=== PATIENT | female | born 1985 | race Caucasian/White ===

== ENCOUNTER 2020-03-12 17:05 | Outpatient (REF) | payer OTHER, SELFPAY ==
[2020-03-14 18:15] LABS: Rubella IgG Antibody 4.16 index; Rubeola IgG (Measles) >300.00 AU/mL
[2020-03-16 08:39] LABS: ~Hepatitis B Surface Antibody REACTIVE (Nonreactive)
== END 2020-03-12 17:06 | disposition home or self-care (01) ==
LOC: HO.LAB 17:05
PROVIDERS: Nurse Practitioner Family; PCP Internal Medicine; Visit Provider Internal Medicine
DX: Z28.3 Underimmunization status (principal)
CPT/HCPCS: 86706; 86735; 86762; 86765; 86787

== ENCOUNTER 2020-03-17 09:40 | Outpatient (REF) | payer OTHER, SELFPAY | END 2020-03-17 09:41 | disposition home or self-care (01) | LOC: HO.HMGCLDS 09:40 | PROVIDERS: PCP Internal Medicine; Visit Provider Nurse Practitioner Family | DX: Z30.09 Encounter for other general counseling and advice on contraception (principal); Z28.3 Underimmunization status | CPT/HCPCS: 86481; 87071; 99213 ==

== ENCOUNTER → 2020-05-13 11:51 | Outpatient (BNVA) | payer OTHER, SELFPAY | PROVIDERS: PCP Internal Medicine; Referring Provider Internal Medicine; Visit Provider Advanced Practice Midwife | DX: Z76.89 Persons encountering health services in other specified circumstances (principal) ==

== ENCOUNTER → 2020-05-27 10:11 | Outpatient (BNVA) | payer OTHER, SELFPAY | PROVIDERS: PCP Internal Medicine; Visit Provider Obstetrics & Gynecology | DX: Z30.017 Encounter for initial prescription of implantable subdermal contraceptive (principal); F17.210 Nicotine dependence, cigarettes, uncomplicated | CPT/HCPCS: 11981; 81025; 99212 ==

== ENCOUNTER 2020-08-27 11:35 | Outpatient (REF) | payer OTHER, SELFPAY ==
--- NOTE | ~2020-08-27 | XR_ITS ---
EXAMINATION: XR HAND, RIGHT CLINICAL INFORMATION: Right hand pain COMPARISON: None TECHNIQUE: 3 views of the right hand of the right hand. FINDINGS: There is no evidence of acute fracture or dislocation of the right hand or wrist. No destructive bony lesions identified. No radiopaque foreign bodies. No significant soft tissue swelling is appreciated. Joint spaces are maintained. XR/XR hand RT min 3V IMPRESSION: No significant right hand abnormality appreciated.
[2020-08-27 13:55] LABS: MANUAL DIFF FLAG NO
[2020-08-27 14:01] LABS: Basophils Percent Auto 0.4 % (0-2); Eosinophils Absolute Auto 0.1 X10*3/uL (0.0-0.4); Eosinophils Percent Auto 1.8 % (0-4); Hematocrit 40.2 % (37-47); Hemoglobin 12.8 g/dl (12.0-16.0); Imm Gran Abs Auto 0.02 X10*3/uL (0.00-0.03); Imm Gran Pct Auto 0.3 % (0.0-0.4); Lymphocytes Absolute Auto 2.2 X10*3/uL (1.2-4.9); Lymphocytes Percent Auto 29.5 % (20-40); Mean Corpuscular HGB Conc 31.8 g/dl (31.0-35.0); Mean Corpuscular Hemoglobin 30.6 pg (27.0-33.0); Mean Corpuscular Volume 96.2 fL (80-98); Mean Platelet Volume 10.1 fL (9.4-12.3); Monocytes Absolute Auto 0.4 X10*3/uL (0.1-1.2); Monocytes Percent Auto 5.3 % (2-11); Neutrophils Absolute Auto 4.6 X10*3/uL (2.0-8.3); Neutrophils Percent Auto 62.7 % (45-73); Platelet Count 234 X10*3/uL (160-400); Red Blood Count 4.18 X10*6/uL (4.20-5.50); Red Cell Distribution Width 12.5 % (11.0-16.0); White Blood Count 7.4 X10*3/uL (4.8-10.8)
[2020-08-27 14:27] LABS: C Reactive Protein 6.67 mg/dL (< or = 0.50)
[2020-08-27 15:01] LABS: Erythrocyte Sedimentation Rate 16 MM/HR (0-20)
[2020-08-28 04:59] LABS: ~HepC Num1 0.28 S/CO (0.00-0.79); ~Hepatitis C Antibody Nonreactive (Nonreactive)
[2020-08-28 10:07] LABS: Lyme Abs Screen <0.90 index
== END 2020-08-27 11:36 | disposition home or self-care (01) ==
LOC: HO.HMGCX 11:35
PROVIDERS: PCP Internal Medicine; Visit Provider Hospitalist
DX: M79.641 Pain in right hand (principal); M25.50 Pain in unspecified joint
CPT/HCPCS: 36415; 73130; 85025; 85652; 86140; 86618; 86803

== ENCOUNTER 2020-11-05 12:54 | Outpatient (REF) | payer OTHER, SELFPAY ==
--- NOTE | ~2020-11-05 | XR_ITS ---
EXAMINATION: XR ANKLE, LEFT CLINICAL INFORMATION: Left ankle pain. COMPARISON: None TECHNIQUE: AP, lateral, and mortise views of the left ankle. FINDINGS: The ankle joint and mortise are intact. There is no acute fracture or dislocation. The joint spaces are unremarkable. There is mild soft tissue swelling. XR/XR ankle LT min 3V IMPRESSION: Mild soft tissue swelling without acute underlying osseous abnormality.
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
== END 2020-11-05 12:55 | disposition home or self-care (01) ==
LOC: HO.HMGCX 12:54
PROVIDERS: PCP Internal Medicine; Visit Provider Hospitalist
DX: M25.572 Pain in left ankle and joints of left foot (principal); M25.562 Pain in left knee
CPT/HCPCS: 73564; 73610

== ENCOUNTER 2020-11-23 07:54 | Outpatient (REF) | payer OTHER, SELFPAY ==
--- NOTE | ~2020-11-23 | XR_ITS ---
EXAMINATION: XR KNEE, LEFT CLINICAL INFORMATION: Pain COMPARISON: Previous x-ray 11/05/2020 TECHNIQUE: Two views of the left knee. FINDINGS: Bone alignment is normal. No fracture or dislocation is seen. The joint spaces are normal. There is no joint effusion. XR/XR knee LT 2V IMPRESSION: Normal left knee.
== END 2020-11-23 07:55 | disposition home or self-care (01) ==
LOC: HO.HOSX 07:54
PROVIDERS: Visit Provider Physician Assistant
DX: M25.562 Pain in left knee (principal); S83.8X2A Sprain of other specified parts of left knee, initial encounter
CPT/HCPCS: 20610; 73560; 99202; J1040

== ENCOUNTER → 2020-12-14 13:06 | Outpatient (BNVA) | payer OTHER, SELFPAY | PROVIDERS: Visit Provider Physician Assistant | DX: S83.8X2D Sprain of other specified parts of left knee, subsequent encounter (principal) | CPT/HCPCS: 99212 ==

== ENCOUNTER → 2021-01-18 12:40 | Outpatient (BNVA) | payer OTHER, SELFPAY | PROVIDERS: Visit Provider Physician Assistant | DX: S83.8X2D Sprain of other specified parts of left knee, subsequent encounter (principal) | CPT/HCPCS: 99212 ==

== ENCOUNTER 2021-01-19 21:13 | Emergency (ER) | payer OTHER, SELFPAY ==
--- NOTE | ~2021-01-19 | XR_ITS ---
EXAMINATION: XR FINGER, LEFT CLINICAL INFORMATION: Middle finger bit COMPARISON: None TECHNIQUE: Three views of the left long finger. FINDINGS: The bones and soft tissues are normal. No fracture. Alignment is anatomic. Joint spaces are maintained. XR/XR finger LT min 2V IMPRESSION: Normal finger radiographs.
[2021-01-19 21:36] VITALS: BP 110/72; PULSE 114; RESP 18; TEMP 36.4; O2SAT 95; BMI 21.6
[2021-01-19] MEDS: Diphth,Pertus(ACell),Tet Adult 0.5 ML SYRINGE IM (22:03)
[2021-01-19] MEDS: metroNIDAZOLE 500 MG TABLET PO (22:03)
--- NOTE | 2021-01-19 22:06 | PC.NURSE ---
pt is having a hand xray at bedside at this time.
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
[2021-01-19 22:49] VITALS: BP 107/69; PULSE 103; RESP 16; O2SAT 95
== END 2021-01-19 22:54 | disposition home or self-care (01) ==
PROVIDERS: Emergency Provider Emergency Medicine; PCP Internal Medicine
DX: S61.253A Open bite of left middle finger without damage to nail, initial encounter (principal); Y04.1XXA Assault by human bite, initial encounter; M79.645 Pain in left finger(s); F17.210 Nicotine dependence, cigarettes, uncomplicated; Y93.9 Activity, unspecified; Y92.039 Unspecified place in apartment as the place of occurrence of the external cause; Y99.9 Unspecified external cause status
CPT/HCPCS: 73140; 90471; 90715; 99283; 99284

== ENCOUNTER 2021-02-02 15:42 | Outpatient (REF) | payer OTHER, SELFPAY ==
[2021-02-02 16:44] LABS: MANUAL DIFF FLAG NO
[2021-02-02 16:48] LABS: Basophils Percent Auto 0.3 % (0-2); Eosinophils Absolute Auto 0.1 X10*3/uL (0.0-0.4); Hematocrit 41.2 % (37-47); Hemoglobin 13.4 g/dl (12.0-16.0); Imm Gran Abs Auto 0.03 X10*3/uL (0.00-0.03); Imm Gran Pct Auto 0.2 % (0.0-0.4); Lymphocytes Percent Auto 24.2 % (20-40); Mean Corpuscular HGB Conc 32.5 g/dl (31.0-35.0); Mean Corpuscular Hemoglobin 31.5 pg (27.0-33.0); Mean Corpuscular Volume 96.7 fL (80-98); Mean Platelet Volume 9.8 fL (9.4-12.3); Monocytes Absolute Auto 0.4 X10*3/uL (0.1-1.2); Monocytes Percent Auto 3.3 % (2-11); Neutrophils Absolute Auto 8.8 X10*3/uL (2.0-8.3); Platelet Count 266 X10*3/uL (160-400); Red Blood Count 4.26 X10*6/uL (4.20-5.50); Red Cell Distribution Width 12.3 % (11.0-16.0); White Blood Count 12.4 X10*3/uL (4.8-10.8)
== END 2021-02-02 15:43 | disposition home or self-care (01) ==
LOC: HO.LAB 15:42
PROVIDERS: PCP Internal Medicine; Visit Provider Internal Medicine Pulmonary Disease
DX: Z91.09 Other allergy status, other than to drugs and biological substances (principal)
CPT/HCPCS: 36415; 82785; 85025; 86003; 99202

== ENCOUNTER 2021-02-04 15:19 | Outpatient (REF) | payer OTHER, SELFPAY ==
--- NOTE | ~2021-02-04 | MR_ITS ---
EXAMINATION: MR KNEE WITHOUT CONTRAST, LEFT CLINICAL INFORMATION: Left medial knee pain with popping. COMPARISON: None TECHNIQUE: MRI of the knee without contrast was performed using routine sequences on a high-field scanner. FINDINGS: MENISCI: Medial Meniscus: Intact Lateral Meniscus: Intact LIGAMENTS: Cruciate: Intact Collateral: Intact EXTENSOR MECHANISM: Intact ARTICULAR CARTILAGE/BONE: Patchy foci of intermediate T1 and T2 signal within the marrow of the distal femur and proximal tibia is likely due to small foci of hematopoietic marrow. No suspicious lesions. No abnormal marrow signal intensity. Patellofemoral Compartment: Normal Medial Compartment: Normal Lateral Compartment: Normal JOINT FLUID AND BURSAE: Trace volume of fluid is within normal limits. No effusion or bursitis. No Akhtar's cyst. A small 1.4 cm multilocular synovial cyst is present at the origin of the lateral head of the gastrocnemius. MR/MR knee LT wo con IMPRESSION: Intact menisci. Unremarkable MRI of the knee. No appreciable internal derangement.
== END 2021-02-04 15:20 | disposition home or self-care (01) ==
LOC: HO.MRI 15:19
PROVIDERS: PCP Internal Medicine; Visit Provider Physician Assistant
DX: S83.8X2A Sprain of other specified parts of left knee, initial encounter (principal)
CPT/HCPCS: 73721

== ENCOUNTER → 2021-02-09 13:45 | Outpatient (BNVA) | payer OTHER, SELFPAY | PROVIDERS: PCP Internal Medicine; Visit Provider Physician Assistant | DX: S83.8X2D Sprain of other specified parts of left knee, subsequent encounter (principal) | CPT/HCPCS: 99212 ==

== ENCOUNTER 2021-02-10 13:59 | Outpatient (REF) | payer OTHER, SELFPAY ==
--- NOTE | 2021-02-10 14:59 | PFT_ITS ---
INDICATION: Asthma. SPIROMETRY: The FEV1 to FVC 77% with an FEV1 of 2.38 L, which is 74% predicted, FVC of 3.11 L, which is 80% predicted. The FPP64-76 down to 57% predicted and maximum voluntary ventilation 97% predicted. LUNG VOLUMES: Total lung capacity 89% predicted. DIFFUSION CAPACITY: DLCO 68% predicted. COMPARISONS: None. INTERPRETATION: No obstructive nor restrictive ventilatory defects identified. There is a significant response to bronchodilators noted. There is also evidence of small airway disease, which may be consistent with the diagnosis of asthma. Lung volumes are within normal limits and the patient does have a mild diffusion impairment. If asthma is in differential, then the methacholine challenge may be confirmatory study. Clinical correlation warranted. MD HAYDEE Vera/MODBernarda / [id number]
== END 2021-02-10 14:00 | disposition home or self-care (01) ==
LOC: HO.RESP 13:59
PROVIDERS: PCP Internal Medicine; Visit Provider Internal Medicine Pulmonary Disease
DX: J45.998 Other asthma (principal)
CPT/HCPCS: 94060; 94727; 94729

== ENCOUNTER → 2021-02-24 15:05 | Outpatient (BNVA) | payer OTHER, SELFPAY | PROVIDERS: PCP Internal Medicine; Visit Provider Internal Medicine Pulmonary Disease | DX: J45.998 Other asthma (principal); Z91.09 Other allergy status, other than to drugs and biological substances | CPT/HCPCS: 99212 ==

== ENCOUNTER 2021-04-07 10:40 | Outpatient (REF) | payer OTHER, SELFPAY ==
[2021-04-08 05:56] LABS: CT PCR NOT DETECTED (Not Detect.); NG PCR NOT DETECTED (Not Detect.)
[2021-04-10 11:11] LABS: HPV mRNA E6/E7 rflx Not Detected (Not Detected)
== END 2021-04-07 10:41 | disposition home or self-care (01) ==
LOC: HO.LAB 10:40
PROVIDERS: PCP Internal Medicine; Visit Provider Advanced Practice Midwife
DX: Z01.419 Encounter for gynecological examination (general) (routine) without abnormal findings (principal); Z11.51 Encounter for screening for human papillomavirus (HPV); Z11.3 Encounter for screening for infections with a predominantly sexual mode of transmission; Z20.2 Contact with and (suspected) exposure to infections with a predominantly sexual mode of transmission; Z72.0 Tobacco use
CPT/HCPCS: 87491; 87591; 87624; 88142

== ENCOUNTER 2021-04-20 09:50 | Outpatient (REF) | payer OTHER, SELFPAY ==
[2021-04-20 12:27] LABS: Alanine Aminotransferase 17 U/L (0-31); Alkaline Phosphatase 110 U/L (39-117); Anion Gap 12 (12-20); Aspartate Amino Transferase 18 U/L (5-31); Bilirubin Total 0.3 mg/dL (0.0-1.0); Blood Urea Nitrogen 6 mg/dL (9-16); Calcium 8.9 mg/dL (8.4-10.2); Carbon Dioxide 27 mmol/L (22-29); Chloride 103 mmol/L (96-108); Estimated Glomerular Filt Rate > 60; Glucose Random 103 mg/dL (60-115); Potassium 4.2 mmol/L (3.3-5.1); Sodium 138 mmol/L (135-145); Total Protein 6.8 g/dL (6.5-8.0)
[2021-04-22 08:31] LABS: Immunoglobulin E 1522 kU/L (<OR=114)
== END 2021-04-20 09:51 | disposition home or self-care (01) ==
LOC: HO.HMGCLDS 09:50
PROVIDERS: Internal Medicine Pulmonary Disease; PCP Internal Medicine; Visit Provider Internal Medicine
DX: G47.9 Sleep disorder, unspecified (principal); J45.998 Other asthma; Z72.0 Tobacco use; Z91.09 Other allergy status, other than to drugs and biological substances
CPT/HCPCS: 36415; 80053; 82785

== ENCOUNTER 2021-06-30 14:09 | Outpatient (REF) | payer OTHER, SELFPAY ==
--- NOTE | ~2021-06-30 | XR_ITS ---
EXAMINATION: XR FOOT, RIGHT CLINICAL INFORMATION: Pain in right ankle and foot COMPARISON: None TECHNIQUE: AP, lateral, and oblique views of the right foot. FINDINGS: There is a nondisplaced fracture seen involving the base of the fifth metatarsal. There is associated soft tissue swelling seen. No dislocation is evident. Joint spaces are maintained. XR/XR foot RT min 3V IMPRESSION: Nondisplaced fracture base of the fifth metatarsal.
== END 2021-06-30 14:10 | disposition home or self-care (01) ==
LOC: HO.HMGCX 14:09
PROVIDERS: PCP Internal Medicine; Visit Provider Physician Assistant
DX: M25.571 Pain in right ankle and joints of right foot (principal)
CPT/HCPCS: 73630

== ENCOUNTER → 2021-07-12 10:27 | Outpatient (BNVA) | payer OTHER, SELFPAY | PROVIDERS: PCP Internal Medicine; Visit Provider Physician Assistant | DX: S92.354A Nondisplaced fracture of fifth metatarsal bone, right foot, initial encounter for closed fracture (principal) | CPT/HCPCS: 99202 ==

== ENCOUNTER → 2021-07-22 09:41 | Outpatient (BNVA) | payer OTHER, SELFPAY | PROVIDERS: PCP Internal Medicine; Visit Provider Internal Medicine Pulmonary Disease | DX: R06.2 Wheezing (principal); U09.9 Post COVID-19 condition, unspecified; J45.50 Severe persistent asthma, uncomplicated; Z79.899 Other long term (current) drug therapy | CPT/HCPCS: 99212 ==

== ENCOUNTER → 2021-08-19 09:40 | Outpatient (BNVA) | payer OTHER, SELFPAY | PROVIDERS: PCP Internal Medicine; Visit Provider Internal Medicine Pulmonary Disease | DX: J45.50 Severe persistent asthma, uncomplicated (principal); Z91.09 Other allergy status, other than to drugs and biological substances | CPT/HCPCS: 99212 ==

== ENCOUNTER 2021-08-25 07:50 | Outpatient (REF) | payer OTHER, SELFPAY ==
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
== END 2021-08-25 07:51 | disposition home or self-care (01) ==
LOC: HO.HOSX 07:50
PROVIDERS: Visit Provider Physician Assistant
DX: S92.354D Nondisplaced fracture of fifth metatarsal bone, right foot, subsequent encounter for fracture with routine healing (principal)
CPT/HCPCS: 73630; 99212

== ENCOUNTER 2021-10-15 08:13 | Outpatient (REF) | payer OTHER, SELFPAY | END 2021-10-15 08:14 | disposition home or self-care (01) | LOC: HO.MDS 08:13 | PROVIDERS: Visit Provider Internal Medicine Pulmonary Disease | DX: J45.50 Severe persistent asthma, uncomplicated (principal) | CPT/HCPCS: 96372 ==

== ENCOUNTER 2021-10-29 10:16 | Outpatient (REF) | payer OTHER, SELFPAY | END 2021-10-29 10:17 | disposition home or self-care (01) | LOC: HO.MDS 10:16 | PROVIDERS: Visit Provider Internal Medicine Pulmonary Disease | DX: J45.50 Severe persistent asthma, uncomplicated (principal) | CPT/HCPCS: 96372; J2357 ==

== ENCOUNTER 2021-11-12 12:53 | Outpatient (REF) | payer OTHER, SELFPAY | END 2021-11-12 12:54 | disposition home or self-care (01) | LOC: HO.MDS 12:53 | PROVIDERS: Visit Provider Internal Medicine Pulmonary Disease | DX: J45.50 Severe persistent asthma, uncomplicated (principal) | CPT/HCPCS: 96372; J2357 ==

== ENCOUNTER 2021-11-26 10:22 | Outpatient (REF) | payer OTHER, SELFPAY | END 2021-11-26 10:23 | disposition home or self-care (01) | LOC: HO.MDS 10:22 | PROVIDERS: Visit Provider Internal Medicine Pulmonary Disease | DX: J45.50 Severe persistent asthma, uncomplicated (principal) | CPT/HCPCS: 96372; J2357 ==

== ENCOUNTER 2021-12-10 15:42 | Outpatient (REF) | payer OTHER, SELFPAY | END 2021-12-10 15:43 | disposition home or self-care (01) | LOC: HO.MDS 15:42 | PROVIDERS: PCP Internal Medicine; Visit Provider Internal Medicine Pulmonary Disease | DX: J45.50 Severe persistent asthma, uncomplicated (principal) | CPT/HCPCS: 96372; J2357 ==

== ENCOUNTER 2021-12-24 10:14 | Outpatient (REF) | payer OTHER, SELFPAY | END 2021-12-24 10:15 | disposition home or self-care (01) | LOC: HO.MDS 10:14 | PROVIDERS: Visit Provider Internal Medicine Pulmonary Disease | DX: J45.50 Severe persistent asthma, uncomplicated (principal) | CPT/HCPCS: 96372; J2357 ==

== ENCOUNTER 2021-12-28 15:26 | Emergency (ER) | payer OTHER, SELFPAY | END 2021-12-28 19:33 | disposition left against medical advice (07) | PROVIDERS: Emergency Provider Emergency Medicine; PCP Internal Medicine | DX: Z04.1 Encounter for examination and observation following transport accident (principal) ==

== ENCOUNTER 2022-01-07 11:53 | Outpatient (REF) | payer OTHER, SELFPAY | END 2022-01-07 11:54 | disposition home or self-care (01) | LOC: HO.MDS 11:53 | PROVIDERS: Visit Provider Internal Medicine Pulmonary Disease | DX: J45.50 Severe persistent asthma, uncomplicated (principal) | CPT/HCPCS: 96372; J2357 ==

== ENCOUNTER 2022-01-21 10:21 | Outpatient (REF) | payer OTHER, SELFPAY | END 2022-01-21 10:22 | disposition home or self-care (01) | LOC: HO.MDS 10:21 | PROVIDERS: Visit Provider Internal Medicine Pulmonary Disease | DX: J45.50 Severe persistent asthma, uncomplicated (principal) | CPT/HCPCS: 96372; J2357 ==

== ENCOUNTER 2022-01-21 12:51 | Outpatient (REF) | payer OTHER, SELFPAY ==
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
== END 2022-01-21 12:52 | disposition home or self-care (01) ==
LOC: HO.HMGCX 12:51
PROVIDERS: PCP Internal Medicine; Visit Provider Internal Medicine
DX: M54.50 Low back pain, unspecified (principal); V89.0XXD Person injured in unspecified motor-vehicle accident, nontraffic, subsequent encounter
CPT/HCPCS: 72100

== ENCOUNTER 2022-02-04 10:52 | Outpatient (REF) | payer OTHER, SELFPAY | END 2022-02-04 10:53 | disposition home or self-care (01) | LOC: HO.MDS 10:52 | PROVIDERS: PCP Internal Medicine; Visit Provider Internal Medicine Pulmonary Disease | DX: J45.50 Severe persistent asthma, uncomplicated (principal) | CPT/HCPCS: 96372; J2357 ==

== ENCOUNTER 2022-02-18 11:00 | Outpatient (REF) | payer OTHER, SELFPAY | END 2022-02-18 11:01 | disposition home or self-care (01) | LOC: HO.MDS 11:00 | PROVIDERS: Visit Provider Internal Medicine Pulmonary Disease | DX: J45.51 Severe persistent asthma with (acute) exacerbation (principal); F17.210 Nicotine dependence, cigarettes, uncomplicated; Z91.09 Other allergy status, other than to drugs and biological substances; Z86.16 Personal history of COVID-19 | CPT/HCPCS: 96372; 99212; J2357 ==

== ENCOUNTER 2022-02-22 09:51 | Outpatient (REF) | payer OTHER, SELFPAY ==
[2022-02-22 11:51] LABS: MANUAL DIFF FLAG NO
[2022-02-22 12:09] LABS: Basophils Percent Auto 0.6 % (0-2); Eosinophils Absolute Auto 0.1 X10*3/uL (0.0-0.4); Eosinophils Percent Auto 1.1 % (0-4); Hematocrit 41.7 % (37.0-47.0); Hemoglobin 13.5 g/dl (12.0-16.0); Imm Gran Abs Auto 0.04 X10*3/uL (0.00-0.03); Imm Gran Pct Auto 0.6 % (0.0-0.4); Lymphocytes Absolute Auto 1.7 X10*3/uL (1.2-4.9); Lymphocytes Percent Auto 23.7 % (20-40); Mean Corpuscular HGB Conc 32.4 g/dl (31.0-35.0); Mean Corpuscular Hemoglobin 31.8 pg (27.0-33.0); Mean Corpuscular Volume 98.1 fL (80.0-98.0); Mean Platelet Volume 9.5 fL (9.4-12.3); Monocytes Absolute Auto 0.2 X10*3/uL (0.1-1.2); Monocytes Percent Auto 2.9 % (2-11); Neutrophils Percent Auto 71.1 % (45-73); Platelet Count 263 X10*3/uL (160-400); Red Blood Count 4.25 X10*6/uL (4.20-5.50)
[2022-02-22 12:32] LABS: Alanine Aminotransferase 13 U/L (0-31); Albumin Level 3.8 g/dL (3.5-5.0); Alkaline Phosphatase 85 U/L (39-117); Anion Gap 14 (12-20); Aspartate Amino Transferase 12 U/L (5-31); Bilirubin Total 0.3 mg/dL (0.0-1.0); Blood Urea Nitrogen 15 mg/dL (9-16); Carbon Dioxide 25 mmol/L (22-29); Chloride 104 mmol/L (96-108); Estimated Glomerular Filt Rate > 60; Glucose Random 120 mg/dL (60-115); Potassium 4.6 mmol/L (3.3-5.1); Sodium 138 mmol/L (135-145); Total Protein 6.7 g/dL (6.5-8.0)
[2022-02-22 12:39] LABS: TSH reflex Free T4 1.83 uIU/mL (0.32-4.0)
== END 2022-02-22 09:52 | disposition home or self-care (01) ==
LOC: HO.HMGCLDS 09:51
PROVIDERS: PCP Internal Medicine; Visit Provider Internal Medicine
DX: J45.50 Severe persistent asthma, uncomplicated (principal); G47.9 Sleep disorder, unspecified; F33.9 Major depressive disorder, recurrent, unspecified; R14.0 Abdominal distension (gaseous); Z72.0 Tobacco use
CPT/HCPCS: 36415; 80053; 84443; 85025

== ENCOUNTER 2022-03-04 12:06 | Outpatient (REF) | payer OTHER, SELFPAY | END 2022-03-04 12:07 | disposition home or self-care (01) | LOC: HO.MDS 12:06 | PROVIDERS: Visit Provider Internal Medicine Pulmonary Disease | DX: J45.50 Severe persistent asthma, uncomplicated (principal) | CPT/HCPCS: 96372; J2357 ==

== ENCOUNTER 2022-03-11 09:51 | Outpatient (REF) | payer OTHER, SELFPAY ==
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
== END 2022-03-11 09:52 | disposition home or self-care (01) ==
LOC: HO.HMGCX 09:51
PROVIDERS: PCP Internal Medicine; Visit Provider Internal Medicine
DX: R14.0 Abdominal distension (gaseous) (principal)
CPT/HCPCS: 76700

== ENCOUNTER 2022-03-18 12:19 | Outpatient (REF) | payer OTHER, SELFPAY | END 2022-03-18 12:20 | disposition home or self-care (01) | LOC: HO.MDS 12:19 | PROVIDERS: Visit Provider Internal Medicine Pulmonary Disease | DX: J45.50 Severe persistent asthma, uncomplicated (principal) | CPT/HCPCS: 96372; J2357 ==

== ENCOUNTER 2022-04-01 09:58 | Outpatient (REF) | payer OTHER, SELFPAY ==
[2022-04-01 10:16] LABS: MANUAL DIFF FLAG NO
[2022-04-01 10:32] LABS: Basophils Percent Auto 0.5 % (0-2); Eosinophils Absolute Auto 0.2 X10*3/uL (0.0-0.4); Eosinophils Percent Auto 1.9 % (0-4); Hemoglobin 13.9 g/dl (12.0-16.0); Imm Gran Abs Auto 0.03 X10*3/uL (0.00-0.03); Imm Gran Pct Auto 0.3 % (0.0-0.4); Lymphocytes Absolute Auto 1.7 X10*3/uL (1.2-4.9); Lymphocytes Percent Auto 19.7 % (20-40); Mean Corpuscular HGB Conc 32.3 g/dl (31.0-35.0); Mean Corpuscular Hemoglobin 31.2 pg (27.0-33.0); Mean Corpuscular Volume 96.6 fL (80.0-98.0); Mean Platelet Volume 9.2 fL (9.4-12.3); Monocytes Absolute Auto 0.5 X10*3/uL (0.1-1.2); Monocytes Percent Auto 5.6 % (2-11); Neutrophils Absolute Auto 6.2 x10*3/uL (2.0-8.3); Platelet Count 268 X10*3/uL (160-400); Red Blood Count 4.45 X10*6/uL (4.20-5.50); White Blood Count 8.6 X10*3/uL (4.8-10.8)
[2022-04-01 11:04] LABS: Alanine Aminotransferase 12 U/L (0-31); Albumin Level 3.9 g/dL (3.5-5.0); Alkaline Phosphatase 96 U/L (39-117); Anion Gap 15 (12-20); Aspartate Amino Transferase 16 U/L (5-31); Bilirubin Total 0.3 mg/dL (0.0-1.0); Blood Urea Nitrogen 8 mg/dL (9-16); Calcium 9.4 mg/dL (8.4-10.2); Carbon Dioxide 28 mmol/L (22-29); Chloride 103 mmol/L (96-108); Estimated Glomerular Filt Rate > 60; Glucose Random 114 mg/dL (60-115); Potassium 4.8 mmol/L (3.3-5.1); Sodium 141 mmol/L (135-145)
== END 2022-04-01 09:59 | disposition home or self-care (01) ==
LOC: HO.MDS 09:58
PROVIDERS: Absent Provider Surgery; PCP Internal Medicine; Visit Provider Internal Medicine Pulmonary Disease
DX: J45.50 Severe persistent asthma, uncomplicated (principal); K80.20 Calculus of gallbladder without cholecystitis without obstruction; K80.50 Calculus of bile duct without cholangitis or cholecystitis without obstruction; R14.0 Abdominal distension (gaseous); Z72.0 Tobacco use
CPT/HCPCS: 36415; 74181; 80053; 85025; 96372; 99202; 99212; J2357

== ENCOUNTER 2022-04-01 11:56 | Outpatient (REF) | payer OTHER, SELFPAY ==
--- NOTE | ~2022-04-01 | MR_ITS ---
EXAMINATION: MR ABDOMEN WITHOUT CONTRAST CLINICAL INFORMATION: Calculus of bile duct without cholangitis or cholecystitis COMPARISON: Ultrasound 03/11/2022 TECHNIQUE: MR abdomen is performed without gadolinium contrast. Heavily T2-weighted MRCP images were obtained. FINDINGS: LUNG BASES: The visualized lung bases are unremarkable. LIVER, GALLBLADDER, AND BILIARY TREE: The liver is normal in size, smooth in contour, and normal in signal. No focal hepatic lesion or biliary ductal dilatation is present. Gallstone is filled with innumerable tiny gallstones. No intrahepatic or extrahepatic biliary ductal dilatation. The common bile duct measures 4 to 5 mm in diameter. No choledocholithiasis seen. PANCREAS: Unremarkable. SPLEEN: Unremarkable. ADRENAL GLANDS: Unremarkable. KIDNEYS AND URETERS: The kidneys are normal in size and shape. No hydronephrosis. No perinephric stranding. GASTROINTESTINAL TRACT: No bowel obstruction. No ascites or fluid collection. ABDOMINAL WALL: No significant hernia is appreciated. LYMPH NODES: No lymphadenopathy. VASCULAR: Unremarkable. OSSEOUS STRUCTURES: Marrow signal normal. MR/MR MRCP IMPRESSION: Cholelithiasis. No biliary ductal dilatation or evidence of choledocholithiasis.
== END 2022-04-01 11:57 | disposition home or self-care (01) ==
LOC: HO.MRI 11:56
PROVIDERS: PCP Internal Medicine; Visit Provider Surgery
DX: Z13.89 Encounter for screening for other disorder (principal)
CPT/HCPCS: 74181; 99212

== ENCOUNTER → 2022-04-08 11:15 | Outpatient (BNVA) | payer OTHER, SELFPAY | PROVIDERS: PCP Internal Medicine; Visit Provider Surgery | DX: K80.44 Calculus of bile duct with chronic cholecystitis without obstruction (principal); K80.20 Calculus of gallbladder without cholecystitis without obstruction; R14.0 Abdominal distension (gaseous); J45.909 Unspecified asthma, uncomplicated; Z72.0 Tobacco use | CPT/HCPCS: 99212 ==

== ENCOUNTER 2022-04-15 11:59 | Outpatient (REF) | payer OTHER, SELFPAY | END 2022-04-15 12:00 | disposition home or self-care (01) | LOC: HO.MDS 11:59 | PROVIDERS: Visit Provider Internal Medicine Pulmonary Disease | DX: J45.50 Severe persistent asthma, uncomplicated (principal) | CPT/HCPCS: 96372; J2357 ==

== ENCOUNTER → 2022-05-03 10:52 | Outpatient (BNVA) | payer OTHER, SELFPAY | PROVIDERS: PCP Internal Medicine; Visit Provider Internal Medicine Pulmonary Disease | DX: Z01.811 Encounter for preprocedural respiratory examination (principal); J45.50 Severe persistent asthma, uncomplicated; Z91.09 Other allergy status, other than to drugs and biological substances | CPT/HCPCS: 99212 ==

== ENCOUNTER 2022-05-05 10:28 | Day surgery (SDC) | payer OTHER, SELFPAY ==
[2022-04-27 15:21] VITALS: BMI 24.6
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
[2022-05-05] VITALS (10 sets, daily range): BP systolic 93–115; BP diastolic 54–69; PULSE 75–84; RESP 16–18; TEMP 36.3–37; O2SAT 94–96; BMI 25.9
[2022-05-05 11:02] LABS: UPreg QC Valid YES; Urine Pregnancy NEGATIVE (NEGATIVE)
--- NOTE | 2022-05-05 11:06 | PC.NURSE ---
called for a resp treatment
[2022-05-05] MEDS: Albuterol Sulfate (0.083%) 2.5 MG/3 ML VIAL.NEB INHALE (11:08)
[2022-05-05 11:10] LABS: Amphetamine Screen Urine Not Detected (Not Detect); Barbiturates, Urine Not Detected (Not Detect); Benzodiazepines Screen Urine Not Detected (Not Detect); Cannabinoid Screen Urine Not Detected (Not Detect); Cocaine Screen Urine Not Detected (Not Detect); Fentanyl, urine Not Detected (Not Detect); Opiate Screen Urine Not Detected (Not Detect); Phencyclidine Screen Urine Not Detected (Not Detect)
--- NOTE | 2022-05-05 11:10 | PC.NURSE ---
receiving resp treatment
[2022-05-05] MEDS: Lactated Ringers 1,000 ML 100 ML IVCONT (11:21)
--- NOTE | 2022-05-05 12:25 | MHC.SHP ---
Pre-Procedural Eval Section A Date of Service: 05/05/22 The patient is an INPATIENT: No The History & Physical has been completed within 30 days and I have reviewed it.: Yes Section B Chief Complaint: Calculus of gallbladder without cholecystitis with Allergies: Allergies Allergy/AdvReac Type Severity Reaction Status Date / Time ciprofloxacin [CIPROFLOXACIN] Allergy Severe ANAPHYLAXIS Verified 05/03/22 11:14 penicillin V Allergy Severe throat Verified 05/03/22 11:14 swelling, hives amoxicillin [AMOXICILLIN] Allergy Unknown SWELLING Verified 05/03/22 11:14 sulfadiazine Allergy Unknown hives Verified 05/03/22 11:14 Plan I have reviewed the history and physical and performed a pertinent physical examination on my patient. No changes have occurred unless specified.
--- NOTE | 2022-05-05 12:25 | W.PM.OPN ---
Operative Note Operative Note Date of Service: 05/05/22 Narrative: Preop diagnosis: [Gallstones and choledocholithiasis by ultrasound with abdominal bloating] Postop diagnosis: [Same, COHEN] Procedure: [lap latoya] Surgeon: Bryson Wiseman MD Assist: [] Anesthesia: [GET, local Marcaine 0.5% w/ epi] Estimated blood loss: [3cc] Specimen: [Gallbladder and content] Intraoperative findings: [Fusiform gallbladder with 4 mm cystic duct and stone impacted in the neck; 3-4 mm cystic artery and its usual location, COHEN] Indications: [The patient is a 37-year-old woman who is been experiencing abdominal bloating and in her workup was demonstrated to have gallstones on ultrasound. In addition, a 3 mm common bile duct stone was identified so an MRCP was performed that did not demonstrate any debris and the common duct or evidence of further stones. Given her symptoms, I recommended laparoscopic cholecystectomy in reviewed the inherent risks of bleeding, infection, need for open surgery, ongoing pain, bile leak, common bile duct injury. Activity restrictions were also reviewed as well as dietary restrictions. The patient seemed understand her options, declined a 2nd opinion] Procedure: [The patient was identified by myself in the preoperative holding area and again in the operating suite. 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 She was placed supine on the table, induced in general endotracheal anesthesia administered with excellent effect. An appropriate time-out was performed. A footboard was utilized. The patient's abdomen was widely prepped and draped in the usual manner for surgery using chlorhexidine. Preemptive local was used at all trocar insertion sites. Again at the supraumbilical location and after infiltrating local, made a stab incision and placed a Veress needle without difficulty. An appropriate drop test was performed and a pneumoperitoneum of 15 mmHg was obtained using carbon dioxide. opening pressure was 6 mmHg. Next, the needle was withdrawn and a 5 mm/30 degree laparoscoped over Optiview trocar was used to access the abdomen without incident. Upon examining the abdomen, there was no evidence of injury from the Veress needle or trocar. Next, 5 mm trocars were placed in the epigastric, subcostal and right anterior axillary line just above the line of the umbilicus. Under direct laparoscopic vision, the 5 mm umbilical port was upsized to a 12 mm. The patient was then positioned in reverse Trendelenburg position and banked left. The gallbladder was clearly identified and grasped by its fundus. It was retracted cranially and anteriorly and dissection began in the cystic triangle. The cystic duct was identified at its junction on the gallbladder and dissection began laterally, then circumferentially dissected using the [place] dissector and hook. The cystic artery was then carefully identified and circumferentially dissected. Once dissection of both structures was complete and the critical view of safety demonstrated, the duct and artery were double clipped proximally and once distally and sharply divided. Electrocautery was used to remove the gallbladder from its fossa on the liver. Liver bed was inspected for hemostasis and the clips were noted to be on the respective structures. The gallbladder was placed in an Endo-Catch bag and delivered through the umbilicus under direct laparoscopic vision. The abdomen was again inspected with the laparoscoped and a abdomen deflated to assess for hemostasis. The patient was returned to neutral position, the abdomen deflated and the fascia of the supraumbilical incision closed with interrupted Vicryl sutures. Skin was closed with 4-0 Monocryl subcuticular sutures. Mastisol and Steri-Strips were applied followed by Band-Aids. The patient tolerated the procedure well and was extubated recovered in stable condition. All sponge instrument counts were correct. At the patient's request I called the pt's mom at [phone] and apprised her of the operation and post-op plan. Her questions seemed to be satisfactorily answered.]
[2022-05-05] MEDS: oxyCODONE HCl Immed Release 5 MG TABLET 10 MG PO (15:12)
[2022-05-05] MEDS: Ketorolac Tromethamine 30 MG/ML VIAL IVPUSH (15:13)
== END 2022-05-05 16:06 | disposition home or self-care (01) ==
PROVIDERS: Nurse Practitioner; PCP Internal Medicine; Visit Provider Surgery
PROC: 0FT44ZZ Resection of Gallbladder, Percutaneous Endoscopic Approach (ICD-10-PCS; CPT 47562; principal; 2022-05-05 12:00)
DX: K80.64 Calculus of gallbladder and bile duct with chronic cholecystitis without obstruction (principal); K75.81 Nonalcoholic steatohepatitis (NASH); J45.50 Severe persistent asthma, uncomplicated; F11.20 Opioid dependence, uncomplicated; F17.210 Nicotine dependence, cigarettes, uncomplicated; Z79.52 Long term (current) use of systemic steroids; Z79.899 Other long term (current) drug therapy; Z88.0 Allergy status to penicillin; Z88.1 Allergy status to other antibiotic agents; Z88.2 Allergy status to sulfonamides
CPT/HCPCS: 47562; 80307; 81025; 88304; 94640; J0131; J1100; J1885; J2250; J3010

== ENCOUNTER 2022-07-01 14:46 | Outpatient (REF) | payer OTHER, SELFPAY | END 2022-07-01 14:47 | disposition home or self-care (01) | LOC: HO.MDS 14:46 | PROVIDERS: PCP Internal Medicine; Visit Provider Internal Medicine Pulmonary Disease | DX: J45.50 Severe persistent asthma, uncomplicated (principal) | CPT/HCPCS: 96372; J2357 ==

== ENCOUNTER 2022-07-20 14:59 | Outpatient (REF) | payer OTHER, SELFPAY ==
--- NOTE | ~2022-07-20 | XR_ITS ---
EXAMINATION: XR FOOT, RIGHT CLINICAL INFORMATION: Right foot pain. COMPARISON: Right foot radiographs dated 08/25/2021. TECHNIQUE: AP, lateral, and oblique views of the right foot. An indicator arrow points to the tarsal bones laterally. FINDINGS: Has been interval healing of the previously seen fracture at the base of the fifth metatarsal. No acute fracture or dislocation is seen. The tarsal bones are normally aligned. The soft tissues are unremarkable. XR/XR foot RT 2V IMPRESSION: Interval healing of previously seen fracture at the base of the fifth metatarsal. No acute abnormality.
--- NOTE | ~2022-07-20 | XR_ITS ---
EXAMINATION: XR FINGER, RIGHT CLINICAL INFORMATION: Pain COMPARISON: 08/27/2020 TECHNIQUE: Three views of the right index finger. FINDINGS: Corresponding to patient indicated site of pain is dense calcification adjacent to the second DIP joint which may reflect an old fracture or dystrophic calcifications within the soft tissue. No definite acute fracture. XR/XR finger RT min 2V IMPRESSION: Corresponding to patient indicated site of pain is dense calcification adjacent to the second DIP joint which may reflect an old fracture or dystrophic calcifications within the soft tissue. Underlying ligamentous injury cannot be excluded. Consider MRI for further evaluation.
== END 2022-07-20 15:00 | disposition home or self-care (01) ==
LOC: HO.HMGCX 14:59
PROVIDERS: Visit Provider Internal Medicine
DX: M79.671 Pain in right foot (principal); M79.644 Pain in right finger(s)
CPT/HCPCS: 73140; 73620

== ENCOUNTER 2022-07-22 10:22 | Outpatient (REF) | payer OTHER, SELFPAY | END 2022-07-22 10:23 | disposition home or self-care (01) | LOC: HO.MDS 10:22 | PROVIDERS: Visit Provider Internal Medicine Pulmonary Disease | DX: J45.50 Severe persistent asthma, uncomplicated (principal) | CPT/HCPCS: 96372; J2357 ==

== ENCOUNTER 2022-08-05 10:44 | Outpatient (REF) | payer OTHER, SELFPAY | END 2022-08-05 10:45 | disposition home or self-care (01) | LOC: HO.MDS 10:44 | PROVIDERS: Visit Provider Internal Medicine Pulmonary Disease | DX: J45.50 Severe persistent asthma, uncomplicated (principal) | CPT/HCPCS: 96372; J2357 ==

== ENCOUNTER 2022-08-19 14:17 | Outpatient (REF) | payer OTHER, SELFPAY | END 2022-08-19 14:18 | disposition home or self-care (01) | LOC: HO.MDS 14:17 | PROVIDERS: Visit Provider Internal Medicine Pulmonary Disease | DX: J45.50 Severe persistent asthma, uncomplicated (principal) | CPT/HCPCS: 96372; J2357 ==

== ENCOUNTER 2022-09-02 12:08 | Outpatient (REF) | payer OTHER, SELFPAY | END 2022-09-02 12:09 | disposition home or self-care (01) | LOC: HO.MDS 12:08 | PROVIDERS: Visit Provider Internal Medicine Pulmonary Disease | DX: J45.50 Severe persistent asthma, uncomplicated (principal) | CPT/HCPCS: 96372; 99212; J2357 ==

== ENCOUNTER 2022-09-23 09:52 | Outpatient (REF) | payer OTHER, SELFPAY ==
[2022-09-23 14:16] LABS: CT PCR NOT DETECTED (Not Detect.); NG PCR NOT DETECTED (Not Detect.)
[2022-09-29 04:44] LABS: HPV mRNA E6/E7 rflx Not Detected (Not Detected)
== END 2022-09-23 09:53 | disposition home or self-care (01) ==
LOC: HO.LNP 09:52
PROVIDERS: PCP Internal Medicine; Visit Provider Advanced Practice Midwife
DX: Z01.419 Encounter for gynecological examination (general) (routine) without abnormal findings (principal); Z11.51 Encounter for screening for human papillomavirus (HPV); J45.50 Severe persistent asthma, uncomplicated
CPT/HCPCS: 0353U; 87624; 88142; 99211

== ENCOUNTER 2022-10-14 11:26 | Outpatient (REF) | payer OTHER, SELFPAY ==
[2022-10-14 13:48] LABS: MANUAL DIFF FLAG NO
[2022-10-14 14:03] LABS: Basophils Percent Auto 0.4 % (0-2); Eosinophils Absolute Auto 0.1 X10*3/uL (0.0-0.4); Eosinophils Percent Auto 2.1 % (0-4); Hematocrit 43.2 % (37.0-47.0); Hemoglobin 14.3 g/dl (12.0-16.0); Imm Gran Abs Auto 0.02 X10*3/uL (0.00-0.03); Imm Gran Pct Auto 0.3 % (0.0-0.4); Lymphocytes Absolute Auto 2.3 X10*3/uL (1.2-4.9); Lymphocytes Percent Auto 34.5 % (20-40); Mean Corpuscular HGB Conc 33.1 g/dl (31.0-35.0); Mean Corpuscular Volume 96.6 fL (80.0-98.0); Monocytes Absolute Auto 0.5 X10*3/uL (0.1-1.2); Monocytes Percent Auto 6.7 % (2-11); Neutrophils Absolute Auto 3.7 x10*3/uL (2.0-8.3); Platelet Count 297 X10*3/uL (160-400); Red Blood Count 4.47 X10*6/uL (4.20-5.50); White Blood Count 6.7 X10*3/uL (4.8-10.8)
[2022-10-14 14:22] LABS: Alanine Aminotransferase 13 U/L (0-31); Albumin Level 3.8 g/dL (3.5-5.0); Alkaline Phosphatase 88 U/L (39-117); Anion Gap 9 (12-20); Aspartate Amino Transferase 15 U/L (5-31); Bilirubin Total 0.5 mg/dL (0.0-1.0); Blood Urea Nitrogen 6 mg/dL (9-16); Calcium 9.5 mg/dL (8.4-10.2); Carbon Dioxide 31 mmol/L (22-29); Chloride 105 mmol/L (96-108); Estimated Glomerular Filt Rate > 60; Glucose Random 100 mg/dL (60-115); Potassium 4.6 mmol/L (3.3-5.1); Sodium 140 mmol/L (135-145); Total Protein 6.9 g/dL (6.5-8.0)
[2022-10-14 14:41] LABS: TSH reflex Free T4 2.79 uIU/mL (0.32-4.0)
[2022-10-16 04:14] LABS: LDL Cholesterol Direct 185 mg/dL (<100)
== END 2022-10-14 11:27 | disposition home or self-care (01) ==
LOC: HO.HMGCLDS 11:26
PROVIDERS: PCP Internal Medicine; Visit Provider Internal Medicine
DX: Z00.01 Encounter for general adult medical examination with abnormal findings (principal); F33.9 Major depressive disorder, recurrent, unspecified; J45.50 Severe persistent asthma, uncomplicated; S92.351A Displaced fracture of fifth metatarsal bone, right foot, initial encounter for closed fracture
CPT/HCPCS: 36415; 80053; 83721; 84443; 85025; 99212

== ENCOUNTER 2022-10-14 11:56 | Outpatient (REF) | payer OTHER, SELFPAY ==
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
== END 2022-10-14 11:57 | disposition home or self-care (01) ==
LOC: HO.HOSX 11:56
PROVIDERS: Visit Provider Physician Assistant
DX: S92.351A Displaced fracture of fifth metatarsal bone, right foot, initial encounter for closed fracture (principal); X58.XXXA Exposure to other specified factors, initial encounter; Y93.9 Activity, unspecified; Y92.9 Unspecified place or not applicable; Y99.9 Unspecified external cause status
CPT/HCPCS: 73130

== ENCOUNTER → 2022-10-24 12:28 | Outpatient (BNVA) | payer OTHER, SELFPAY | PROVIDERS: PCP Internal Medicine; Visit Provider Obstetrics & Gynecology | DX: Z30.09 Encounter for other general counseling and advice on contraception (principal) | CPT/HCPCS: 99202 ==

== ENCOUNTER → 2022-11-04 14:01 | Outpatient (BNVA) | payer OTHER, SELFPAY | PROVIDERS: PCP Internal Medicine; Visit Provider Nurse Practitioner Family | DX: J45.50 Severe persistent asthma, uncomplicated (principal); Z91.09 Other allergy status, other than to drugs and biological substances | CPT/HCPCS: 99212 ==

== ENCOUNTER → 2022-11-09 12:36 | Outpatient (BNVA) | payer OTHER, SELFPAY | PROVIDERS: PCP Internal Medicine; Visit Provider Orthopaedic Surgery | DX: R22.31 Localized swelling, mass and lump, right upper limb (principal); R20.0 Anesthesia of skin | CPT/HCPCS: 99202 ==

== ENCOUNTER 2022-12-16 10:14 | Outpatient (AMB) | payer OTHER, SELFPAY ==
--- NOTE | 2022-12-16 10:18 | MHC.OFFVIS ---
Intake Vital Signs 12/16/22 10:21 Height 5 ft 5 in Weight 154 lb BMI 25.6 Intake Visit Reasons: Pre R IF Mass Exc of Bony Mass 12/22/22 AR Intake Note: Sofya a 37 year old female presents today for a preoperative visit for right index finger excision of bony mass. Allergies ciprofloxacin [CIPROFLOXACIN] Allergy (Severe, Verified 12/16/22 10:22) ANAPHYLAXIS penicillin V Allergy (Severe, Verified 12/16/22 10:22) throat swelling, hives amoxicillin [AMOXICILLIN] Allergy (Unknown, Verified 12/16/22 10:22) SWELLING sulfadiazine Allergy (Unknown, Verified 12/16/22 10:22) hives HPI Pre R IF Mass Exc of Bony Mass 12/22/22 AR HPI Details 37-year-old female who presents to the office today for preop visit right index finger excision bony mass scheduled for 12/22/[address] Dozier. She continues to have discomfort with daily activities. [facility] Medical History History of asthma History of back pain History of TMJ disorder Hx of drug abuse Hx of renal calculi Pseudoangiomatous stromal hyperplasia of breast Uterus, adenomyosis Surgical History Hx of breast lump removal Hx of cholecystectomy Hx of hand surgery Hx of umbilical hernia repair Family History Father Graves disease DVT (deep venous thrombosis) HTN (hypertension) Mother Graves disease Cervical cancer Ovarian cancer [place] disease Brother Graves disease Daughter ADHD Son ADHD Maternal Aunt Breast CA Other Mental health disorder Substance use disorder Social History Household Members: Significant Other and Children Housing: Apartment Alcohol intake: never Patient Tobacco Use Status: Current everyday Tobacco user Tobacco use type: Cigarette Cigarette Packs Per Day: 1 Cigarettes Per Day: 20.0 e-Cigarette/Vaping Use: Never Used service: No Current occupational status: employed 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[employer] - [employer] Sexual orientation: Straight/Heterosexual Gender identity: Female Cognitive needs: No Hearing needs: No Vision needs: Yes Female Reproductive History Menstrual Age of Menarche: 12 Review of Systems Const All systems reviewed & are unremarkable except as noted in HPI and below Physical Exam Vital Signs: BMI result Body Mass Index 25.6 Extrem Other: She has a tender bump on the radial aspect of index finger DIP joint She has full active joint ROM Assessment & Plan Assessment & Plan (1) Mass of finger of right hand: Code(s): R22.31 - Localized swelling, mass and lump, right upper limb Plan: The risks and benefits of operative treatment were discussed with the patient and the patient wishes to proceed with surgery.? These risks include, but are not limited to risk of damage to blood vessels, nerves, tendons, infection, recurrence, incomplete relief of preoperative symptoms, persistent pain, possible need for further surgery and the risks associated with regional blocks and anesthesia. Consents have been signed by the patient and Dr. Dozier and She will proceed with Right index finger excision of bony mass. Coding Level of Care Code Est Pt Level 3 (34493) Diagnoses Mass of finger of right hand R22.31
[2022-12-16 10:21] VITALS: BMI 25.6
== END 2022-12-16 10:35 | disposition home or self-care (01) ==
PROVIDERS: PCP Internal Medicine; Visit Provider Physician Assistant
DX: R22.31 Localized swelling, mass and lump, right upper limb (principal)
CPT/HCPCS: 99214

== ENCOUNTER → 2022-12-16 10:14 | Outpatient (BNVA) | payer OTHER, SELFPAY | PROVIDERS: PCP Internal Medicine; Visit Provider Physician Assistant | DX: R22.31 Localized swelling, mass and lump, right upper limb (principal) | CPT/HCPCS: 99212 ==

== ENCOUNTER 2022-12-22 06:01 | Day surgery (SDC) | payer OTHER, SELFPAY ==
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
[2022-12-22] VITALS (11 sets, daily range): BP systolic 104–140; BP diastolic 52–78; PULSE 77–99; RESP 16–20; TEMP 36.2–36.6; O2SAT 93–98; BMI 27.5
[2022-12-22] MEDS: Lactated Ringers 1,000 ML 100 ML IVCONT (06:37)
[2022-12-22] MEDS: Albuterol Sulfate (0.083%) 2.5 MG/3 ML VIAL.NEB INHALE (06:43)
[2022-12-22 07:02] LABS: UPreg QC Valid YES; Urine Pregnancy NEGATIVE (NEGATIVE)
--- NOTE | 2022-12-22 07:49 | MHC.SHP ---
Pre-Procedural Eval Section A Date of Service: 12/22/22 The patient is an INPATIENT: No Changes since office visit: No Cold of Flu in the past 2 weeks, No New Medical Problems, No Changes in Medication and No Patient answered all questions The History & Physical has been completed within 30 days and I have reviewed it.: Yes Section B Chief Complaint: Localized swelling, mass and lump, right upper kellogg Allergies: Allergies Allergy/AdvReac Type Severity Reaction Status Date / Time ciprofloxacin [CIPROFLOXACIN] Allergy Severe ANAPHYLAXIS Verified 12/16/22 10:22 penicillin V Allergy Severe throat Verified 12/16/22 10:22 swelling, hives amoxicillin [AMOXICILLIN] Allergy Unknown SWELLING Verified 12/16/22 10:22 sulfadiazine Allergy Unknown hives Verified 12/16/22 10:22 Plan I have reviewed the history and physical and performed a pertinent physical examination on my patient. No changes have occurred unless specified. Time Spent With Patient Time: Total time managing care of this patient today ____ minutes.
--- NOTE | 2022-12-22 07:49 | W.PM.OPN ---
Operative Note Operative Note Date of Service: 12/22/22 Narrative: Operative Note Narrative: Preop diagnosis: 1. Right index finger bony mass Postop diagnosis: 1. Right index finger mass, consistent with gouty tophus Procedure: 1. Right index finger mass excision 2. Median nerve block for postop pain control Surgeon: Chey Dozier MD Anesthesia: General Anesthesia Findings: chalky white liquid and solid material consistent with gouty tophus Implants: none Tourniquet time: 10 minutes EBL: 5.0 ml Specimen: right index finger mass for histopathology Drains: None Complications: None Disposition: Brought to the recovery room in stable condition Plan: Follow-up in 10-14 days for wound check, suture removal and to check pathology Indications: The patient is a 37 year old woman with a bony mass/ calcification on the ulnar aspect of the right index finger D IP joint . The risks and benefits of operative treatment, including but not limited to risk of damage to blood vessels, nerves, tendons, infection, recurrence, persistent pain or numbness, incomplete resolution of preoperative symptoms, or need for further surgery were discussed with the patient and they wished to proceed with surgery. Procedure: Once consent was obtained patient was brought back to the operating suite and placed in the operating table in a supine position. . Perioperative antibiotics and anesthesia was administered by the anesthesia team. A tourniquet was applied to the proximal aspect of the right upper extremity and the limb was prepped and draped in a standard surgical fashion. The limb was elevated exsanguinated with Esmarch bandage and the tourniquet inflated to 250 mm of mercury for a total tourniquet time of 10 minutes. I made a 1.5 cm longitudinal midlateral incision over the ulnar aspect of the right index finger D IP joint. The incision was made through the skin to the subcutaneous tissues. I then carefully dissected down to the mass using tenotomy and iris scissors. We encountered a chalky white liquid that appears to be most consistent with gout. This was taken and placed on a Telfa to be sent for histopathology. There was also chalky white solid material which was carefully excised using tenotomy and iris scissors. This measured approximately 3-4 mm or so in diameter. This was placed on the back table to be sent for histopathology the D IP joint was noted to still be stable on exam. At this point the tourniquet was deflated and hemostasis obtained with a brief period of local pressure .. The wound was copiously irrigated with normal saline. The skin edges were reapproximated with 5-0 nylon suture. I performed a median nerve block by injecting some 0.5% plain ropivacaine into the carpal tunnel. This was done for postop pain control. I also put small amount of ropivacaine about the ulnar digital nerve to the index finger has a partial digital block. A sterile dressing was applied. The patient appears to have tolerated the procedure well and with no complications. All digits were well vascularized conclusion of the case.
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
--- NOTE | 2022-12-22 08:44 | HO.POSTANES ---
Post Anesthesia Evaluation Post Anesthesia Evaluation Date of Service: 12/22/22 Vital Signs: Vital Signs Temp Pulse Resp BP Pulse Ox O2 Del Method 12/22/22 06:45 92 20 12/22/22 06:25 97.5 F 99 18 110/71 95 Room Air Anesthesia: General LMA Mental Status: Awake Pain Control: Satisfactory Nausea/Vomiting: None Hydration: Adequate Anesthesia-Related Issues: No Anes. Related Issues
== END 2022-12-22 11:03 | disposition home or self-care (01) ==
PROVIDERS: Nurse Practitioner; PCP Internal Medicine; Visit Provider Orthopaedic Surgery
PROC: (CPT 26115; principal; 2022-12-22 07:30)
DX: R22.31 Localized swelling, mass and lump, right upper limb (principal); J45.909 Unspecified asthma, uncomplicated; Z88.0 Allergy status to penicillin; Z88.2 Allergy status to sulfonamides
CPT/HCPCS: 26115; 81025; 88304; 88305; 88341; 88342; 94640; J0690; J1885; J2250; J2405; J2795; J3010

== ENCOUNTER → 2022-12-22 06:01 | Outpatient (BNV) | payer OTHER, SELFPAY | PROVIDERS: PCP Internal Medicine; Visit Provider Orthopaedic Surgery | DX: R22.31 Localized swelling, mass and lump, right upper limb (principal) | CPT/HCPCS: 26111 ==

== ENCOUNTER 2022-12-23 13:11 | Outpatient (AMB) | payer OTHER, SELFPAY ==
--- NOTE | 2022-12-23 13:13 | A.OFFPC_ITS ---
Vital Signs 12/23/22 13:18 Height 5 ft 5 in Weight 167 lb 2 oz BMI 27.8 BP 108/64 Blood Pressure Location Rt brachial Position Sitting Pulse 85 Pulse Source Pulse Oximeter Pulse Oximetry (%) 95 Oxygen Delivery Method Room Air Intake Visit Reasons: Ankle and calves swelling Allergies ciprofloxacin [CIPROFLOXACIN] Allergy (Severe, Verified 12/23/22 13:13) ANAPHYLAXIS penicillin V Allergy (Severe, Verified 12/23/22 13:13) throat swelling, hives amoxicillin [AMOXICILLIN] Allergy (Unknown, Verified 12/23/22 13:13) SWELLING sulfadiazine Allergy (Unknown, Verified 12/23/22 13:13) hives Medication List - Last Reconciled 12/23/22 by Sebastian Ramos MD atorvastatin 20 mg PO DAILY Breo Ellipta 200-25 mcg/dose (fluticasone furoate-vilanterol) 1 ea inhalation DAILY NS buprenorphine-naloxone 8-2 mg (Suboxone) 2 film buccal DAILY bupropion HCl 300 mg PO DAILY cetirizine (Zyrtec) 10 mg PO DAILY PRN clonidine HCl 0.4 mg PO BEDTIME dupilumab (Dupixent) 300 mg (2 mL) subcut Q2W 28 days escitalopram oxalate 20 mg PO QAM etonogestrel (Nexplanon) subdermal hydroxyzine HCl 0 mg PO ibuprofen 600 mg PO Q6H PRN 30 days ipratropium-albuterol 0.5 mg-3 mg(2.5 mg base)/3 mL 3 mL PO Q4-6H PRN oxycodone-acetaminophen 5-325 mg 1 tab PO Q6H PRN Ventolin HFA 90 mcg/actuation (albuterol sulfate) 2 puffs PO QID PRN 30 days NS Tobacco use date assessed: 12/23/22 Dental Screening Dental Screen Date: 12/23/22 Did you have a dental visit in the last 12 months?: Yes Did you have a dental problem in the last 6 months where you did not have access to dental care?: No Was dental information given to patient?: No HPI Ankle and calves swelling HPI Details Patient is a 37-year-old female came in today for an acute problem Patient says that she has been having swelling of her ankle unknown about twice a week She does have a severe persistent asthma so she is always short of breath and always have room Ki on exam She also has been diagnosed with lipid disorder and is currently taking simvastatin she is due for labs that she will do tomorrow Meanwhile due to new development of ankle swelling I have ordered echocardiogram for the patient She is complaining of lower back pain off and on as well patient has been taking steroid for her asthma recurrently for a while now and has gained a lot of weight Order for back x-ray placed She is to return in 4 or 6 weeks for follow-up [facility] Medical History History of asthma History of back pain History of TMJ disorder Hx of drug abuse Hx of renal calculi Pseudoangiomatous stromal hyperplasia of breast Uterus, adenomyosis Surgical History Hx of breast lump removal Hx of cholecystectomy Hx of hand surgery Hx of umbilical hernia repair Family History Father Graves disease DVT (deep venous thrombosis) HTN (hypertension) Mother Graves disease Cervical cancer Ovarian cancer [place] disease Brother Graves disease Daughter ADHD Son ADHD Maternal Aunt Breast CA Other Mental health disorder Substance use disorder Social History Household Members: Significant Other and Children Housing: Apartment Alcohol intake: never Patient Tobacco Use Status: Current everyday Tobacco user Tobacco use type: Cigarette Cigarette Packs Per Day: 1 Cigarettes Per Day: 20.0 e-Cigarette/Vaping Use: Never Used service: No Current occupational status: employed 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 How often do you have a drink containing alcohol?: Never 3. How often do you have six or more drinks on one occasion?: Never Total Score: 0 Score Reviewed/Action Taken: Yes MARIVEL-7 AMB Questionnaire MARIVEL-7 Date MARIVEL - 7 assessed: 08/17/21 Source: Developed by Drs. Christopher Morgan, Sofie Berg, Vishnu Richter and colleagues, with an educational mario from [employer] I. Review of Systems Const Denies chills and Denies fever(s) ENT Denies epistaxis and Denies nasal discharge Resp Denies hemoptysis GI Denies diarrhea and Denies nausea Skin/Breast Denies rash Neuro Reports no additional complaints Psych Reports no additional complaints Endo Reports no additional complaints Physical exam (Primary Care) Vital Signs: Last Vital Signs Pulse 85 12/23/22 13:18 BP 108/64 12/23/22 13:18 Pulse Ox 95 12/23/22 13:18 Oxygen Delivery Method Room Air 12/23/22 13:18 BMI result Body Mass Index 27.8 Tobacco/Smoking Status: Tobacco use Status Tobacco use date assessed 12/23/22 12/23/22 13:14 Patient Tobacco Use Status Current everyday Tobacco 12/23/22 13:14 Tobacco use type Cigarette 12/23/22 13:14 e-Cigarette/Vaping Use Never Used 12/23/22 13:14 Thrive Assessment: Date of Thrive Assessment Date Thrive assessed 08/17/21 12/23/22 13:14 Const General: cooperative, comfortable and no acute distress Orientation/consciousness: patient oriented x3 HENMT Head: Yes normocephalic Eyes General: appearance normal, both eyes and all related structures Neck Neck: Yes supple Resp Other: Bilateral wheezing basal rhonchi [baseline for the patient] Effort & Inspection: no cough and no stridor Cardio Rhythm: regular rhythm Heart sounds: S1 normal heart sound present and S2 normal heart sound present Skin General skin exam: turgor normal Neuro General: patient oriented x3, tone normal and moves all extremities Extrem Other: Minimal swelling ankles patient does have superficial varicosities as well Assessment and Plan Assessment & Plan (1) Shortness of breath: Code(s): R06.02 - Shortness of breath (2) Bilateral swelling of feet and ankles: Code(s): M25.471 - Effusion, right ankle; M25.472 - Effusion, left ankle; M25.474 - Effusion, right foot; M25.475 - Effusion, left foot (3) Severe persistent allergic asthma: Code(s): J45.50 - Severe persistent asthma, uncomplicated (4) Environmental allergies: Code(s): Z91.09 - Other allergy status, other than to drugs and biological substances (5) Lipid disorder: Code(s): E78.9 - Disorder of lipoprotein metabolism, unspecified (6) Lumbar pain: Code(s): M54.50 - Low back pain, unspecified Plan Patient is a 37-year-old female came in today for an acute problem Patient says that she has been having swelling of her ankle unknown about twice a week She does have a severe persistent asthma so she is always short of breath and always have room Ki on exam She also has been diagnosed with lipid disorder and is currently taking simvastatin she is due for labs that she will do tomorrow Meanwhile due to new development of ankle swelling I have ordered echocardiogram for the patient She is complaining of lower back pain off and on as well patient has been taking steroid for her asthma recurrently for a while now and has gained a lot of weight Order for back x-ray placed She is to return in 4 or 6 weeks for follow-up Orders: Orders Comprehensive Thatcher. Panel Fast Today E78.9 - Disorder of lipoprotein metabolism, unspecified, F33.9 - Major depressive disorder, recurrent, unspecified, J45.50 - Severe persistent asthma, uncomplicated, M25.471 - Effusion, right ankle, M25.472 - Effusion, left ankle, M25.474 - Effusion, right foot, M25.475 - Effusion, left foot, Z91.09 - Other allergy status, other than to drugs and biological substances Lipid Panel Today E78.9 - Disorder of lipoprotein metabolism, unspecified, F33.9 - Major depressive disorder, recurrent, unspecified, J45.50 - Severe persistent asthma, uncomplicated, M25.471 - Effusion, right ankle, M25.472 - Effusion, left ankle, M25.474 - Effusion, right foot, M25.475 - Effusion, left foot, Z91.09 - Other allergy status, other than to drugs and biological substances TSH reflex Free T4 Today E78.9 - Disorder of lipoprotein metabolism, unspecified, F33.9 - Major depressive disorder, recurrent, unspecified, J45.50 - Severe persistent asthma, uncomplicated, M25.471 - Effusion, right ankle, M25.472 - Effusion, left ankle, M25.474 - Effusion, right foot, M25.475 - Effusion, left foot, Z91.09 - Other allergy status, other than to drugs and biological substances Complete Blood Count Auto Diff Today E78.9 - Disorder of lipoprotein metabolism, unspecified, F33.9 - Major depressive disorder, recurrent, unspecified, J45.50 - Severe persistent asthma, uncomplicated, M25.471 - Effusion, right ankle, M25.472 - Effusion, left ankle, M25.474 - Effusion, right foot, M25.475 - Effusion, left foot, Z91.09 - Other allergy status, other than to drugs and biological substances XR lumbar spine 2-3V Today M54.50 - Low back pain, unspecified CA echo transthoracic complete Today E78.9 - Disorder of lipoprotein metabolism, unspecified, M25.471 - Effusion, right ankle, M25.472 - Effusion, left ankle, M25.474 - Effusion, right foot, M25.475 - Effusion, left foot, R06.02 - Shortness of breath Coding Level of Care Code Est Pt Level 4 (21378) Diagnoses Shortness of breath R06.02 Bilateral swelling of feet and ankles M25.471; M25.472; M25.474; M25.475 Severe persistent allergic asthma J45.50 Environmental allergies Z91.09 Lipid disorder E78.9 Lumbar pain M54.50
[2022-12-23 13:18] VITALS: BP 108/64; PULSE 85; O2SAT 95; BMI 27.8
== END 2022-12-23 15:15 | disposition home or self-care (01) ==
PROVIDERS: PCP Internal Medicine; Visit Provider Internal Medicine
DX: R06.02 Shortness of breath (principal); M25.471 Effusion, right ankle; J45.50 Severe persistent asthma, uncomplicated; Z91.09 Other allergy status, other than to drugs and biological substances; M25.472 Effusion, left ankle; M25.474 Effusion, right foot; M25.475 Effusion, left foot; E78.9 Disorder of lipoprotein metabolism, unspecified; M54.50 Low back pain, unspecified
CPT/HCPCS: 99214

== ENCOUNTER 2022-12-29 10:52 | Outpatient (REF) | payer OTHER, SELFPAY ==
--- NOTE | ~2022-12-29 | XR_ITS ---
EXAMINATION: XR LUMBOSACRAL SPINE CLINICAL INFORMATION: Low back pain. COMPARISON: 01/21/2022 lumbar spine radiographs. TECHNIQUE: Three views of the lumbosacral spine. FINDINGS: The vertebral bodies and posterior elements are normal. The disc spaces are preserved and the vertebral alignment is normal. The paraspinal soft tissues are normal. Surgical clips overlie the right upper quadrant. XR/XR lumbar spine 2-3V IMPRESSION: Unremarkable lumbar spine.
[2022-12-29 13:30] LABS: MANUAL DIFF FLAG NO
[2022-12-29 13:54] LABS: Basophils Percent Auto 0.4 % (0-2); Eosinophils Absolute Auto 0.2 X10*3/uL (0.0-0.4); Eosinophils Percent Auto 2.9 % (0-4); Hematocrit 41.6 % (37.0-47.0); Hemoglobin 13.3 g/dl (12.0-16.0); Imm Gran Abs Auto 0.03 X10*3/uL (0.00-0.03); Imm Gran Pct Auto 0.4 % (0.0-0.4); Lymphocytes Percent Auto 29.4 % (20-40); Mean Corpuscular Hemoglobin 30.9 pg (27.0-33.0); Mean Corpuscular Volume 96.5 fL (80.0-98.0); Mean Platelet Volume 10.2 fL (9.4-12.3); Monocytes Absolute Auto 0.5 X10*3/uL (0.1-1.2); Monocytes Percent Auto 6.6 % (2-11); Neutrophils Absolute Auto 4.1 x10*3/uL (2.0-8.3); Neutrophils Percent Auto 60.3 % (45-73); Platelet Count 298 X10*3/uL (160-400); Red Blood Count 4.31 X10*6/uL (4.20-5.50); Red Cell Distribution Width 12.4 % (11.0-16.0); White Blood Count 6.8 X10*3/uL (4.8-10.8)
[2022-12-29 14:22] LABS: Alanine Aminotransferase 23 U/L (0-31); Albumin Level 3.8 g/dL (3.5-5.0); Alkaline Phosphatase 113 U/L (39-117); Anion Gap 13 (12-20); Aspartate Amino Transferase 22 U/L (5-31); Bilirubin Direct < 0.2 mg/dL (0.0-0.5); Bilirubin Total 0.2 mg/dL (0.0-1.0); Blood Urea Nitrogen 8 mg/dL (9-16); Calcium 9.4 mg/dL (8.4-10.2); Carbon Dioxide 25 mmol/L (22-29); Chloride 104 mmol/L (96-108); Cholesterol 187 mg/dL; Estimated Glomerular Filt Rate > 60; Glucose Fasting 100 mg/dL (60-99); HDL Cholesterol 42 mg/dL; LDL Cholesterol Calculated 129 mg/dl; Potassium 4.2 mmol/L (3.3-5.1); Sodium 138 mmol/L (135-145); Total Protein 7.2 g/dL (6.5-8.0); Triglycerides 80 mg/dL
[2022-12-29 14:25] LABS: TSH reflex Free T4 2.54 uIU/mL (0.32-4.0)
[2022-12-30 07:45] LABS: Syphilis Screen Nonreactive (Nonreactive)
[2022-12-30 08:33] LABS: HBc Num1 0.09 S/CO (0.00-0.79); HIV AB/AG Nonreactive (Nonreactive); HIV Num 1 0.06 S/CO (0.00-0.99); Hepatitis B Core Antibody Nonreactive (Nonreactive); ~HepC Num1 0.42 S/CO (0.00-0.79); ~Hepatitis C Antibody Nonreactive (Nonreactive)
== END 2022-12-29 10:53 | disposition home or self-care (01) ==
LOC: HO.HMGCX 10:52
PROVIDERS: Advanced Practice Midwife; PCP Internal Medicine; Visit Provider Internal Medicine
DX: E78.9 Disorder of lipoprotein metabolism, unspecified (principal); M54.50 Low back pain, unspecified; F33.9 Major depressive disorder, recurrent, unspecified; J45.50 Severe persistent asthma, uncomplicated; Z91.09 Other allergy status, other than to drugs and biological substances; M25.471 Effusion, right ankle; M25.472 Effusion, left ankle; M25.474 Effusion, right foot; M25.475 Effusion, left foot; Z20.2 Contact with and (suspected) exposure to infections with a predominantly sexual mode of transmission
CPT/HCPCS: 36415; 72100; 80053; 80061; 80076; 82248; 84443; 85025; 86704; 86780; 86803; 87389

== ENCOUNTER 2023-01-04 09:32 | Outpatient (AMB) | payer OTHER, SELFPAY ==
[2023-01-04 09:34] VITALS: BMI 27.8
--- NOTE | 2023-01-04 09:34 | MHC.OFFVIS ---
Intake Vital Signs 01/04/23 09:34 Height 5 ft 5 in Weight 167 lb BMI 27.8 Intake Visit Reasons: PO R IF Mass Exc of Bony Mass 12/22/22 AR Intake Note: Sheana a 37 year old female who presents today for a post operative right IF excision of bony mass on 12/22/22 AR. Patient reports wound is discolored and swollen. Denies any drainage. Allergies ciprofloxacin [CIPROFLOXACIN] Allergy (Severe, Verified 01/04/23 09:39) ANAPHYLAXIS penicillin V Allergy (Severe, Verified 01/04/23 09:39) throat swelling, hives amoxicillin [AMOXICILLIN] Allergy (Unknown, Verified 01/04/23 09:39) SWELLING sulfadiazine Allergy (Unknown, Verified 01/04/23 09:39) hives HPI PO R IF Mass Exc of Bony Mass 12/22/22 AR HPI Details 37-year-old female who returns to the office today for post-op right index finger excision of bony mass, 12/22/[address] Dozier. She states she has swelling and discoloration at the wound area. She denies any drainage from the wound. She is doing well otherwise and has no other concerns. [facility] Medical History History of asthma History of back pain History of TMJ disorder Hx of drug abuse Hx of renal calculi Pseudoangiomatous stromal hyperplasia of breast Uterus, adenomyosis Surgical History Hx of breast lump removal Hx of cholecystectomy Hx of hand surgery Hx of umbilical hernia repair Family History Father Graves disease DVT (deep venous thrombosis) HTN (hypertension) Mother Graves disease Cervical cancer Ovarian cancer Enmanuel disease Brother Graves disease Daughter ADHD Son ADHD Maternal Aunt Breast CA Other Mental health disorder Substance use disorder Social History Household Members: Significant Other and Children Housing: Apartment Alcohol intake: never Patient Tobacco Use Status: Current everyday Tobacco user Tobacco use type: Cigarette Cigarette Packs Per Day: 1 Cigarettes Per Day: 20.0 e-Cigarette/Vaping Use: Never Used service: No Current occupational status: employed 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 Sutures are intact. There is no redness, drainage or significant swelling. She can able to full extend her digits and make a full fist. NVI. Results Reviewed Results Reviewed: Pathology: Diagnosis Soft tissue, right index finger mass, excision:? Necrotic amorphous and calcified material surrounded by palisaded histiocytes (see comment).? Comment:? The features suggest rheumatoid nodules, but other granulomatous entities cannot be completely excluded and clinical/serologic correlation is necessary.? No epidermis is present for evaluation. Assessment & Plan Assessment & Plan (1) Mass of finger of right hand: Code(s): R22.31 - Localized swelling, mass and lump, right upper limb Plan Sutures removed today, steri strips applied. She should avoid submerging her finger underwater for long periods of time for the next week. She should increase activity as tolerated and she should return to work on January 06 without restrictions. I will also put a referral to rheumatology as her pathology report did come back which show she has some evidence of rheumatoid arthritis. Orders: Referrals Rheumatology Referral M06.9 - Rheumatoid arthritis, unspecified Patient Instructions: Scribed for Hedy Mart PA-C, by Gold Jo medical physicist, on 01/04/2023 at 9:30 AM EST. IHedy PA-C, have personally reviewed and agree with the information entered by the scribe. Coding Level of Care Code Global (23054) Diagnoses Mass of finger of right hand R22.31
== END 2023-01-04 09:53 | disposition home or self-care (01) ==
PROVIDERS: PCP Internal Medicine; Visit Provider Physician Assistant
DX: R22.31 Localized swelling, mass and lump, right upper limb (principal)
CPT/HCPCS: 99024

== ENCOUNTER → 2023-01-04 09:32 | Outpatient (BNVA) | payer OTHER, SELFPAY | PROVIDERS: PCP Internal Medicine; Visit Provider Physician Assistant ==

== ENCOUNTER 2023-01-20 13:51 | Outpatient (AMB) | payer OTHER, SELFPAY ==
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
[2023-01-20 14:14] VITALS: BP 102/58; PULSE 99; RESP 18; O2SAT 98; BMI 27.3
== END 2023-01-20 14:37 | disposition home or self-care (01) ==
PROVIDERS: PCP Internal Medicine; Visit Provider Registered Nurse Emergency
DX: M54.50 Low back pain, unspecified (principal); M53.3 Sacrococcygeal disorders, not elsewhere classified
CPT/HCPCS: 99204

== ENCOUNTER → 2023-01-20 13:51 | Outpatient (BNVA) | payer OTHER, SELFPAY | PROVIDERS: PCP Internal Medicine; Visit Provider Registered Nurse Emergency | DX: M54.50 Low back pain, unspecified (principal); M53.3 Sacrococcygeal disorders, not elsewhere classified | CPT/HCPCS: 99202 ==

== ENCOUNTER 2023-01-27 11:13 | Outpatient (AMB) | payer OTHER, SELFPAY ==
--- NOTE | 2023-01-27 11:18 | A.OFFPC_ITS ---
Vital Signs 01/27/23 11:19 Height 5 ft 5 in Weight 168 lb BMI 28.0 BP 100/58 L Blood Pressure Location Rt brachial Position Sitting Pulse 101 H Pulse Source Pulse Oximeter Pulse Oximetry (%) 95 Oxygen Delivery Method Room Air Intake Visit Reasons: 4-6 week follow up Allergies ciprofloxacin [CIPROFLOXACIN] Allergy (Severe, Verified 01/27/23 11:20) ANAPHYLAXIS penicillin V Allergy (Severe, Verified 01/27/23 11:20) throat swelling, hives amoxicillin [AMOXICILLIN] Allergy (Unknown, Verified 01/27/23 11:20) SWELLING sulfadiazine Allergy (Unknown, Verified 01/27/23 11:20) hives Medication List - Last Reconciled 01/27/23 by Sebastian Ramos MD atorvastatin 20 mg PO DAILY Breo Ellipta 200-25 mcg/dose (fluticasone furoate-vilanterol) 1 ea inhalation DAILY NS buprenorphine-naloxone 8-2 mg (Suboxone) 2 film buccal DAILY bupropion HCl 300 mg PO DAILY bupropion HCl 75 mg PO DAILY camphor-methyl salicyl-menthol 3.1-15-10 % (Salonpas Deep Relieving) 1 ea topical QID cetirizine 10 mg PO DAILY PRN clonidine HCl 0.4 mg PO BEDTIME dupilumab (Dupixent) 300 mg (2 mL) subcut Q2W 28 days escitalopram oxalate 20 mg PO QAM escitalopram oxalate 10 mg PO DAILY etonogestrel (Nexplanon) subdermal hydroxyzine HCl 0 mg PO ibuprofen 600 mg PO Q6H PRN 30 days ipratropium-albuterol 0.5 mg-3 mg(2.5 mg base)/3 mL 3 mL PO Q4-6H PRN lidocaine 5% 1 patch topical DAILY Ventolin HFA 90 mcg/actuation (albuterol sulfate) 2 puffs PO QID PRN 30 days NS Tobacco use date assessed: 01/27/23 Dental Screening Dental Screen Date: 01/27/23 Did you have a dental visit in the last 12 months?: Yes Did you have a dental problem in the last 6 months where you did not have access to dental care?: No Was dental information given to patient?: No HPI 4-6 week follow up HPI Details Patient came in today for follow-up appointment She has been having swelling of her ankle I ordered echocardiogram for her in December patient says that she could not go for it went appointment was made so she had to reschedule it and she has appointment today. Patient has severe asthma she is on Dupixent through recruiter specialist However she continued to smoke as well and is down to half a pack per day patient says that she is already using Nicoderm. Labs were ordered in December when I saw her, reviewed today with the patient Her fasting sugar is 100, we did a hemoglobin A1c which is 5.4 Patient have chronic tachycardia most likely secondary to asthma, EKG was done today which shows normal sinus rhythm 93 beats per minute no acute findings I am prescribing Lasix to be taken as needed for ankle swelling we will go over the echo report as well Discussed with the patient if echo is normal then most likely the reason for her swelling of ankle is vascular sufficiency was side effect of the medications she is on. Either way she can take Lasix as needed if it controls her swelling then she may continue that as needed. Follow-up 3 weeks [facility] Medical History History of asthma History of back pain History of TMJ disorder Hx of drug abuse Hx of renal calculi Pseudoangiomatous stromal hyperplasia of breast Uterus, adenomyosis Surgical History Hx of breast lump removal Hx of cholecystectomy Hx of hand surgery Hx of umbilical hernia repair Family History Father Graves disease DVT (deep venous thrombosis) HTN (hypertension) Mother Graves disease Cervical cancer Ovarian cancer Enmanuel disease Brother Graves disease Daughter ADHD Son ADHD Maternal Aunt Breast CA Other Mental health disorder Substance use disorder Social History Household Members: Significant Other and Children Housing: Apartment Alcohol intake: never Patient Tobacco Use Status: Current everyday Tobacco user Tobacco use type: Cigarette Cigarette Packs Per Day: 1 Cigarettes Per Day: 20.0 e-Cigarette/Vaping Use: Never Used service: No Current occupational status: employed 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 1. Little interest or pleasure in doing things: several days 2. Feeling down, depressed, or hopeless: more than half the days 3. Trouble falling or staying asleep, or sleeping too much: several days 4. Feeling tired or having little energy: several days 5. Poor appetite or overeating: several days 6. Feeling bad about yourself - or that you are a failure or have let yourself or your family down: several days 7. Trouble concentrating on things, such as reading the newspaper or watching television: several days 8. Moving or speaking so slowly that other people could have noticed. Or the opposite - being so fidgety or restless that you have been moving around a lot more than usual: several days 9. Thoughts that you would be better off or of hurting yourself in some way: not at all Total score: 9 Depression Screening Interpretation: Positive 90519 - PHQ-9 Billing: Yes Source: Developed by Drs. Christopher Morgan, Sofie Berg, Vishnu Richter and colleagues, with an educational mario from [employer]. Thrive Questionnaire Date Thrive assessed: 01/27/23 I am a: Patient What is your living situation today?: I have a steady place to live Within the past 12 months, did the food you bought not last and you didn't have the money to get more?: Never true Within the past 12 months, did you worry whether your food would run out before you got money to buy more?: Never true Do you have trouble paying for medicines?: No Do you have trouble getting transportation to medical appointments?: No Do you have trouble paying your heating and electricity bill?: No Do you have trouble taking care of your child, family member or friend?: No Do you have trouble with day-to-day activities such as bathing, preparing meals, shopping, managing finances, etc.?: No Are you currently unemployed and looking for a job?: No Are you interested in more education?: No AUDIT C Alcohol Use Questionnaire (AUDIT-C) 1. How often do you have a drink containing alcohol?: Never 3. How often do you have six or more drinks on one occasion?: Never Total Score: 0 Score Reviewed/Action Taken: Yes MARIVEL-7 AMB Questionnaire MARIVEL-7 Date MARIVEL - 7 assessed: 01/27/23 Source: Developed by Drs. Christopher Morgan, Sofie Berg, Vishnu Richter and colleagues, with an educational mario from [employer]. MARIVEL-7 Assessment Billing MARIVEL-7 Assessment Tool: pt declined-do not bill Review of Systems Const Denies chills and Denies fever(s) ENT Denies epistaxis and Denies nasal discharge Card Denies chest pain Resp Denies chest congestion and Denies hemoptysis GI Denies diarrhea and Denies nausea Skin/Breast Denies rash Neuro Reports no additional complaints Psych Reports no additional complaints Endo Reports no additional complaints Physical exam (Primary Care) Vital Signs: Last Vital Signs Pulse 101 H 01/27/23 11:19 BP 100/58 L 01/27/23 11:19 Pulse Ox 95 01/27/23 11:19 Oxygen Delivery Method Room Air 01/27/23 11:19 BMI result Body Mass Index 28.0 Tobacco/Smoking Status: Tobacco use Status Tobacco use date assessed 01/27/23 01/27/23 11:21 Patient Tobacco Use Status Current everyday Tobacco 01/27/23 11:21 Tobacco use type Cigarette 01/27/23 11:21 e-Cigarette/Vaping Use Never Used 01/27/23 11:21 Are you ready to quit: Yes Tobacco cessation counseling provided: Yes CPT code: 13617 - 4-10 Minutes Depression Screening Interpretation: Positive Thrive Assessment: Date of Thrive Assessment Date Thrive assessed 01/27/23 01/27/23 11:42 Const General: cooperative, comfortable and no acute distress Orientation/consciousness: patient oriented x3 HENMT Head: Yes normocephalic Eyes General: appearance normal, both eyes and all related structures Neck Neck: Yes supple Resp Other: Wheezing bilateral, baseline for the patient Effort & Inspection: no cough and no stridor Cardio Rhythm: regular rhythm Heart sounds: S1 normal heart sound present and S2 normal heart sound present Skin General skin exam: turgor normal Neuro General: patient oriented x3, tone normal and moves all extremities Extrem Other: 1+ pitting edema ankles bilateral Office Procedures EKG 41363-[id number], Complete Results AMB Hemoglobin A1c AMB Hemoglobin A1c 5.4 % Last Edit by DAE Elliott on 01/27/23 11 :44 Results Reviewed Results Reviewed: Laboratory Last Values Hgb A1c (Clinic) 5.4 % (4.0-6.0) 01/27/23 11:43 Assessment and Plan Assessment & Plan (1) Bilateral swelling of feet and ankles: Code(s): M25.471 - Effusion, right ankle; M25.472 - Effusion, left ankle; M25.474 - Effusion, right foot; M25.475 - Effusion, left foot (2) Impaired fasting blood sugar: Code(s): R73.01 - Impaired fasting glucose (3) Tobacco abuse: Code(s): Z72.0 - Tobacco use (4) Asthma, severe persistent: Code(s): J45.50 - Severe persistent asthma, uncomplicated (5) Tachycardia: Code(s): R00.0 - Tachycardia, unspecified (6) Tobacco abuse counseling: Code(s): Z71.6 - Tobacco abuse counseling Plan Patient came in today for follow-up appointment She has been having swelling of her ankle I ordered echocardiogram for her in December patient says that she could not go for it went appointment was made so she had to reschedule it and she has appointment today. Patient has severe asthma she is on Dupixent through recruiter specialist However she continued to smoke as well and is down to half a pack per day patient says that she is already using Nicoderm. Labs were ordered in December when I saw her, reviewed today with the patient Her fasting sugar is 100, we did a hemoglobin A1c which is 5.4 Patient have chronic tachycardia most likely secondary to asthma, EKG was done today which shows normal sinus rhythm 93 beats per minute no acute findings I am prescribing Lasix to be taken as needed for ankle swelling we will go over the echo report as well Discussed with the patient if echo is normal then most likely the reason for her swelling of ankle is vascular sufficiency was side effect of the medications she is on. Either way she can take Lasix as needed if it controls her swelling then she may continue that as needed. Follow-up 3 weeks Orders: Orders AMB EKG-In Office Today Z13.6 - Encounter for screening for cardiovascular disorders AMB Hemoglobin A1c Today Z13.9 - Encounter for screening, unspecified Medications: New furosemide (Lasix) 20 mg PO QAM 30 tabs 0RF Ankle swelling Coding Level of Care Code Est Pt Level 5 (83942) Diagnoses Bilateral swelling of feet and ankles M25.471; M25.472; M25.474; M25.475 Impaired fasting blood sugar R73.01 Tobacco abuse Z72.0 Asthma, severe persistent J45.50 Tachycardia R00.0 Tobacco abuse counseling Z71.6 CPT Codes EKG - CPT: 24023-[id number], Complete ([id number]) Additional Codes Vital Signs *Quality* - CPT code: 46510 - 4-10 Minutes ([id number]) Time Spent (min) 45 Comment 5 reviewing chart/30 with patient/10 coordination of care
[2023-01-27 11:19] VITALS: BP 100/58; PULSE 101; O2SAT 95; BMI 28.0
== END 2023-01-27 11:47 | disposition home or self-care (01) ==
PROVIDERS: PCP Internal Medicine; Visit Provider Internal Medicine
DX: M25.471 Effusion, right ankle (principal); J45.50 Severe persistent asthma, uncomplicated; R00.0 Tachycardia, unspecified; R73.01 Impaired fasting glucose; M25.472 Effusion, left ankle; M25.474 Effusion, right foot; M25.475 Effusion, left foot; Z72.0 Tobacco use; Z71.6 Tobacco abuse counseling
CPT/HCPCS: 83036; 93000; 99215

== ENCOUNTER → 2023-01-27 12:58 | Outpatient (REF) | payer OTHER, SELFPAY ==
--- NOTE | 2023-01-27 13:01 | CA_ITS ---
Transthoracic Echocardiogram Patient (Last, First, Middle): Sofya West M Gender: Female Date of : 1985 Age: 37 Procedure Date: 01/27/2023 Procedure Type: Transthoracic Echocardiogram Location: OP Height: 165.1 cm Weight: 76.2 kg BSA: 1.84 m2 Heart Rate: bpm BP: 90 / 60 mmHg Die Attaching Machine Tender: TO Referring MD: Sebastian Ramos MD Symptoms: M25.471 - Effusion, right ankle Study Quality: Adequate ECG Rhythm: Sinus Conclusions: - The left ventricular systolic function is normal. The calculated ejection fraction is 68% by biplane method. - No obvious valvular pathology seen on this study. Findings Left Ventricle Normal left ventricular cavity size. There is normal left ventricular wall thickness. The left ventricular systolic function is normal. The calculated ejection fraction is 68% by biplane method. There is no evidence of regional wall motion abnormalities. Diastolic function is normal for age. LV peak GLS -19.8%. Right Ventricle Normal right ventricular cavity size and systolic function. Atria Both atria are normal in size. Aortic Valve There is a normal trileaflet aortic valve. There is no aortic valve stenosis. There is no aortic valve regurgitation. Mitral Valve The mitral valve appears normal. There is no mitral valve regurgitation. There is no mitral valve stenosis. Pulmonic Valve The pulmonic valve is likely normal. Tricuspid Valve Normal tricuspid valve structure. There is trace tricuspid valve regurgitation. There is no evidence of pulmonary hypertension. Great Vessels The asc aorta is normal in size. Venous The inferior vena cava is normal in size and collapses greater than 50% with inspiration. Pericardium/Pleural There is no evidence of pericardial effusion. Prior Study Comparison No prior study available for comparison. Recommendations, Care & Conclusions No obvious valvular pathology seen on this study. Measurements 2D Linear Measurements IVSd: 0.86 0.6-0.9/0.6-1.0 cm LVIDd: 4.30 3.9-5.3/4.2-5.9 cm LVIDd Index: 2.34 2.4-3.2/2.2-3.1 cm/m2 LVIDs: 2.71 2.0-3.6 cm LVPWd: 0.79 0.7-1.1 cm LA Diam: 2.90 2.7-3.8/3.0-4.0 cm LAIDs Index: 1.58 1.5-2.3 cm/m2 LV Mass: 136.71 67-162/88-224 g LV Mass Index: 74.30 43-95/49-115 g/m2 LVOT Diam: 2.10 3.0+(-)1.3 cm 2D Systolic Function EF 4C: 69.80 >55% EF 2C: 66.40 >55% EF BiP: 67.80 >55% Mitral Valve MV Pk E: 0.85 MV PK A: 0.48 MV Decel Time: 218.00 E/A: 1.80 E'Lateral: 12.50 E'Medial: 11.00 E/E' Med: 7.80 E/E' Lat: 6.80 PHT: 64.00 MVA PHT: 3.44 Decel [place]: 3.92 Aortic Valve AoV Pk Shakir: 1.33 AoV Mn Shakir: 0.92 AoV VTI: 0.27 AoV Pk Grad: 7.00 Aov Mn Grad: 4.00 FREDDIE Cont.VTI: 2.58 LVOT LVOT Pk Shakir: 1.03 LVOT Mn Shakir: 0.65 LVOT VTI: 0.20 LVOT Pk Grad: 4.00 LVOT Mn Grad: 2.00 LVOT Diam: 2.10 LVOT Area: 3.46 Diastolic Function MV Pk E: 0.85 MV Pk A: 0.48 E/A: 1.80 E'Medial: 11.00 E/E' Med: 7.80 E' Laterial: 12.50 E/E' Lat: 6.80 Right Ventricle TAPSE (mm): 25.20 TVS' Shakir: 11.30 Tricuspid Valve TR Pk Shakir: 2.24 TR Pk Grad: 20.00 RA Press: 3.00 RVSP: 23.00 Great Vessels Aorta Sinus of Valsalva: 2.93 2.0-3.5 cm Ao Asc: 3.00 2.1-3.4 cm Updated in Other Vendor System with Status of Final Robinson Brown MD electronically signed on 01/28/2023 11:04:21 AM with status of Final
== END ==
LOC: HO.CARD 12:58
PROVIDERS: PCP Internal Medicine; Visit Provider Internal Medicine
DX: R06.02 Shortness of breath (principal); E78.9 Disorder of lipoprotein metabolism, unspecified; M25.471 Effusion, right ankle; M25.472 Effusion, left ankle; M25.474 Effusion, right foot; M25.475 Effusion, left foot
CPT/HCPCS: 93306; 93356

== ENCOUNTER → 2023-01-27 13:01 | Outpatient (BNV) | payer OTHER, SELFPAY | PROVIDERS: PCP Internal Medicine; Visit Provider Internal Medicine | DX: M25.471 Effusion, right ankle (principal) | CPT/HCPCS: 93306 ==

== ENCOUNTER 2023-02-01 12:09 | Outpatient (AMB) | payer OTHER, SELFPAY ==
--- NOTE | 2023-02-01 12:12 | MHC.PC.OV ---
Vital Signs 02/01/23 12:13 Height 5 ft 5 in Weight 166 lb 2 oz BMI 27.6 BP 100/64 Blood Pressure Location Rt brachial Position Sitting Pulse 80 Pulse Source Pulse Oximeter Pulse Oximetry (%) 94 Oxygen Delivery Method Room Air Intake Visit Reasons: 1 week follow up Allergies ciprofloxacin [CIPROFLOXACIN] Allergy (Severe, Verified 02/01/23 12:15) ANAPHYLAXIS penicillin V Allergy (Severe, Verified 02/01/23 12:15) throat swelling, hives amoxicillin [AMOXICILLIN] Allergy (Unknown, Verified 02/01/23 12:15) SWELLING sulfadiazine Allergy (Unknown, Verified 02/01/23 12:15) hives Medication List - Last Reconciled 02/01/23 by Sebastian Ramos MD atorvastatin 20 mg PO DAILY Breo Ellipta 200-25 mcg/dose (fluticasone furoate-vilanterol) 1 ea inhalation DAILY NS buprenorphine-naloxone 8-2 mg (Suboxone) 2 film buccal DAILY bupropion HCl 300 mg PO DAILY bupropion HCl 75 mg PO DAILY camphor-methyl salicyl-menthol 3.1-15-10 % (Salonpas Deep Relieving) 1 ea topical QID cetirizine 10 mg PO DAILY PRN clonidine HCl 0.4 mg PO BEDTIME dupilumab (Dupixent) 300 mg (2 mL) subcut Q2W 28 days escitalopram oxalate 20 mg PO QAM etonogestrel (Nexplanon) subdermal furosemide (Lasix) 20 mg PO QAM hydroxyzine HCl 0 mg PO ibuprofen 600 mg PO Q6H PRN 30 days ipratropium-albuterol 0.5 mg-3 mg(2.5 mg base)/3 mL 3 mL PO Q4-6H PRN lidocaine 5% 1 patch topical DAILY Ventolin HFA 90 mcg/actuation (albuterol sulfate) 2 puffs PO QID PRN 30 days NS Tobacco use date assessed: 02/01/23 Dental Screening Dental Screen Date: 02/01/23 Did you have a dental visit in the last 12 months?: No Did you have a dental problem in the last 6 months where you did not have access to dental care?: No Was dental information given to patient?: No HPI 1 week follow up HPI Details One-week follow-up on bilateral ankle swelling Patient had echocardiogram done which was within normal limit She does have varicosities both lower extremity which are getting worse She was also given Lasix prescription she took that for few days and is feeling better The swelling in her ankles has gone down. Explained to patient that Lasix if taken every day need lab work done at least every 3 months due to possibility of electrolyte abnormality. I have placed a referral to vascular specialist for further management. Patient will return in 6 months for follow-up appointment. [facility] Medical History History of asthma History of back pain History of TMJ disorder Hx of drug abuse Hx of renal calculi Pseudoangiomatous stromal hyperplasia of breast Uterus, adenomyosis Surgical History Hx of breast lump removal Hx of cholecystectomy Hx of hand surgery Hx of umbilical hernia repair Family History Father Graves disease DVT (deep venous thrombosis) HTN (hypertension) Mother Graves disease Cervical cancer Ovarian cancer [place] disease Brother Graves disease Daughter ADHD Son ADHD Maternal Aunt Breast CA Other Mental health disorder Substance use disorder Social History Household Members: Significant Other and Children Housing: Apartment Alcohol intake: never Patient Tobacco Use Status: Current everyday Tobacco user Tobacco use type: Cigarette Cigarettes Per Day: 10 e-Cigarette/Vaping Use: Never Used service: No Current occupational status: employed Current occupation: rt handed/[employer] - [employer] Sexual orientation: Straight/Heterosexual Gender identity: Female Cognitive needs: No Hearing needs: No Vision needs: Yes Female Reproductive History Menstrual Age of Menarche: 12 Questionnaire Thrive Questionnaire Date Thrive assessed: 01/27/23 MARIVEL-7 AMB Questionnaire MARIVEL-7 Date MARIVEL - 7 assessed: 01/27/23 Source: Developed by Drs. Christopher Morgan, Sofie Berg, Vishnu Richter and colleagues, with an educational mario from [employer]. Review of Systems Const Denies chills and Denies fever(s) ENT Denies epistaxis and Denies nasal discharge Card Denies chest pain Resp Denies hemoptysis GI Denies diarrhea and Denies nausea Skin/Breast Denies rash Neuro Reports no additional complaints Psych Reports no additional complaints Endo Reports no additional complaints Physical exam (Primary Care) Vital Signs: Last Vital Signs Pulse 80 02/01/23 12:13 BP 100/64 02/01/23 12:13 Pulse Ox 94 02/01/23 12:13 Oxygen Delivery Method Room Air 02/01/23 12:13 BMI result Body Mass Index 27.6 Tobacco/Smoking Status: Tobacco use Status Tobacco use date assessed 02/01/23 02/01/23 12:19 Patient Tobacco Use Status Current everyday Tobacco 02/01/23 12:13 Tobacco use type Cigarette 02/01/23 12:13 e-Cigarette/Vaping Use Never Used 02/01/23 12:13 Thrive Assessment: Date of Thrive Assessment Date Thrive assessed 01/27/23 02/01/23 12:13 Const General: cooperative, comfortable and no acute distress Orientation/consciousness: patient oriented x3 HENMT Head: Yes normocephalic Eyes General: appearance normal, both eyes and all related structures Neck Neck: Yes supple Resp Effort & Inspection: no cough and no stridor Cardio Rhythm: regular rhythm Heart sounds: S1 normal heart sound present and S2 normal heart sound present Skin General skin exam: turgor normal Neuro General: patient oriented x3, tone normal and moves all extremities Extrem Other: Minimal pitting edema ankles showing sock line bilateral Assessment and Plan Assessment & Plan (1) Bilateral swelling of feet and ankles: Code(s): M25.471 - Effusion, right ankle; M25.472 - Effusion, left ankle; M25.474 - Effusion, right foot; M25.475 - Effusion, left foot (2) Symptomatic varicose veins of both lower extremities: Code(s): I83.893 - Varicose veins of bilateral lower extremities with other complications Plan One-week follow-up on bilateral ankle swelling Patient had echocardiogram done which was within normal limit She does have varicosities both lower extremity which are getting worse She was also given Lasix prescription she took that for few days and is feeling better The swelling in her ankles has gone down. Explained to patient that Lasix if taken every day need lab work done at least every 3 months due to possibility of electrolyte abnormality. I have placed a referral to vascular specialist for further management. Patient will return in 6 months for follow-up appointment. Orders: Referrals Vascular Surgery Referral I83.893 - Varicose veins of bilateral lower extremities with other complications, M25.471 - Effusion, right ankle, M25.472 - Effusion, left ankle, M25.474 - Effusion, right foot, M25.475 - Effusion, left foot Coding Level of Care Code Est Pt Level 3 (79781) Diagnoses Bilateral swelling of feet and ankles M25.471; M25.472; M25.474; M25.475 Symptomatic varicose veins of both lower extremities I83.893
[2023-02-01 12:13] VITALS: BP 100/64; PULSE 80; O2SAT 94; BMI 27.6
== END 2023-02-01 13:20 | disposition home or self-care (01) ==
PROVIDERS: PCP Internal Medicine; Visit Provider Internal Medicine
DX: M25.471 Effusion, right ankle (principal); M25.472 Effusion, left ankle; M25.474 Effusion, right foot; M25.475 Effusion, left foot; I83.893 Varicose veins of bilateral lower extremities with other complications
CPT/HCPCS: 99213

== ENCOUNTER 2023-02-03 13:02 | Outpatient (REF) | payer OTHER, SELFPAY ==
--- NOTE | 2023-02-03 13:04 | EMG_ITS ---
Chief complaint: Bilateral hand numbness Reason for referral: Evaluate for Carpal Tunnel Syndrome Referred by: Dr. Dozier Procedure done: Bilateral upper extremities NCS/EMG Precautions and/or limitations: None The limb temperature was monitored continuously and remained between 32-36 degrees C during the performance of the NCS. Nerve Conduction Studies Anti Sensory Summary Table ?Stim Site NR Onset (ms) Norm Onset (ms) Peak (ms) Norm Peak (ms) O-P Amp (?V) Norm O-P Amp Site1 Site2 Delta-0 (ms) Dist (cm) Shakir (m/s) Norm Shakir (m/s) Left Median Anti Sensory (2nd Digit) Wrist ? 4.2 4.6 <3.6 0.3 >10 Wrist 2nd Digit 4.2 14.0 33 Right Median Anti Sensory (2nd Digit) Wrist NR <3.6 >10 Wrist 2nd Digit 14.0 Right Radial Anti Sensory (Thumb) Forearm ? 3.4 3.1 <3.1 11.1 Forearm Thumb 3.4 0.0 Left Ulnar Anti Sensory (5th Digit) Wrist ? 2.4 3.2 <3.7 34.6 >15.0 Wrist 5th Digit 2.4 14.0 58 Right Ulnar Anti Sensory (5th Digit) Wrist ? 2.3 2.9 <3.7 16.0 >15.0 Wrist 5th Digit 2.3 14.0 61 Motor Summary Table ?Stim Site NR Onset (ms) Norm Onset (ms) O-P Amp (mV) Norm O-P Amp iAmp (mV) Amp (1st) (%) Site1 Site2 Delta-0 (ms) Dist (cm) Shakir (m/s) Norm Shakir (m/s) Left Median Motor (Abd Poll Brev) Wrist ? 4.9 <3.9 2.2 >4.5 2.7 100.0 Elbow Wrist 2.9 19.0 66 >45 Elbow ? 7.8 3.0 3.7 136.4 Right Median Motor (Abd Poll Brev) Wrist ? 6.3 <3.9 3.4 >4.5 4.5 100.0 Elbow Wrist 1.0 19.0 190 >45 Elbow ? 7.3 3.8 5.1 111.8 Left Ulnar Motor (Abd Dig Minimi) Wrist ? 2.3 <3.0 5.3 >5 7.3 100.0 B Elbow Wrist 2.5 18.0 72 >45 B Elbow ? 4.8 0.9 1.5 17.0 A Elbow B Elbow 2.1 10.0 48 >45 A Elbow ? 6.9 1.2 1.6 22.6 Right Ulnar Motor (Abd Dig Minimi) Wrist ?? 2.3 <3.0 7.7 >5 9.4 100.0 B Elbow Wrist 3.0 17.0 57 >45 B Elbow ? 5.3 7.3 9.0 94.8 A Elbow B Elbow 1.4 10.0 71 >45 A Elbow ? 6.7 7.2 8.9 93.5 EMG ?Side Muscle Nerve Root Ins Act Fibs Psw Amp Dur Poly Recrt Int Pat Comment Right 1stDorInt Ulnar C8-T1 Nml Nml Nml Nml Nml 0 Nml Complete Right FlexCarRad Median C6-7 Nml Nml Nml Nml Nml 0 Nml Complete Right Biceps Musculocut C5-6 Nml Nml Nml Nml Nml 0 Nml Complete Right Triceps Radial C6-7-8 Nml Nml Nml Nml Nml 0 Nml Complete Right Deltoid Axillary C5-6 Nml Nml Nml Nml Nml 0 Nml Complete Left 1stDorInt Ulnar C8-T1 Nml Nml Nml Nml Nml 0 Nml Complete Left FlexCarRad Median C6-7 Nml Nml Nml Nml Nml 0 Nml Complete Left Biceps Musculocut C5-6 Nml Nml Nml Nml Nml 0 Nml Complete Left Triceps Radial C6-7-8 Nml Nml Nml Nml Nml 0 Nml Complete Left Deltoid Axillary C5-6 Nml Nml Nml Nml Nml 0 Nml Complete FINDINGS: Bilateral median motor nerves showed prolonged distal latency, small amplitude and normal conduction velocity. Right median sensory nerve showed no response. Left median sensory showed prolonged peak latency and small amplitude. Evidence of possible Bryson Meera anastomosis was seen on left side, which is a normal anatomic variant. All other nerves tested were within normal. Concentric needle EMG was performed in selected muscles of the bilateral upper extremities. Study did not reveal signs of electric abnormalities as shown in the table below. IMPRESSION: 1. This is an abnormal study. 2. There is electrodiagnostic evidence for bilateral moderate-severe median neuropathy at the wrists, consistent with carpal tunnel syndrome. 3. There is no electrodiagnostic evidence for ulnar neuropathy, brachial plexopathy, or cervical radiculopathy. Thank you for your kind referral. Judith Harris MD, MINDY Board Certified, [place] Board [employer] and Rehabilitation (ABPMR) Board Certified, [place] Board of Electrodiagnostic Medicine (ABEM) CODIN 80429 x 2 MTDD
== END 2023-02-03 13:03 | disposition home or self-care (01) ==
LOC: HO.NEURO 13:02
PROVIDERS: PCP Internal Medicine; Visit Provider Orthopaedic Surgery
DX: R20.0 Anesthesia of skin (principal); R20.2 Paresthesia of skin
CPT/HCPCS: 95886; 95911

== ENCOUNTER → 2023-02-03 13:04 | Outpatient (BNV) | payer OTHER, SELFPAY | PROVIDERS: PCP Internal Medicine; Visit Provider Physical Medicine & Rehabilitation | DX: R20.0 Anesthesia of skin (principal); R20.2 Paresthesia of skin | CPT/HCPCS: 95886; 95911 ==

== ENCOUNTER 2023-03-21 19:29 | Emergency (ER) | payer OTHER, SELFPAY ==
[2023-03-21 19:45] VITALS: BP 112/70; PULSE 88; RESP 18; TEMP 36.6; O2SAT 95; BMI 28.0
--- NOTE | 2023-03-21 19:49 | ED.EYEPROB ---
HPI - Eye Problem General Chief complaint: Eye Problems Stated complaint: Painful L eye Time Seen by Provider: 03/21/23 21:21 Source: patient Mode of arrival: ambulatory Limitations: no limitations History of Present Illness HPI Narrative: Patient wears daily wear contact lenses notice irritation redness the left eye for last 4 days she is not using her contact lenses no foreign body no fever no vision loss Related Data Home Medications Medication Instructions Recorded Confirmed buprenorphine 8 mg-naloxone 2 mg 2 film buccal DAILY 05/13/20 02/01/23 sublingual film (Suboxone) etonogestrel 68 mg subdermal subdermal 04/20/21 02/01/23 implant (Nexplanon) bupropion HCl 300 mg 24 hr tablet, 300 mg PO DAILY 01/21/22 02/01/23 extended release hydroxyzine HCl 25 mg tablet 0 mg PO 01/21/22 02/01/23 escitalopram oxalate 10 mg tablet 20 mg PO QAM 07/20/22 02/01/23 clonidine HCl 0.2 mg tablet 0.4 mg PO BEDTIME insomnia 12/16/22 02/01/23 bupropion HCl 75 mg tablet 75 mg PO DAILY 01/20/23 02/01/23 Previous Rx's Medication Instructions Recorded Ventolin HFA 90 mcg/actuation 2 puff PO QID PRN bronchospasm 30 08/08/22 aerosol inhaler (albuterol sulfate) days #18 grams dupilumab 300 mg/2 mL subcutaneous 300 mg (2 mL) subcut Q2W 28 days 09/09/22 pen injector (Supponorixent) #4 mL Breo Ellipta 200 mcg-25 mcg/dose 1 ea inhalation DAILY #60 ea 11/28/22 powder for inhalation (fluticasone furoate-vilanterol) ipratropium 0.5 mg-albuterol 3 mg 3 ml PO Q4-6H PRN for wheezing 12/27/22 (2.5 mg base)/3 mL nebulization #270 mL soln cetirizine 10 mg tablet 10 mg PO DAILY PRN for allergies 01/20/23 #90 tabs lidocaine 5 % topical patch 1 patch topical DAILY pain #30 ea 01/20/23 camphor 3.1 %-methyl salicylate 15 1 ea topical QID pain #78 grams 01/24/23 %-menthol 10 % topical gel (Salonpas Deep Relieving) atorvastatin 20 mg tablet 20 mg PO DAILY #90 tabs 01/27/23 ibuprofen 600 mg tablet 600 mg PO Q6H PRN pain 30 days #90 01/27/23 tabs furosemide 20 mg tablet (Lasix) 20 mg PO QAM Ankle swelling #90 03/01/23 tabs moxifloxacin 0.5 % eye drops See Rx Instructions .Route 03/21/23 (Vigamox) .COMPLEX #3 mL Allergies Allergy/AdvReac Type Severity Reaction Status Date / Time ciprofloxacin [CIPROFLOXACIN] Allergy Severe ANAPHYLAXIS Verified 03/21/23 19:48 penicillin V Allergy Severe throat Verified 03/21/23 19:48 swelling, hives amoxicillin [AMOXICILLIN] Allergy Unknown SWELLING Verified 03/21/23 19:48 sulfadiazine Allergy Unknown hives Verified 03/21/23 19:48 PMFSH Past Medical History Medical History History of asthma History of back pain History of TMJ disorder Hx of drug abuse Hx of renal calculi Pseudoangiomatous stromal hyperplasia of breast Uterus, adenomyosis Surgical History Hx of breast lump removal Hx of cholecystectomy Hx of hand surgery Hx of umbilical hernia repair Family History Family History Father Graves disease DVT (deep venous thrombosis) HTN (hypertension) Mother Graves disease Cervical cancer Ovarian cancer [place] disease Brother Graves disease Daughter ADHD Son ADHD Maternal Aunt Breast CA Other Mental health disorder Substance use disorder Social History Social History Household Members: Significant Other and Children Housing: Apartment Alcohol intake: never Patient Tobacco Use Status: Current everyday Tobacco user Tobacco use type: Cigarette Cigarettes Per Day: 10 e-Cigarette/Vaping Use: Never Used Advance Directives: No Advance Directives Information Provided: No service: No Current occupational status: employed 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 Opacity in the left cornea anterior chamber clear no foreign body seen injected palpebral conjunctiva Course Course Course Narrative: This is an RME: Additional HPI, ROS, PE not included below will be deferred to primary provider. 37 yo f presents w. L red eye pain and redness. FB sensation Plan- eye exam Medications Administered Discontinued Medications Generic Name Dose Route Start Last Admin Trade Name Freq PRN Reason Stop Dose Admin Tetracaine HCl 1 drop 03/21/23 19:50 03/21/23 21:15 Tetracaine Hcl/Pf 0.5% Oph Janeth 4 Ml Drops EYE-BOTH 03/21/23 19:51 1 drop ONCE ONE Administration Medical Decision Making Medical Decision Making MDM Narrative: Patient with conjunctivitis secondary to contact lenses use no foreign body seen the chamber clear discharge patient home on Vigamox eyedrops and advised to follow with a doctor Discharge Plan Discharge Clinical Impression: Contact lens related conjunctivitis Patient Disposition: Home, Self-Care Instructions: Conjunctivitis (ED) Additional Instructions: Use eyedrops in your left eye as prescribed every hour till it gets better Do not use contact LENSES until completely get better Follow-up with eye doctor as advised Prescriptions: New moxifloxacin [Vigamox] 0.5 % drops See Rx Instructions .ROUTE .COMPLEX Qty: 3 1RF Rx Instructions: 1 drp into the left eye every hour while awake still gets completely better No Action albuterol sulfate [Ventolin HFA] 90 mcg/actuation HFA aerosol inhaler 2 puff PO QID PRN (Reason: bronchospasm) 30 Days Qty: 18 6RF Dupixent Pen 300 mg/2 mL pen injector 300 mg subcut Q2W 28 Days Qty: 4 12RF Rx Instructions: initial does 600 mg, then 300 mg every 2 weeks fluticasone furoate-vilanterol [Breo Ellipta] 200-25 mcg/dose blister with device 1 ea inhalation DAILY Qty: 60 6RF ipratropium-albuterol 0.5 mg-3 mg(2.5 mg base)/3 mL solution for nebulization 3 ml PO Q4-6H PRN (Reason: for wheezing) Qty: 270 6RF cetirizine 10 mg tablet 10 mg PO DAILY PRN (Reason: for allergies) Qty: 90 1RF Salonpas Deep Relieving 3.1-15-10 % gel 1 ea topical QID Qty: 78 3RF Rx Instructions: Apply pea-sized amount 3-4 times daily to affected sites ibuprofen 600 mg tablet 600 mg PO Q6H PRN (Reason: pain) 30 Days Qty: 90 2RF atorvastatin 20 mg tablet 20 mg PO DAILY Qty: 90 0RF furosemide [Lasix] 20 mg tablet 20 mg PO QAM Qty: 90 0RF Nexplanon 68 mg implant subdermal bupropion HCl 300 mg tablet extended release 24 hr 300 mg PO DAILY hydroxyzine HCl 25 mg tablet 0 mg PO escitalopram oxalate 10 mg tablet 20 mg PO QAM buprenorphine-naloxone [Suboxone] 8-2 mg film 2 film buccal DAILY Rx Instructions: place 1 film on inside of (each) cheek clonidine HCl 0.2 mg tablet 0.4 mg PO BEDTIME bupropion HCl 75 mg tablet 75 mg PO DAILY Rx Instructions: administer 6 hours apart lidocaine 5 % adhesive patch,medicated 1 patch topical DAILY Qty: 30 3RF Rx Instructions: leave on most painful area for up to 12 hrs. do not use with topical compound cream. Referrals: Richard Alfred [Physician] - 2 days Stand Alone Forms: Work/School Release Interventions: ED Discharge Assessment Last Done: 03/21/23 22:45 Discharge Date/Time: 03/21/23 22:46
[2023-03-21] MEDS: Tetracaine HCl/PF 0.5% Oph Sol 4 ML DROPS 1 DROP EYE-BOTH (21:15)
== END 2023-03-21 22:46 | disposition home or self-care (01) ==
PROVIDERS: Emergency Provider Internal Medicine; PCP Internal Medicine
DX: H10.89 Other conjunctivitis (principal); H57.12 Ocular pain, left eye; F17.210 Nicotine dependence, cigarettes, uncomplicated
CPT/HCPCS: 99282; 99283

== ENCOUNTER 2023-03-28 15:37 | Outpatient (AMB) | payer OTHER, SELFPAY ==
[2023-03-28 15:36] VITALS: BMI 27.8
--- NOTE | 2023-03-28 15:36 | MHC.OFFVIS ---
Intake Vital Signs 03/28/23 15:36 Height 5 ft 5 in Weight 167 lb BMI 27.8 Intake Visit Reasons: ENVIRONMENTAL CONSULTANT/ PCP referral for VV Intake Note: ENVIRONMENTAL CONSULTANT/PCP referral for VV bilateral LE. Pt states Right LE slightly worse than Left LE. Pt states she gets weakness. PT states VV started 2-3 yrs ago and getting worse. Allergies ciprofloxacin [CIPROFLOXACIN] Allergy (Severe, Verified 03/28/23 15:39) ANAPHYLAXIS penicillin V Allergy (Severe, Verified 03/28/23 15:39) throat swelling, hives amoxicillin [AMOXICILLIN] Allergy (Unknown, Verified 03/28/23 15:39) SWELLING sulfadiazine Allergy (Unknown, Verified 03/28/23 15:39) hives HPI ENVIRONMENTAL CONSULTANT/ PCP referral for VV HPI Details 37-year-old female patient presents for painful varicose veins. Complaints include pain over varicosities, swelling of lower extremities, cramping, fatigue, and heaviness of the lower extremities. 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 It is noted more so in left leg. Of note she does smoke a half a pack per day. In addition she did have a trial of Lasix which seemed to help her legs a little bit. Patient denies any previous venous surgery or injections. Patient denies any history of DVT/ PE. Personally no history of DVT but father did have a history of a DVT and was on anticoagulation Patient denies any history of phlebitis. Trial of compression includes - [id number] They now present for vascular evaluation regarding their varicose veins. PFSH Medical History Hx of drug abuse Pseudoangiomatous stromal hyperplasia of breast Uterus, adenomyosis History of back pain History of TMJ disorder Hx of renal calculi History of asthma Surgical History Hx of cholecystectomy Hx of breast lump removal Hx of hand surgery Hx of umbilical hernia repair Family History Father Graves disease DVT (deep venous thrombosis) HTN (hypertension) Mother Graves disease Cervical cancer Ovarian cancer [place] disease Brother Graves disease Daughter ADHD Son ADHD Maternal Aunt Breast CA Other Mental health disorder Substance use disorder Social History Household Members: Significant Other and Children Housing: Apartment Alcohol intake: never Patient Tobacco Use Status: Current everyday Tobacco user Tobacco use type: Cigarette Cigarettes Per Day: 10 e-Cigarette/Vaping Use: Never Used service: No Current occupational status: employed 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 - [employer] Sexual orientation: Straight/Heterosexual Gender identity: Female Cognitive needs: No Hearing needs: No Vision needs: Yes Female Reproductive History Menstrual Age of Menarche: 12 Review of Systems Const Reports as per HPI ENT Reports no additional complaints Card Denies chest pain, Denies chest pain at rest and Denies chest pain with activity Resp Denies chest congestion and Denies cough GI Reports no additional complaints Musc Details: pain over varicosities, aching of lower extremities, swelling, cramping, heaviness and tiredness, itching Denies abnormal gait Skin/Breast Reports pruritus and Denies wounds Neuro Reports no additional complaints and Denies abnormal gait Psych Denies no additional complaints Physical Exam Vital Signs: BMI result Body Mass Index 27.8 Const General: cooperative, healthy appearing and comfortable Orientation/consciousness: oriented to person, oriented to place and oriented to time Neck Carotids: no bruits Chest Chest palpation & inspection: normal inspection of the chest and normal palpation of entire chest wall Resp Effort & Inspection: normal respiratory effort and able to speak in complete sentences Cardio Rate: regular rate Heart sounds: S1 normal heart sound present and S2 normal heart sound present Peripheral pulses: Peripheral pulses 2+ throughout GI Inspection: Yes normal to inspection Skin Other: +2 edema, large rope-like varicosities greater than 4 mm CEAP Classification C4 - skin color changes Ep - Etiology Primary As - superficial veins P - reflux General skin exam: dry skin Neuro General: oriented to person, oriented to place and oriented to time Extrem Right lower extremity: full ROM, normal capillary refill and edema Left lower extremity: full ROM, normal capillary refill and edema Psych Mental Status: mental status grossly normal Assessment & Plan Assessment & Plan (1) Varicose veins of left lower extremity with inflammation: Code(s): I83.12 - Varicose veins of left lower extremity with inflammation Plan: In short, the patient has evidence of venous insufficiency. I have discussed the pathophysiology with the patient. In addition I have provided informational material regarding venous disease to the patient. We have discussed conservative measures including compression, elevation, and exercise. I have also provided a handout regarding appropriate use of compression stockings and where to purchase good compression stockings as well. I have taken the liberty of ordering venous insufficiency testing with the patient. They will follow up with me after testing. The patient had an opportunity to ask questions regarding the treatment plan. All questions were answered. Imaging studies, laboratory studies and physical exam results were discussed and reviewed in detail. No major barriers to understanding were identified. The patient expressed understanding and agreement with the above treatment plan. The patient is aware they should contact our office by phone for worsening of the current condition or the appearance of new symptoms. Thank you for allowing me to participate in the vascular care of this patient. If you have any questions or concerns regarding the treatment for the above condition please do not hesitate to contact me. The office telephone contact is [phone]. This note is constructed using voice recognition software. While every effort has been made to ensure accuracy, sheeter operator errors may have been included. Thank you for allowing me to participate in the care of your patient. Yours sincerely, Jeffrey Spring MD, FACS, R.P.V.I. Orders: Orders US venous duplex LE BI 1 Week I83.12 - Varicose veins of left lower extremity with inflammation Coding Level of Care Code New Pt Level 4 (27057) Diagnoses Varicose veins of left lower extremity with inflammation I83.12
== END 2023-03-28 15:57 | disposition home or self-care (01) ==
PROVIDERS: PCP Internal Medicine; Visit Provider Surgery Vascular Surgery
DX: I83.12 Varicose veins of left lower extremity with inflammation (principal)
CPT/HCPCS: 99203

== ENCOUNTER → 2023-03-28 15:37 | Outpatient (BNVA) | payer OTHER, SELFPAY | PROVIDERS: PCP Internal Medicine; Visit Provider Surgery Vascular Surgery ==

== ENCOUNTER 2023-03-31 15:08 | Outpatient (REF) | payer OTHER, SELFPAY ==
--- NOTE | ~2023-03-31 | XR_ITS ---
EXAMINATION: XR KNEES, BILATERAL XR ANKLES, BILATERAL XR FEET, BILATERAL XR HAND, LEFT CLINICAL INFORMATION: Rheumatoid arthritis. Pain. COMPARISON: Right foot 07/20/2022, left knee 11/23/2020, left ankle 11/05/2020 TECHNIQUE: 3 views of the left hand with navicular view of the wrist. 2 views of the right ankle. 2 views left ankle. 3 views left foot. 3 views left knee. 3 views left hand and navicular view left wrist. FINDINGS: LEFT HAND: Mild degenerative changes in the 1st carpometacarpal joint with joint space narrowing and hypertrophic change. No displaced fracture. LEFT KNEE: Mild medial joint space narrowing. Mild medial marginal osteophytes. Trace joint effusion. RIGHT KNEE: Mild medial joint space narrowing with mild medial marginal osteophyte formation. Trace joint effusion. RIGHT FOOT: Redemonstration of healed fracture at the base of the 5th metatarsal. The joint spaces are preserved. No acute displaced fracture. RIGHT ANKLE: Alignment preserved. No displaced fracture. No significant calcaneal spur. LEFT ANKLE: Corticated ossicle posterior to the talus with punctate ossific/calcific fragment just superiorly located. Alignment preserved. No significant calcaneal spur. LEFT FOOT: Joint spaces are preserved. No displaced fracture. XR/XR knee LT 4V IMPRESSION: 1. Mild degenerative changes in the 1st carpometacarpal joint. 2. Mild degenerative changes left knee. 3. Mild degenerative changes right knee. 4. Redemonstration of healed fracture at the base of the right 5th metatarsal. 5. Corticated ossicle posterior to the left talus with punctate ossific/calcific fragment just superiorly located. 6. Recommend no acute displaced fracture appreciated. Additional imaging with CT scan or MRI should be considered for better visualization as these modalities are much more sensitive for detection of fracture or other underlying pathology.
--- NOTE | ~2023-03-31 | XR_ITS ---
EXAMINATION: XR KNEES, BILATERAL XR ANKLES, BILATERAL XR FEET, BILATERAL XR HAND, LEFT CLINICAL INFORMATION: Rheumatoid arthritis. Pain. COMPARISON: Right foot 07/20/2022, left knee 11/23/2020, left ankle 11/05/2020 TECHNIQUE: 3 views of the left hand with navicular view of the wrist. 2 views of the right ankle. 2 views left ankle. 3 views left foot. 3 views left knee. 3 views left hand and navicular view left wrist. FINDINGS: LEFT HAND: Mild degenerative changes in the 1st carpometacarpal joint with joint space narrowing and hypertrophic change. No displaced fracture. LEFT KNEE: Mild medial joint space narrowing. Mild medial marginal osteophytes. Trace joint effusion. RIGHT KNEE: Mild medial joint space narrowing with mild medial marginal osteophyte formation. Trace joint effusion. RIGHT FOOT: Redemonstration of healed fracture at the base of the 5th metatarsal. The joint spaces are preserved. No acute displaced fracture. RIGHT ANKLE: Alignment preserved. No displaced fracture. No significant calcaneal spur. LEFT ANKLE: Corticated ossicle posterior to the talus with punctate ossific/calcific fragment just superiorly located. Alignment preserved. No significant calcaneal spur. LEFT FOOT: Joint spaces are preserved. No displaced fracture. XR/XR hand wrist LT IMPRESSION: 1. Mild degenerative changes in the 1st carpometacarpal joint. 2. Mild degenerative changes left knee. 3. Mild degenerative changes right knee. 4. Redemonstration of healed fracture at the base of the right 5th metatarsal. 5. Corticated ossicle posterior to the left talus with punctate ossific/calcific fragment just superiorly located. 6. Recommend no acute displaced fracture appreciated. Additional imaging with CT scan or MRI should be considered for better visualization as these modalities are much more sensitive for detection of fracture or other underlying pathology.
--- NOTE | ~2023-03-31 | XR_ITS ---
EXAMINATION: XR KNEES, BILATERAL XR ANKLES, BILATERAL XR FEET, BILATERAL XR HAND, LEFT CLINICAL INFORMATION: Rheumatoid arthritis. Pain. COMPARISON: Right foot 07/20/2022, left knee 11/23/2020, left ankle 11/05/2020 TECHNIQUE: 3 views of the left hand with navicular view of the wrist. 2 views of the right ankle. 2 views left ankle. 3 views left foot. 3 views left knee. 3 views left hand and navicular view left wrist. FINDINGS: LEFT HAND: Mild degenerative changes in the 1st carpometacarpal joint with joint space narrowing and hypertrophic change. No displaced fracture. LEFT KNEE: Mild medial joint space narrowing. Mild medial marginal osteophytes. Trace joint effusion. RIGHT KNEE: Mild medial joint space narrowing with mild medial marginal osteophyte formation. Trace joint effusion. RIGHT FOOT: Redemonstration of healed fracture at the base of the 5th metatarsal. The joint spaces are preserved. No acute displaced fracture. RIGHT ANKLE: Alignment preserved. No displaced fracture. No significant calcaneal spur. LEFT ANKLE: Corticated ossicle posterior to the talus with punctate ossific/calcific fragment just superiorly located. Alignment preserved. No significant calcaneal spur. LEFT FOOT: Joint spaces are preserved. No displaced fracture. XR/XR ankle RT min 3V IMPRESSION: 1. Mild degenerative changes in the 1st carpometacarpal joint. 2. Mild degenerative changes left knee. 3. Mild degenerative changes right knee. 4. Redemonstration of healed fracture at the base of the right 5th metatarsal. 5. Corticated ossicle posterior to the left talus with punctate ossific/calcific fragment just superiorly located. 6. Recommend no acute displaced fracture appreciated. Additional imaging with CT scan or MRI should be considered for better visualization as these modalities are much more sensitive for detection of fracture or other underlying pathology.
[2023-03-31 16:31] LABS: MANUAL DIFF FLAG NO
[2023-03-31 16:38] LABS: Basophils Percent Auto 0.4 % (0-2); Eosinophils Absolute Auto 0.1 X10*3/uL (0.0-0.4); Eosinophils Percent Auto 1.2 % (0-4); Hematocrit 39.3 % (37.0-47.0); Hemoglobin 13.2 g/dl (12.0-16.0); Imm Gran Abs Auto 0.03 X10*3/uL (0.00-0.03); Imm Gran Pct Auto 0.4 % (0.0-0.4); Lymphocytes Absolute Auto 2.9 X10*3/uL (1.2-4.9); Lymphocytes Percent Auto 34.1 % (20-40); Mean Corpuscular HGB Conc 33.6 g/dl (31.0-35.0); Mean Corpuscular Hemoglobin 30.9 pg (27.0-33.0); Mean Platelet Volume 8.6 fL (9.4-12.3); Monocytes Absolute Auto 0.5 X10*3/uL (0.1-1.2); Monocytes Percent Auto 5.5 % (2-11); Neutrophils Absolute Auto 4.9 x10*3/uL (2.0-8.3); Neutrophils Percent Auto 58.4 % (45-73); Platelet Count 284 X10*3/uL (160-400); Red Blood Count 4.27 X10*6/uL (4.20-5.50); Red Cell Distribution Width 12.1 % (11.0-16.0); White Blood Count 8.4 X10*3/uL (4.8-10.8)
[2023-03-31 17:29] LABS: Erythrocyte Sedimentation Rate 14 MM/HR (0-20)
[2023-03-31 17:33] LABS: Rheumatoid Factor < 13.0 IU/mL (<15.0)
[2023-03-31 17:34] LABS: Alanine Aminotransferase 18 U/L (0-31); Albumin Level 3.9 g/dL (3.5-5.0); Alkaline Phosphatase 100 U/L (39-117); Anion Gap 14 (12-20); Aspartate Amino Transferase 20 U/L (5-31); Bilirubin Total 0.5 mg/dL (0.0-1.0); Blood Urea Nitrogen 9 mg/dL (9-16); C Reactive Protein 1.03 mg/dL (< or = 0.50); Calcium 9.7 mg/dL (8.4-10.2); Carbon Dioxide 25 mmol/L (22-29); Chloride 102 mmol/L (96-108); Estimated Glomerular Filt Rate > 60; Glucose Random 80 mg/dL (60-115); Potassium 3.9 mmol/L (3.3-5.1); Sodium 137 mmol/L (135-145); Total Protein 7.4 g/dL (6.5-8.0)
[2023-04-01 04:11] LABS: HBS Num1 > 1000.00 mIU/mL (0-7.99); HBc Num1 0.11 S/CO (0.00-0.79); Hepatitis A Antibody IgM 0.18 Index (0-0.79); Hepatitis B Core Antibody Nonreactive (Nonreactive); Hepatitis B Surface Antigen Negative (Negative); ~HepC Num1 0.44 S/CO (0.00-0.79); ~Hepatitis A Antibody IgM Nonreactive (Nonreactive); ~Hepatitis B Surface Antibody REACTIVE (Nonreactive); ~Hepatitis C Antibody Nonreactive (Nonreactive)
[2023-04-02 12:08] LABS: Cyclic Citrullinated Peptide <16 UNITS
[2023-04-02 19:34] LABS: TS Negative Control Passed; TS Panel A 0; TS Panel B 0; TS Positive Control Passed; TSpotTB Negative (Negative)
[2023-04-04 15:14] LABS: IgA 221 mg/dL (47-310); IgG 1476 mg/dL (600-1640); IgM 82 mg/dL (50-300)
[2023-04-05 08:43] LABS: Prot Elec - Albumin 3.9 g/dL (3.8-4.8); Prot Elec - Alpha1 0.4 g/dL (0.2-0.3); Prot Elec - Alpha2 0.8 g/dL (0.5-0.9); Prot Elec - Beta 1 0.4 g/dL (0.4-0.6); Prot Elec - Beta 2 0.4 g/dL (0.2-0.5); Prot Elec - Gamma 1.4 g/dL (0.8-1.7); Prot Elec - Total Protein 7.2 g/dL (6.1-8.1)
[2023-04-05 14:00] LABS: ANA Titer 2 1:40 titer; Anti Nuclear Antibody Screen POSITIVE (NEGATIVE)
== END 2023-03-31 15:09 | disposition home or self-care (01) ==
LOC: HO.LAB 15:08
PROVIDERS: PCP Internal Medicine; Visit Provider Student in an Organized Health Care Education/Training Program
DX: Z11.7 Encounter for testing for latent tuberculosis infection (principal); Z11.59 Encounter for screening for other viral diseases; M06.9 Rheumatoid arthritis, unspecified
CPT/HCPCS: 36415; 73110; 73130; 73564; 73610; 73630; 80053; 82784; 84165; 85025; 85652; 86038; 86039; 86140; 86200; 86334; 86431; 86481; 86704; 86706; 86709; 86803; 87340

== ENCOUNTER 2023-03-31 15:08 | Outpatient (AMB) | payer OTHER, SELFPAY ==
--- NOTE | 2023-03-31 15:13 | MHC.OFFVIS ---
Intake Vital Signs 03/31/23 15:14 Height 5 ft 5 in Weight 167 lb 1.766 oz BMI 27.8 BP 114/66 Blood Pressure Location Rt brachial Position Sitting Pulse 82 Pulse Source Pulse Oximeter Temp 97.9 F Temp Source Skin Pulse Oximetry (%) 95 Intake Visit Reasons: RA Intake Note: New pt presents today for RA consult, referred by Ortho C/o bilat joint pain in knees, hips and ankles. s/p excision mass on finger-- path report from exc of mass Comment: The features suggest rheumatoid nodules, but other granulomatous entities cannot be completely excluded and clinical/serologic correlation is necessary. No epidermis is present for evaluation. Membership Administrator Required: No Accompanied by: Self / Same As Patient Allergies ciprofloxacin [CIPROFLOXACIN] Allergy (Severe, Verified 03/31/23 15:17) ANAPHYLAXIS penicillin V Allergy (Severe, Verified 03/31/23 15:17) throat swelling, hives amoxicillin [AMOXICILLIN] Allergy (Unknown, Verified 03/31/23 15:17) SWELLING sulfadiazine Allergy (Unknown, Verified 03/31/23 15:17) hives Medication List - Last Reconciled 03/31/23 by Rahul Bonilla MD atorvastatin 20 mg PO DAILY Breo Ellipta 200-25 mcg/dose (fluticasone furoate-vilanterol) 1 ea inhalation DAILY NS buprenorphine-naloxone 8-2 mg (Suboxone) 2 film buccal DAILY bupropion HCl 300 mg PO DAILY bupropion HCl 75 mg PO DAILY camphor-methyl salicyl-menthol 3.1-15-10 % (Salonpas Deep Relieving) 1 ea topical QID cetirizine 10 mg PO DAILY PRN clonidine HCl 0.4 mg PO BEDTIME dupilumab (Dupixent) 300 mg (2 mL) subcut Q2W 28 days escitalopram oxalate 20 mg PO DAILY etonogestrel (Nexplanon) subdermal furosemide (Lasix) 20 mg PO QAM hydroxyzine HCl 0 mg PO ibuprofen 600 mg PO Q6H PRN 30 days ipratropium-albuterol 0.5 mg-3 mg(2.5 mg base)/3 mL 3 mL PO Q4-6H PRN lidocaine 5% 1 patch topical DAILY Ventolin HFA 90 mcg/actuation (albuterol sulfate) 2 puffs PO QID PRN 30 days NS HPI HPI Comments History of Present Illness Details This is a 37-year-old female who presents for evaluation of diffuse joint pain. She was referred by Orthopedics as and excised mass on her right index finger, pathology was suggestive of a rheumatoid nodule. Patient states that for the last year she has been having multiple joint pain. Bilateral knee pain associated with morning stiffness lasting 1 hour. She also has bilateral hand pain, swelling and stiffness. Morning stiffness lasting 1 hour. States that her fingers have been swollen over the last 6 months to 1 year. She has new rings as her old rings do not fit anymore. She gets intermittent ankle swelling, worse on the left. States that her mother has arthritis, does not know what type. She denies any history of DVT/PE. She has history of multiple allergies, including asthma on Dupixent which is helping per patient. She states that when she was prescribed prednisone taper for her asthma exacerbations it would help her joint pain significantly [facility] Medical History (Updated 03/31/23 @ 15:59 by Rahul Bonilla MD) Hx of drug abuse Pseudoangiomatous stromal hyperplasia of breast Uterus, adenomyosis History of back pain History of TMJ disorder Hx of renal calculi History of asthma Surgical History Hx of cholecystectomy Hx of breast lump removal Hx of hand surgery Hx of umbilical hernia repair Family History Father Graves disease DVT (deep venous thrombosis) HTN (hypertension) Mother Graves disease Cervical cancer Ovarian cancer [place] disease Brother Graves disease Daughter ADHD Son ADHD Maternal Aunt Breast CA Other Mental health disorder Substance use disorder Social History Household Members: Significant Other and Children Housing: Apartment Alcohol intake: never Patient Tobacco Use Status: Current everyday Tobacco user Tobacco use type: Cigarette Cigarettes Per Day: 10 e-Cigarette/Vaping Use: Never Used service: No Current occupational status: employed 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 - [employer] Sexual orientation: Straight/Heterosexual Gender identity: Female Cognitive needs: No Hearing needs: No Vision needs: Yes Female Reproductive History Menstrual Age of Menarche: 12 Total pregnancies: 3 Number of Living Children: 2 Ab spontaneous: 1 Review of Systems Const Denies fever(s) and Reports weight gain ENT Details: thrush Musc Reports arthralgias, Reports joint swelling, Reports limited range of motion and Reports stiffness Skin/Breast Denies rash Physical Exam Vital Signs: Last Vital Signs Temp 97.9 F 03/31/23 15:14 Pulse 82 03/31/23 15:14 BP 114/66 03/31/23 15:14 Pulse Ox 95 03/31/23 15:14 BMI result Body Mass Index 27.8 Const General: cooperative, healthy appearing and comfortable Nutritional Appearance: overweight Orientation/consciousness: patient oriented x3 Limitations: no limitations HEENT Other: White thrush on oropharynx Head: Yes normocephalic and Yes atraumatic Mouth: moist mucous membranes Resp Effort & Inspection: normal respiratory effort and able to speak in complete sentences Auscultation: wheezes Cardio Rate: regular rate Rhythm: regular rhythm Skin General skin exam: no rashes or lesions noted Neuro General: patient oriented x3 Extrem Other: Bilateral wrist swelling Left wrist tenderness to palpation Left MCP squeeze test positive Right 5th MCP swelling and tenderness Few PIP swelling and tenderness right hand. Bilateral knee pain with any range of motion Right ankle warmth and tenderness Negative MTP tenderness and negative MTP squeeze test bilaterally Normal nailfold capillaroscopy Results Reviewed Results Reviewed: path report from exc of mass Comment 12/2022:? The features suggest rheumatoid nodules, but other granulomatous entities cannot be completely excluded and clinical/serologic correlation is necessary.? No epidermis is present for evaluation. Assessment & Plan Assessment & Plan (1) Rheumatoid arthritis: Code(s): M06.9 - Rheumatoid arthritis, unspecified Qualifiers: Rheumatoid arthritis location: multiple sites Rheumatoid factor presence: unspecified presence Qualified Code(s): M06.9 - Rheumatoid arthritis, unspecified Plan: This is a 37-year-old female who is referred by Orthopedics for evaluation. Pathology report from excised mass on right index finger was suspicious of rheumatoid nodule. Over the last year patient has been having multiple joint pain, swelling and stiffness. Clinical picture consistent with rheumatoid arthritis. Will check serologies, inflammatory markers. Check baseline x-rays of involved joints. Start prednisone therapeutic trial. Follow-up in 2 weeks Plan I spent 46 minutes reviewing patient's chart, evaluating patient, ordering diagnostic workup, counseling patient and documenting in the chart Orders: Orders Comprehensive Met. Panel Today M06.9 - Rheumatoid arthritis, unspecified C Reactive Protein Today M06.9 - Rheumatoid arthritis, unspecified Erythrocyte Sedimentation Rate Today M06.9 - Rheumatoid arthritis, unspecified Immunofixation Pnl, Serum Today M06.9 - Rheumatoid arthritis, unspecified Cyclic Citrullinated Peptide Today M06.9 - Rheumatoid arthritis, unspecified RADHA Reflex Titer and Pattern Today M06.9 - Rheumatoid arthritis, unspecified XR knee RT 3V Today M06.9 - Rheumatoid arthritis, unspecified Complete Blood Count Auto Diff Today M06.9 - Rheumatoid arthritis, unspecified Hepatitis A,B,C Profile Today Z11.59 - Encounter for screening for other viral diseases T Spot TB Today Z11.7 - Encounter for testing for latent tuberculosis infection Protein Electrophoresis, Serum Today M06.9 - Rheumatoid arthritis, unspecified Rheumatoid Factor Today M06.9 - Rheumatoid arthritis, unspecified XR hand wrist LT Today M06.9 - Rheumatoid arthritis, unspecified XR knee LT 3V Today M06.9 - Rheumatoid arthritis, unspecified XR knee standing BI Today M06.9 - Rheumatoid arthritis, unspecified XR ankle LT min 3V Today M06.9 - Rheumatoid arthritis, unspecified XR ankle RT min 3V Today M06.9 - Rheumatoid arthritis, unspecified XR foot LT min 3V Today M06.9 - Rheumatoid arthritis, unspecified XR foot RT min 3V Today M06.9 - Rheumatoid arthritis, unspecified Medications: New prednisone Take 2 tabs by mouth once daily with breakfast for 1 week then remain on 1 tab daily 28 tabs 0RF Coding Level of Care Code New Pt Level 4 (55154) Diagnoses Rheumatoid arthritis involving multiple sites, unspecified whether rheumatoid factor present M06.9 Rheumatoid arthritis location: multiple sites Rheumatoid factor presence: unspecified presence
[2023-03-31 15:14] VITALS: BP 114/66; PULSE 82; TEMP 36.6; O2SAT 95; BMI 27.8
== END 2023-03-31 15:52 | disposition home or self-care (01) ==
PROVIDERS: PCP Internal Medicine; Visit Provider Student in an Organized Health Care Education/Training Program
DX: M06.9 Rheumatoid arthritis, unspecified (principal)
CPT/HCPCS: 99204

== ENCOUNTER 2023-04-07 10:34 | Outpatient (REF) | payer OTHER, SELFPAY ==
--- NOTE | ~2023-04-07 | US_ITS ---
EXAMINATION: US LOWER EXTREMITY VENOUS (REFLUX EXAM), BILATERAL CLINICAL INDICATION: Chronic venous insufficiency with lower extremity varicose veins with inflammation COMPARISON: None. TECHNIQUE: Color flow triplex imaging and compression Doppler was performed to evaluate both the deep and the superficial systems bilaterally. To evaluate the superficial system, the examination was performed in the upright position. Color-flow Doppler ultrasound and compression ultrasound were utilized. In addition, maneuvers were utilized to demonstrate reflux. FINDINGS: 1. DEEP VENOUS ULTRASOUND OF THE RIGHT LOWER EXTREMITY: Common Femoral Vein: Compressible, normal respiratory variation and augmented flow. Femoral Vein: Compressible, normal color flow and augmentation. Popliteal Vein: Compressible, normal augmentation. Deep Reflux: There is no evidence of reflux in the deep system in either the common femoral vein or the popliteal vein. There is no evidence of a Akhtar's cyst. 2. SUPERFICIAL ULTRASOUND WITH DOPPLER OF RIGHT LOWER EXTREMITY: GREAT SAPHENOUS VEIN: Saphenofemoral Junction: 0.6 cm; Reflux: 0 ms Proximal Thigh: 0.5 cm; Reflux: 0 ms Mid Thigh: 0.3 cm; Reflux: 0 ms Above Knee: 0.3 cm; Reflux: 0 ms At Knee: 0.3 cm; Reflux: 0 ms Below Knee: 0.2 cm; Reflux: 0 ms Mid Calf: 0.2 cm; Reflux: 0 ms Ankle: 0.3 cm; Reflux: 0 ms DUPLICATED MEDIAL GREAT SAPHENOUS VEIN: Diameter: None imaged Reflux: NA DUPLICATED LATERAL GREAT SAPHENOUS VEIN: Diameter: 0.2 cm Reflux: None SMALL SAPHENOUS VEIN: Proximal: 0.3 cm; Reflux: 0 ms Distal: 0.2 cm; Reflux: 0 ms VEIN OF GIACOMINI: Size: NA Reflux: NA PERFORATORS: Location: None significant Size: NA Reflux: NA VARICOSITIES: Location: None significant Size: NA Reflux: NA 3. DEEP VENOUS ULTRASOUND OF THE LEFT LOWER EXTREMITY: Common Femoral Vein: Compressible, normal respiratory variation and augmented flow. Femoral Vein: Compressible, normal color flow and augmentation. Popliteal Vein: Compressible, normal augmentation. Deep Reflux: There is no evidence of reflux in the deep system in either the common femoral vein or the popliteal vein. There is no evidence of a Akhtar's cyst. 4. SUPERFICIAL ULTRASOUND WITH DOPPLER OF LEFT LOWER EXTREMITY: GREAT SAPHENOUS VEIN: Saphenofemoral Junction: 0.4 cm; Reflux: 0 ms Proximal Thigh: 0.5 cm; Reflux: 0 ms Mid Thigh: 0.2 cm; Reflux: 0 ms Above Knee: 0.2 cm; Reflux: 0 ms At Knee: 0.1 cm; Reflux: 0 ms Below Knee: 0.1 cm; Reflux: 0 ms Mid Calf: 0.2 cm; Reflux: 0 ms Ankle: 0.2 cm; Reflux: 0 ms DUPLICATED MEDIAL GREAT SAPHENOUS VEIN: Diameter: None imaged Reflux: NA DUPLICATED LATERAL GREAT SAPHENOUS VEIN: Diameter: 0.2 cm Reflux: None SMALL SAPHENOUS VEIN: Proximal: 0.3 cm; Reflux: 0 ms Distal: 0.2 cm; Reflux: 0 ms VEIN OF GIACOMINI: Size: NA Reflux: NA PERFORATORS: Location: None significant Size: NA Reflux: NA VARICOSITIES: Location: None significant Size: NA Reflux: NA US/US venous duplex LE BI IMPRESSION: Right: No significant venous insufficiency or reflux in the great saphenous vein or small saphenous vein Left: No significant venous insufficiency or reflux in the great saphenous vein or small saphenous vein
== END 2023-04-07 10:35 | disposition home or self-care (01) ==
LOC: HO.US 10:34
PROVIDERS: PCP Internal Medicine; Visit Provider Surgery Vascular Surgery
DX: I83.12 Varicose veins of left lower extremity with inflammation (principal)
CPT/HCPCS: 93970

== ENCOUNTER 2023-04-14 10:39 | Outpatient (AMB) | payer OTHER, SELFPAY ==
[2023-04-14 10:46] VITALS: BP 116/64; PULSE 98; TEMP 36.4; O2SAT 100; BMI 27.8
--- NOTE | 2023-04-14 10:46 | A.OFFVIS_ITS ---
Intake Vital Signs 04/14/23 10:46 Height 5 ft 5 in Weight 167 lb BMI 27.8 BP 116/64 Blood Pressure Location Rt brachial Position Sitting Pulse 98 Pulse Source Pulse Oximeter Temp 97.5 F Temp Source Skin Pulse Oximetry (%) 100 Oxygen Delivery Method Room Air Intake Visit Reasons: RA Intake Note: Pt last seen 03/31/23, presents today for follow up and test results. Global Compensation Director Required: No Accompanied by: Daughter Allergies ciprofloxacin [CIPROFLOXACIN] Allergy (Severe, Verified 04/14/23 10:49) ANAPHYLAXIS penicillin V Allergy (Severe, Verified 04/14/23 10:49) throat swelling, hives amoxicillin [AMOXICILLIN] Allergy (Unknown, Verified 04/14/23 10:49) SWELLING sulfadiazine Allergy (Unknown, Verified 04/14/23 10:49) hives Medication List - Last Reconciled 04/14/23 by Rahul Bonilla MD alcohol swabs (Alcohol Prep Pads) pad topical atorvastatin 20 mg PO DAILY Breo Ellipta 200-25 mcg/dose (fluticasone furoate-vilanterol) 1 ea inhalation DAILY NS buprenorphine-naloxone 8-2 mg (Suboxone) 2 film buccal DAILY bupropion HCl 300 mg PO DAILY bupropion HCl 75 mg PO DAILY camphor-methyl salicyl-menthol 3.1-15-10 % (Salonpas Deep Relieving) 1 ea topical QID cetirizine 10 mg PO DAILY PRN clonidine HCl 0.4 mg PO BEDTIME dupilumab (Dupixent) 300 mg (2 mL) subcut Q2W 28 days escitalopram oxalate 20 mg PO DAILY etonogestrel (Nexplanon) subdermal furosemide (Lasix) 20 mg PO QAM hydroxyzine HCl 0 mg PO ibuprofen 600 mg PO Q6H PRN 30 days ipratropium-albuterol 0.5 mg-3 mg(2.5 mg base)/3 mL 3 mL PO Q4-6H PRN lidocaine 5% 1 patch topical DAILY prednisone Take 2 tabs by mouth once daily with breakfast for 1 week then remain on 1 tab daily Ventolin HFA 90 mcg/actuation (albuterol sulfate) 2 puffs PO QID PRN 30 days NS HPI HPI Comments History of Present Illness Details 37-year-old female with new onset rheuma toid arthritis who presents for follow-up. She started prednisone after last visit with some improvement. Initial history: This is a 37-year-old female who presents for evaluation of diffuse joint pain. She was referred by Orthopedics as and excised mass on her right index finger, pathology was suggestive of a rheumatoid nodule. Patient states that for the last year she has been having multiple joint pain. Bilateral knee pain associated with morning stiffness lasting 1 hour. She also has bilateral hand pain, swelling and stiffness. Morning stiffness lasting 1 hour. States that her fingers have been swollen over the last 6 months to 1 year. She has new rings as her old rings do not fit anymore. She gets intermittent ankle swelling, worse on the left. States that her mother has arthritis, does not know what type. She denies any history of DVT/PE. She has history of multiple allergies, including asthma on Dupixent which is helping per patient. She states that when she was prescribed prednisone taper for her asthma exacerbations it would help her joint pain significantly PFSH Medical History Hx of drug abuse Pseudoangiomatous stromal hyperplasia of breast Uterus, adenomyosis History of back pain History of TMJ disorder Hx of renal calculi History of asthma Surgical History Hx of cholecystectomy Hx of breast lump removal Hx of hand surgery Hx of umbilical hernia repair Family History Father Graves disease DVT (deep venous thrombosis) HTN (hypertension) Mother Graves disease Cervical cancer Ovarian cancer [place] disease Brother Graves disease Daughter ADHD Son ADHD Maternal Aunt Breast CA Other Mental health disorder Substance use disorder Social History Household Members: Significant Other and Children Housing: Apartment Alcohol intake: never Patient Tobacco Use Status: Current everyday Tobacco user Tobacco use type: Cigarette Cigarettes Per Day: 10 e-Cigarette/Vaping Use: Never Used service: No Current occupational status: employed 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 - [employer] Sexual orientation: Straight/Heterosexual Gender identity: Female Cognitive needs: No Hearing needs: No Vision needs: Yes Female Reproductive History Menstrual Age of Menarche: 12 Review of Systems Musc Reports arthralgias and Reports limited range of motion Physical Exam Vital Signs: Last Vital Signs Temp 97.5 F 04/14/23 10:46 Pulse 98 04/14/23 10:46 BP 116/64 04/14/23 10:46 Pulse Ox 100 04/14/23 10:46 Oxygen Delivery Method Room Air 04/14/23 10:46 BMI result Body Mass Index 27.8 Const General: cooperative, healthy appearing and comfortable Nutritional Appearance: overweight Limitations: no limitations Resp Effort & Inspection: normal respiratory effort and able to speak in complete sentences Auscultation: wheezes Results Reviewed Results Reviewed: path report from exc of mass Comment 12/2022:? The features suggest rheumatoid nodules, but other granulomatous entities cannot be completely excluded and clinical/serologic correlation is necessary.? No epidermis is present for evaluation. Assessment & Plan Assessment & Plan (1) Rheumatoid arthritis: Code(s): M06.9 - Rheumatoid arthritis, unspecified Qualifiers: Rheumatoid arthritis location: multiple sites Rheumatoid factor presence: unspecified presence Qualified Code(s): M06.9 - Rheumatoid arthritis, unspecified Plan: This is a 37-year-old female who is referred by Orthopedics for evaluation. Pathology report from excised mass on right index finger was suspicious of rheumatoid nodule. Over the last year patient has been having multiple joint pain, swelling and stiffness. Clinical picture consistent with rheumatoid arthritis. She has negative RF/CCP. Labs show high inflammatory markers. Symptoms improved with prednisone. Clinical picture consistent with new onset seronegative RA. Will need to start DMARDs. Discussed risks and benefits of methotrexate. Patient agreed to proceed. Start methotrexate 15 mg once weekly for 2 weeks then 20 mg once weekly. Start folic acid 1 mg daily Labs before next visit in 2 month (2) FDC methotrexate user: Code(s): Z79.631 - ocean transportation intermediary (current) use of antimetabolite agent Plan: Monitor safety labs. Patient is sexually active and using contraception with Nexplanon for the last 3 years. And it has been effective. She is not planning on getting soon. I discussed teratogenic risk of methotrexate. Advised patient to let me know if there is any suspicion of as methotrexate will need to be discontinued Patient states that she rarely consumes alcohol (3) RADHA positive: Code(s): R76.8 - Other specified abnormal immunological findings in serum Plan: Will check further sub serologies Plan I spent 26 minutes reviewing patient's chart, evaluating patient, ordering diagnostic workup, counseling patient and documenting in the chart Orders: Orders Complete Blood Count Auto Diff 2 Months M06.9 - Rheumatoid arthritis, unspecified C Reactive Protein 2 Months M06.9 - Rheumatoid arthritis, unspecified Complement C4 2 Months M32.9 - Systemic lupus erythematosus, unspecified Protein Creatinine Ratio, Ur 2 Months M32.9 - Systemic lupus erythematosus, unspecified Sjogren's Antibodies 2 Months M32.9 - Systemic lupus erythematosus, unspecified UA w Microscopic 2 Months M32.9 - Systemic lupus erythematosus, unspecified Beta-2 Glycoprotein Antibody 2 Months D68.61 - Antiphospholipid syndrome Lupus Anticoagulant Panel 2 Months D68.61 - Antiphospholipid syndrome Comprehensive Met. Panel 2 Months M06.9 - Rheumatoid arthritis, unspecified Erythrocyte Sedimentation Rate 2 Months M06.9 - Rheumatoid arthritis, unspecified Anti Extractable Nuclear Ag 2 Months M32.9 - Systemic lupus erythematosus, unspecified Anti DNA DS Antibody 2 Months M32.9 - Systemic lupus erythematosus, unspecified Complement C3 2 Months M32.9 - Systemic lupus erythematosus, unspecified Cardiolipin Antibodies 2 Months D68.61 - Antiphospholipid syndrome Scleroderma 12 Panel 2 Months R76.8 - Other specified abnormal immunological findings in serum Medications: New folic acid 1 mg PO DAILY 90 tabs 0RF methotrexate sodium Take 6 tabs by mouth once weekly for 2 weeks then 8 tabs once weekly 64 tabs 0RF NS Coding Level of Care Code Est Pt Level 4 (74617) Diagnoses Rheumatoid arthritis involving multiple sites, unspecified whether rheumatoid factor present M06.9 Rheumatoid arthritis location: multiple sites Rheumatoid factor presence: unspecified presence ocean transportation intermediary methotrexate user Z79.631 RADHA positive R76.8
== END 2023-04-14 11:07 | disposition home or self-care (01) ==
LOC: HO.RHE 10:39
PROVIDERS: PCP Internal Medicine; Visit Provider Student in an Organized Health Care Education/Training Program
DX: M06.9 Rheumatoid arthritis, unspecified (principal); Z79.631 Long term (current) use of antimetabolite agent; R76.8 Other specified abnormal immunological findings in serum
CPT/HCPCS: 99214

== ENCOUNTER → 2023-04-14 10:39 | Outpatient (BNVA) | payer OTHER, SELFPAY | PROVIDERS: PCP Internal Medicine; Visit Provider Student in an Organized Health Care Education/Training Program | DX: M06.9 Rheumatoid arthritis, unspecified (principal); R76.8 Other specified abnormal immunological findings in serum; Z79.631 Long term (current) use of antimetabolite agent | CPT/HCPCS: 99212 ==

== ENCOUNTER 2023-05-02 15:08 | Outpatient (AMB) | payer OTHER, SELFPAY ==
--- NOTE | 2023-05-02 15:11 | MHC.OFFVIS ---
Intake Intake Visit Reasons: Fu US Intake Note: pt here for fu US on 04/07/23 pt states she is doing awful still has lots of pain in both legs and swelling she says she tried wearing the stocking but they did not help much Allergies ciprofloxacin [CIPROFLOXACIN] Allergy (Severe, Verified 05/02/23 15:13) ANAPHYLAXIS penicillin V Allergy (Severe, Verified 05/02/23 15:13) throat swelling, hives amoxicillin [AMOXICILLIN] Allergy (Unknown, Verified 05/02/23 15:13) SWELLING sulfadiazine Allergy (Unknown, Verified 05/02/23 15:13) hives HPI Fu US HPI Details Very pleasant 38-year-old female presents for follow-up regarding venous insufficiency. She continues to have disc bilateral lower extremities. 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 She reports more of a cramping and discomfort of bilateral feet. She now presents for follow-up with venous insufficiency testing. [facility] Medical History Hx of drug abuse Pseudoangiomatous stromal hyperplasia of breast Uterus, adenomyosis History of back pain History of TMJ disorder Hx of renal calculi History of asthma Surgical History Hx of cholecystectomy Hx of breast lump removal Hx of hand surgery Hx of umbilical hernia repair Family History Father Graves disease DVT (deep venous thrombosis) HTN (hypertension) Mother Graves disease Cervical cancer Ovarian cancer [place] disease Brother Graves disease Daughter ADHD Son ADHD Maternal Aunt Breast CA Other Mental health disorder Substance use disorder Social History Household Members: Significant Other and Children Housing: Apartment Alcohol intake: never Comment: tolerable Patient Tobacco Use Status: Current everyday Tobacco user Tobacco use type: Cigarette Cigarettes Per Day: 10 e-Cigarette/Vaping Use: Never Used service: No Current occupational status: employed 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 - [employer] Sexual orientation: Straight/Heterosexual Gender identity: Female Cognitive needs: No Hearing needs: No Vision needs: Yes Female Reproductive History Menstrual Age of Menarche: 12 Review of Systems Const All systems reviewed & are unremarkable except as noted in HPI and below Reports no additional complaints ENT Reports Normal hearing present Card Denies chest pain, Denies chest pain at rest, Denies chest pain with activity and Denies pedal edema Resp Denies cough GI Denies abdominal pain Musc Denies abnormal gait, Denies muscle cramps and Denies radiating pain into limb Skin/Breast Denies skin ulcer and Denies wounds Neuro Reports Normal hearing present and Denies abnormal gait Psych Reports no additional complaints Physical Exam Const General: cooperative, healthy appearing and comfortable Orientation/consciousness: oriented to person, oriented to place and oriented to time HEENT Head: Yes normal to inspection Neck Neck: Yes normal visual inspection Carotids: no bruits Chest Chest palpation & inspection: normal inspection of the chest Resp Effort & Inspection: normal respiratory effort and able to speak in complete sentences Auscultation: clear to auscultation bilaterally, no crackles, no rales, no rhonchi and no wheezes Cardio Rate: regular rate Rhythm: regular rhythm Heart sounds: S1 normal heart sound present and S2 normal heart sound present Bruits: no carotid bruits Peripheral pulses: Peripheral pulses 2+ throughout GI Inspection: Yes normal to inspection Skin Wounds: no wounds Hair: normal Neuro General: oriented to person, oriented to place and oriented to time Cranial nerves: Yes CN's II-XII intact bilaterally and Yes Normal hearing present Cognition (Neuro): normal cognition Motor exam (neuro): 5/5 motor strength present throughout Extrem Other: venous exam: No significant superficial varicosities or spider telangiectasias, minimal edema General: No clubbing, No cyanosis and No edema Psych Appearance: grossly normal Mental Status: mental status grossly normal Speech and movement: Normal speech and movement present Results Reviewed Results Reviewed: Brief summary of venous insufficiency testing is as follows: right great saphenous vein: negative right small saphenous vein: negative right accessory vein: none present left great saphenous vein: negative left small saphenous vein: negative left accessory vein: none present Please note there is no evidence of any venous aneurysms or significant tortuosity Assessment & Plan Assessment & Plan (1) Leg pain: Code(s): M79.606 - Pain in leg, unspecified Qualifiers: Laterality: bilateral Qualified Code(s): M79.604 - Pain in right leg; M79.605 - Pain in left leg Plan: Unclear etiology of her lower extremity pain. It does not appear to be vascular as she does have palpable arterial pulses in venous insufficiency testing has shown to be negative. It may be more due to her rheumatoid arthritis. This was all discussed with the patient. She is in agreement. She will follow up with us on an as-needed basis. Thank you for allowing us to assist in her care. If there are questions or concerns please do not hesitate to contact us Coding Level of Care Code Est Pt Level 4 (69370) Diagnoses Pain in both lower extremities M79.604; M79.605 Laterality: bilateral
== END 2023-05-02 15:31 | disposition home or self-care (01) ==
PROVIDERS: PCP Internal Medicine; Visit Provider Surgery Vascular Surgery
DX: M79.604 Pain in right leg (principal); M79.605 Pain in left leg
CPT/HCPCS: 99213

== ENCOUNTER → 2023-05-02 15:08 | Outpatient (BNVA) | payer OTHER, SELFPAY | PROVIDERS: PCP Internal Medicine; Visit Provider Surgery Vascular Surgery | DX: M79.604 Pain in right leg (principal); M79.605 Pain in left leg | CPT/HCPCS: 99212 ==

== ENCOUNTER 2023-06-14 15:45 | Outpatient (AMB) | payer OTHER, SELFPAY ==
--- NOTE | 2023-06-14 15:47 | A.OFFVIS_ITS ---
Intake Vital Signs 06/14/23 15:52 Height 5 ft 5 in Weight 165 lb 5.547 oz BMI 27.5 BP 116/70 Intake Visit Reasons: BC Consult/ Nexplanon Table Games Dual Rate Supervisor Required: No Information Interpreted: non-clinical & clinical Accompanied by: Self / Same As Patient Allergies ciprofloxacin [CIPROFLOXACIN] Allergy (Severe, Verified 06/14/23 15:52) ANAPHYLAXIS penicillin V Allergy (Severe, Verified 06/14/23 15:52) throat swelling, hives amoxicillin [AMOXICILLIN] Allergy (Unknown, Verified 06/14/23 15:52) SWELLING sulfadiazine Allergy (Unknown, Verified 06/14/23 15:52) hives HPI HPI Comments 2 History of Present Illness Details Presenting request Nexplanon removal, inserted on 05/27/2020. [facility] Medical History Hx of drug abuse Pseudoangiomatous stromal hyperplasia of breast Uterus, adenomyosis History of back pain History of TMJ disorder Hx of renal calculi History of asthma Surgical History Hx of cholecystectomy Hx of breast lump removal Hx of hand surgery Hx of umbilical hernia repair Family History Father Graves disease DVT (deep venous thrombosis) HTN (hypertension) Mother Graves disease Cervical cancer Ovarian cancer [place] disease Brother Graves disease Daughter ADHD Son ADHD Maternal Aunt Breast CA Other Mental health disorder Substance use disorder Social History Household Members: Significant Other and Children Housing: Apartment Alcohol intake: never Comment: tolerable Patient Tobacco Use Status: Current everyday Tobacco user Tobacco use type: Cigarette Cigarettes Per Day: 10 e-Cigarette/Vaping Use: Never Used service: No Current occupational status: employed 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 - [employer] Sexual orientation: Straight/Heterosexual Gender identity: Female Cognitive needs: No Hearing needs: No Vision needs: Yes Female Reproductive History Menstrual Age of Menarche: 12 control method: implanted Physical Exam Vital Signs: Last Vital Signs BP 116/70 06/14/23 15:52 BMI result Body Mass Index 27.5 Office Procedures Contraception Insert/Removal Details Details: Counseling/Consent: After discussing with the patient the risks of the procedure including bleeding, infection, scar tissue formation, , possible injury to blood vessels or nerves, chronic arm pain, blood transfusion, and irregular unpredictable bleeding Preopdx: Requesting Nexplanon removal Op: Nexplanon Removal Post op dx: same EBL= 10 cc Procedure: After discussing with the patient the risks of the procedure including bleeding, infection, scar tissue formation, the patient signed the consent and agreed with the plan; all questions answered. The patient was then put in the dorsal supine position with Left arm in which Nexplanon is located exposed. Then the area was scrubbed with betadine. Nexplanon was located next by palpation and the end closest to the elbow was marked with a sterile marker. 5cc 1% Xylocaine was used to anesthetize the area at the site near the tip of Nexplanon. Next, a 3 mm incision in the longitudinal direction of the arm at the tip of the implant was made and the Nexplanon was pushed toward the incision until the tip was visible. The implant was grasped with a curved mosquito forceps and pulled out gently. Then incision was closed with steri-strips approximating the edges and an adhesive bandage was applied. A pressure bandage was applied with sterile gauze to minimize bruising. At the end explained to the patient that she is not covered with contraception anymore and recommended for her to use another contraceptive method. Discharge instructions: Patient was instructed to call if any of the following occurs :temperature above 100.4, pain at the side of the incision, redness, discharge or gapping, arm pain or bleeding. All questions answered patient verbalized understanding . This note was generated with a voice recognition program. Some errors may have been overlooked during the review of this note. Sometimes these errors may affect the content or meaning of a given sentence. 88903 - Removal Office Meds Nexplanon 68 mg subdermal implant Performing Provider: Pankaj Canchola MD [place] [facility] Documented (not given) by: Pankaj Canchola MD on 06/14/23 16:08 Dose Route Admin Location Dispensed Lot Number Expiration Date [facility] Digital Comment[employer] 1 implant subdermal ea Assessment & Plan Assessment & Plan (1) Nexplanon removal: Code(s): Z30.46 - Encounter for surveillance of implantable subdermal contraceptive Plan: Nexplanon removal done, see procedure note. For the patient different options of control, the patient declined at this point. Instructions given the patient to the backup method for control to decrease the risk of . All questions answered, the patient verbalized understanding Orders: Orders AMB Nexplanon/Implanon Insertion/Removal - Practice Supplied Today Z30.46 - Encounter for surveillance of implantable subdermal contraceptive Medications: New Nexplanon (etonogestrel) 1 implant subdermal ONCE 1 ea 0RF NS Z30.46 - Encounter for surveillance of implantable subdermal contraceptive Coding Level of Care Code Procedure Only Diagnoses Nexplanon removal Z30.46 CPT Codes Details - Contraception: 51813 - Removal ([id number])
[2023-06-14 15:52] VITALS: BP 116/70; BMI 27.5
== END 2023-06-14 16:19 | disposition home or self-care (01) ==
LOC: HO.HWS 15:45
PROVIDERS: PCP Internal Medicine; Visit Provider Obstetrics & Gynecology
DX: Z30.46 Encounter for surveillance of implantable subdermal contraceptive (principal)
CPT/HCPCS: 11982

== ENCOUNTER → 2023-06-14 15:45 | Outpatient (BNVA) | payer OTHER, SELFPAY | PROVIDERS: PCP Internal Medicine; Visit Provider Obstetrics & Gynecology | DX: Z30.46 Encounter for surveillance of implantable subdermal contraceptive (principal) | CPT/HCPCS: 11982 ==

== ENCOUNTER 2023-06-15 16:04 | Outpatient (AMB) | payer OTHER, SELFPAY ==
--- NOTE | 2023-06-15 16:06 | MHC.OFFVIS ---
Intake Vital Signs 06/15/23 16:08 Height 5 ft 5 in Weight 172 lb 9.951 oz BMI 28.7 BP 116/60 Blood Pressure Location Rt brachial Position Sitting Pulse 115 H Pulse Source Pulse Oximeter Temp 97.1 F Temp Source Skin Intake Visit Reasons: RA Intake Note: Pt last seen 04/14/23 presents today for follow up and test results. She did not do bloodwork ordered Pattern Marker Required: No Accompanied by: Self / Same As Patient Allergies ciprofloxacin [CIPROFLOXACIN] Allergy (Severe, Verified 06/15/23 16:12) ANAPHYLAXIS penicillin V Allergy (Severe, Verified 06/15/23 16:12) throat swelling, hives amoxicillin [AMOXICILLIN] Allergy (Unknown, Verified 06/15/23 16:12) SWELLING sulfadiazine Allergy (Unknown, Verified 06/15/23 16:12) hives Medication List - Last Reconciled 06/15/23 by Rahul Bonilla MD alcohol swabs (Alcohol Prep Pads) pad topical atorvastatin 20 mg PO DAILY Breo Ellipta 200-25 mcg/dose (fluticasone furoate-vilanterol) 1 ea inhalation DAILY NS buprenorphine-naloxone 8-2 mg (Suboxone) 2 film buccal DAILY bupropion HCl 300 mg PO DAILY bupropion HCl 75 mg PO DAILY camphor-methyl salicyl-menthol 3.1-15-10 % (Salonpas Deep Relieving) 1 ea topical QID cetirizine 10 mg PO DAILY PRN clonidine HCl 0.4 mg PO BEDTIME dupilumab (Dupixent) 300 mg (2 mL) subcut Q2W 28 days escitalopram oxalate 20 mg PO DAILY etonogestrel (Nexplanon) subdermal folic acid 1 mg PO DAILY furosemide (Lasix) 20 mg PO QAM hydroxyzine HCl 10 mg PO BEDTIME ibuprofen 600 mg PO Q6H PRN 30 days ipratropium-albuterol 0.5 mg-3 mg(2.5 mg base)/3 mL 3 mL PO Q4-6H PRN lidocaine 5% 1 patch topical DAILY methotrexate sodium 20 mg (8 x 2.5 mg) PO QWEEK NS sennosides (Senna Laxative) mg PO Ventolin HFA 90 mcg/actuation (albuterol sulfate) 2 puffs PO QID PRN 30 days NS HPI HPI Comments History of Present Illness Details 38-year-old female with seronegative RA returns for follow-up. She has been taking methotrexate 20 mg regularly for about 2 months now since last visit. Well tolerated. She does not believe she has had any improvement with regards to her joint pain swelling and stiffness. She continues to have pain in her knuckles, intermittent swelling of her fingers, more recently she has been having pain and swelling of her ankles and right foot. Morning stiffness lasts at least 30 minutes. She takes ibuprofen 600 mg daily. She also mentions that she was prescribed prednisone and antibiotics about 2 weeks ago by her pacu rn for a flare up of asthma/bronchitis. She has not had a hospitalizable infection for years. She states that she is on Dupixent for the last year or so and she believes it is working better than Xolair. She removed her Nexplanon yesterday. She currently does not have a method of contraception. She states that she is sexually active, not regularly though, she does use condoms but can not confirm consistent condom use. Initial history: This is a 37-year-old female who presents for evaluation of diffuse joint pain. She was referred by Orthopedics as and excised mass on her right index finger, pathology was suggestive of a rheumatoid nodule. Patient states that for the last year she has been having multiple joint pain. Bilateral knee pain associated with morning stiffness lasting 1 hour. She also has bilateral hand pain, swelling and stiffness. Morning stiffness lasting 1 hour. States that her fingers have been swollen over the last 6 months to 1 year. She has new rings as her old rings do not fit anymore. She gets intermittent ankle swelling, worse on the left. States that her mother has arthritis, does not know what type. She denies any history of DVT/PE. She has history of multiple allergies, including asthma on Dupixent which is helping per patient. She states that when she was prescribed prednisone taper for her asthma exacerbations it would help her joint pain significantly [facility] Medical History Hx of drug abuse Pseudoangiomatous stromal hyperplasia of breast Uterus, adenomyosis History of back pain History of TMJ disorder Hx of renal calculi History of asthma Surgical History Hx of cholecystectomy Hx of breast lump removal Hx of hand surgery Hx of umbilical hernia repair Family History Father Graves disease DVT (deep venous thrombosis) HTN (hypertension) Mother Graves disease Cervical cancer Ovarian cancer [place] disease Brother Graves disease Daughter ADHD Son ADHD Maternal Aunt Breast CA Other Mental health disorder Substance use disorder Social History Household Members: Significant Other and Children Housing: Apartment Alcohol intake: never Comment: tolerable Patient Tobacco Use Status: Current everyday Tobacco user Tobacco use type: Cigarette Cigarettes Per Day: 10 e-Cigarette/Vaping Use: Never Used service: No Current occupational status: employed 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 - [employer] Sexual orientation: Straight/Heterosexual Gender identity: Female Cognitive needs: No Hearing needs: No Vision needs: Yes Female Reproductive History Menstrual Age of Menarche: 12 Review of Systems Musc Reports arthralgias, Reports joint swelling, Reports limited range of motion and Reports stiffness Physical Exam Vital Signs: Last Vital Signs Temp 97.1 F 06/15/23 16:08 Pulse 115 H 06/15/23 16:08 BP 116/60 06/15/23 16:08 BMI result Body Mass Index 28.7 Const General: cooperative, healthy appearing and comfortable Nutritional Appearance: overweight Orientation/consciousness: patient oriented x3 Limitations: no limitations HEENT Head: Yes normocephalic and Yes atraumatic Mouth: moist mucous membranes Resp Effort & Inspection: normal respiratory effort and able to speak in complete sentences Auscultation: wheezes Cardio Rate: regular rate Rhythm: regular rhythm Skin General skin exam: no rashes or lesions noted Neuro General: patient oriented x3 Extrem Other: No wrist swelling or tenderness bilateral Diffuse 2nd through 5th MCP, PIP and DIP tenderness bilaterally Bilateral knee pain with any range of motion Right ankle warmth and tenderness Swelling of the dorsal aspect of right foot Negative MTP tenderness and negative MTP squeeze test bilaterally Normal nailfold capillaroscopy Results Reviewed Results Reviewed: path report from [facility] of [facility] Comment 12/2022:? The features suggest rheumatoid nodules, but other granulomatous entities cannot be completely excluded and clinical/serologic correlation is necessary.? No epidermis is present for evaluation. Assessment & Plan Assessment & Plan (1) Rheumatoid arthritis: Comment: -ve RF-ve CCP +RADHA (Rheumatoid nodule on biopsy) dx 04/2023 MTX 04/2023 ineffective Code(s): M06.9 - Rheumatoid arthritis, unspecified Qualifiers: Rheumatoid arthritis location: multiple sites Rheumatoid factor presence: unspecified presence Qualified Code(s): M06.9 - Rheumatoid arthritis, unspecified Plan: This is a 38-year-old female with new onset seronegative RA who returns for follow-up. Has been on methotrexate 20 mg weekly for the last 2 months without much improvement. Continues to have multiple swollen and tender joints. Will need to advanced DMARDs. Discussed risks and benefits of either increasing methotrexate to 25 mg weekly and changing it to subcutaneous route versus starting TNF inhibitor. Patient opted to go with methotrexate Change methotrexate to subcutaneous route and increase to 25 mg weekly. 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 Patient just removed her Nexplanon yesterday. She states that she is sexually active but not regularly. She uses condoms but could not confirm consistency. She is not planning on getting soon. I discussed teratogenic risk of methotrexate. Advised patient to use condoms regularly. Advised patient to let me know if there is any suspicion of as methotrexate will need to be discontinued Patient states that she rarely consumes alcohol (3) RADHA positive: Code(s): R76.8 - Other specified abnormal immunological findings in serum Plan: Will check further sub serologies Plan I spent 26 minutes reviewing patient's chart, evaluating patient, ordering diagnostic workup, counseling patient and documenting in the chart Orders: Orders Complete Blood Count Auto Diff 3 Months Z79.631 - assisted (current) use of antimetabolite agent C Reactive Protein 3 Months Z79.631 - terminal make up operator (current) use of antimetabolite agent Erythrocyte Sedimentation Rate 3 Months Z79.631 - assisted (current) use of antimetabolite agent Comprehensive Met. Panel 3 Months [id number] - terminal make up operator (current) use of antimetabolite agent Medications: New methotrexate sodium 25 mg subcut QWEEK 12 mL 0RF insulin syringe-needle U-100 (BD Insulin Syringe) Use once weekly with methotrexate 10 ea 1RF Discontinued methotrexate sodium Discontinued Reason: Doctor's Order 20 mg (8 x 2.5 mg) PO QWEEK 32 tabs 0RF NS Coding Level of Care Code Est Pt Level 4 (44569) Diagnoses Rheumatoid arthritis involving multiple sites, unspecified whether rheumatoid factor present M06.9 Rheumatoid arthritis location: multiple sites Rheumatoid factor presence: unspecified presence assisted methotrexate user Z79.631 RADHA positive R76.8
[2023-06-15 16:08] VITALS: BP 116/60; PULSE 115; TEMP 36.2; BMI 28.7
== END 2023-06-15 16:32 | disposition home or self-care (01) ==
PROVIDERS: PCP Internal Medicine; Visit Provider Student in an Organized Health Care Education/Training Program
DX: M06.9 Rheumatoid arthritis, unspecified (principal); Z79.631 Long term (current) use of antimetabolite agent; R76.8 Other specified abnormal immunological findings in serum
CPT/HCPCS: 99214

== ENCOUNTER → 2023-06-15 16:04 | Outpatient (BNVA) | payer OTHER, SELFPAY | PROVIDERS: PCP Internal Medicine; Visit Provider Student in an Organized Health Care Education/Training Program | DX: M06.9 Rheumatoid arthritis, unspecified (principal); R76.8 Other specified abnormal immunological findings in serum; Z79.631 Long term (current) use of antimetabolite agent | CPT/HCPCS: 99212 ==

== ENCOUNTER 2023-06-30 13:33 | Outpatient (REF) | payer OTHER, SELFPAY ==
[2023-06-30 14:49] LABS: MANUAL DIFF FLAG NO
[2023-06-30 15:38] LABS: Appearance Urine Cloudy; Color Urine Yellow; Glucose Urine UA Negative (Negative); Leukocyte Esterase Urine Negative (Negative); Nitrite Urine Negative (Negative); PH 8.5 (5.0-9.0); Specific Gravity - Urine 1.015 (1.005-1.025); Urine Blood Negative (Negative); Urine Ketones Negative (Negative); Urine Protein Negative (Neg-Trace)
[2023-06-30 15:39] LABS: Basophils Percent Auto 0.5 % (0-2); Eosinophils Absolute Auto 0.1 X10*3/uL (0.0-0.4); Eosinophils Percent Auto 1.6 % (0-4); Hematocrit 38.3 % (37.0-47.0); Hemoglobin 12.7 g/dl (12.0-16.0); Imm Gran Abs Auto 0.02 X10*3/uL (0.00-0.03); Imm Gran Pct Auto 0.3 % (0.0-0.4); Lymphocytes Absolute Auto 2.5 X10*3/uL (1.2-4.9); Lymphocytes Percent Auto 33.2 % (20-40); Mean Corpuscular HGB Conc 33.2 g/dl (31.0-35.0); Mean Corpuscular Hemoglobin 31.6 pg (27.0-33.0); Mean Corpuscular Volume 95.3 fL (80.0-98.0); Mean Platelet Volume 9.5 fL (9.4-12.3); Monocytes Absolute Auto 0.5 X10*3/uL (0.1-1.2); Monocytes Percent Auto 6.5 % (2-11); Neutrophils Absolute Auto 4.4 x10*3/uL (2.0-8.3); Neutrophils Percent Auto 57.9 % (45-73); Platelet Count 337 X10*3/uL (160-400); Red Blood Count 4.02 X10*6/uL (4.20-5.50); Red Cell Distribution Width 13.6 % (11.0-16.0); White Blood Count 7.5 X10*3/uL (4.8-10.8)
[2023-06-30 15:43] LABS: Bacteria Urine Trace (None Seen); Hyaline Casts Urine 0-2 /LPF (0-2); RBC Urine 0-2 /HPF (0-2); Squamous Epithelial Cell Urine >20 /HPF (0-2); WBC Urine 0-5 /HPF (0-5)
[2023-06-30 16:01] LABS: Creatinine Urine 68.75 mg/dL; Total Protein Urine Random < 7 mg/dL (<12)
[2023-06-30 16:03] LABS: Alanine Aminotransferase 19 U/L (0-31); Albumin Level 3.8 g/dL (3.5-5.0); Alkaline Phosphatase 105 U/L (39-117); Anion Gap 13 (12-20); Aspartate Amino Transferase 18 U/L (5-31); Bilirubin Total 0.5 mg/dL (0.0-1.0); Blood Urea Nitrogen 8 mg/dL (9-16); C Reactive Protein 2.57 mg/dL (< or = 0.50); Carbon Dioxide 27 mmol/L (22-29); Chloride 104 mmol/L (96-108); Estimated Glomerular Filt Rate > 60; Glucose Random 109 mg/dL (60-115); Potassium 3.7 mmol/L (3.3-5.1); Sodium 140 mmol/L (135-145); Total Protein 7.1 g/dL (6.5-8.0)
[2023-06-30 16:20] LABS: Erythrocyte Sedimentation Rate 18 MM/HR (0-20)
[2023-07-03 09:33] LABS: Complement C3 70 mg/dL (83-193)
[2023-07-04 22:49] LABS: Cardiolipin IgG Ab <2.0 GPL-U/mL; Cardiolipin IgM Ab <2.0 MPL-U/mL
[2023-07-05 05:49] LABS: Anti DNA DS Antibody 7 IU/mL; Antibody to SS-A Antigen <1.0 NEG AI (<1.0 NEG); Antibody to SS-B Antigen <1.0 NEG AI (<1.0 NEG); SM/Ribonucleoprotein Ab <1.0 NEG AI (<1.0 NEG); Smith Protein <1.0 NEG AI (<1.0 NEG)
[2023-07-05 21:49] LABS: PTT (LAC) Screen 39 sec (<=40)
[2023-07-07 04:54] LABS: Beta-2 Glycoprotein IgA <2.0 U/mL (<20.0); Beta-2 Glycoprotein IgG <2.0 U/mL (<20.0); Beta-2 Glycoprotein IgM <2.0 U/mL (<20.0)
[2023-07-09 19:48] LABS: Centromere Protein A Ab <11 SI (<11); Centromere Protein B Ab <11 SI (<11); Fibrillarin Ab <11 SI (<11); PM SCL 100 Ab <11 SI (<11); PM SCL 75 Ab <11 SI (<11); RNA Polymerase III RP11 Ab <11 SI (<11); RNA Polymerase III RP155 Ab <11 SI (<11); SCL-70 Extractable Nuclear Ab <11 SI (<11); Th-To Ab <11 SI (<11); U1 SNRNP RNP 70KD <11 SI (<11); U1 SNRNP RNP A <11 SI (<11); U1 SNRNP RNP C <11 SI (<11)
== END 2023-06-30 13:34 | disposition home or self-care (01) ==
LOC: HO.HMGCLDS 13:33
PROVIDERS: PCP Internal Medicine; Visit Provider Student in an Organized Health Care Education/Training Program
DX: M32.9 Systemic lupus erythematosus, unspecified (principal); D68.61 Antiphospholipid syndrome; M06.9 Rheumatoid arthritis, unspecified; R76.8 Other specified abnormal immunological findings in serum
CPT/HCPCS: 36415; 80053; 81001; 82570; 84156; 84182; 85025; 85597; 85598; 85613; 85652; 85730; 86140; 86146; 86147; 86160; 86225; 86235

== ENCOUNTER 2023-07-14 17:23 | Emergency (ER) | payer OTHER, SELFPAY ==
[2023-07-14 17:45] VITALS: BP 113/62; PULSE 83; RESP 20; TEMP 36.7; O2SAT 97; BMI 28.3
--- NOTE | 2023-07-14 17:50 | ED_ITS ---
HPI - Abdominal Pain General Chief Complaint: Abdominal Pain Stated Complaint: hernia Time Seen by Provider: 07/14/23 21:56 Source: patient Mode of arrival: ambulatory Limitations: no limitations History of Present Illness HPI narrative: Patient with history umbilical hernia status post surgery in 05/26 apparently was lifting steps at work about a month ago noticed pain in same area increases on lifting heavy stuff no nausea no vomiting Related Data Home Medications Medication Instructions Recorded Confirmed buprenorphine 8 mg-naloxone 2 mg 2 film buccal DAILY 05/13/20 02/01/23 sublingual film (Suboxone) etonogestrel 68 mg subdermal subdermal 04/20/21 02/01/23 implant (Nexplanon) bupropion HCl 300 mg 24 hr tablet, 300 mg PO DAILY 01/21/22 02/01/23 extended release clonidine HCl 0.2 mg tablet 0.4 mg PO BEDTIME insomnia 12/16/22 02/01/23 bupropion HCl 75 mg tablet 75 mg PO DAILY 01/20/23 02/01/23 escitalopram oxalate 20 mg tablet 20 mg PO DAILY 03/31/23 alcohol swabs (Alcohol Prep Pads) pad topical 04/14/23 hydroxyzine HCl 10 mg tablet 10 mg PO BEDTIME 06/15/23 sennosides 8.6 mg tablet (Senna mg PO 06/15/23 Laxative) Previous Rx's Medication Instructions Recorded Ventolin HFA 90 mcg/actuation 2 puff PO QID PRN bronchospasm 30 08/08/22 aerosol inhaler (albuterol sulfate) days #18 grams dupilumab 300 mg/2 mL subcutaneous 300 mg (2 mL) subcut Q2W 28 days 09/09/22 pen injector (Dupixent) #4 mL Breo Ellipta 200 mcg-25 mcg/dose 1 ea inhalation DAILY #60 ea 11/28/22 powder for inhalation (fluticasone furoate-vilanterol) ipratropium 0.5 mg-albuterol 3 mg 3 ml PO Q4-6H PRN for wheezing 12/27/22 (2.5 mg base)/3 mL nebulization #270 mL soln cetirizine 10 mg tablet 10 mg PO DAILY PRN for allergies 01/20/23 #90 tabs lidocaine 5 % topical patch 1 patch topical DAILY pain #30 ea 01/20/23 camphor 3.1 %-methyl salicylate 15 1 ea topical QID pain #78 grams 01/24/23 %-menthol 10 % topical gel (Salonpas Deep Relieving) ibuprofen 600 mg tablet 600 mg PO Q6H PRN pain 30 days #90 01/27/23 tabs folic acid 1 mg tablet 1 mg PO DAILY #90 tabs 05/15/23 furosemide 20 mg tablet (Lasix) 20 mg PO QAM Ankle swelling #90 05/15/23 tabs insulin syringe-needle U-100 1 mL #10 ea 06/15/23 29 gauge x 1/2 (BD Insulin Syringe) methotrexate sodium 25 mg/mL 25 mg subcut QWEEK #12 mL 06/15/23 injection solution atorvastatin 20 mg tablet 20 mg PO DAILY #90 tabs 06/28/23 ibuprofen 600 mg tablet 600 mg PO Q6H PRN fever or pain 07/14/23 #30 tabs Allergies Allergy/AdvReac Type Severity Reaction Status Date / Time ciprofloxacin [CIPROFLOXACIN] Allergy Severe ANAPHYLAXIS Verified 07/14/23 17:47 penicillin V Allergy Severe throat Verified 07/14/23 17:47 swelling, hives amoxicillin [AMOXICILLIN] Allergy Unknown SWELLING Verified 07/14/23 17:47 sulfadiazine Allergy Unknown hives Verified 07/14/23 17:47 PMFSH Past Medical History Medical History Hx of drug abuse Pseudoangiomatous stromal hyperplasia of breast Uterus, adenomyosis History of back pain History of TMJ disorder Hx of renal calculi History of asthma Surgical History Hx of cholecystectomy Hx of breast lump removal Hx of hand surgery Hx of umbilical hernia repair Family History Family History Father Graves disease DVT (deep venous thrombosis) HTN (hypertension) Mother Graves disease Cervical cancer Ovarian cancer [place] disease Brother Graves disease Daughter ADHD Son ADHD Maternal Aunt Breast CA Other Mental health disorder Substance use disorder Social History Social History Household Members: Significant Other and Children Housing: Apartment Alcohol intake: never Comment: tolerable Patient Tobacco Use Status: Current everyday Tobacco user Tobacco use type: Cigarette Cigarettes Per Day: 10 Smoked in Last 30 Days: Yes e-Cigarette/Vaping Use: Never Used Use of substances other than those prescribed or required for medical reasons: No Advance Directives: No Advance Directives Information Provided: No Patient : No service: No Current occupational status: employed 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 Oriented X3. No acute distress. Eyes: No pallor or icterus CVS: Normal heart rate and rhythm. Pulses normal. Respiratory: No respiratory distress. Equal air entry bilateral, no wheezing/rales/rhonchi Abdomen: Soft small 5 mm fat containing umbilical hernia tender not reducible Bowel sounds are present, no CVA tenderness Skin: Skin warm and dry. Normal skin color. Normal skin turgor. Extremities: No lower extremity edema. Neuro: Oriented X 3. Course Course Course Narrative: This is an RME: Additional HPI, ROS, PE not included below will be deferred to primary provider. Patient is a 38-year-old female who presents emergency department for evaluation. She reports Umbilical hernia repair 2 years ago, few weeks ago began having pain/discomfort in the similar area, a ?internal bulging? intermittently, decreased appetite. Denies nausea vomiting diarrhea. Exam: do not appreciate hernia at time of exam. Medical Decision Making Medical Decision Making MDM Narrative: Patient has small fat containing hernia no bowel obstruction pain is going on for a month advised to follow with surgeon Lab Data MDM Lab Attestation statement: I reviewed the patient's lab results. 07/14/23 18:12 07/14/23 18:12 Labs: Lab Results 07/14/23 Range/Units 18:12 WBC 7.9 (4.8-10.8) X10*3/uL RBC 4.00 L (4.20-5.50) X10*6/uL Hgb 12.7 (12.0-16.0) g/dl Hct 38.4 (37.0-47.0) % MCV 96.0 (80.0-98.0) fL MCH 31.8 (27.0-33.0) pg MCHC 33.1 (31.0-35.0) g/dl RDW 13.4 (11.0-16.0) % Plt Count 242 D (160-400) X10*3/uL MPV 9.2 L (9.4-12.3) fL Immature Gran % (Auto) 0.3 (0.0-0.4) % Neut % (Auto) 55.2 (45-73) % Lymph % (Auto) 35.2 (20-40) % [place] % (Auto) 6.5 (2-11) % Eos % (Auto) 2.4 (0-4) % Baso % (Auto) 0.4 (0-2) % Lymph # (Auto) 2.8 (1.2-4.9) X10*3/uL [place] # (Auto) 0.5 (0.1-1.2) X10*3/uL Eos # (Auto) 0.2 (0.0-0.4) X10*3/uL Baso # (Auto) 0.0 (0.0-0.2) X10*3/uL Abs Immat Gran (auto) 0.02 (0.00-0.03) X10*3/uL Absolute Neuts (auto) 4.4 (2.0-8.3) x10*3/uL Absolute Nucleated RBC 0.000 (0.0-0.012) X10*3/uL Nucleated RBC % (auto) 0.0 (0.0-0.2) /100WBC Sodium 140 (135-145) mmol/L Potassium 3.7 (3.3-5.1) mmol/L Chloride 105 (96-108) mmol/L Carbon Dioxide 28 (22-29) mmol/L Anion Gap 11 L (12-20) BUN 6 L (9-16) mg/dL Creatinine 0.64 (0.5-1.4) mg/dL Estim Creat Clear Calc 122.3 Estimated GFR > 60 Random Glucose 90 (60-115) mg/dL Calcium 9.1 (8.4-10.2) mg/dL Total Bilirubin 0.3 (0.0-1.0) mg/dL AST 23 (5-31) U/L ALT 21 (0-31) U/L Alkaline Phosphatase 104 (39-117) U/L Total Protein 7.0 (6.5-8.0) g/dL Albumin 3.8 (3.5-5.0) g/dL Lipase 24 (8-78) U/L Discharge Plan Discharge Clinical Impression: Hernia, umbilical Patient Disposition: Home, Self-Care Instructions: Umbilical Hernia (ED) Additional Instructions: Avoid lifting heavy stuff Ibuprofen for pain Follow-up with Dr. Restrepo your surgeon who did the surgery for umbilical hernia Prescriptions: New ibuprofen 600 mg tablet 600 mg PO Q6H PRN (Reason: fever or pain) Qty: 30 0RF No Action albuterol sulfate [Ventolin HFA] 90 mcg/actuation HFA aerosol inhaler 2 puff PO QID PRN (Reason: bronchospasm) 30 Days Qty: 18 6RF Dupixent Pen 300 mg/2 mL pen injector 300 mg subcut Q2W 28 Days Qty: 4 12RF Rx Instructions: initial does 600 mg, then 300 mg every 2 weeks fluticasone furoate-vilanterol [Breo Ellipta] 200-25 mcg/dose blister with device 1 ea inhalation DAILY Qty: 60 6RF ipratropium-albuterol 0.5 mg-3 mg(2.5 mg base)/3 mL solution for nebulization 3 ml PO Q4-6H PRN (Reason: for wheezing) Qty: 270 6RF cetirizine 10 mg tablet 10 mg PO DAILY PRN (Reason: for allergies) Qty: 90 1RF Salonpas Deep Relieving 3.1-15-10 % gel 1 ea topical QID Qty: 78 3RF Rx Instructions: Apply pea-sized amount 3-4 times daily to affected sites ibuprofen 600 mg tablet 600 mg PO Q6H PRN (Reason: pain) 30 Days Qty: 90 2RF folic acid 1 mg tablet 1 mg PO DAILY Qty: 90 0RF furosemide [Lasix] 20 mg tablet 20 mg PO QAM Qty: 90 0RF atorvastatin 20 mg tablet 20 mg PO DAILY Qty: 90 0RF Nexplanon 68 mg implant subdermal bupropion HCl 300 mg tablet extended release 24 hr 300 mg PO DAILY buprenorphine-naloxone [Suboxone] 8-2 mg film 2 film buccal DAILY Rx Instructions: place 1 film on inside of (each) cheek clonidine HCl 0.2 mg tablet 0.4 mg PO BEDTIME bupropion HCl 75 mg tablet 75 mg PO DAILY Rx Instructions: administer 6 hours apart lidocaine 5 % adhesive patch,medicated 1 patch topical DAILY Qty: 30 3RF Rx Instructions: leave on most painful area for up to 12 hrs. do not use with topical compound cream. alcohol swabs [Alcohol Prep Pads] Pads, Medicated topical hydroxyzine HCl 10 mg tablet 10 mg PO BEDTIME sennosides [Senna Laxative] 8.6 mg tablet PO methotrexate sodium 25 mg/mL solution 25 mg subcut QWEEK Qty: 12 0RF (DME) insulin syringe-needle U-100 [BD Insulin Syringe] 1 mL 29 gauge x 1/2 syringe See Rx Instructions .Route Qty: 10 1RF Rx Instructions: Use once weekly with methotrexate escitalopram oxalate 20 mg tablet 20 mg PO DAILY Nexplanon 68 mg implant 1 implant subdermal ONCE Qty: 1 0RF Referrals: Bryson Wiseman MD, FACS, FASMBS [Physician] - 2 weeks Interventions: ED Discharge Assessment Last Done: 07/14/23 22:35
[2023-07-14 18:18] LABS: MANUAL DIFF FLAG NO
[2023-07-14 18:19] LABS: Basophils Percent Auto 0.4 % (0-2); Eosinophils Absolute Auto 0.2 X10*3/uL (0.0-0.4); Eosinophils Percent Auto 2.4 % (0-4); Hematocrit 38.4 % (37.0-47.0); Hemoglobin 12.7 g/dl (12.0-16.0); Imm Gran Abs Auto 0.02 X10*3/uL (0.00-0.03); Imm Gran Pct Auto 0.3 % (0.0-0.4); Lymphocytes Absolute Auto 2.8 X10*3/uL (1.2-4.9); Lymphocytes Percent Auto 35.2 % (20-40); Mean Corpuscular HGB Conc 33.1 g/dl (31.0-35.0); Mean Corpuscular Hemoglobin 31.8 pg (27.0-33.0); Mean Platelet Volume 9.2 fL (9.4-12.3); Monocytes Absolute Auto 0.5 X10*3/uL (0.1-1.2); Monocytes Percent Auto 6.5 % (2-11); Neutrophils Absolute Auto 4.4 x10*3/uL (2.0-8.3); Neutrophils Percent Auto 55.2 % (45-73); Platelet Count 242 X10*3/uL (160-400); Red Cell Distribution Width 13.4 % (11.0-16.0); White Blood Count 7.9 X10*3/uL (4.8-10.8)
[2023-07-14 18:32] LABS: Alanine Aminotransferase 21 U/L (0-31); Albumin Level 3.8 g/dL (3.5-5.0); Alkaline Phosphatase 104 U/L (39-117); Anion Gap 11 (12-20); Aspartate Amino Transferase 23 U/L (5-31); Bilirubin Total 0.3 mg/dL (0.0-1.0); Blood Urea Nitrogen 6 mg/dL (9-16); Calcium 9.1 mg/dL (8.4-10.2); Carbon Dioxide 28 mmol/L (22-29); Chloride 105 mmol/L (96-108); Creatinine Clr Calc Pharmacy 122.3; Estimated Glomerular Filt Rate > 60; Glucose Random 90 mg/dL (60-115); Lipase 24 U/L (8-78); Potassium 3.7 mmol/L (3.3-5.1); Sodium 140 mmol/L (135-145)
[2023-07-14 21:36] VITALS: BP 111/70; PULSE 89; RESP 19; TEMP 36.6; O2SAT 95
== END 2023-07-14 22:36 | disposition home or self-care (01) ==
PROVIDERS: Nurse Practitioner Family; Emergency Provider Internal Medicine; PCP Internal Medicine
DX: K42.9 Umbilical hernia without obstruction or gangrene (principal); R10.9 Unspecified abdominal pain; F17.210 Nicotine dependence, cigarettes, uncomplicated
CPT/HCPCS: 36415; 80053; 83690; 85025; 99283; 99284

== ENCOUNTER 2023-08-09 11:08 | Outpatient (AMB) | payer OTHER, SELFPAY ==
--- NOTE | 2023-08-09 11:10 | MHC.OFFVIS ---
Intake Vital Signs 08/09/23 11:18 Height 5 ft 5 in Weight 171 lb 1.259 oz BMI 28.5 BP 118/56 L Blood Pressure Location Lt brachial Position Sitting Pulse 88 Intake Visit Reasons: LUQ pain. Hx of hernia repair Intake Note: Patient referred by PCP Dr. Ramos for LUQ pain. Hx of hernia repair. Patient c/o: pain. was seen at ER on 07-14-23 doctor tried pushing it back in but it did not work. Surgical Dressing Maker Required: No Accompanied by: Self / Same As Patient Allergies ciprofloxacin [CIPROFLOXACIN] Allergy (Severe, Verified 08/09/23 11:10) ANAPHYLAXIS penicillin V Allergy (Severe, Verified 08/09/23 11:10) throat swelling, hives amoxicillin [AMOXICILLIN] Allergy (Unknown, Verified 08/09/23 11:10) SWELLING sulfadiazine Allergy (Unknown, Verified 08/09/23 11:10) hives HPI HPI Comments History of Present Illness Details Patient presents because of a recurrent symptomatic umbilical hernia. She had this repaired primarily in her youth. She had a laparoscopic cholecystectomy approximate 2 years ago and has developed a hernia at that site. It is increasing in size, becoming more symptomatic. She was to have it repaired. Chart was reviewed patient evaluated. She has no p.o. issues. She is occasionally constipated. [facility] Medical History Hx of drug abuse Pseudoangiomatous stromal hyperplasia of breast Uterus, adenomyosis History of back pain History of TMJ disorder Hx of renal calculi History of asthma Surgical History Hx of cholecystectomy Hx of breast lump removal Hx of hand surgery Hx of umbilical hernia repair Family History Father Graves disease DVT (deep venous thrombosis) HTN (hypertension) Mother Graves disease Cervical cancer Ovarian cancer [place] disease Brother Graves disease Daughter ADHD Son ADHD Maternal Aunt Breast CA Other Mental health disorder Substance use disorder Social History Household Members: Significant Other and Children Housing: Apartment Alcohol intake: never Comment: tolerable Patient Tobacco Use Status: Current everyday Tobacco user Tobacco use type: Cigarette Cigarettes Per Day: 10 e-Cigarette/Vaping Use: Never Used service: No Current occupational status: employed 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 Moderately corpulent abdomen. Soft. Proximally 3 cm incarcerated/irreducible umbilical incisional hernia. Abdomen otherwise benign Assessment & Plan Assessment & Plan (1) Incarcerated umbilical hernia: Code(s): K42.0 - Umbilical hernia with obstruction, without gangrene Plan Risks, benefits, alternatives of open recurrent incarcerated umbilical hernia repair reviewed with the patient and included but not limited to bleeding, infection, recurrence, numbness, pain, scarring the patient was to proceed. All questions answered. I stressed that she needs to be sedentary for 6 weeks after she understood this. Arrangements were made for this. Coding Level of Care Code New Pt Level 5 (96835) Diagnoses Incarcerated umbilical hernia K42.0
[2023-08-09 11:18] VITALS: BP 118/56; PULSE 88; BMI 28.5
== END 2023-08-09 11:32 | disposition home or self-care (01) ==
PROVIDERS: PCP Internal Medicine; Visit Provider Surgery
DX: K42.0 Umbilical hernia with obstruction, without gangrene (principal)
CPT/HCPCS: 99204

== ENCOUNTER → 2023-08-09 11:08 | Outpatient (BNVA) | payer OTHER, SELFPAY | PROVIDERS: PCP Internal Medicine; Visit Provider Surgery ==

== ENCOUNTER 2023-09-15 10:37 | Outpatient (AMB) | payer OTHER, SELFPAY ==
[2023-09-15 10:39] VITALS: BP 102/62; PULSE 84; O2SAT 94; BMI 28.1
--- NOTE | 2023-09-15 10:39 | MHC.OFFVIS ---
Intake Vital Signs 09/15/23 10:39 Height 5 ft 5 in Weight 169 lb BMI 28.1 BP 102/62 Blood Pressure Location Rt brachial Position Sitting Pulse 84 Pulse Source Doppler Pulse Oximetry (%) 94 Oxygen Delivery Method Room Air Intake Visit Reasons: Surgical Clearance - Hx of asthma Intake Note: Surgery 09/29/23 Allergies ciprofloxacin [CIPROFLOXACIN] Allergy (Severe, Verified 09/15/23 10:42) ANAPHYLAXIS penicillin V Allergy (Severe, Verified 09/15/23 10:42) throat swelling, hives amoxicillin [AMOXICILLIN] Allergy (Unknown, Verified 09/15/23 10:42) SWELLING sulfadiazine Allergy (Unknown, Verified 09/15/23 10:42) hives HPI Surgical Clearance - Hx of asthma HPI Details 38-year-old lady, active 10+ pack-year smoker, with underlying history of asthma since being a teenager, now followed for underlying severe persistent asthma and environmental allergies.? Patient has been using Breo, Dupixent, duo nebs, and albuterol MDI with reasonable control of her symptoms. She does get chronic wheezing with intermittent exacerbation requiring prednisone courses, last 2 weeks prior, now essentially at baseline. [facility] Medical History Hx of drug abuse Pseudoangiomatous stromal hyperplasia of breast Uterus, adenomyosis History of back pain History of TMJ disorder Hx of renal calculi History of asthma Surgical History Hx of cholecystectomy Hx of breast lump removal Hx of hand surgery Hx of umbilical hernia repair Family History Father Graves disease DVT (deep venous thrombosis) HTN (hypertension) Mother Graves disease Cervical cancer Ovarian cancer [place] disease Brother Graves disease Daughter ADHD Son ADHD Maternal Aunt Breast CA Other Mental health disorder Substance use disorder Social History Household Members: Significant Other and Children Housing: Apartment Alcohol intake: never Comment: tolerable Patient Tobacco Use Status: Current everyday Tobacco user Tobacco use type: Cigarette Cigarettes Per Day: 10 e-Cigarette/Vaping Use: Never Used service: No Current occupational status: employed 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 - [employer] Sexual orientation: Straight/Heterosexual Gender identity: Female Cognitive needs: No Hearing needs: No Vision needs: Yes Female Reproductive History Menstrual Age of Menarche: 12 Review of Systems Const Denies daytime sleepiness, Denies excessive sweating, Denies fatigue, Denies fever(s), Denies lethargy, Denies malaise, Denies night sweats, Denies snoring and Denies weight loss Eyes Denies blurry vision and Denies itchy eyes ENT Denies nasal congestion, Denies post nasal drip, Denies sinus pain, Denies sinus pressure and Denies other ( Thrush) Card Denies chest pain, Denies pedal edema, Denies dyspnea, Denies orthopnea and Denies paroxysmal nocturnal dyspnea Resp Denies cough, Denies hemoptysis, Denies excessive phlegm production, Denies dyspnea, Denies snoring and Denies wheezing GI Denies abdominal pain and Denies heartburn Musc Denies myalgias, Denies arthralgias and Denies joint swelling Skin/Breast Denies rash Neuro Denies memory loss and Denies seizure-like activity Psych Denies abnormal sleep pattern, Denies anxiety and Denies memory loss Endo Denies excessive sweating, Denies fatigue and Denies heat intolerance Adrian/Lymph Denies easy bruising Aller/Immun Denies itchy eyes, Denies seasonal rhinorrhea and Denies wheezing Physical Exam Vital Signs: Last Vital Signs Pulse 84 09/15/23 10:39 BP 102/62 09/15/23 10:39 Pulse Ox 94 09/15/23 10:39 Oxygen Delivery Method Room Air 09/15/23 10:39 BMI result Body Mass Index 28.1 Const General: no acute distress and alert Nutritional Appearance: not obese Orientation/consciousness: Other orientation findings ( oriented) HEENT Head: Yes atraumatic Eyes General: appearance normal, both eyes and all related structures Sclerae: sclerae normal EOM: EOMs intact bilaterally Neck Neck: Yes supple Lymphatic: no lymphadenopathy noted Resp Effort & Inspection: normal respiratory effort and no use of accessory muscles Auscultation: clear to auscultation bilaterally Cardio Rate: regular rate Rhythm: regular rhythm Heart sounds: no gallops, no murmurs and no rubs Skin General skin exam: other ( warm) Extrem General: No clubbing, No cyanosis and No edema Assessment & Plan Assessment & Plan (1) Asthma, severe persistent: Code(s): Wilfred45.50 - Severe persistent asthma, uncomplicated Plan: Reasonably controlled on current regimen of Dupixent, Breo, duo nebs, and albuterol MDI. Continue current regimen. (2) Environmental allergies: Code(s): Z91.09 - Other allergy status, other than to drugs and biological substances Plan: Controlled on Dupixent. Continue current regimen. (3) Encounter for preoperative pulmonary examination: Code(s): Z01.811 - Encounter for preprocedural respiratory examination Plan: At this time patient is at low risk for pulmonary preoperative complications for the proposed hernia repair under general anesthesia. Coding Level of Care Code Est Pt Level 4 (00868) Diagnoses Asthma, severe persistent J45.50 Environmental allergies Z91.09 Encounter for preoperative pulmonary examination Z01.811
== END 2023-09-15 10:55 | disposition home or self-care (01) ==
PROVIDERS: PCP Internal Medicine; Visit Provider Internal Medicine Pulmonary Disease
DX: J45.50 Severe persistent asthma, uncomplicated (principal); Z91.09 Other allergy status, other than to drugs and biological substances; Z01.811 Encounter for preprocedural respiratory examination
CPT/HCPCS: 99214

== ENCOUNTER 2023-09-15 10:37 | Outpatient (REF) | payer OTHER, SELFPAY ==
[2023-09-15 11:12] LABS: MANUAL DIFF FLAG NO
[2023-09-15 12:21] LABS: Basophils Percent Auto 0.4 % (0-2); Eosinophils Absolute Auto 0.1 X10*3/uL (0.0-0.4); Eosinophils Percent Auto 0.8 % (0-4); Hematocrit 41.5 % (37.0-47.0); Hemoglobin 13.5 g/dl (12.0-16.0); Imm Gran Abs Auto 0.05 X10*3/uL (0.00-0.03); Imm Gran Pct Auto 0.5 % (0.0-0.4); Lymphocytes Absolute Auto 2.2 X10*3/uL (1.2-4.9); Lymphocytes Percent Auto 20.1 % (20-40); Mean Corpuscular HGB Conc 32.5 g/dl (31.0-35.0); Mean Corpuscular Hemoglobin 32.9 pg (27.0-33.0); Mean Corpuscular Volume 101.2 fL (80.0-98.0); Mean Platelet Volume 9.1 fL (9.4-12.3); Monocytes Absolute Auto 0.3 X10*3/uL (0.1-1.2); Neutrophils Absolute Auto 8.2 x10*3/uL (2.0-8.3); Neutrophils Percent Auto 75.2 % (45-73); Platelet Count 333 X10*3/uL (160-400); Red Cell Distribution Width 13.9 % (11.0-16.0); White Blood Count 10.9 X10*3/uL (4.8-10.8)
[2023-09-15 13:00] LABS: Erythrocyte Sedimentation Rate 9 MM/HR (0-20)
[2023-09-15 13:05] LABS: Alanine Aminotransferase 16 U/L (0-31); Albumin Level 3.9 g/dL (3.5-5.0); Alkaline Phosphatase 94 U/L (39-117); Anion Gap 10 (12-20); Aspartate Amino Transferase 13 U/L (5-31); Bilirubin Total 0.3 mg/dL (0.0-1.0); Blood Urea Nitrogen 9 mg/dL (9-16); C Reactive Protein 0.71 mg/dL (< or = 0.50); Carbon Dioxide 28 mmol/L (22-29); Chloride 106 mmol/L (96-108); Estimated Glomerular Filt Rate > 60; Glucose Random 115 mg/dL (60-115); Potassium 4.1 mmol/L (3.3-5.1); Sodium 140 mmol/L (135-145); Total Protein 7.1 g/dL (6.5-8.0)
== END 2023-09-15 10:38 | disposition home or self-care (01) ==
LOC: HO.LAB 10:37
PROVIDERS: Student in an Organized Health Care Education/Training Program; PCP Internal Medicine; Visit Provider Internal Medicine Pulmonary Disease
DX: Z01.811 Encounter for preprocedural respiratory examination (principal); J45.50 Severe persistent asthma, uncomplicated; Z79.631 Long term (current) use of antimetabolite agent; Z91.09 Other allergy status, other than to drugs and biological substances
CPT/HCPCS: 36415; 80053; 85025; 85652; 86140

== ENCOUNTER 2023-09-19 13:18 | Outpatient (AMB) | payer OTHER, SELFPAY ==
[2023-09-19 13:23] VITALS: BP 116/64; PULSE 103; O2SAT 93; BMI 28.1
--- NOTE | 2023-09-19 13:23 | MHC.OFFVIS ---
Intake Vital Signs 09/19/23 13:23 Height 5 ft 5 in Weight 168 lb 10.458 oz BMI 28.1 BP 116/64 Blood Pressure Location Rt brachial Position Sitting Pulse 103 H Pulse Source Pulse Oximeter Pulse Oximetry (%) 93 Oxygen Delivery Method Room Air Intake Visit Reasons: RA Intake Note: Pt last seen 05/17/23 presents today for follow up and test results. 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: No Accompanied by: Self / Same As Patient Allergies ciprofloxacin [CIPROFLOXACIN] Allergy (Severe, Verified 09/19/23 13:26) ANAPHYLAXIS penicillin V Allergy (Severe, Verified 09/19/23 13:26) throat swelling, hives amoxicillin [AMOXICILLIN] Allergy (Unknown, Verified 09/19/23 13:26) SWELLING sulfadiazine Allergy (Unknown, Verified 09/19/23 13:26) hives Medication List - Last Reconciled 09/19/23 by Rahul Bonilla MD alcohol swabs (Alcohol Prep Pads) pad topical atorvastatin 20 mg PO DAILY Breo Ellipta 200-25 mcg/dose (fluticasone furoate-vilanterol) 1 ea inhalation DAILY NS buprenorphine-naloxone 8-2 mg (Suboxone) 2 film buccal DAILY bupropion HCl 75 mg PO DAILY bupropion HCl XL 300 mg PO DAILY camphor-methyl salicyl-menthol 3.1-15-10 % (Salonpas Deep Relieving) 1 ea topical QID cetirizine 10 mg PO DAILY PRN clonidine HCl 0.4 mg PO BEDTIME dupilumab (Dupixent) 300 mg (2 mL) subcut Q2W 28 days escitalopram oxalate 20 mg PO DAILY folic acid 3 mg (3 x 1 mg) PO DAILY furosemide (Lasix) 20 mg PO QAM hydroxyzine HCl 10 mg PO BEDTIME ibuprofen 600 mg PO Q6H PRN ibuprofen 600 mg PO Q6H PRN 30 days insulin syringe-needle U-100 (BD Insulin Syringe) Use once weekly with methotrexate ipratropium-albuterol 0.5 mg-3 mg(2.5 mg base)/3 mL 3 mL PO Q4-6H PRN lidocaine 5% 1 patch topical DAILY methotrexate sodium 25 mg subcut QWEEK prednisone 10 mg PO DIRECTED sennosides (Senna Laxative) mg PO Ventolin HFA 90 mcg/actuation (albuterol sulfate) 2 puffs PO QID PRN 30 days NS HPI HPI Comments History of Present Illness Details 38-year-old female with seronegative RA returns for follow-up. She has been on methotrexate 25 mg subcutaneously weekly for the last 3 months. Her joints have been much better overall. She continues to have some puffiness and achiness of her hands but doing much better overall. Her ankles are significantly improved. She states that she had intermittent rashes on her left forearm and left upper back but they self-resolved. States that she will be going for umbilical hernia repair about 10 days. She states that she is sexually active, not regularly though, she does use condoms but can not confirm consistent condom use. Initial history: This is a 37-year-old female who presents for evaluation of diffuse joint pain. She was referred by Orthopedics as and excised mass on her right index finger, pathology was suggestive of a rheumatoid nodule. Patient states that for the last year she has been having multiple joint pain. Bilateral knee pain associated with morning stiffness lasting 1 hour. She also has bilateral hand pain, swelling and stiffness. Morning stiffness lasting 1 hour. States that her fingers have been swollen over the last 6 months to 1 year. She has new rings as her old rings do not fit anymore. She gets intermittent ankle swelling, worse on the left. States that her mother has arthritis, does not know what type. She denies any history of DVT/PE. She has history of multiple allergies, including asthma on Dupixent which is helping per patient. She states that when she was prescribed prednisone taper for her asthma exacerbations it would help her joint pain significantly PFSH Medical History Hx of drug abuse Pseudoangiomatous stromal hyperplasia of breast Uterus, adenomyosis History of back pain History of TMJ disorder Hx of renal calculi History of asthma Surgical History Hx of cholecystectomy Hx of breast lump removal Hx of hand surgery Hx of umbilical hernia repair Family History Father Graves disease DVT (deep venous thrombosis) HTN (hypertension) Mother Graves disease Cervical cancer Ovarian cancer [place] disease Brother Graves disease Daughter ADHD Son ADHD Maternal Aunt Breast CA Other Mental health disorder Substance use disorder Social History Household Members: Significant Other and Children Housing: Apartment Alcohol intake: never Comment: tolerable Patient Tobacco Use Status: Current everyday Tobacco user Tobacco use type: Cigarette Cigarettes Per Day: 10 e-Cigarette/Vaping Use: Never Used service: No Current occupational status: employed Current occupation: rt handed/[employer] - [employer] Sexual orientation: Straight/Heterosexual Gender identity: Female Cognitive needs: No Hearing needs: No Vision needs: Yes Female Reproductive History Menstrual Age of Menarche: 12 Review of Systems [facility] Reports arthralgias, Reports joint swelling and Reports limited range of motion Skin/Breast Reports rash Physical Exam Vital Signs: Last Vital Signs Pulse 103 H 09/19/23 13:23 Pulse Ox 93 09/19/23 13:23 Oxygen Delivery Method Room Air 09/19/23 13:23 BMI result Body Mass Index 28.1 Const General: cooperative, healthy appearing and comfortable Nutritional Appearance: overweight Orientation/consciousness: patient oriented x3 Limitations: no limitations HEENT Head: Yes normocephalic and Yes atraumatic Mouth: moist mucous membranes Resp Effort & Inspection: normal respiratory effort and able to speak in complete sentences Auscultation: wheezes Cardio Rate: regular rate Rhythm: regular rhythm Skin General skin exam: no rashes or lesions noted Neuro General: patient oriented x3 Extrem Other: No wrist swelling or tenderness bilateral No active synovitis both hands and wrists normal range of motion of elbows and shoulders bilaterally No knee pain with full range of motion bilaterally No ankle swelling or tenderness bilaterally Normal nailfold capillaroscopy Results Reviewed Results Reviewed: path report from [facility] Comment 12/2022:? The features suggest rheumatoid nodules, but other granulomatous entities cannot be completely excluded and clinical/serologic correlation is necessary.? No epidermis is present for evaluation. Assessment & Plan Assessment & Plan (1) Rheumatoid arthritis: Comment: -ve RF-ve CCP +RADHA (Rheumatoid nodule on biopsy) dx 04/2023 MTX 04/2023 ineffective advanced to SQ 06/2023 effective Code(s): M06.9 - Rheumatoid arthritis, unspecified Qualifiers: Rheumatoid arthritis location: multiple sites Rheumatoid factor presence: unspecified presence Qualified Code(s): M06.9 - Rheumatoid arthritis, unspecified Plan: This is a 38-year-old female with seronegative RA who returns for follow-up. Doing much better on methotrexate 25 mg subcutaneously once weekly plus folic acid 1 mg daily . 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 Patient just removed her Nexplanon yesterday. She states that she is sexually active but not regularly. She uses condoms but could not confirm consistency. She is not planning on getting soon. I discussed teratogenic risk of methotrexate. Advised patient to use condoms regularly. Advised patient to let me know if there is any suspicion of as methotrexate will need to be discontinued Patient states that she rarely consumes alcohol (3) RADHA positive: Code(s): R76.8 - Other specified abnormal immunological findings in serum Plan: DsDNA levels indeterminate with borderline low C3 and C4. Patient states that she has been having intermittent rashes. However I do not see any convincing signs of SLE. Advised patient to take any pictures of rashes. 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 agent Complement C3 3 Months M32.9 - Systemic lupus erythematosus, unspecified Complement C4 3 Months M32.9 - Systemic lupus erythematosus, unspecified Medications: Changed From folic acid 1 mg PO DAILY 90 tabs 0RF To folic acid 3 mg (3 x 1 mg) PO DAILY 270 tabs 1RF Refilled methotrexate sodium 25 mg subcut QWEEK 12 mL 0RF insulin syringe-needle U-100 (BD Insulin Syringe) Use once weekly with methotrexate 10 ea 1RF Coding Level of Care Code Est Pt Level 4 (31394) Diagnoses Rheumatoid arthritis involving multiple sites, unspecified whether rheumatoid factor present M06.9 Rheumatoid arthritis location: multiple sites Rheumatoid factor presence: unspecified presence half-way methotrexate user Z79.631 RADHA positive R76.8
== END 2023-09-19 13:39 | disposition home or self-care (01) ==
PROVIDERS: PCP Internal Medicine; Visit Provider Student in an Organized Health Care Education/Training Program
DX: M06.9 Rheumatoid arthritis, unspecified (principal); Z79.631 Long term (current) use of antimetabolite agent; R76.8 Other specified abnormal immunological findings in serum
CPT/HCPCS: 99214

== ENCOUNTER → 2023-09-19 13:18 | Outpatient (BNVA) | payer OTHER, SELFPAY | PROVIDERS: PCP Internal Medicine; Visit Provider Student in an Organized Health Care Education/Training Program | DX: M06.9 Rheumatoid arthritis, unspecified (principal); R76.8 Other specified abnormal immunological findings in serum; Z79.631 Long term (current) use of antimetabolite agent | CPT/HCPCS: 99212 ==

== ENCOUNTER 2023-09-29 07:00 | Day surgery (SDC) | payer OTHER, SELFPAY ==
[2023-09-21 10:48] VITALS: BMI 28.1
[2023-09-21 15:24] VITALS: BMI 28.3
--- NOTE | 2023-09-28 10:16 | MHC.SHP ---
Pre-Procedural Eval Section A - 24 Hr Update-Section A only Date of Service: 09/28/23 The patient is an INPATIENT: No Changes since office visit: No Cold of Flu in the past 2 weeks, No New Medical Problems, No Changes in Medication and No Patient answered all questions Section B - Complete if H&P > 30 days Chief Complaint: Umbilical hernia with obstruction, Allergies: Allergies Allergy/AdvReac Type Severity Reaction Status Date / Time amoxicillin [AMOXICILLIN] Allergy Severe Anaphylaxis Verified 09/21/23 15:16 ciprofloxacin [CIPROFLOXACIN] Allergy Severe ANAPHYLAXIS Verified 09/19/23 13:26 Penicillins Allergy Severe Anaphylaxis Verified 09/21/23 15:16 sulfadiazine Allergy Severe Rash Verified 09/21/23 15:16 Plan I have reviewed the history and physical and performed a pertinent physical examination on my patient. No changes have occurred unless specified. Time Spent With Patient Time: Total time managing care of this patient today ____ minutes.
[2023-09-29 07:26] LABS: UPreg QC Valid YES; Urine Pregnancy NEGATIVE (NEGATIVE)
[2023-09-29 07:29] VITALS: BP 110/87; PULSE 92; RESP 18; TEMP 36.7; O2SAT 94
[2023-09-29] MEDS: Lactated Ringers 1,000 ML 100 ML IVCONT (07:38)
[2023-09-29] MEDS: Albuterol Sulfate (0.083%) 2.5 MG/3 ML VIAL.NEB INHALE (07:38)
--- NOTE | 2023-09-29 07:41 | PC.NURSE ---
dr. danielson aware of patient piercings and waiver in chart. okay to proceed
[2023-09-29 07:43] VITALS: BMI 28.3
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
[2023-09-29 09:25] VITALS: BP 105/67; PULSE 83; RESP 14; TEMP 36.2; O2SAT 100
[2023-09-29 09:30] VITALS: BP 105/68; PULSE 81; RESP 14; O2SAT 100
--- NOTE | 2023-09-29 09:30 | W.PM.OPN ---
Operative Note Operative Note Date of Service: 09/29/23 Narrative: Preoperative diagnosis: [] Incarcerated supraumbilical ventral hernia Postop diagnosis: [] The same Procedure [] open repair of incarcerated supraumbilical ventral hernia with Bard mesh Surgeon: [] Jete Visitor Services Technician: [] Yoly Type of Anesthesia: [] General Indication for surgery: [] Approximately 3 cm supraumbilical incarcerated umbilical hernia with omental contents Findings: [] Patient brought to the operating room, placed on operative table supine position, after an adequate level of general anesthesia was induced, the patient's abdomen is prepped and draped in usual sterile fashion. Using a supraumbilical curvilinear incision, this carried down through skin, subcutaneous tissue, were large hernia sac was identified and circumferentially dissected down to the fascia. Sac was opened were incarcerated omental contents and sac were amputated using Bovie. Fascia margins were circumferentially cleared. A Bard mesh was placed in this defect and the superficial layer of the mesh circumferentially sutured to the surrounding fascia using interrupted 0 Ethibond suture. At completion of procedure, mesh was in good position with no gaps or tension Wound was irrigated, secured hemostasis. Was closed in the following manner; subcutaneous tissue was reapproximated using interrupted 3-0 Vicryl sutures. Skin was closed using interrupted inverted dermal 3-0 Vicryl sutures followed by Steri-Strips and sterile dressings. Wound was infiltrated 0.5% Marcaine at completion. Sponge, needle, and instrument counts were reported correct. Patient tolerated the procedure well and emerged from anesthesia stable condition. EBL minimal
[2023-09-29 09:35] VITALS: BP 109/70; PULSE 82; RESP 14; O2SAT 97
[2023-09-29 09:40] VITALS: BP 107/71; PULSE 85; RESP 14; O2SAT 97
[2023-09-29 09:55] VITALS: BP 127/60; PULSE 82; RESP 16; TEMP 36.5; O2SAT 97
== END 2023-09-29 10:40 | disposition home or self-care (01) ==
LOC: HO.SSS 12:03
PROVIDERS: Nurse Practitioner; PCP Internal Medicine; Visit Provider Surgery
PROC: (CPT 49614; principal; 2023-09-29 08:30)
DX: K43.6 Other and unspecified ventral hernia with obstruction, without gangrene (principal); Z87.19 Personal history of other diseases of the digestive system; Z98.890 Other specified postprocedural states; J45.909 Unspecified asthma, uncomplicated; Z79.891 Long term (current) use of opiate analgesic; Z79.899 Other long term (current) drug therapy; Z88.0 Allergy status to penicillin; Z88.1 Allergy status to other antibiotic agents; Z88.2 Allergy status to sulfonamides; Z90.49 Acquired absence of other specified parts of digestive tract; F17.210 Nicotine dependence, cigarettes, uncomplicated
CPT/HCPCS: 49614; 81025; C1781; J0131; J0736; J1100; J1170; J1885; J2250; J2371; J2405; J2704; J2795; J3010

== ENCOUNTER → 2023-09-29 08:30 | Outpatient (BNV) | payer OTHER, SELFPAY | PROVIDERS: Admitting Provider Surgery; PCP Internal Medicine; Visit Provider Surgery | DX: K42.0 Umbilical hernia with obstruction, without gangrene (principal) | CPT/HCPCS: 49591 ==

== ENCOUNTER 2023-10-03 13:38 | Outpatient (AMB) | payer OTHER, SELFPAY ==
--- NOTE | 2023-10-03 13:40 | MHC.OFFVIS ---
Intake Visit Reasons: Wound check umbilical hernia Intake Note: Patient here s/p incarcerated supra umbilical ventral hernia. Reports incision healing well. Patient c/o: redness, tenderness. SX: 09-29-23. 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 Aside from incisional discomfort which is improving, patient is otherwise doing well. She has starting a diet. Having regular bowel habits. She is increasing her activity level. [facility] Medical History Hx of drug abuse Pseudoangiomatous stromal hyperplasia of breast Uterus, adenomyosis History of back pain History of TMJ disorder Hx of renal calculi History of asthma Surgical History Hx of cholecystectomy Hx of breast lump removal Hx of hand surgery Hx of umbilical hernia repair Family History Father Graves disease DVT (deep venous thrombosis) HTN (hypertension) Mother Graves disease Cervical cancer Ovarian cancer [place] disease Brother Graves disease Daughter ADHD Son ADHD Maternal Aunt Breast CA Other Mental health disorder Substance use disorder Social History Household Members: Significant Other and Children Housing: Apartment Are you a primary care director to a significant other at home: No Do you presently have visiting nurse or other home services: No Alcohol intake: never Comment: counts correct Patient Tobacco Use Status: Current everyday Tobacco user Tobacco use type: Cigarette Cigarettes Per Day: 5 e-Cigarette/Vaping Use: Never Used service: No Current occupational status: employed 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 Incision clean dry and intact healing well. Patient has some superficial tape burn which appears to be resolving but no evidence of any infection Assessment & Plan Assessment & Plan (1) Postop check: Code(s): Z09 - Encounter for follow-up examination after completed treatment for conditions other than malignant neoplasm Category: Surgical Plan Patient has been given local instructions including avoiding strenuous activities for next 3 weeks time and will otherwise follow-up p.r.n.. All questions answered. Coding Level of Care Code Global (57532) Diagnoses Postop check Z09
== END 2023-10-03 13:47 | disposition home or self-care (01) ==
PROVIDERS: PCP Internal Medicine; Visit Provider Surgery
DX: Z09 Encounter for follow-up examination after completed treatment for conditions other than malignant neoplasm (principal); K42.9 Umbilical hernia without obstruction or gangrene
CPT/HCPCS: 99212

== ENCOUNTER → 2023-10-03 13:38 | Outpatient (BNVA) | payer OTHER, SELFPAY | PROVIDERS: PCP Internal Medicine; Visit Provider Surgery | DX: Z09 Encounter for follow-up examination after completed treatment for conditions other than malignant neoplasm (principal); Z87.19 Personal history of other diseases of the digestive system | CPT/HCPCS: 99212 ==

== ENCOUNTER 2023-10-09 11:17 | Outpatient (AMB) | payer OTHER, SELFPAY ==
--- NOTE | 2023-10-09 11:17 | A.OFFVIS_ITS ---
Intake Visit Reasons: S/P umbilical hernai Intake Note: Patient here s/p incarcerated umbilical hernia w/Bard mesh. Reports incisions healing well. Patient c/o: no longer taking rx pain meds. 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 Aside from incisional discomfort which is improving she is doing well. She has starting a diet. He is having regular bowel habits. She is increasing her activity level. [facility] Medical History (Updated 10/05/23 @ 15:28 by CAROLINE Aldana) Incarcerated umbilical hernia (09/29/23) Hx of drug abuse Pseudoangiomatous stromal hyperplasia of breast Uterus, adenomyosis History of back pain History of TMJ disorder Hx of renal calculi History of asthma Surgical History (Updated 10/09/23 @ 11:24 by Miguel Angel Marcano MD) Hx of cholecystectomy Hx of breast lump removal Hx of hand surgery Hx of umbilical hernia repair Family History Father Graves disease DVT (deep venous thrombosis) HTN (hypertension) Mother Graves disease Cervical cancer Ovarian cancer [place] disease Brother Graves disease Daughter ADHD Son ADHD Maternal Aunt Breast CA Other Mental health disorder Substance use disorder Social History Household Members: Significant Other and Children Housing: Apartment Are you a primary interior plant caretaker to a significant other at home: No Do you presently have visiting nurse or other home services: No Alcohol intake: never Comment: counts correct Patient Tobacco Use Status: Current everyday Tobacco user Tobacco use type: Cigarette Cigarettes Per Day: 5 e-Cigarette/Vaping Use: Never Used service: No Current occupational status: employed 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 Wound clean dry and intact healing very well Assessment & Plan Assessment & Plan (1) Status post hernia repair: Code(s): Z98.890 - Other specified postprocedural states; Z87.19 - Personal history of other diseases of the digestive system Category: Medical Plan Patient has been given local wound instructions, a no to start work in 2 weeks followed by 2 weeks light duty. All questions answered. Patient will otherwise follow-up p.r.n.. Coding Level of Care Code Global (38631) Diagnoses Status post hernia repair Z98.890; Z87.19
== END 2023-10-09 11:27 | disposition home or self-care (01) ==
PROVIDERS: PCP Internal Medicine; Visit Provider Surgery
DX: K42.9 Umbilical hernia without obstruction or gangrene (principal); Z09 Encounter for follow-up examination after completed treatment for conditions other than malignant neoplasm
CPT/HCPCS: 99212

== ENCOUNTER → 2023-10-09 11:17 | Outpatient (BNVA) | payer OTHER, SELFPAY | PROVIDERS: PCP Internal Medicine; Visit Provider Surgery ==

== ENCOUNTER 2023-10-17 15:33 | Outpatient (AMB) | payer OTHER, SELFPAY ==
[2023-10-17 15:34] VITALS: BP 112/60; PULSE 88; O2SAT 95; BMI 28.8
--- NOTE | 2023-10-17 15:34 | MHC.PC.OV ---
Vital Signs 10/17/23 15:34 Height 5 ft 5 in Weight 173 lb 6 oz BMI 28.8 BP 112/60 Blood Pressure Location Rt brachial Position Sitting Pulse 88 Pulse Source Pulse Oximeter Pulse Oximetry (%) 95 Oxygen Delivery Method Room Air Intake Visit Reasons: Annual PE Allergies amoxicillin [AMOXICILLIN] Allergy (Severe, Verified 10/17/23 15:34) Anaphylaxis ciprofloxacin [CIPROFLOXACIN] Allergy (Severe, Verified 10/17/23 15:34) ANAPHYLAXIS Penicillins Allergy (Severe, Verified 10/17/23 15:34) Anaphylaxis sulfadiazine Allergy (Severe, Verified 10/17/23 15:34) Rash Medication List - Last Reconciled 10/17/23 by Sebastian Ramos MD alcohol swabs (Alcohol Prep Pads) pad topical atorvastatin 20 mg PO DAILY Breo Ellipta 200-25 mcg/dose (fluticasone furoate-vilanterol) 1 ea inhalation DAILY NS buprenorphine-naloxone 8-2 mg (Suboxone) 2.5 film buccal DAILY bupropion HCl 75 mg PO DAILY bupropion HCl XL 300 mg PO DAILY cetirizine 10 mg PO DAILY PRN clonidine HCl 0.4 mg PO BEDTIME dupilumab (Dupixent) 300 mg (2 mL) subcut Q2W 28 days escitalopram oxalate 20 mg PO DAILY folic acid 3 mg (3 x 1 mg) PO DAILY furosemide (Lasix) 20 mg PO QAM PRN hydroxyzine HCl 10 mg PO BEDTIME ibuprofen 600 mg PO Q6H PRN insulin syringe-needle U-100 (BD Insulin Syringe) Use once weekly with methotrexate ipratropium-albuterol 0.5 mg-3 mg(2.5 mg base)/3 mL 3 mL PO Q4-6H PRN lidocaine 5% 1 patch topical DAILY methotrexate sodium 25 mg subcut .QFRIDAY sennosides (Senna Laxative) 8.6 mg PO DAILY PRN Ventolin HFA 90 mcg/actuation (albuterol sulfate) 2 puffs PO QID PRN 30 days NS Tobacco use date assessed: 10/17/23 Dental Screening Dental Screen Date: 10/17/23 Did you have a dental visit in the last 12 months?: Yes Did you have a dental problem in the last 6 months where you did not have access to dental care?: No Was dental information given to patient?: Patient has dentist HPI Annual PE HPI Details Patient is a 38-year-old female came in today for physical exam Patient have severe asthma with recurrent flare-up, she is seeing Dr Izaguirre for the management She is wheezing today on physical exam, patient says she will reach out to Dr. Izaguirre for refill on prednisone She is established with OBGYN last visit was in June Patient declined breast exam today She recently had umbilical hernia surgery she is healing well Labs were done in September, Patient will return in 1 year for physical exam She has stopped taking frusemide I have removed that from her medication list Only medication from PCP office is now simvastatin 20 mg PFSH Medical History Incarcerated umbilical hernia (09/29/23) Hx of drug abuse Pseudoangiomatous stromal hyperplasia of breast Uterus, adenomyosis History of back pain History of TMJ disorder Hx of renal calculi History of asthma Surgical History Hx of cholecystectomy Hx of breast lump removal Hx of hand surgery Hx of umbilical hernia repair Family History Father Graves disease DVT (deep venous thrombosis) HTN (hypertension) Mother Graves disease Cervical cancer Ovarian cancer [place] disease Brother Graves disease Daughter ADHD Son ADHD Maternal Aunt Breast CA Other Mental health disorder Substance use disorder Social History Household Members: Significant Other and Children Housing: Apartment Are you a primary laboratory animal caretaker to a significant other at home: No Do you presently have visiting nurse or other home services: No Alcohol intake: never Comment: counts correct Patient Tobacco Use Status: Current everyday Tobacco user Tobacco use type: Cigarette Cigarettes Per Day: 5 e-Cigarette/Vaping Use: Never Used service: No Current occupational status: employed 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 How often do you have a drink containing alcohol?: Never 3. How often do you have six or more drinks on one occasion?: Never Total Score: 0 Score Reviewed/Action Taken: Yes MARIVEL-7 AMB Questionnaire MARIVEL-7 Date MARIVEL - 7 assessed: 01/27/23 Source: Developed by Drs. Christopher Morgan, Sofie Berg, Vishnu Richter and colleagues, with an educational mario from [employer]. Review of Systems Const Denies chills, Denies fever(s) and Denies headache(s) Eyes Denies blurry vision ENT Denies headache(s), Denies nasal discharge, Denies nasal obstruction, Denies odynophagia and Denies sinus pain Card Denies chest pain at rest and Denies chest pain with activity Resp Denies hemoptysis GI Denies diarrhea, Denies odynophagia, Denies vomiting and Denies hematemesis Reports as per HPI Musc Denies abnormal gait Skin/Breast Reports as per HPI Neuro Denies Neuro-related abnormal movements, Denies Abnormal speech present, Denies abnormal gait, Denies headache(s) and Denies Sensory deficit (Neuro) Psych Denies mood swings and Denies paranoia Endo Reports as per HPI Adrian/Lymph Reports as per HPI Aller/Immun Reports as per HPI Physical exam (Primary Care) Vital Signs: Last Vital Signs Pulse 88 10/17/23 15:34 BP 112/60 10/17/23 15:34 Pulse Ox 95 10/17/23 15:34 Oxygen Delivery Method Room Air 10/17/23 15:34 BMI result Body Mass Index 28.8 Tobacco/Smoking Status: Tobacco use Status Tobacco use date assessed 10/17/23 10/17/23 15:35 Patient Tobacco Use Status Current everyday Tobacco 10/17/23 15:35 Tobacco use type Cigarette 10/17/23 15:35 e-Cigarette/Vaping Use Never Used 10/17/23 15:35 Thrive Assessment: Date of Thrive Assessment Date Thrive assessed 01/27/23 10/17/23 15:35 Const Other: Cushingoid features secondary to recurrent prednisone use General: cooperative, comfortable and no acute distress Orientation/consciousness: patient oriented x3 HENMT Head: Yes normocephalic and Yes atraumatic Eyes General: appearance normal, both eyes and all related structures Pupils: Equal, round and reactive pupils present EOM: EOMs intact bilaterally Neck Neck: Yes supple and No lymphadenopathy Thyroid: Thyroid normal Lymphatic: no lymphadenopathy noted Resp Other: Bilateral wheezing Effort & Inspection: normal respiratory effort and able to speak in complete sentences Cardio Heart sounds: S1 normal heart sound present and S2 normal heart sound present GI Palpation (GI): Soft to palpation and nontender Auscultation: normal bowel sounds General: Yes no CVA tenderness Back/Spine/Pelvis Back: no CVA tenderness Skin General skin exam: elasticity normal and turgor normal Neuro General: patient oriented x3 and gait normal Cranial nerves: Yes Equal, round and reactive pupils present Speech: No Abnormal speech present Sensory Exam: No Sensory deficit (Neuro) Coordination: tandem gait normal and Romberg test negative Extrem General: Yes normal exam except as noted and No edema Assessment and Plan Assessment & Plan (1) Encounter for general adult medical examination with abnormal findings: Code(s): Z00.01 - Encounter for general adult medical examination with abnormal findings (2) Severe persistent allergic asthma: Code(s): J45.50 - Severe persistent asthma, uncomplicated (3) Environmental allergies: Code(s): Z91.09 - Other allergy status, other than to drugs and biological substances (4) Lipid disorder: Code(s): E78.9 - Disorder of lipoprotein metabolism, unspecified (5) 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 Izaguirre for refill on prednisone She has developed cushingoid features secondary to recurrent use of prednisone She is established with OBGYN last visit was in June Patient declined breast exam today She recently had umbilical hernia surgery she is healing well Labs were done in September, Patient will return in 1 year for physical exam She has stopped taking frusemide I have removed that from her medication list Only medication from PCP office is now simvastatin 20 mg Coding Level of Care Code Est Pt Prev Care 18-39y(35048) Diagnoses Encounter for general adult medical examination with abnormal findings Z00.01 Severe persistent allergic asthma J45.50 Environmental allergies Z91.09 Lipid disorder E78.9 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
== END 2023-10-17 15:52 | disposition home or self-care (01) ==
PROVIDERS: Visit Provider Internal Medicine
DX: Z00.00 Encounter for general adult medical examination without abnormal findings (principal); J45.50 Severe persistent asthma, uncomplicated; E24.2 Drug-induced Cushing's syndrome; Z91.09 Other allergy status, other than to drugs and biological substances; E78.9 Disorder of lipoprotein metabolism, unspecified
CPT/HCPCS: 99395

== ENCOUNTER 2023-12-13 10:44 | Outpatient (AMB) | payer OTHER, SELFPAY ==
--- NOTE | 2023-12-13 10:48 | MHC.OFFVIS ---
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 Doing well with no concerns. Nexplanon removed in June reports periods are irregular, desires to go back onto Nexplanon. She tries to eat healthy and stays active with exercise-walks at work. Currently is sexually active. She admits vaginal itching and irritation. Denies pelvic pain or urinary symptoms. STI screening offered; she accepts. Denies family history of breast, ovarian or colon cancer. Last pap smear 2022, negative. [facility] Medical History Incarcerated umbilical hernia (09/29/23) Hx of drug abuse Pseudoangiomatous stromal hyperplasia of breast Uterus, adenomyosis History of back pain History of TMJ disorder Hx of renal calculi History of asthma Surgical History Hx of cholecystectomy Hx of breast lump removal Hx of hand surgery Hx of umbilical hernia repair Family History Father Graves disease DVT (deep venous thrombosis) HTN (hypertension) Mother Graves disease Cervical cancer Ovarian cancer [place] disease Brother Graves disease Daughter ADHD Son ADHD Maternal Aunt Breast CA Other Mental health disorder Substance use disorder Social History (Updated 12/13/23 @ 10:59 by CAROLINE Dahl) Household Members: Significant Other and Children Housing: Apartment Are you a primary healthcare administration internship to a significant other at home: No Do you presently have visiting nurse or other home services: No Alcohol intake: never Comment: counts correct Patient Tobacco Use Status: Current everyday Tobacco user Tobacco use type: Cigarette Cigarettes Per Day: 5 e-Cigarette/Vaping Use: Never Used service: No Current occupational status: employed 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 - [employer] Sexual orientation: Straight/Heterosexual Gender identity: Female Cognitive needs: No Hearing needs: No Vision needs: Yes Female Reproductive History Menstrual Age of Menarche: 12 Date of last menstrual period: 11/13/23 control method: none Total pregnancies: 3 Full term: 2 Number of Living Children: 2 Ab spontaneous: 1 Date of last pap smear: 09/23/22 (neg pap and hpv) History of abnormal pap smear: Yes (08/18 lgsil +hpv 09/18 colpo anish 1 11/19 ascus 11/21 ascus 02/22 neg,neg) Review of Systems Const All systems reviewed & are unremarkable except as noted in HPI and below Reports as per HPI Eyes Reports no additional complaints ENT Reports no additional complaints Card Reports no additional complaints Resp Reports no additional complaints GI Reports as per HPI and Reports no additional complaints Reports as per HPI Musc Reports no additional complaints Skin/Breast Reports as per HPI Neuro Reports no additional complaints Psych Reports no additional complaints Endo Reports no additional complaints Adrian/Lymph Reports no additional complaints Aller/Immun Reports no additional complaints Physical Exam Vital Signs: Last Vital Signs BP 90/60 12/13/23 10:50 BMI result Body Mass Index 29.0 Const General: cooperative, healthy appearing, no acute distress, well developed and alert Orientation/consciousness: patient oriented x3 HEENT Head: Yes normal to inspection Eyes General: appearance normal, both eyes and all related structures Neck Neck: Yes normal visual inspection Thyroid: Thyroid normal Chest Chest palpation & inspection: normal inspection of the chest and other (no puckering, dimpling, peau de orange, retraction, discharge, masses) Breast/axilla inspection: normal inspection of the breasts Breast/axilla palpation: normal palpation of the breasts Resp Effort & Inspection: normal respiratory effort GI Inspection: Yes normal to inspection and Yes scar Palpation (GI): Soft to palpation Rectal Exam - Female: deferred General: Yes bladder normal to palpation External Female Exam: normal external appearance and normal appearance of the urethra Speculum Exam - Vagina: normal appearance of the vagina, normal palpation and abnormal vaginal discharge (White and clumpy) Speculum Exam - Cervix: normal appearance of the cervix and normal palpation Bimanual exam- vagina & uterus: normal bimanual exam, normal palpation, uterine size normal, bladder normal to palpation, normal palpation and non-tender Bimanual Exam- Adnexa, other: no masses Skin General skin exam: no rashes or lesions noted Rashes: no rashes Neuro General: patient oriented x3 Cognition (Neuro): normal cognition Extrem General: Yes normal to inspection Psych Attitude: cooperative Thought process: Normal thought process present Results AMB Test Urine AMB Test Urine Negative Last Edit by CAROLINE Dahl on 12/13/23 11:01 Results Reviewed Results Reviewed: Laboratory Last Values [facility]st Clinic Negative 12/13/23 11:01 Assessment & Plan Assessment & Plan (1) Encounter for well woman exam with routine gynecological exam: Code(s): Z01.419 - Encounter for gynecological examination (general) (routine) without abnormal findings Category: Medical Plan Discussed: Current recommendations for pap smears per ASCCP guidelines. Await culture results for plan of care. Breast awareness and periodic breast exams. Maintain a healthy lifestyle including a well balanced diet and routine exercise. Prior authorization sign for Nexplanon to be submitted to company for approval once approved she can return to the office within the 1st 5 days of a menstrual cycle for insertion. Always use condoms for STI and prevention. Encouraged tobacco cessation. Patient verbalizes understanding and agrees to the plan of care. She was given opportunity to ask questions and all questions were answered to the best of my ability. RTO in one year for annual software maintenance engineer examination. This note is constructed using voice recognition software. While every effort has been made to ensure accuracy, any commodity sales deliverer errors may have been included. Orders: Orders Bacterial Vaginosis Panel Today N89.8 - Other specified noninflammatory disorders of vagina CT NG by PCR Today N89.8 - Other specified noninflammatory disorders of vagina AMB HCG Urine Test Today Z32.02 - Encounter for test, result negative Coding Level of Care Code Est Pt Prev Care 18-39y(49861) Diagnoses Encounter for well woman exam with routine gynecological exam Z01.419
[2023-12-13 10:50] VITALS: BP 90/60; BMI 29.0
== END 2023-12-13 11:31 | disposition home or self-care (01) ==
LOC: HO.HWS 10:44
PROVIDERS: PCP Internal Medicine; Visit Provider Advanced Practice Midwife
DX: Z32.02 Encounter for pregnancy test, result negative (principal); Z01.419 Encounter for gynecological examination (general) (routine) without abnormal findings
CPT/HCPCS: 99395

== ENCOUNTER 2023-12-13 10:44 | Outpatient (REF) | payer OTHER, SELFPAY ==
[2023-12-14 04:50] LABS: CT PCR NOT DETECTED (Not Detect.); NG PCR NOT DETECTED (Not Detect.)
[2023-12-14 11:47] LABS: Bacterial Vaginosis PCR NEGATIVE (Negative); Candida Group PCR DETECTED (Not Detect); Candida glab krusei PCR DETECTED (Not Detect); Trichomonas vaginalis PCR NOT DETECTED (Not Detect)
== END 2023-12-13 10:45 | disposition home or self-care (01) ==
LOC: HO.LAB 10:44
PROVIDERS: PCP Internal Medicine; Visit Provider Advanced Practice Midwife
DX: Z32.02 Encounter for pregnancy test, result negative (principal); N89.8 Other specified noninflammatory disorders of vagina
CPT/HCPCS: 0352U; 81025; 87491; 87591; 99395

== ENCOUNTER 2023-12-13 11:25 | Outpatient (REF) | payer OTHER, SELFPAY | END 2023-12-13 11:26 | disposition home or self-care (01) | LOC: HO.LNP 11:25 | PROVIDERS: Visit Provider Advanced Practice Midwife | DX: Z13.89 Encounter for screening for other disorder (principal) ==

== ENCOUNTER 2023-12-19 09:25 | Outpatient (REF) | payer OTHER, SELFPAY ==
[2023-12-19 09:43] LABS: MANUAL DIFF FLAG NO
[2023-12-19 10:31] LABS: Basophils Percent Auto 0.3 % (0-2); Eosinophils Absolute Auto 0.1 X10*3/uL (0.0-0.4); Eosinophils Percent Auto 0.8 % (0-4); Hematocrit 41.4 % (37.0-47.0); Hemoglobin 13.5 g/dl (12.0-16.0); Imm Gran Abs Auto 0.04 X10*3/uL (0.00-0.03); Imm Gran Pct Auto 0.4 % (0.0-0.4); Lymphocytes Absolute Auto 1.8 X10*3/uL (1.2-4.9); Lymphocytes Percent Auto 19.3 % (20-40); Mean Corpuscular HGB Conc 32.6 g/dl (31.0-35.0); Mean Corpuscular Hemoglobin 32.9 pg (27.0-33.0); Mean Platelet Volume 9.3 fL (9.4-12.3); Monocytes Absolute Auto 0.2 X10*3/uL (0.1-1.2); Monocytes Percent Auto 2.5 % (2-11); Neutrophils Absolute Auto 7.1 x10*3/uL (2.0-8.3); Neutrophils Percent Auto 76.7 % (45-73); Platelet Count 331 X10*3/uL (160-400); Red Cell Distribution Width 13.3 % (11.0-16.0); White Blood Count 9.2 X10*3/uL (4.8-10.8)
[2023-12-19 11:13] LABS: Erythrocyte Sedimentation Rate 17 MM/HR (0-20)
[2023-12-19 11:17] LABS: Alanine Aminotransferase 16 U/L (0-31); Albumin Level 4.1 g/dL (3.5-5.0); Alkaline Phosphatase 84 U/L (39-117); Anion Gap 13 (12-20); Aspartate Amino Transferase 16 U/L (5-31); Bilirubin Total 0.5 mg/dL (0.0-1.0); Blood Urea Nitrogen 9 mg/dL (9-16); C Reactive Protein 1.17 mg/dL (< or = 0.50); Calcium 9.3 mg/dL (8.4-10.2); Carbon Dioxide 26 mmol/L (22-29); Chloride 104 mmol/L (96-108); Estimated Glomerular Filt Rate > 60; Glucose Random 112 mg/dL (60-115); HCG Quantitative < 2 mIU/mL; Potassium 4.2 mmol/L (3.3-5.1); Sodium 139 mmol/L (135-145); Total Protein 7.3 g/dL (6.5-8.0)
[2023-12-21 10:59] LABS: Complement C3 152 mg/dL (83-193)
[2023-12-21 20:04] LABS: Anti DNA DS Antibody 6 IU/mL
== END 2023-12-19 09:26 | disposition home or self-care (01) ==
LOC: HO.LAB 09:25
PROVIDERS: PCP Internal Medicine; Visit Provider Student in an Organized Health Care Education/Training Program
DX: O09.529 Supervision of elderly multigravida, unspecified trimester (principal); O26.899 Other specified pregnancy related conditions, unspecified trimester; M32.9 Systemic lupus erythematosus, unspecified; M06.9 Rheumatoid arthritis, unspecified; R76.8 Other specified abnormal immunological findings in serum; R21 Rash and other nonspecific skin eruption; Z79.631 Long term (current) use of antimetabolite agent
CPT/HCPCS: 36415; 80053; 84702; 85025; 85652; 86140; 86160; 86225; 99212

== ENCOUNTER 2023-12-19 09:44 | Outpatient (AMB) | payer OTHER, SELFPAY ==
--- NOTE | 2023-12-19 09:46 | MHC.OFFVIS ---
Vital Signs 12/19/23 09:51 Height 5 ft 5 in Weight 172 lb 13.478 oz BMI 28.8 BP 112/72 Blood Pressure Location Lt brachial Position Sitting Respiration 16 Pulse 90 Pulse Source Pulse Oximeter Pulse Oximetry (%) 96 Oxygen Delivery Method Room Air Intake Visit Reasons: RA/cm Intake Note: Patient presents for RA. Allergies amoxicillin [AMOXICILLIN] Allergy (Severe, Verified 12/13/23 10:50) Anaphylaxis ciprofloxacin [CIPROFLOXACIN] Allergy (Severe, Verified 12/13/23 10:50) ANAPHYLAXIS Penicillins Allergy (Severe, Verified 12/13/23 10:50) Anaphylaxis sulfadiazine Allergy (Severe, Verified 12/13/23 10:50) Rash Medication List - Last Reconciled 12/19/23 by Rahul Bonilla MD alcohol swabs (Alcohol Prep Pads) pad topical atorvastatin 20 mg PO DAILY Breo Ellipta 200-25 mcg/dose (fluticasone furoate-vilanterol) 1 ea inhalation DAILY NS buprenorphine-naloxone 8-2 mg (Suboxone) 2.5 film buccal DAILY bupropion HCl 75 mg PO DAILY bupropion HCl XL 300 mg PO DAILY cetirizine 10 mg PO DAILY PRN clonidine HCl 0.4 mg PO BEDTIME dupilumab (Dupixent) 300 mg (2 mL) subcut Q2W 28 days escitalopram oxalate 20 mg PO DAILY folic acid 3 mg (3 x 1 mg) PO DAILY furosemide (Lasix) 20 mg PO QAM PRN hydroxyzine HCl 10 mg PO BEDTIME ibuprofen 600 mg PO Q6H PRN insulin syringe-needle U-100 (BD Insulin Syringe) Use once weekly with methotrexate ipratropium-albuterol 0.5 mg-3 mg(2.5 mg base)/3 mL 3 mL PO Q4-6H PRN lidocaine 5% 1 patch topical DAILY methotrexate sodium 25 mg subcut .QFRIDAY Ventolin HFA 90 mcg/actuation (albuterol sulfate) 2 puffs PO QID PRN 30 days NS HPI Comments Details: 38-year-old female with seronegative RA returns for follow-up. She is on methotrexate 25 mg subcutaneously weekly, folic acid 3 mg daily. She states that she i has been doing quite well overall until 2-3 weeks ago when she started having more pain swelling and stiffness of her ankles and feet. She has morning stiffness of her feet lasting at least 1 hour. Unable to stand on her feet after she wakes up for about an hour. Denied any recent infections. Initial history: This is a 37-year-old female who presents for evaluation of diffuse joint pain. She was referred by Orthopedics as and excised mass on her right index finger, pathology was suggestive of a rheumatoid nodule. Patient states that for the last year she has been having multiple joint pain. Bilateral knee pain associated with morning stiffness lasting 1 hour. She also has bilateral hand pain, swelling and stiffness. Morning stiffness lasting 1 hour. States that her fingers have been swollen over the last 6 months to 1 year. She has new rings as her old rings do not fit anymore. She gets intermittent ankle swelling, worse on the left. States that her mother has arthritis, does not know what type. She denies any history of DVT/PE. She has history of multiple allergies, including asthma on Dupixent which is helping per patient. She states that when she was prescribed prednisone taper for her asthma exacerbations it would help her joint pain significantly PFSH Medical History Incarcerated umbilical hernia (09/29/23) Hx of drug abuse Pseudoangiomatous stromal hyperplasia of breast Uterus, adenomyosis History of back pain History of TMJ disorder Hx of renal calculi History of asthma Surgical History Hx of cholecystectomy Hx of breast lump removal Hx of hand surgery Hx of umbilical hernia repair Family History Father Graves disease DVT (deep venous thrombosis) HTN (hypertension) Mother Graves disease Cervical cancer Ovarian cancer [place] disease Brother Graves disease Daughter ADHD Son ADHD Maternal Aunt Breast CA Other Mental health disorder Substance use disorder Social History Household Members: Significant Other and Children Housing: Apartment Are you a primary rn progressive care unit to a significant other at home: No Do you presently have visiting nurse or other home services: No Alcohol intake: never Comment: counts correct Patient Tobacco Use Status: Current everyday Tobacco user Tobacco use type: Cigarette Cigarettes Per Day: 5 e-Cigarette/Vaping Use: Never Used service: No Current occupational status: employed Current occupation: rt handed/[employer] - [employer] Sexual orientation: Straight/Heterosexual Gender identity: Female Cognitive needs: No Hearing needs: No Vision needs: Yes Female Reproductive History Menstrual Age of Menarche: 12 Review of Systems Musc Reports arthralgias, Reports joint swelling, Reports limited range of motion and Reports stiffness Skin/Breast Reports rash Physical Exam Vital Signs: Last Vital Signs Pulse 90 12/19/23 09:51 Resp 16 12/19/23 09:51 BP 112/72 12/19/23 09:51 Pulse Ox 96 12/19/23 09:51 Oxygen Delivery Method Room Air 12/19/23 09:51 BMI result Body Mass Index 28.8 Const General: cooperative, healthy appearing and comfortable Nutritional Appearance: overweight Orientation/consciousness: patient oriented x3 Limitations: no limitations HEENT Head: Yes normocephalic and Yes atraumatic Mouth: moist mucous membranes Resp Effort & Inspection: normal respiratory effort and able to speak in complete sentences Auscultation: wheezes Cardio Rate: regular rate Rhythm: regular rhythm Skin Other: Hyperpigmentation on extensor aspect of her MCPs and PIPs s Neuro General: patient oriented x3 Extrem Other: No wrist swelling or tenderness bilateral No active synovitis both hands and wrists normal range of motion of elbows and shoulders bilaterally No knee pain with full range of motion bilaterally Bilateral ankle swelling, warmth tenderness Bilateral diffuse MTP tenderness Normal nailfold capillaroscopy Results Reviewed Results Reviewed: path report from [facility] Comment 12/2022:? The features suggest rheumatoid nodules, but other granulomatous entities cannot be completely excluded and clinical/serologic correlation is necessary.? No epidermis is present for evaluation. Assessment & Plan Assessment & Plan (1) Rheumatoid arthritis: Comment: -ve RF-ve CCP +RADHA (Rheumatoid nodule on biopsy) dx 04/2023 MTX 04/2023 ineffective advanced to SQ 06/2023 Code(s): M06.9 - Rheumatoid arthritis, unspecified Category: Medical Qualifiers: Rheumatoid arthritis location: multiple sites Rheumatoid factor presence: unspecified presence Qualified Code(s): M06.9 - Rheumatoid arthritis, unspecified Plan: This is a 38-year-old female with seronegative RA who returns for follow-up. On methotrexate 25 mg subcutaneously weekly plus folic acid 3 mg daily. On exam patient has multiple swollen and tender joints. Inflammatory markers are elevated. We will need to add DMARDs. Discussed risks and benefits of Enbrel. Patient agreed to proceed. 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 Patient just had a test and it was negative. She is getting a Nexplanon insertion soon (3) RADHA positive: Code(s): R76.8 - Other specified abnormal immunological findings in serum Category: Medical Plan: DsDNA levels indeterminate with borderline low C3 and C4. Patient states that she has been having intermittent rashes. However I do not see any convincing signs of SLE. Advised patient to take any pictures of rashes. Continue to monitor patient for development of lupus. Hydroxychloroquine can be considered but we will have to be cautious as patient is on multiple QTC prolonging medications (4) Rash of both hands: Code(s): R21 - Rash and other nonspecific skin eruption Category: Medical Plan: Rashes on extensor aspect of hands. 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 antimetabolite agent Erythrocyte Sedimentation Rate 3 Months M06.9 - Rheumatoid arthritis, unspecified, Z79.631 - alf (current) use of antimetabolite agent MSA Panel Extended 3 Months M60.9 - Myositis, unspecified DNA Double Stranded-Crithidia 3 Months M32.9 - Systemic lupus erythematosus, unspecified Medications: New nystatin swish and swallow 4 mL PO QID 112 mL 2RF 7 days methotrexate sodium 25 mg subcut .QFRIDAY 10 mL 2RF leucovorin calcium Take the day after you take methotrexate 5 mg PO QWEEK 12 tabs 1RF Enbrel SureClick (etanercept) 50 mg subcut QWEEK 4 mL 2RF NS Coding Level of Care Code Est Pt Level 5 (26236) Complex EM visit Add On G2211 Diagnoses Rheumatoid arthritis involving multiple sites, unspecified whether rheumatoid factor present M06.9 Rheumatoid arthritis location: multiple sites Rheumatoid factor presence: unspecified presence 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
[2023-12-19 09:51] VITALS: BP 112/72; PULSE 90; RESP 16; O2SAT 96; BMI 28.8
== END 2023-12-19 10:14 | disposition home or self-care (01) ==
PROVIDERS: PCP Internal Medicine; Visit Provider Student in an Organized Health Care Education/Training Program
DX: M06.9 Rheumatoid arthritis, unspecified (principal); Z79.631 Long term (current) use of antimetabolite agent; R76.8 Other specified abnormal immunological findings in serum; R21 Rash and other nonspecific skin eruption
CPT/HCPCS: 99215; G2211

== ENCOUNTER 2024-01-19 14:16 | Outpatient (AMB) | payer OTHER, SELFPAY ==
--- NOTE | 2024-01-19 14:18 | A.OFFVIS_ITS ---
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 On day 3 of her cycle. Urine test is negative. She has had Nexplanon in the past. [facility] Medical History (Updated 01/19/24 @ 14:59 by Renée Vila CNM) Nexplanon insertion Incarcerated umbilical hernia (09/29/23) Hx of drug abuse Pseudoangiomatous stromal hyperplasia of breast Uterus, adenomyosis History of back pain History of TMJ disorder Hx of renal calculi History of asthma Surgical History Hx of cholecystectomy Hx of breast lump removal Hx of hand surgery Hx of umbilical hernia repair Family History Father Graves disease DVT (deep venous thrombosis) HTN (hypertension) Mother Graves disease Cervical cancer Ovarian cancer [place] disease Brother Graves disease Daughter ADHD Son ADHD Maternal Aunt Breast CA Other Mental health disorder Substance use disorder Social History Household Members: Significant Other and Children Housing: Apartment Are you a primary transition of care specialist to a significant other at home: No Do you presently have visiting nurse or other home services: No Alcohol intake: never Comment: counts correct Patient Tobacco Use Status: Current everyday Tobacco user Tobacco use type: Cigarette Cigarettes Per Day: 5 e-Cigarette/Vaping Use: Never Used service: No Current occupational status: employed 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 - [employer] Sexual orientation: Straight/Heterosexual Gender identity: Female Cognitive needs: No Hearing needs: No Vision needs: Yes Female Reproductive History Menstrual Age of Menarche: 12 Date of last menstrual period: 01/17/24 control method: implanted (Nexplanon left arm) Review of Systems Const All systems reviewed & are unremarkable except as noted in HPI and below Endo Reports no additional complaints Physical Exam Vital Signs: Last Vital Signs BP 122/82 01/19/24 14:25 BMI result Body Mass Index 28.5 Const General: cooperative, healthy appearing and no acute distress Psych Appearance: well kempt Attitude: cooperative Thought process: Normal thought process present Office Procedures Contraception Insert/Removal Details Details: The patient is here today for a Nexplanon Insertion: She was counseled regarding the risks including and benefits for the Nexplanon device. She denies any risks to . Anticipatory guidance for the insertion procedure was reviewed. The urine test is negative. Risk of the procedure including pain, infection, bleeding, injury to the nerves, blood, vessels and surrounding tissue, migration of the device, unscheduled unpredictable bleeding patterns, weight gain, skin changes including acne. The consent form was signed and the patient request that the Nexplanon device be placed today. Nexplanon Insertion Procedure: The patient was placed in a supine position with her non dominant left hand resting under her head. The insertion site was located: 8-10cm from the medial epicondyle notch of the humerus, posterior to the sulcus, between the triceps and biceps muscle. The area was cleansed with an alcohol prep and 3 ml of 1% Lidocaine on a 25 gauge needle and syringe was utilized for adequate anesthesia to the insertion site. After ascertaining adequate anesthesia, the area was prepped with Betadine solution. The Nexplanon device was removed from the manufacturers package and the implant was noted in the trocar canal. The trocar was inserted at a 30 degree angle and then lowered parallel to the skin for insertion into the subcutaneous space with counter traction. Direct pressure was applied to the insertion site for hemostasis, minimal bleeding was observed. Steri strips, Tegaderm covering, gauze pads, and Ryan wrap dressing were secured with paper tape. Nexplanon Post-insertion Care: You may experience some mild tenderness, swelling, and bruising from the area. If no allergies or contraindications, you may use a mild over the counter analgesic like Tylenol or Advil (follow the manufacturers recommendations on dosing and frequency of use). Call the office if any symptoms and including: fever (over 100.4), flu like symptoms, signs of infection-redness, pus drainage, pain (beyond usual healing), for any medical changes, suspected , heavy or prolonged vaginal bleeding Seek emergent care in the Emergency department for: sudden visual loss, shortness of breath, severe headache that is not consistent with your usual headaches, heaviness, sharp or severe chest pains, coughing up of blood, persistent pain in one of your extremities, weakness or numbness in an arm, leg or face, tongue or pharynx, trouble swallowing, difficult speaking, hives and trouble breathing, yellowing of skin, whites or eyes, especially with tiredness, loss of appetite, dark colored urine, light colored bowel movements, swelling or tenderness of the abdomen. The Nexplanon does not protect you from STI's, use of condoms is advised. Use a back up method of contraception for 7 days if the device is not placed within the first 5 days of your menses cycle to prevent an unintended . Keep the pressure dressing on and clean and dry for 24 hours, then remove it. You may take the steri strips and Tegaderm off in 5-7days, or sooner if peeling off on its own. Schedule a office post insertion check up in 4-6 weeks. The patient tolerated the procedure well and left the office in good condition. This note is constructed using voice recognition software. ?While every effort has been made to ensure accuracy, belt press operator errors may have been included. ? [id number] - Insertion Results AMB Test Urine AMB Test Urine Negative Last Edit by CAROLINE Dahl on 01/19/24 14:28 Assessment & Plan Assessment & Plan (1) Nexplanon insertion: Code(s): Z30.017 - Encounter for initial prescription of implantable subdermal contraceptive Category: Medical Plan See procedure notes. Coding Level of Care Code Procedure Only Diagnoses Nexplanon insertion Z30.017 CPT Codes Details - Contraception: 22873 - Insertion ([id number])
[2024-01-19 14:25] VITALS: BP 122/82; BMI 28.5
== END 2024-01-19 15:03 | disposition home or self-care (01) ==
PROVIDERS: PCP Internal Medicine; Visit Provider Advanced Practice Midwife
DX: Z30.017 Encounter for initial prescription of implantable subdermal contraceptive (principal); Z32.02 Encounter for pregnancy test, result negative
CPT/HCPCS: 11981

== ENCOUNTER → 2024-01-19 14:16 | Outpatient (BNVA) | payer OTHER, SELFPAY | PROVIDERS: PCP Internal Medicine; Visit Provider Advanced Practice Midwife | DX: Z30.017 Encounter for initial prescription of implantable subdermal contraceptive (principal) | CPT/HCPCS: 11981; 81025; J7307 ==

== ENCOUNTER 2024-02-23 14:24 | Outpatient (AMB) | payer OTHER, SELFPAY ==
[2024-02-23 14:26] VITALS: BP 120/80; PULSE 95; O2SAT 100; BMI 28.0
--- NOTE | 2024-02-23 14:26 | MHC.PC.OV ---
Vital Signs 02/23/24 14:26 Height 5 ft 5 in Weight 168 lb 6 oz BMI 28.0 BP 120/80 Blood Pressure Location Rt brachial Position Sitting Pulse 95 Pulse Source Pulse Oximeter Pulse Oximetry (%) 100 Oxygen Delivery Method Room Air Intake Visit Reasons: Ney Allergies amoxicillin [AMOXICILLIN] Allergy (Severe, Verified 02/23/24 14:26) Anaphylaxis ciprofloxacin [CIPROFLOXACIN] Allergy (Severe, Verified 02/23/24 14:26) ANAPHYLAXIS Penicillins Allergy (Severe, Verified 02/23/24 14:26) Anaphylaxis sulfadiazine Allergy (Severe, Verified 02/23/24 14:26) Rash Tobacco use date assessed: 02/23/24 Dental Screening Dental Screen Date: 02/23/24 Did you have a dental visit in the last 12 months?: Yes Did you have a dental problem in the last 6 months where you did not have access to dental care?: No Was dental information given to patient?: Patient has dentist HPI Ney HPI Details 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 Patient says that she sweats a lot Has developed rash in her back and upper chest area which appears off and on And then resolves on its own Mildly itchy On examination it looks like a heat rash We talked about prevention and treatment Using powder to absorb the sweat and wearing cotton tank top at work if possible Mhog-ovz-ysuaafw hydrocortisone cream for itching She also would like to have her thyroid checked as patient has gained a lot of weight She has a history of tachycardia as well PFSH Medical History Nexplanon insertion Incarcerated umbilical hernia (09/29/23) Hx of drug abuse Pseudoangiomatous stromal hyperplasia of breast Uterus, adenomyosis History of back pain History of TMJ disorder Hx of renal calculi History of asthma Surgical History Hx of cholecystectomy Hx of breast lump removal Hx of hand surgery Hx of umbilical hernia repair Family History Father Graves disease DVT (deep venous thrombosis) HTN (hypertension) Mother Graves disease Cervical cancer Ovarian cancer [place] disease Brother Graves disease Daughter ADHD Son ADHD Maternal Aunt Breast CA Other Mental health disorder Substance use disorder Social History Household Members: Significant Other and Children Housing: Apartment Are you a primary career developer to a significant other at home: No Do you presently have visiting nurse or other home services: No Alcohol intake: never Comment: counts correct Patient Tobacco Use Status: Current everyday Tobacco user Tobacco use type: Cigarette Cigarettes Per Day: 5 e-Cigarette/Vaping Use: Never Used service: No Current occupational status: employed 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 1. Little interest or pleasure in doing things: not at all 2. Feeling down, depressed, or hopeless: several days 3. Trouble falling or staying asleep, or sleeping too much: several days 4. Feeling tired or having little energy: several days 5. Poor appetite or overeating: several days 6. Feeling bad about yourself - or that you are a failure or have let yourself or your family down: nearly every day 7. Trouble concentrating on things, such as reading the newspaper or watching television: not at all 8. Moving or speaking so slowly that other people could have noticed. Or the opposite - being so fidgety or restless that you have been moving around a lot more than usual: not at all 9. Thoughts that you would be better off or of hurting yourself in some way: not at all Total score: 7 Depression Screening Interpretation: Negative Depression Screening Done: Yes 59106 - PHQ-9 Billing: Yes Source: Developed by Drs. Christopher Morgan, Sofie Berg, Vishnu Richter and colleagues, with an educational mario from [employer]. Thrive Questionnaire Date Thrive assessed: 02/23/24 I am a: Patient What is your living situation today?: I have a steady place to live Within the past 12 months, did the food you bought not last and you didn't have the money to get more?: Sometimes True Within the past 12 months, did you worry whether your food would run out before you got money to buy more?: Sometimes True Do you have trouble paying for medicines?: No Do you have trouble getting transportation to medical appointments?: No Do you have trouble paying your heating and electricity bill?: I choose not to answer this question Do you have trouble taking care of your child, family member or friend?: No Do you have trouble with day-to-day activities such as bathing, preparing meals, shopping, managing finances, etc.?: No Are you interested in more education?: No Please select the resources that you would like help with: None Currently or been in a relationship where the following occur: I choose not to answer THRIVE Score: 2 AUDIT C Alcohol Use Questionnaire (AUDIT-C) 1. How often do you have a drink containing alcohol?: Never 3. How often do you have six or more drinks on one occasion?: Never Total Score: 0 Score Reviewed/Action Taken: Yes MARIVEL-7 AMB Questionnaire MARIVEL-7 Date MARIVEL - 7 assessed: 02/23/24 Feeling nervous, anxious, or on edge: 2 = More than half the days Not being able to stop or control worryin = Several days Worrying too much about different things: 1 = Several days Trouble relaxin = Several days Being so restless that it is hard to sit still: 1 = Several days Becoming easily annoyed or irritable: 2 = More than half the days Feeling afraid as if something awful might happen: 0 = Not at all Total MARIVEL-7 score (0-4 normal; 5-9 mild; 10-14 moderate; 15-21 severe): 8 Source: Developed by Drs. Christopher Morgan, Sofie Berg, Vishnu Richter and colleagues, with an educational mario from [employer]. MARIVEL-7 Assessment Billing MARIVEL-7 Assessment Tool: MARIVEL-7 Assessment 71354 Review of Systems Const All systems reviewed & are unremarkable except as noted in HPI and below Physical exam (Primary Care) Vital Signs: Last Vital Signs Pulse 95 02/23/24 14:26 BP 120/80 02/23/24 14:26 Pulse Ox 100 02/23/24 14:26 Oxygen Delivery Method Room Air 02/23/24 14:26 BMI result Body Mass Index 28.0 Tobacco/Smoking Status: Tobacco use Status Tobacco use date assessed 02/23/24 02/23/24 14:31 Patient Tobacco Use Status Current everyday Tobacco 02/23/24 14:31 Tobacco use type Cigarette 02/23/24 14:31 e-Cigarette/Vaping Use Never Used 02/23/24 14:31 PHQ-9: PHQ-9 Score PHQ-9: Total score 7 02/23/24 14:31 Depression Screening Interpretation: Negative Thrive Assessment: Date of Thrive Assessment Date Thrive assessed 02/23/24 02/23/24 14:31 Currently or been in a relationship where the following occur: I choose not to answer Const General: no acute distress Orientation/consciousness: patient oriented x3 Eyes General: appearance normal, both eyes and all related structures Resp Effort & Inspection: normal respiratory effort and able to speak in complete sentences Auscultation: clear to auscultation bilaterally Skin Other: Erythematous rash in the back and upper chest which is fading away Neuro General: patient oriented x3 Psych Mental Status: mental status grossly normal Assessment and Plan Assessment & Plan (1) Heat rash: Code(s): L74.0 - Miliaria rubra (2) Weight gain: Code(s): R63.5 - Abnormal weight gain (3) Tachycardia: Code(s): R00.0 - Tachycardia, unspecified Plan 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 Patient says that she sweats a lot Has developed rash in her back and upper chest area which appears off and on And then resolves on its own Mildly itchy On examination it looks like a heat rash We talked about prevention and treatment Using powder to absorb the sweat and wearing cotton tank top at work if possible Kjry-hdf-flqfbzh hydrocortisone cream for itching She also would like to have her thyroid checked as patient has gained a lot of weight She has a history of tachycardia as well Orders: Orders TSH reflex Free T4 Today R00.0 - Tachycardia, unspecified, R63.5 - Abnormal weight gain Coding Level of Care Code Est Pt Level 3 (22487) Diagnoses Heat rash L74.0 Weight gain R63.5 Tachycardia R00.0 Additional Codes MARIVEL-7 Assessment Billing - MARIVEL-7 Assessment Tool: MARIVEL-7 Assessment [id number] ([id number])
== END 2024-02-23 15:28 | disposition home or self-care (01) ==
PROVIDERS: PCP Internal Medicine; Visit Provider Internal Medicine
DX: L74.0 Miliaria rubra (principal); R63.5 Abnormal weight gain; R00.0 Tachycardia, unspecified

== ENCOUNTER → 2024-02-23 14:24 | Outpatient (BNVA) | payer OTHER, SELFPAY | PROVIDERS: PCP Internal Medicine; Visit Provider Internal Medicine ==

== ENCOUNTER 2024-02-23 14:40 | Outpatient (REF) | payer OTHER, SELFPAY ==
[2024-02-23 17:02] LABS: TSH reflex Free T4 2.35 uIU/mL (0.32-4.0)
== END 2024-02-23 14:41 | disposition home or self-care (01) ==
LOC: HO.HMGCLDS 14:40
PROVIDERS: PCP Internal Medicine; Visit Provider Internal Medicine
DX: L74.0 Miliaria rubra (principal); R63.5 Abnormal weight gain; R00.0 Tachycardia, unspecified
CPT/HCPCS: 36415; 84443; 96127; 99212

== ENCOUNTER 2024-03-01 12:46 | Outpatient (AMB) | payer OTHER, SELFPAY ==
--- NOTE | 2024-03-01 12:48 | A.OFFVIS_ITS ---
Vital Signs 03/01/24 12:49 BP 100/64 Intake Visit Reasons: 4-6 week nexplanon check Wildlife Biologist: Wildlife Biologist Present Allergies amoxicillin [AMOXICILLIN] Allergy (Severe, Verified 03/01/24 12:48) Anaphylaxis ciprofloxacin [CIPROFLOXACIN] Allergy (Severe, Verified 03/01/24 12:48) ANAPHYLAXIS Penicillins Allergy (Severe, Verified 03/01/24 12:48) Anaphylaxis sulfadiazine Allergy (Severe, Verified 03/01/24 12:48) Rash Is last menstrual period known: Yes HPI Comments Details: Patient is here today for a follow up on Nexplanon postinsertion check. She reports the current device feels more superficial, has healed well. [facility] Medical History Nexplanon insertion Incarcerated umbilical hernia (09/29/23) Hx of drug abuse Pseudoangiomatous stromal hyperplasia of breast Uterus, adenomyosis History of back pain History of TMJ disorder Hx of renal calculi History of asthma Surgical History Hx of cholecystectomy Hx of breast lump removal Hx of hand surgery Hx of umbilical hernia repair Family History Father Graves disease DVT (deep venous thrombosis) HTN (hypertension) Mother Graves disease Cervical cancer Ovarian cancer [place] disease Brother Graves disease Daughter ADHD Son ADHD Maternal Aunt Breast CA Other Mental health disorder Substance use disorder Social History Household Members: Significant Other and Children Housing: Apartment Are you a primary critical care technician to a significant other at home: No Do you presently have visiting nurse or other home services: No Alcohol intake: never Comment: counts correct Patient Tobacco Use Status: Current everyday Tobacco user Tobacco use type: Cigarette Cigarettes Per Day: 5 e-Cigarette/Vaping Use: Never Used service: No Current occupational status: employed 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 - [employer] Sexual orientation: Straight/Heterosexual Gender identity: Female Cognitive needs: No Hearing needs: No Vision needs: Yes Female Reproductive History Menstrual Age of Menarche: 12 Review of Systems Const All systems reviewed & are unremarkable except as noted in HPI and below Endo Reports no additional complaints Physical Exam Vital Signs: Last Vital Signs BP 100/64 03/01/24 12:49 Const General: cooperative, healthy appearing and no acute distress Extrem Other: Nexplanon implant superficially noted, intact, well healed no signs of infection, swelling or other concerns-located upper inner left arm Psych Appearance: well kempt Attitude: cooperative Thought process: Normal thought process present Assessment & Plan Assessment & Plan (1) Encounter for surveillance of Nexplanon subdermal contraceptive: Code(s): Z30.46 - Encounter for surveillance of implantable subdermal contraceptive Plan Discussed: Normal healing process, avoiding injury to area-if any pain in arm or significant concerns to follow up in the office immediately. Monitor menstrual cycle changes and report any prolonged or heavy bleeding episodes. Return to the office for annual exam appointment is scheduled. All of her questions and concerns were addressed to the best of my ability and shared decision making. She is agreeable to the plan of care. This note is constructed using voice recognition software. While every effort has been made to ensure accuracy, survey research professor errors may have been included. Coding Level of Care Code Est Pt Level 2 (32211) Diagnoses Encounter for surveillance of Nexplanon subdermal contraceptive Z30.46
[2024-03-01 12:49] VITALS: BP 100/64
== END 2024-03-01 16:03 | disposition home or self-care (01) ==
PROVIDERS: PCP Internal Medicine; Visit Provider Advanced Practice Midwife
DX: Z30.46 Encounter for surveillance of implantable subdermal contraceptive (principal)
CPT/HCPCS: 99212

== ENCOUNTER → 2024-03-01 12:46 | Outpatient (BNVA) | payer OTHER, SELFPAY | PROVIDERS: PCP Internal Medicine; Visit Provider Advanced Practice Midwife | DX: Z30.46 Encounter for surveillance of implantable subdermal contraceptive (principal) | CPT/HCPCS: 99212 ==

== ENCOUNTER 2024-03-15 11:47 | Outpatient (REF) | payer OTHER, SELFPAY ==
[2024-03-15 12:17] LABS: MANUAL DIFF FLAG NO
[2024-03-15 13:34] LABS: Basophils Absolute Auto 0.1 X10*3/uL (0.0-0.2); Basophils Percent Auto 0.7 % (0-2); Eosinophils Absolute Auto 0.2 X10*3/uL (0.0-0.4); Eosinophils Percent Auto 2.5 % (0-4); Hematocrit 38.8 % (37.0-47.0); Hemoglobin 12.7 g/dl (12.0-16.0); Imm Gran Abs Auto 0.02 X10*3/uL (0.00-0.03); Imm Gran Pct Auto 0.3 % (0.0-0.4); Lymphocytes Percent Auto 29.5 % (20-40); Mean Corpuscular HGB Conc 32.7 g/dl (31.0-35.0); Mean Corpuscular Hemoglobin 31.9 pg (27.0-33.0); Mean Corpuscular Volume 97.5 fL (80.0-98.0); Mean Platelet Volume 9.5 fL (9.4-12.3); Monocytes Absolute Auto 0.5 X10*3/uL (0.1-1.2); Monocytes Percent Auto 6.9 % (2-11); Neutrophils Absolute Auto 4.1 x10*3/uL (2.0-8.3); Neutrophils Percent Auto 60.1 % (45-73); Platelet Count 333 X10*3/uL (160-400); Red Blood Count 3.98 X10*6/uL (4.20-5.50); Red Cell Distribution Width 13.7 % (11.0-16.0); White Blood Count 6.8 X10*3/uL (4.8-10.8)
[2024-03-15 14:06] LABS: Alanine Aminotransferase 18 U/L (0-31); Alkaline Phosphatase 97 U/L (39-117); Anion Gap 9 (12-20); Aspartate Amino Transferase 17 U/L (5-31); Bilirubin Total 0.6 mg/dL (0.0-1.0); Blood Urea Nitrogen 7 mg/dL (9-16); C Reactive Protein 2.38 mg/dL (< or = 0.50); Calcium 9.2 mg/dL (8.4-10.2); Carbon Dioxide 28 mmol/L (22-29); Chloride 108 mmol/L (96-108); Estimated Glomerular Filt Rate > 60; Glucose Random 98 mg/dL (60-115); Potassium 4.3 mmol/L (3.3-5.1); Sodium 141 mmol/L (135-145); Total Protein 7.2 g/dL (6.5-8.0)
[2024-03-15 14:15] LABS: Erythrocyte Sedimentation Rate 17 MM/HR (0-20)
[2024-03-18 09:59] LABS: Complement C3 145 mg/dL (83-193)
[2024-03-18 20:34] LABS: Anti DNA DS Antibody 8 IU/mL
[2024-03-20 15:13] LABS: DNAds, Crithidia Antibody Negative (Negative)
[2024-03-24 16:37] LABS: Cytosolic 5'nuc 1A Ab IgG 19 Units; Ej Ab <11 SI (<11); HMGCR Ab IgG <2 CU (<20); Jo-1 Ab <11 SI (<11); MDA5 Ab <11 SI (<11); Mi-2 alpha Ab <11 SI (<11); Mi-2 beta Ab <11 SI (<11); NXP-2 (MJ) Ab <11 SI (<11); Oj Ab <11 SI (<11); Pl-12 Ab <11 SI (<11); Pl-7 Ab <11 SI (<11); SRP Ab <11 SI (<11); TIF1 gamma Ab <11 SI (<11)
== END 2024-03-15 11:48 | disposition home or self-care (01) ==
LOC: HO.LAB 11:47
PROVIDERS: PCP Internal Medicine; Visit Provider Student in an Organized Health Care Education/Training Program
DX: M32.9 Systemic lupus erythematosus, unspecified (principal); M06.9 Rheumatoid arthritis, unspecified; Z79.631 Long term (current) use of antimetabolite agent
CPT/HCPCS: 36415; 80053; 83516; 83520; 84182; 85025; 85652; 86140; 86160; 86225; 86235; 86255

== ENCOUNTER 2024-03-20 14:23 | Outpatient (AMB) | payer OTHER, SELFPAY ==
--- NOTE | 2024-03-20 14:25 | MHC.OFFVIS ---
Vital Signs 03/20/24 14:29 Height 5 ft 5 in Weight 172 lb 6.424 oz BMI 28.7 BP 112/60 Blood Pressure Location Rt brachial Position Sitting Pulse 88 Pulse Source Pulse Oximeter Pulse Oximetry (%) 98 Oxygen Delivery Method Room Air Intake Visit Reasons: RA Intake Note: Patient presents for RA. Allergies amoxicillin [AMOXICILLIN] Allergy (Severe, Verified 03/20/24 14:28) Anaphylaxis ciprofloxacin [CIPROFLOXACIN] Allergy (Severe, Verified 03/20/24 14:28) ANAPHYLAXIS Penicillins Allergy (Severe, Verified 03/20/24 14:28) Anaphylaxis sulfadiazine Allergy (Severe, Verified 03/20/24 14:28) Rash Medication List - Last Reconciled 03/20/24 by Rahul Bonilla MD alcohol swabs (Alcohol Prep Pads) pad topical atorvastatin 20 mg PO DAILY Breo Ellipta 200-25 mcg/dose (fluticasone furoate-vilanterol) 1 ea inhalation DAILY NS buprenorphine-naloxone 8-2 mg (Suboxone) 2.5 film buccal DAILY bupropion HCl 75 mg PO DAILY bupropion HCl XL 300 mg PO DAILY cetirizine 10 mg PO DAILY PRN clonidine HCl 0.4 mg PO BEDTIME doxycycline hyclate 100 mg PO BID 10 days dupilumab (Dupixent) 300 mg (2 mL) subcut Q2W 28 days escitalopram oxalate 20 mg PO DAILY etonogestrel (Nexplanon) subdermal folic acid 3 mg (3 x 1 mg) PO DAILY furosemide (Lasix) 20 mg PO QAM PRN hydroxyzine HCl 10 mg PO BEDTIME ibuprofen 600 mg PO Q6H PRN insulin syringe-needle U-100 (BD Insulin Syringe) USE ONCE WEEKLY WITH METHOTREXATE ipratropium-albuterol 0.5 mg-3 mg(2.5 mg base)/3 mL 3 mL PO Q4-6H PRN leucovorin calcium 5 mg PO QWEEK lidocaine 5% 1 patch topical DAILY methotrexate sodium 25 mg subcut .QFRIDAY tocilizumab (Actemra ACTPen) 162 mg (0.9 mL) subcut Q2W Ventolin HFA 90 mcg/actuation (albuterol sulfate) 2 puffs PO QID PRN 30 days NS HPI Comments Details: 38-year-old female with seronegative RA returns for follow-up. She is on methotrexate 25 mg subcutaneously weekly, folic acid 3 mg daily Leucovorin 5 mg weekly and Enbrel 50 mg subcutaneously weekly. She has been doing Enbrel regularly for the last 3 months. Initially she felt some improvement then soon as the weather got cold she has been having worsening joint pain especially of her hands feet. Associated with swelling. Initial history: This is a 37-year-old female who presents for evaluation of diffuse joint pain. She was referred by Orthopedics as and excised mass on her right index finger, pathology was suggestive of a rheumatoid nodule. Patient states that for the last year she has been having multiple joint pain. Bilateral knee pain associated with morning stiffness lasting 1 hour. She also has bilateral hand pain, swelling and stiffness. Morning stiffness lasting 1 hour. States that her fingers have been swollen over the last 6 months to 1 year. She has new rings as her old rings do not fit anymore. She gets intermittent ankle swelling, worse on the left. States that her mother has arthritis, does not know what type. She denies any history of DVT/PE. She has history of multiple allergies, including asthma on Dupixent which is helping per patient. She states that when she was prescribed prednisone taper for her asthma exacerbations it would help her joint pain significantly [facility] Medical History Nexplanon insertion Incarcerated umbilical hernia (09/29/23) Hx of drug abuse Pseudoangiomatous stromal hyperplasia of breast Uterus, adenomyosis History of back pain History of TMJ disorder Hx of renal calculi History of asthma Surgical History Hx of cholecystectomy Hx of breast lump removal Hx of hand surgery Hx of umbilical hernia repair Family History Father Graves disease DVT (deep venous thrombosis) HTN (hypertension) Mother Graves disease Cervical cancer Ovarian cancer [place] disease Brother Graves disease Daughter ADHD Son ADHD Maternal Aunt Breast CA Other Mental health disorder Substance use disorder Social History Household Members: Significant Other and Children Housing: Apartment Are you a primary animal care worker to a significant other at home: No Do you presently have visiting nurse or other home services: No Alcohol intake: never Comment: counts correct Patient Tobacco Use Status: Current everyday Tobacco user Tobacco use type: Cigarette Cigarettes Per Day: 5 e-Cigarette/Vaping Use: Never Used service: No Current occupational status: employed 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 - [employer] Sexual orientation: Straight/Heterosexual Gender identity: Female Cognitive needs: No Hearing needs: No Vision needs: Yes Female Reproductive History Menstrual Age of Menarche: 12 Review of Systems Musc Reports arthralgias, Reports joint swelling, Reports limited range of motion and Reports stiffness Skin/Breast Reports rash Physical Exam Vital Signs: Last Vital Signs Pulse 88 03/20/24 14:29 BP 112/60 03/20/24 14:29 Pulse Ox 98 03/20/24 14:29 Oxygen Delivery Method Room Air 03/20/24 14:29 BMI result Body Mass Index 28.7 Const General: cooperative, healthy appearing and comfortable Nutritional Appearance: overweight Orientation/consciousness: patient oriented x3 Limitations: no limitations HEENT Head: Yes normocephalic and Yes atraumatic Mouth: moist mucous membranes Resp Effort & Inspection: normal respiratory effort and able to speak in complete sentences Auscultation: wheezes expiratory wheezes and inspiratory wheezes Cardio Rate: regular rate Rhythm: regular rhythm Neuro General: patient oriented x3 Extrem Other: Bilateral wrist tenderness Bilateral 1st through 5th MCP tenderness Bilateral 2nd through 5th PIP tenderness No significant swelling No knee pain with flexion-extension bilaterally Multiple tender MTPs bilaterally Normal nailfold capillaroscopy Results Reviewed Results Reviewed: path report from [facility] Comment 12/2022:? The features suggest rheumatoid nodules, but other granulomatous entities cannot be completely excluded and clinical/serologic correlation is necessary.? No epidermis is present for evaluation. Assessment & Plan Assessment & Plan (1) Rheumatoid arthritis: Comment: -ve RF-ve CCP +RADHA (Rheumatoid nodule on biopsy) dx 04/2023 MTX 04/2023 ineffective advanced to SQ 06/2023 Code(s): M06.9 - Rheumatoid arthritis, unspecified Category: Medical Qualifiers: Rheumatoid arthritis location: multiple sites Rheumatoid factor presence: unspecified presence Qualified Code(s): M06.9 - Rheumatoid arthritis, unspecified Plan: This is a 38-year-old female with seronegative RA who returns for follow-up. On methotrexate 25 mg subcutaneously weekly , folic acid 3 mg daily, Leucovorin 5 mg weekly (macrocytosis resolved) and Enbrel 50 mg subcutaneously weekly started 3 months ago. On exam patient continues to have multiple tender joints. Inflammatory markers significantly elevated. We will need to change DMARDs Discontinue Enbrel. Discussed risks and benefits of Actemra. Patient agreed to proceed. Will start prior authorization for Actemra Continue other meds as prescribed Labs before next visit in 3 months (2) group home methotrexate user: Code(s): Z79.631 - group home (current) use of antimetabolite agent Category: Medical Plan: Monitor safety labs. Patient just had a test and it was negative. She has a Nexplanon (3) RADHA positive: Code(s): R76.8 - Other specified abnormal immunological findings in serum Category: Medical Plan: DsDNA levels indeterminate with borderline low C3 and C4. Patient states that she has been having intermittent rashes. However I do not see any convincing signs of SLE. Advised patient to take any pictures of rashes. Continue to monitor patient for development of lupus. Hydroxychloroquine can be considered but we will have to be cautious as patient is on multiple QTC prolonging medications (4) Rash of both hands: Code(s): R21 - Rash and other nonspecific skin eruption Category: Medical Plan: Myositis panel pending (5) Immunization counseling: Code(s): Z71.85 - Encounter for immunization safety counseling Category: Medical Plan: Advised patient to get both COVID booster and flu vaccine in the same day, skip 1 dose of methotrexate afterwards. Try to get the RSV vaccine No need to hold biologic DMARD while getting vaccines Plan I spent 46 minutes reviewing patient's chart, evaluating patient, ordering diagnostic workup, counseling patient and documenting in the chart Orders: Orders Complete Blood Count Auto Diff 3 Months M06.9 - Rheumatoid arthritis, unspecified, Z79.631 - extermination inspector (current) use of antimetabolite agent Comprehensive Met. Panel 3 Months M06.9 - Rheumatoid arthritis, unspecified, Z79.631 - group home (current) use of antimetabolite agent C Reactive Protein 3 Months M06.9 - Rheumatoid arthritis, unspecified, Z79.631 - group home (current) use of antimetabolite agent Erythrocyte Sedimentation Rate 3 Months M06.9 - Rheumatoid arthritis, unspecified, Z79.631 - group home (current) use of antimetabolite agent Medications: New tocilizumab (Actemra ACTPen) 162 mg (0.9 mL) subcut Q2W 1.8 mL 2RF M06.9 - Rheumatoid arthritis, unspecified Refilled methotrexate sodium 25 mg subcut .QFRIDAY 10 mL 2RF insulin syringe-needle U-100 (BD Insulin Syringe) USE ONCE WEEKLY WITH METHOTREXATE 10 ea 1RF Discontinued Enbrel SureClick (etanercept) Discontinued Reason: Doctor's Order 50 mg subcut QWEEK 4 mL 2RF NS M06.9 - Rheumatoid arthritis, unspecified Coding Level of Care Code Est Pt Level 5 (19964) Complex EM visit Add On G2211 Diagnoses Rheumatoid arthritis involving multiple sites, unspecified whether rheumatoid factor present M06.9 Rheumatoid arthritis location: multiple sites Rheumatoid factor presence: unspecified presence group home methotrexate user Z79.631 RADHA positive R76.8 Rash of both hands R21 Immunization counseling Z71.85
[2024-03-20 14:29] VITALS: BP 112/60; PULSE 88; O2SAT 98; BMI 28.7
== END 2024-03-20 14:47 | disposition home or self-care (01) ==
PROVIDERS: PCP Internal Medicine; Visit Provider Student in an Organized Health Care Education/Training Program
DX: M06.9 Rheumatoid arthritis, unspecified (principal); Z79.631 Long term (current) use of antimetabolite agent; R76.8 Other specified abnormal immunological findings in serum; R21 Rash and other nonspecific skin eruption; Z71.85 Encounter for immunization safety counseling
CPT/HCPCS: 99215; G2211

== ENCOUNTER → 2024-03-20 14:23 | Outpatient (BNVA) | payer OTHER, SELFPAY | PROVIDERS: PCP Internal Medicine; Visit Provider Student in an Organized Health Care Education/Training Program | DX: M06.9 Rheumatoid arthritis, unspecified (principal); R76.8 Other specified abnormal immunological findings in serum; R21 Rash and other nonspecific skin eruption; Z71.85 Encounter for immunization safety counseling; Z79.631 Long term (current) use of antimetabolite agent | CPT/HCPCS: 99212 ==

== ENCOUNTER 2024-04-12 14:24 | Outpatient (AMB) | payer OTHER, SELFPAY ==
[2024-04-12 14:30] VITALS: BP 102/58; PULSE 103; O2SAT 95; BMI 28.6
--- NOTE | 2024-04-12 14:30 | A.OFFVIS_ITS ---
Vital Signs 04/12/24 14:30 Height 5 ft 5 in Weight 171 lb 15.369 oz BMI 28.6 BP 102/58 L Blood Pressure Location Lt brachial Position Sitting Pulse 103 H Pulse Source Doppler Pulse Oximetry (%) 95 Oxygen Delivery Method Room Air Intake Visit Reasons: Asthma follow-up (pedi) Allergies amoxicillin [AMOXICILLIN] Allergy (Severe, Verified 03/20/24 14:28) Anaphylaxis ciprofloxacin [CIPROFLOXACIN] Allergy (Severe, Verified 03/20/24 14:28) ANAPHYLAXIS Penicillins Allergy (Severe, Verified 03/20/24 14:28) Anaphylaxis sulfadiazine Allergy (Severe, Verified 03/20/24 14:28) Rash HPI HPI Asthma follow-up (pedi): Details: 38-year-old lady, active 10+ pack-year smoker, with underlying history of asthma since being a teenager, now followed for underlying severe persistent asthma and environmental allergies.? Patient has been using Breo, Dupixent, duo nebs, and albuterol MDI with reasonable control of her symptoms. She does get chronic wheezing with intermittent exacerbation requiring prednisone courses, today presenting with another exacerbation. Patient is also requesting RSV vaccine se condary to her underlying severe asthma and rheumatologic disease. [facility] Medical History Nexplanon insertion Incarcerated umbilical hernia (09/29/23) Hx of drug abuse Pseudoangiomatous stromal hyperplasia of breast Uterus, adenomyosis History of back pain History of TMJ disorder Hx of renal calculi History of asthma Surgical History Hx of cholecystectomy Hx of breast lump removal Hx of hand surgery Hx of umbilical hernia repair Family History Father Graves disease DVT (deep venous thrombosis) HTN (hypertension) Mother Graves disease Cervical cancer Ovarian cancer [place] disease Brother Graves disease Daughter ADHD Son ADHD Maternal Aunt Breast CA Other Mental health disorder Substance use disorder Social History Household Members: Significant Other and Children Housing: Apartment Are you a primary home health care physician to a significant other at home: No Do you presently have visiting nurse or other home services: No Alcohol intake: never Comment: counts correct Patient Tobacco Use Status: Current everyday Tobacco user Tobacco use type: Cigarette Cigarettes Per Day: 5 e-Cigarette/Vaping Use: Never Used service: No Current occupational status: employed 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 - [employer] Sexual orientation: Straight/Heterosexual Gender identity: Female Cognitive needs: No Hearing needs: No Vision needs: Yes Female Reproductive History Menstrual Age of Menarche: 12 Review of Systems Const Denies daytime sleepiness, Denies excessive sweating, Denies fatigue, Denies fever(s), Denies lethargy, Denies malaise, Denies night sweats, Denies snoring and Denies weight loss Eyes Denies blurry vision and Denies itchy eyes ENT Denies nasal congestion, Denies post nasal drip, Denies sinus pain, Denies sinus pressure and Denies other ( Thrush) Card Denies chest pain, Denies pedal edema, Denies dyspnea, Denies orthopnea and Denies paroxysmal nocturnal dyspnea Resp Reports cough, Denies hemoptysis, Reports excessive phlegm production, Denies dyspnea, Denies snoring and Reports wheezing GI Denies abdominal pain and Denies heartburn Musc Denies myalgias, Denies arthralgias and Denies joint swelling Skin/Breast Denies rash Neuro Denies memory loss and Denies seizure-like activity Psych Denies abnormal sleep pattern, Denies anxiety and Denies memory loss Endo Denies excessive sweating, Denies fatigue and Denies heat intolerance Adrian/Lymph Denies easy bruising Aller/Immun Denies itchy eyes, Denies seasonal rhinorrhea and Reports wheezing Physical Exam Vital Signs: Last Vital Signs Pulse 103 H 04/12/24 14:30 BP 102/58 L 04/12/24 14:30 Pulse Ox 95 04/12/24 14:30 Oxygen Delivery Method Room Air 04/12/24 14:30 BMI result Body Mass Index 28.6 Const General: no acute distress and alert Nutritional Appearance: not obese Orientation/consciousness: Other orientation findings ( oriented) HEENT Head: Yes atraumatic Eyes General: appearance normal, both eyes and all related structures Sclerae: sclerae normal EOM: EOMs intact bilaterally Neck Neck: Yes supple Lymphatic: no lymphadenopathy noted Resp Effort & Inspection: normal respiratory effort and no use of accessory muscles Auscultation: rales bilateral Cardio Rate: regular rate Rhythm: regular rhythm Heart sounds: no gallops, no murmurs and no rubs Skin General skin exam: other ( warm) Extrem General: No clubbing, No cyanosis and No edema Assessment & Plan Assessment & Plan (1) Severe persistent allergic asthma: Code(s): J45.50 - Severe persistent asthma, uncomplicated Category: Medical Plan: Reasonably well controlled at baseline on Dupixent, Breo, duo neb, and albuterol MDI. Continue current regimen. Now with a bronchitic exacerbation, will treat with a course of doxycycline prednisone. RSV vaccine secondary to underlying s evere persistent asthma and rheumatoid arthritis. (2) Environmental allergies: Code(s): Z91.09 - Other allergy status, other than to drugs and biological substances Category: Medical Plan: Reasonably well controlled on Dupixent. Continue current regimen. Medications: New albuterol sulfate 90 mcg/actuation 2 puffs inhalation 6XD PRN 1 ea 6RF shortness of breath or wheezing RSVPreF3 antigen-AS01E (PF) 120 mcg/0.5 mL (Arexvy (PF)) 0.5 mL IM ONCE 1 ea 0RF Refilled doxycycline hyclate 100 mg PO BID 20 caps 0RF 10 days prednisone 40 mg (2 x 20 mg) PO DAILY 10 tabs 0RF Discontinued azithromycin Discontinued Reason: Doctor's Order For 250 mg dose pack: take 500 mg today (day 1), then 250 mg for 4 days (days 2-5) PO 6 tabs 0RF Coding Level of Care Code Est Pt Level 4 (46227) Complex EM visit Add On G2211 Diagnoses Severe persistent allergic asthma J45.50 Environmental allergies Z91.09
== END 2024-04-12 14:45 | disposition home or self-care (01) ==
PROVIDERS: PCP Internal Medicine; Visit Provider Internal Medicine Pulmonary Disease
DX: J45.50 Severe persistent asthma, uncomplicated (principal); Z91.09 Other allergy status, other than to drugs and biological substances
CPT/HCPCS: 99214; G2211

== ENCOUNTER → 2024-04-12 14:24 | Outpatient (BNVA) | payer OTHER, SELFPAY | PROVIDERS: PCP Internal Medicine; Visit Provider Internal Medicine Pulmonary Disease | DX: J45.50 Severe persistent asthma, uncomplicated (principal); Z91.09 Other allergy status, other than to drugs and biological substances | CPT/HCPCS: 99212 ==

== ENCOUNTER 2024-05-08 14:55 | Outpatient (AMB) | payer OTHER, SELFPAY ==
[2024-05-08 15:00] VITALS: BP 124/76; PULSE 106; O2SAT 95; BMI 29.7
--- NOTE | 2024-05-08 15:00 | A.OFFPC_ITS ---
Vital Signs 3 05/08/24 15:00 Height 5 ft 5 in Weight 178 lb 8 oz BMI 29.7 BP 124/76 Blood Pressure Location Rt brachial Position Sitting Pulse 106 H Pulse Source Pulse Oximeter Pulse Oximetry (%) 95 Oxygen Delivery Method Room Air Intake Visit Reasons: RT Lower Back Pain Allergies amoxicillin [AMOXICILLIN] Allergy (Severe, Verified 05/08/24 15:01) Anaphylaxis ciprofloxacin [CIPROFLOXACIN] Allergy (Severe, Verified 05/08/24 15:01) ANAPHYLAXIS Penicillins Allergy (Severe, Verified 05/08/24 15:01) Anaphylaxis sulfadiazine Allergy (Severe, Verified 05/08/24 15:01) Rash Medication List - Last Reconciled 05/08/24 by Sebastian Ramos MD albuterol sulfate 90 mcg/actuation 2 puffs inhalation 6XD PRN alcohol swabs (Alcohol Prep Pads) pad topical atorvastatin 20 mg PO DAILY Breo Ellipta 200-25 mcg/dose (fluticasone furoate-vilanterol) 1 ea inhalation DAILY NS buprenorphine-naloxone 8-2 mg (Suboxone) 2.5 film buccal DAILY bupropion HCl 75 mg PO DAILY bupropion HCl XL 300 mg PO DAILY cetirizine 10 mg PO DAILY PRN clonidine HCl 0.4 mg PO BEDTIME dupilumab (Dupixent) 300 mg (2 mL) subcut Q2W 28 days escitalopram oxalate 20 mg PO DAILY etonogestrel (Nexplanon) subdermal folic acid 3 mg (3 x 1 mg) PO DAILY furosemide (Lasix) 20 mg PO QAM PRN hydroxyzine HCl 10 mg PO BEDTIME ibuprofen 600 mg PO Q6H PRN insulin syringe-needle U-100 (BD Insulin Syringe) USE ONCE WEEKLY WITH METHOTREXATE ipratropium-albuterol 0.5 mg-3 mg(2.5 mg base)/3 mL 3 mL PO Q4-6H PRN leucovorin calcium 5 mg PO QWEEK lidocaine 5% 1 patch topical DAILY methotrexate sodium 25 mg subcut .QFRIDAY Rinvoq ER (upadacitinib) 15 mg PO DAILY NS RSVPreF3 antigen-AS01E (PF) 120 mcg/0.5 mL (Arexvy (PF)) 0.5 mL IM ONCE Ventolin HFA 90 mcg/actuation (albuterol sulfate) 2 puffs PO QID PRN 30 days NS Tobacco use date assessed: 05/08/24 Dental Screening Dental Screen Date: 02/23/24 HPI RT Lower Back Pain 2 HPI0 Details Chief Complaint Patient presents with acute pain in the right lower back radiating to the right thigh that began two weeks ago. Assessment and Plan A 39-year-old female with a history of long-term prednisone use presents with acute low back pain primarily affecting the right side and radiating down the right thigh, with symptoms persistent for two weeks. The pain has not responded to ibuprofen, Tylenol, or other topical treatments like heat pads and ice. There is no report of bowel or bladder dysfunction. Given the patient's long-term steroid use, there is concern for vertebral damage, prompting the need for diagnostic imaging. Her history of substance use disorder, currently managed with Buprenorphine-Naloxone, requires careful management of new analgesic prescriptions. Differential diagnosis includes sciatica secondary to lumbar spine pathology, possibly exacerbated by steroid-induced bone weakness. 1. History Of Substance Use Disorder Monitor for any recurrence of addictive behaviors, especially with the introduction of oxycodone. Suboxone therapy continues as is, with patient?s assurance of prior management success during surgical episodes. Reinforce commitment to sobriety and explore any concerns regarding pain management and addiction. 2. History Of Long-Term Prednisone Use Evaluate for steroid-related complications through imaging. Continue surveillance for side effects on bone health, hence the bone density test. No immediate medication adjustments during this visit. 3. Acute Low Back Pain Order lumbar spine X-ray to assess for potential vertebral damage given history of prolonged steroid use. Prescribe oxycodone for pain management, with instructions to take at night given the patient's work schedule and to minimize risks of drowsiness and constipation. Educate patient on opioid risks and reinforce the importance of solitary use due to past substance use disorder. Order a bone density test to evaluate for potential osteoporosis due to steroid use. Problem List - Acute Low Back Pain - History of Long-term Prednisone Use - History of Substance Use Disorder, cur rently managed with Buprenorphine- Naloxone (Suboxone) Patient Instructions - Obtain lumbar spine X-ray and bone den sity test at [facility] as arranged. - Take prescribed oxycodone only at nigh t to manage pain, avoiding daytime use to prevent interference with daily activities. - Refrain from sharing prescribed medica tions with others and be vigilant about signs of drowsiness or constipation. - Continue with Buprenorphine-Naloxone t herapy, ensuring no overlap with oxycodone intake. - Seek medical attention if new symptoms or side effects develop, including changes in bowel or bladder function. - Maintain a record of pain intensity an d any functional changes to discuss during follow-up appointments. [facility] Medical History Nexplanon insertion Incarcerated umbilical hernia (09/29/23) Hx of drug abuse Pseudoangiomatous stromal hyperplasia of breast Uterus, adenomyosis History of back pain History of TMJ disorder Hx of renal calculi History of asthma Surgical History Hx of cholecystectomy Hx of breast lump removal Hx of hand surgery Hx of umbilical hernia repair Family History Father Graves disease DVT (deep venous thrombosis) HTN (hypertension) Mother Graves disease Cervical cancer Ovarian cancer [place] disease Brother Graves disease Daughter ADHD Son ADHD Maternal Aunt Breast CA Other Mental health disorder Substance use disorder Social History Household Members: Significant Other and Children Housing: Apartment Are you a primary spiritual care coordinator to a significant other at home: No Do you presently have visiting nurse or other home services: No Alcohol intake: never Comment: counts correct Patient Tobacco Use Status: Current everyday Tobacco user Tobacco use type: Cigarette Cigarettes Per Day: 5 e-Cigarette/Vaping Use: Never Used service: No Current occupational status: employed 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 - [employer] Sexual orientation: Straight/Heterosexual Gender identity: Female Cognitive needs: No Hearing needs: No Vision needs: Yes Female Reproductive History Menstrual Age of Menarche: 12 Questionnaire Thrive Questionnaire Date Thrive assessed: 02/23/24 I am a: Patient What is your living situation today?: I have a steady place to live Within the past 12 months, did the food you bought not last and you didn't have the money to get more?: Sometimes True Within the past 12 months, did you worry whether your food would run out before you got money to buy more?: Sometimes True Do you have trouble paying for medicines?: No Do you have trouble getting transportation to medical appointments?: No Do you have trouble paying your heating and electricity bill?: I choose not to answer this question Do you have trouble taking care of your child, family member or friend?: No Do you have trouble with day-to-day activities such as bathing, preparing meals, shopping, managing finances, etc.?: No Are you currently unemployed and looking for a job?: No Are you interested in more education?: No Please select the resources that you would like help with: None Currently or been in a relationship where the following occur: I choose not to answer THRIVE Score: 2 MARIVEL-7 AMB Questionnaire MARIVEL-7 Date MARIVEL - 7 assessed: 02/23/24 Source: Developed by Drs. Christopher Morgan, Sofie Berg, Vishnu Richter and colleagues, with an educational mario from [employer]. Review of Systems Const Denies chills and Denies fever(s) ENT Denies epistaxis and Denies nasal discharge Card Denies chest pain Resp Denies chest congestion, Denies cough and Denies hemoptysis GI Denies diarrhea and Denies nausea Skin/Breast Denies rash Neuro Reports no additional complaints Psych Reports no additional complaints Endo Reports no additional complaints Physical exam (Primary Care) Vital Signs: Last Vital Signs Pulse 106 H 05/08/24 15:00 BP 124/76 05/08/24 15:00 Pulse Ox 95 05/08/24 15:00 Oxygen Delivery Method Room Air 05/08/24 15:00 BMI result Body Mass Index 29.7 Tobacco/Smoking Status: Tobacco use Status Tobacco use date assessed 05/08/24 05/08/24 15:02 Patient Tobacco Use Status Current everyday Tobacco 05/08/24 15:02 Tobacco use type Cigarette 05/08/24 15:02 e-Cigarette/Vaping Use Never Used 05/08/24 15:02 Thrive Assessment: Date of Thrive Assessment Date Thrive assessed 02/23/24 05/08/24 15:02 Currently or been in a relationship where the following occur: I choose not to answer Const General: cooperative and no acute distress Orientation/consciousness: patient oriented x3 HENMT Head: Yes normocephalic Eyes General: appearance normal, both eyes and all related structures Neck Neck: Yes supple Resp Effort & Inspection: normal respiratory effort, no cough and no stridor Back/Spine/Pelvis Back/spine/pelvis image: 2 1. Tender to percussion, range of motion limited secondary to pain, straight leg mildly positive right Skin General skin exam: turgor normal Neuro General: patient oriented x3, tone normal and moves all extremities Extrem Right lower extremity: no edema Left lower extremity: no edema Coding Level of Care Code Est Pt Level 4 (90551) Diagnoses Right lumbar radiculitis M54.16 Rheumatoid arthritis involving multiple sites, unspecified whether rheumatoid factor present M06.9 Rheumatoid arthritis location: multiple sites Rheumatoid factor presence: unspecified presence Steroid dependence F19.20 Assessment & Plan Assessment & Plan (1) Right lumbar radiculitis: Code(s): M54.16 - Radiculopathy, lumbar region Category: Medical (2) Rheumatoid arthritis: Comment: -ve RF-ve CCP +RADHA (Rheumatoid nodule on biopsy) dx 04/2023 MTX 04/2023 ineffective advanced to SQ 06/2023 Code(s): M06.9 - Rheumatoid arthritis, unspecified Category: Medical Qualifiers: Rheumatoid arthritis location: multiple sites Rheumatoid factor presence: unspecified presence Qualified Code(s): M06.9 - Rheumatoid arthritis, unspecified (3) Steroid dependence: Code(s): F19.20 - Other psychoactive substance dependence, uncomplicated Category: Medical Plan Chief Complaint Patient presents with acute pain in the right lower back radiating to the right thigh that began two weeks ago. Assessment and Plan A 39-year-old female with a history of long-term prednisone use presents with acute low back pain primarily affecting the right side and radiating down the right thigh, with symptoms persistent for two weeks. The pain has not responded to ibuprofen, Tylenol, or other topical treatments like heat pads and ice. There is no report of bowel or bladder dysfunction. Given the patient's long-term steroid use, there is concern for vertebral damage, prompting the need for diagnostic imaging. Her history of substance use disorder, currently managed with Buprenorphine-Naloxone, requires careful management of new analgesic prescriptions. Differential diagnosis includes sciatica secondary to lumbar spine pathology, possibly exacerbated by steroid-induced bone weakness. 1. History Of Substance Use Disorder Monitor for any recurrence of addictive behaviors, especially with the introduction of oxycodone. Suboxone therapy continues as is, with patient?s assurance of prior management success during surgical episodes. Reinforce commitment to sobriety and explore any concerns regarding pain management and addiction. 2. History Of Long-Term Prednisone Use Evaluate for steroid-related complications through imaging. Continue surveillance for side effects on bone health, hence the bone density test. No immediate medication adjustments during this visit. 3. Acute Low Back Pain Order lumbar spine X-ray to assess for potential vertebral damage given history of prolonged steroid use. Prescribe oxycodone for pain management, with instructions to take at night given the patient's work schedule and to minimize risks of drowsiness and constipation. Educate patient on opioid risks and reinforce the importance of solitary use due to past substance use disorder. Order a bone density test to evaluate for potential osteoporosis due to steroid use. Problem List - Acute Low Back Pain - History of Long-term Prednisone Use - History of Substance Use Disorder, currently managed with Buprenorphine- Naloxone (Suboxone) Patient Instructions - Obtain lumbar spine X-ray and bone density test at [facility] as arranged. - Take prescribed oxycodone only at night to manage pain, avoiding daytime use to prevent interference with daily activities. - Refrain from sharing prescribed medications with others and be vigilant about signs of drowsiness or constipation. - Continue with Buprenorphine-Naloxone therapy, ensuring no overlap with oxycodone intake. - Seek medical attention if new symptoms or side effects develop, including changes in bowel or bladder function. - Maintain a record of pain intensity and any functional changes to discuss during follow-up appointments. Orders: Orders 2 XR lumbar spine 2-3V Today M54.16 - Radiculopathy, lumbar region XR DEXA axial skeleton Today F19.20 - Other psychoactive substance dependence, uncomplicated, M06.9 - Rheumatoid arthritis, unspecified, M54.16 - Radiculopathy, lumbar region Medications: New 2 oxycodone-acetaminophen 5-325 mg (Percocet) Partial Fill upon patient request. 1 tab PO TID PRN 20 tabs 0RF pain 7 days
== END 2024-05-08 15:41 | disposition home or self-care (01) ==
PROVIDERS: PCP Internal Medicine; Visit Provider Internal Medicine
DX: M54.16 Radiculopathy, lumbar region (principal); M06.9 Rheumatoid arthritis, unspecified; F19.20 Other psychoactive substance dependence, uncomplicated

== ENCOUNTER 2024-05-08 14:55 | Outpatient (REF) | payer OTHER, SELFPAY ==
--- NOTE | ~2024-05-08 | XR_ITS ---
EXAMINATION: XR LUMBOSACRAL SPINE CLINICAL INFORMATION: Lumbar radiculopathy. COMPARISON: Lumbar spine radiographs dated 12/29/2022. TECHNIQUE: Three views of the lumbosacral spine. FINDINGS: Normal vertebral body alignment. The lumbar lordosis is maintained. No acute fracture or subluxation. No loss of vertebral body or intervertebral disc height. No concerning lytic or blastic osseous lesion. Right upper quadrant surgical clips. Mild stool burden. XR/XR lumbar spine 2-3V IMPRESSION: 1. No acute osseous abnormality. 2. Mild stool burden. Electronically signed by: Dante Marshall MD 05/09/2024 01:05 PM [facility] [place], [place]
== END 2024-05-08 14:56 | disposition home or self-care (01) ==
LOC: HO.HMGCX 14:55
PROVIDERS: PCP Internal Medicine; Visit Provider Internal Medicine
DX: M54.16 Radiculopathy, lumbar region (principal); M06.9 Rheumatoid arthritis, unspecified; F19.20 Other psychoactive substance dependence, uncomplicated; F11.20 Opioid dependence, uncomplicated
CPT/HCPCS: 72100; 99212

== ENCOUNTER 2024-06-20 08:59 | Outpatient (AMB) | payer OTHER, SELFPAY ==
--- NOTE | 2024-06-20 09:00 | MHC.OFFVIS ---
Vital Signs 06/20/24 09:06 Height 5 ft 5 in Weight 178 lb 9.191 oz BMI 29.7 BP 120/80 Blood Pressure Location Rt brachial Position Sitting Respiration 16 Pulse 93 Pulse Source Pulse Oximeter Pulse Oximetry (%) 97 Oxygen Delivery Method Room Air Intake Visit Reasons: RA Intake Note: Patient presents for RA. Allergies amoxicillin [AMOXICILLIN] Allergy (Severe, Verified 06/20/24 09:03) Anaphylaxis ciprofloxacin [CIPROFLOXACIN] Allergy (Severe, Verified 06/20/24 09:03) ANAPHYLAXIS Penicillins Allergy (Severe, Verified 06/20/24 09:03) Anaphylaxis sulfadiazine Allergy (Severe, Verified 06/20/24 09:03) Rash Medication List - Last Reconciled 06/20/24 by Rahul Bonilla MD albuterol sulfate 90 mcg/actuation 2 puffs inhalation 6XD PRN alcohol swabs (Alcohol Prep Pads) pad topical atorvastatin 20 mg PO DAILY Breo Ellipta 200-25 mcg/dose (fluticasone furoate-vilanterol) 1 ea inhalation DAILY NS buprenorphine-naloxone 8-2 mg (Suboxone) 2.5 film buccal DAILY bupropion HCl 75 mg PO DAILY bupropion HCl XL 300 mg PO DAILY cetirizine 10 mg PO DAILY PRN clonidine HCl 0.4 mg PO BEDTIME dupilumab (Dupixent) 300 mg (2 mL) subcut Q2W 28 days escitalopram oxalate 20 mg PO DAILY etonogestrel (Nexplanon) subdermal folic acid 3 mg (3 x 1 mg) PO DAILY hydroxyzine HCl 10 mg PO BEDTIME insulin syringe-needle U-100 (BD Insulin Syringe) USE ONCE WEEKLY WITH METHOTREXATE ipratropium-albuterol 0.5 mg-3 mg(2.5 mg base)/3 mL 3 mL PO Q4-6H PRN leucovorin calcium 5 mg PO QWEEK lidocaine 5% 1 patch topical DAILY methotrexate sodium 25 mg subcut .QFRIDAY Rinvoq ER (upadacitinib) 15 mg PO DAILY NS Ventolin HFA 90 mcg/actuation (albuterol sulfate) 2 puffs PO QID PRN 30 days NS HPI Comments Details: 39-year-old female with seronegative RA returns for follow-up. She is on methotrexate 25 mg subcutaneously weekly, folic acid 3 mg daily Leucovorin 5 mg weekly and Rinvoq 15 mg p.o. daily. She has been on Rinvoq for the last 3 months. She states that she feels about 30-40% improvement in her overall joint pains. She continues to have multiple joint pains including her hands, knees, hips, feet, she has morning stiffness of her joints lasting about 30 minutes improved with running her fingers under warm water. She has not been using any prednisone (for asthma) in over a month. Has not used ibuprofen in over a month Initial history: This is a 37-year-old female who presents for evaluation of diffuse joint pain. She was referred by Orthopedics as and excised mass on her right index finger, pathology was suggestive of a rheumatoid nodule. Patient states that for the last year she has been having multiple joint pain. Bilateral knee pain associated with morning stiffness lasting 1 hour. She also has bilateral hand pain, swelling and stiffness. Morning stiffness lasting 1 hour. States that her fingers have been swollen over the last 6 months to 1 year. She has new rings as her old rings do not fit anymore. She gets intermittent ankle swelling, worse on the left. States that her mother has arthritis, does not know what type. She denies any history of DVT/PE. She has history of multiple allergies, including asthma on Dupixent which is helping per patient. She states that when she was prescribed prednisone taper for her asthma exacerbations it would help her joint pain significantly [facility] Medical History Nexplanon insertion Incarcerated umbilical hernia (09/29/23) Hx of drug abuse Pseudoangiomatous stromal hyperplasia of breast Uterus, adenomyosis History of back pain History of TMJ disorder Hx of renal calculi History of asthma Surgical History Hx of cholecystectomy Hx of breast lump removal Hx of hand surgery Hx of umbilical hernia repair Family History Father Graves disease DVT (deep venous thrombosis) HTN (hypertension) Mother Graves disease Cervical cancer Ovarian cancer [place] disease Brother Graves disease Daughter ADHD Son ADHD Maternal Aunt Breast CA Other Mental health disorder Substance use disorder Social History Household Members: Significant Other and Children Housing: Apartment Are you a primary rn transitional care to a significant other at home: No Do you presently have visiting nurse or other home services: No Alcohol intake: never Comment: counts correct Patient Tobacco Use Status: Current everyday Tobacco user Tobacco use type: Cigarette Cigarettes Per Day: 5 e-Cigarette/Vaping Use: Never Used service: No Current occupational status: employed 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 - [employer] Sexual orientation: Straight/Heterosexual Gender identity: Female Cognitive needs: No Hearing needs: No Vision needs: Yes Female Reproductive History Menstrual Age of Menarche: 12 Review of Systems [facility] Reports arthralgias and Reports stiffness Physical Exam Vital Signs: Last Vital Signs Pulse 93 06/20/24 09:06 Resp 16 06/20/24 09:06 BP 120/80 06/20/24 09:06 Pulse Ox 97 06/20/24 09:06 Oxygen Delivery Method Room Air 06/20/24 09:06 BMI result Body Mass Index 29.7 Const General: cooperative, healthy appearing and comfortable Nutritional Appearance: overweight Orientation/consciousness: patient oriented x3 Limitations: no limitations HEENT Head: Yes normocephalic and Yes atraumatic Mouth: moist mucous membranes Resp Effort & Inspection: normal respiratory effort and able to speak in complete sentences Auscultation: wheezes expiratory wheezes and inspiratory wheezes Cardio Rate: regular rate Rhythm: regular rhythm Neuro General: patient oriented x3 Extrem Other: No wrist swelling or tenderness or pain with full flexion-extension bilaterally Bilateral 1st through 5th MCP tenderness without swelling Bilateral 2nd through 5th PIP tenderness without swelling Bilateral positive MCP squeeze test No DIP tenderness No elbow pain with full flexion-extension bilaterally Normal range of motion of shoulders Bilateral knee pain with full flexion/extension No swelling or warmth noted No ankle swelling or tenderness bilaterally Normal nailfold capillaroscopy Assessment & Plan Assessment & Plan (1) Rheumatoid arthritis: Comment: -ve RF-ve CCP +RADHA (Rheumatoid nodule on biopsy) dx 04/2023 MTX 04/2023 ineffective advanced to SQ 06/2023 Enbrel added 12/2023 incomplete response Rinvoq started 03/2024 effective Code(s): M06.9 - Rheumatoid arthritis, unspecified Category: Medical Qualifiers: Rheumatoid arthritis location: multiple sites Rheumatoid factor presence: unspecified presence Qualified Code(s): M06.9 - Rheumatoid arthritis, unspecified Plan: This is a 39-year-old female with seronegative RA who returns for follow-up. On methotrexate 25 mg subcutaneously weekly , folic acid 3 mg daily, Leucovorin 5 mg weekly and Rinvoq 15 mg p.o. daily. Doing better overall. She continues to have multiple tender joints on exam but no swelling. Overall patient is doing better on this regimen Continue current meds as prescribed Labs before next visit in 4 months (2) alf methotrexate user: Code(s): Z79.631 - alf (current) use of antimetabolite agent Category: Medical Plan: Monitor safety labs. Patient just had a test and it was negative. She has a Nexplanon (3) RADHA positive: Code(s): R76.8 - Other specified abnormal immunological findings in serum Category: Medical Plan: DsDNA levels indeterminate with borderline intermittently low C3 and C4. In previous visits, Patient stated that she had been having intermittent rashes. However I do not see any convincing signs of SLE. Advised patient to take any pictures of rashes. Continue to monitor patient for development of lupus. Myositis panel is negative Hydroxychloroquine can be considered but we will have to be cautious as patient is on multiple QTC prolonging medications (4) Rash of both hands: Code(s): R21 - Rash and other nonspecific skin eruption Category: Medical Plan: Myositis panel pending (5) Immunization counseling: Code(s): Z71.85 - Encounter for immunization safety counseling Category: Medical Plan: Patient received the flu vaccine. She did not get the COVID booster. She was unable to get the RSV vaccine from [facility]. Advised patient to try to get the RSV vaccine from her PCP or spring production supervisor. Skip 1 dose of methotrexate after vaccination Continue Rinvoq Plan I spent 46 minutes reviewing patient's chart, evaluating patient, ordering diagnostic workup, counseling patient and documenting in the chart Orders: Orders Complete Blood Count Auto Diff 4 Months M06.9 - Rheumatoid arthritis, unspecified, Z79.631 - alf (current) use of antimetabolite agent Comprehensive Met. Panel 4 Months M06.9 - Rheumatoid arthritis, unspecified, Z79.631 - alf (current) use of antimetabolite agent Erythrocyte Sedimentation Rate 4 Months M06.9 - Rheumatoid arthritis, unspecified, Z79.631 - alf (current) use of antimetabolite agent T Spot TB 4 Months Z11.7 - Encounter for testing for latent tuberculosis infection C Reactive Protein 4 Months M06.9 - Rheumatoid arthritis, unspecified, Z79.631 - alf (current) use of antimetabolite agent Hepatitis A,B,C Profile 4 Months Z11.59 - Encounter for screening for other viral diseases Medications: Refilled methotrexate sodium 25 mg subcut .QFRIDAY 10 mL 2RF Coding Level of Care Code Est Pt Level 4 (24223) Complex EM visit Add On G2211 Diagnoses Rheumatoid arthritis involving multiple sites, unspecified whether rheumatoid factor present M06.9 Rheumatoid arthritis location: multiple sites Rheumatoid factor presence: unspecified presence alf methotrexate user Z79.631 RADHA positive R76.8 Rash of both hands R21 Immunization counseling Z71.85
[2024-06-20 09:06] VITALS: BP 120/80; PULSE 93; RESP 16; O2SAT 97; BMI 29.7
== END 2024-06-20 09:36 | disposition home or self-care (01) ==
LOC: HO.RHE 08:59
PROVIDERS: PCP Internal Medicine; Visit Provider Student in an Organized Health Care Education/Training Program
DX: M06.9 Rheumatoid arthritis, unspecified (principal); Z79.631 Long term (current) use of antimetabolite agent; R76.8 Other specified abnormal immunological findings in serum; R21 Rash and other nonspecific skin eruption; Z71.85 Encounter for immunization safety counseling
CPT/HCPCS: 99214; G2211

== ENCOUNTER → 2024-06-20 08:59 | Outpatient (BNVA) | payer OTHER, SELFPAY | PROVIDERS: PCP Internal Medicine; Visit Provider Student in an Organized Health Care Education/Training Program | DX: M06.9 Rheumatoid arthritis, unspecified (principal); R76.8 Other specified abnormal immunological findings in serum; R21 Rash and other nonspecific skin eruption; Z79.631 Long term (current) use of antimetabolite agent; Z71.85 Encounter for immunization safety counseling | CPT/HCPCS: 99212 ==

== ENCOUNTER 2024-06-21 12:56 | Outpatient (REF) | payer OTHER, SELFPAY ==
--- NOTE | ~2024-06-21 | MM_ITS ---
EXAMINATION: Dual-Energy X-ray Absorptiometry - Bone Density Study HISTORY: Rheumatoid arthritis TECHNIQUE: [employer] Dual energy absorptiometry (DEXA) of the lumbar spine, total left hip, and femoral neck was performed. COMPARISON: There are no prior studies for comparison. FINDINGS: The bone mineral density of the lumbar spine is 0.970 with a T-score of -1.7, and a Z-score of -2.2. The bone mineral density of the left total hip is 0.920 with a T-score of -0.7, and a Z-score of -0.8. The bone mineral density of the left femoral neck is 0.851 with a T-score of -1.3, and a Z-score of -1.3. MM/XR DEXA axial skeleton IMPRESSION: Based on bone mineral density, and according to World Health Organization (WHO) criteria, the diagnosis is consistent with osteopenia. All bone density values are in grams per centimeter squared. At this facility, the least significant change in BMD with 95% confidence is 0.022 at the lumbar spine, 0.027 at the hip, and 0.023 at the distal 1/3 radius. Electronically signed by: Christopher Sarakr MD 06/21/2024 01:37 PM TIFFANY RP
== END 2024-06-21 12:57 | disposition home or self-care (01) ==
LOC: HO.MAMMO 12:56
PROVIDERS: PCP Internal Medicine; Visit Provider Internal Medicine
DX: M54.16 Radiculopathy, lumbar region (principal); M06.9 Rheumatoid arthritis, unspecified; F19.20 Other psychoactive substance dependence, uncomplicated
CPT/HCPCS: 77080

== ENCOUNTER → 2024-06-21 13:00 | Outpatient (BNV) | payer OTHER, SELFPAY | PROVIDERS: PCP Internal Medicine; Visit Provider Radiology Diagnostic Radiology | DX: E28.39 Other primary ovarian failure (principal) | CPT/HCPCS: 77080 ==

== ENCOUNTER 2024-07-05 09:17 | Outpatient (AMB) | payer OTHER, SELFPAY ==
--- NOTE | 2024-07-05 09:31 | A.OFFVIS_ITS ---
Vital Signs 07/05/24 09:34 Height 5 ft 5 in Weight 185 lb 6.54 oz BMI 30.9 BP 112/80 Blood Pressure Location Rt brachial Position Sitting Respiration 16 Pulse 103 H Pulse Source Pulse Oximeter Pulse Oximetry (%) 98 Oxygen Delivery Method Room Air Intake Visit Reasons: RA/ discuss labs Intake Note: Patient presents for RA. Allergies amoxicillin [AMOXICILLIN] Allergy (Severe, Verified 07/05/24 09:33) Anaphylaxis ciprofloxacin [CIPROFLOXACIN] Allergy (Severe, Verified 07/05/24 09:33) ANAPHYLAXIS Penicillins Allergy (Severe, Verified 07/05/24 09:33) Anaphylaxis sulfadiazine Allergy (Severe, Verified 07/05/24 09:33) Rash HPI Comments Details: Patient is a 39-year-old female with depression/anxiety, asthma, positive RADHA and seronegative rheumatoid arthritis here today for follow up Interval History: Patient last seen 06/20/[address] Bonilla. At that time she was noted to have multiple tender joints on exam but no swelling. The plan was to continue her regimen Today, patient reports swelling and tenderness to palpation she feels that the Rinvoq while is helpful is not completely controlling her arthritis symptoms. Rheumatologic History: -ve RF-ve CCP +RADHA (Rheumatoid nodule on biopsy) dx 04/2023 MTX 04/2023 ineffective advanced to SQ 06/2023 Enbrel added 12/2023 incomplete response Rinvoq started 03/2024 effective Current Rheumatology Medication(s): Rinvoq 30 mg daily Methotrexate 25 mg subQ weekly Folic acid 3 mg daily Levocorin 5mg weekly [facility] Medical History (Updated 07/05/24 @ 16:23 by Mally Harris MD) Osteopenia Adalimumab (Humira) long-term use Nexplanon insertion Incarcerated umbilical hernia (09/29/23) Hx of drug abuse Pseudoangiomatous stromal hyperplasia of breast Uterus, adenomyosis History of back pain History of TMJ disorder Hx of renal calculi History of asthma Surgical History Hx of cholecystectomy Hx of breast lump removal Hx of hand surgery Hx of umbilical hernia repair Family History Father Graves disease DVT (deep venous thrombosis) HTN (hypertension) Mother Graves disease Cervical cancer Ovarian cancer [place] disease Brother Graves disease Daughter ADHD Son ADHD Maternal Aunt Breast CA Other Mental health disorder Substance use disorder Social History Household Members: Significant Other and Children Housing: Apartment Are you a primary direct care counselor to a significant other at home: No Do you presently have visiting nurse or other home services: No Alcohol intake: never Comment: counts correct Patient Tobacco Use Status: Current everyday Tobacco user Tobacco use type: Cigarette Cigarettes Per Day: 5 e-Cigarette/Vaping Use: Never Used service: No Current occupational status: employed 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 occupation: rt handed/[employer] - [employer] Sexual orientation: Straight/Heterosexual Gender identity: Female Cognitive needs: No Hearing needs: No Vision needs: Yes Female Reproductive History Menstrual Age of Menarche: 12 Review of Systems Const Details: Review of Systems Constitutional: Denies fever, chills, weight loss ENT: Denies vision changes, eye pain or eye redness, dental caries, dry mouth GI: Denies nausea, vomiting, diarrhea, abdominal pain, change in BM Pulm: Denies SOB, GARCIA, hemoptysis, wheezing Cards: Denies chest pain, palpitations Skin: Denies Raynaud's, rash, nail changes, photosensitivity, SALES REPRESENTATIVE MEATS: Denies headaches, weakness, paresthesias, recurrent falls MSK: as per HPI All other systems reviewed and are unremarkable except noted above Physical Exam Vital Signs: Last Vital Signs Pulse 103 H 07/05/24 09:34 Resp 16 07/05/24 09:34 BP 112/80 07/05/24 09:34 Pulse Ox 98 07/05/24 09:34 Oxygen Delivery Method Room Air 07/05/24 09:34 BMI result Body Mass Index 30.9 Vital signs reviewed Physical Examination CONSTITUITIONAL Patient alert and cooperative. Well appearing and in no apparent painful distress HEENT Conjunctiva and sclera clear. ?Pupils equal round and reactive to light. ?No lymphadenopathy. ? CHEST/RESPIRATORY SYSTEM Normal respiratory effort and able to speak in complete sentences. ?Clear to auscultation bilaterally. ?No crackles, rales, rhonchi, wheezes heard. CARDIAC SYSTEM Regular rate and rhythm. ?S1 and S2 heard no murmurs. 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 Swelling and tenderness to palpation of the MCPs and PIPs of the hands bilaterally. Wrists: ?Full range of motion at the wrists without pain. ?No tenderness to palpation or synovitis noted to the wrists. Elbows: Full range of motion without pain. No tenderness, weakness, swelling, increased warmth or erythema. Shoulders: Full range of motion without pain. No tenderness, weakness, swelling, increased warmth or erythema. Hips: Full range of motion without pain. Hip bursa: No tenderness to palpation Knees: ?Full range of motion. ?No tenderness, swelling, increased warmth or erythema.?No effusion or crepitations Ankles: Full range of motion. ?No tenderness, swelling, increased warmth or erythema.? Feet: ?Negative squeeze test. ?No tenderness to palpation or swelling of the MTPs. Tender points:?No tenderness to palpation of the bilateral trapezius, supraspinatus, greater trochanters, anterior costochondral junctions, bilateral gluteal areas, bilateral suboccipital muscle insertions SKIN Skin intact without rashes. Results Reviewed Results Reviewed: Laboratory Tests 03/31/23 12/19/23 03/15/24 16:30 09:39 12:15 WBC RBC Hgb Hct Plt Count ESR Sodium Potassium Chloride Carbon Dioxide BUN Creatinine Calcium Total Bilirubin AST ALT Alkaline Phosphatase C-Reactive Protein 1.17 H 2.38 H Total Protein Albumin Rheumatoid Factor < 13.0 Cycl Citrul Peptide IgG <16 RADHA Screen POSITIVE A RADHA Titer 1:80 H Double Strand DNA Ab 6 H 8 H [id number] IgG Antibody 19 H Hepatitis A IgM Ab Nonreactive Hep Bs Antigen Negative Hep Bs Antibody REACTIVE Hep B Core Total Ab Nonreactive Hepatitis C Ab (EIA) Nonreactive TB Test (T-Spot) Com Negative 06/19/24 16:15 WBC 10.9 H RBC 3.98 L Hgb 13.1 Hct 39.9 Plt Count 416 H ESR 14 Sodium 138 Potassium 4.4 Chloride 107 Carbon Dioxide 28 BUN 8 L Creatinine 0.70 Calcium 9.4 Total Bilirubin 0.2 AST 24 ALT 28 Alkaline Phosphatase 101 C-Reactive Protein 0.99 H Total Protein 7.4 Albumin 4.1 Rheumatoid Factor Cycl Citrul Peptide IgG RADHA Screen RADHA Titer Double Strand DNA Ab [id number] IgG Antibody Hepatitis A IgM Ab Hep Bs Antigen Hep Bs Antibody Hep B Core Total Ab Hepatitis C Ab (EIA) TB Test (T-Spot) Com DEXA 06/2024 FINDINGS: The bone mineral density of the lumbar spine is 0.970 with a T-score of -1.7, and a Z-score of -2.2. The bone mineral density of the left total hip is 0.920 with a T-score of -0.7, and a Z-score of -0.8. The bone mineral density of the left femoral neck is 0.851 with a T-score of -1.3, and a Z-score of -1.3. Assessment & Plan Assessment & Plan (1) Rheumatoid arthritis: Comment: -ve RF-ve CCP +RADHA (Rheumatoid nodule on biopsy) dx 04/2023 MTX 04/2023 ineffective advanced to SQ 06/2023 Enbrel added 12/2023 incomplete response Rinvoq started 03/2024 effective Code(s): M06.9 - Rheumatoid arthritis, unspecified Category: Medical Qualifiers: Rheumatoid arthritis location: multiple sites Rheumatoid factor presence: unspecified presence Qualified Code(s): M06.9 - Rheumatoid arthritis, unspecified Plan: #Seronegative RA Patient is a 39-year-old female with seronegative rheumatoid arthritis. Her disease is not currently in remission in fact she is having a flare of her disease despite being on Rinvoq and subcutaneous methotrexate as evidenced by synovitis involving her PIPs and MCPs today. It is important to note that she did have improvement in her inflammatory markers but this is an overall adequate response because she is still having synovitis. We will switch her to Humira every other week with potential to increase to weekly if there is partial improvement. Plan - Continue methotrexate 25mg SC weekly - Folic acid 3mg daily - Leucovorin 5mg weekly the day after MTx - Stop Rinvoq - Start Humira 40mg SC every other week - RTC 4 months - Labs prior to visit: CBC, CMP, ESR, CRP, hepatitis panel, T spot (2) Osteopenia: Comment: DEXA 06/2024: L spine -1.7, Left hip total -0.7, Left femoral neck -1.3 Code(s): M85.80 - Other specified disorders of bone density and structure, unspecified site Category: Medical Qualifiers: Osteopenia location: multiple sites Qualified Code(s): M85.89 - Other specified disorders of bone density and structure, multiple sites Plan: #Osteopenia Patient with osteopenia of the L-spine and the left femoral neck. Risk factors for this are chronic prednisolone use and rheumatoid arthritis. Given that she is 39 she can not officially use the FRAX index but calculating based on an age of 40 her FRAX for major osteoporotic fracture is 4.4 and hip fracture is 0.4%. This does not meet criteria to commence bisphosphonates or any other treatment. I discussed this with the patient and in addition to vitamin-D supplementation and ensuring calcium intake she is going to increase her weight-bearing exercises. Plan - No treatment at this time - Vit D supplementation - Daily calcium intake - rpt DEXA 2026 (3) Adalimumab (Humira) long-term use: Code(s): Z79.620 - terminal makeup operator (current) use of immunosuppressive biologic Category: Medical Plan: #Long-term Use of TNF Inhibitors: Humira Discussed with the patient the benefits and risks of TNF inhibitors for the management of the rheumatic condition Benefits include reduce pain, maintenance of remission and reduction of flares as well as ?progression of the disease Risks include injection sites/infusion reactions, serious infections (such as bacterial infections, opportunistic infections), malignancy, delaminating syndromes, autoimmune phenomena, CHF exacerbations, palmar plantar psoriasis and cytopenias Recommended rotating injection sites, and holding medication during and for up to 1 week after resolution of a febrile illness or open skin wound (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 Limit alcohol and avoid Bactrim ? Monitoring: ?CBC, BMP, LFTs every 3-4 months and hepatitis serologies as needed Plan I spent 45 minutes reviewing the record and labs, taking a history, examining the patient, discussing the treatment plan and documenting in the medical record Coding Level of Care Code Est Pt Level 5 (65156) Complex EM visit Add On G2211 Diagnoses Rheumatoid arthritis involving multiple sites, unspecified whether rheumatoid factor present M06.9 Rheumatoid arthritis location: multiple sites Rheumatoid factor presence: unspecified presence Osteopenia of multiple sites M85.89 Osteopenia location: multiple sites Adalimumab (Humira) long-term use Z79.620 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
[2024-07-05 09:34] VITALS: BP 112/80; PULSE 103; RESP 16; O2SAT 98; BMI 30.9
--- OUTSIDE RECORDS SUMMARY | 2024-07-05 09:46 | XMS_ITS | Clinical Summary ---
Author Organization [facility] Address [address] [place] [address] Care Team Providers Care Sterile Instrument Technician Name Role Phone Mahogany Rios DMD Primary Care Provider [phone] Source Comments PLEASE NOTE, if this patient is a minor, it may be UNLAWFUL to discuss sensitive information that is contained in these records (such as FAMILY PLANNING, MENTAL HEALTH or SUBSTANCE ABUSE) with the minor patient's parent or other person without the patient's specific authorization.[facility] Allergies Active Allergy Reactions Criticality Noted Date Comments Ciprofloxacin Hcl 01/04/2022 Penicillin G 01/04/2022 Sulfa (Sulfonamide Antibiotics) 07/2021 Medications No known medications Active Problems No known active problems Social History Tobacco Use Types Packs/Day Years Used Date Smoking Tobacco: Every Day Cigarettes Smokeless Tobacco: Never Tobacco Cessation:Ready to Q uit: Not Asked; Counseling Given: Not Answered Social Connections Answer Date Recorded Connectedness 0 02/22/2024 Financial Resource Strain Answer Date R ecorded Financial Resource Strain 0 2021 Stress Answer Date Recorded Stress 0 01/04/2022 Physical Activity Answer Date Recorded Physical Activity 0 01/04/2022 Food Insecurity Answer Date Recorded Food 0 02/29/2024 Transportation Needs Answer Date Record ed Transportation 0 01/04/2022 Housing Stability Answer Date Recorded Housing 0 01/04/2022 Safety and Environment Answer Date Kishan rded Safety 0 01/04/2022 Utilities Answer Date Recorded Utilities 0 01/04/2022 Employment Answer Date Recorded Stress 0 02/22/2024 Comments Unknown Sex and Gender Information Value Date Recorded Sex Assigned at Female 03/24/2022 9:42 AM PDT Legal Sex Female 11:22 AM PDT Gender Identity Female 03/24/2022 9:42 AM PDT Sexual Orientation Not on file Last Filed Vital Signs Vital Sign Reading Time Taken Comments Blood Pressure 124/87 03/04/2022 9:41 AM EDT Pulse 82 03/04/2022 9:41 AM EDT Temperature - - Respiratory Rate - - Oxygen Saturation - - Inhaled Oxygen Concentration - - Weight - - Height - - Body Mass Index - - Plan of Treatment Health Maintenance Due Date Last Done Comments Diabetes Screening 1985 HPV Screening 1985 Hepatitis C Screening 1985 Pap + HPV 1985 Tobacco Cessation Counseling (#1) 1985 Tobacco Screening 1985 Imm-Pneumococcal (1 of 2 - PCV) 1991 HIV Screening 2000 Relationship Safety Screening/Counseling 2000 Annual Preventive Care Visit 2003 Imm-DTaP/Tdap/Td (1 - Tdap) 2004 Imm-Hepatitis B (1 of 3 - 19+ 3-dose series) 4 Cervical Cancer Screening 2006 Pap Smear 2006 Hypertension Screening (#1) 03/04/2023 [id number] ( season) 2024 Imm-Influenza (#1) 2024 Alcohol and Drug Screen 06/05/2024 Depression Annual Screen 06/05/2024 Cervical Ablation/Cold-Knife Conization Discontinued Cervical Cryotherapy Discontinued Colposcopy Discontinued Endometrial Biopsy Discontinued Excision/Leep Discontinued HPV Genotyping Discontinued Vaginal Pap Discontinued Vulvoscopy Discontinued [facility] Care Teams Sterile Instrument Technician Relationship Specialty Start Date End Date Mahogany Rios DMD [address] [place] [address] PCP - General 02/14/19
== END 2024-07-05 10:39 | disposition home or self-care (01) ==
PROVIDERS: PCP Internal Medicine; Visit Provider Student in an Organized Health Care Education/Training Program
DX: M06.09 Rheumatoid arthritis without rheumatoid factor, multiple sites (principal); M85.89 Other specified disorders of bone density and structure, multiple sites; Z79.620 Long term (current) use of immunosuppressive biologic; Z79.631 Long term (current) use of antimetabolite agent
CPT/HCPCS: 99215; G2211

== ENCOUNTER → 2024-07-05 09:17 | Outpatient (BNVA) | payer OTHER, SELFPAY | PROVIDERS: PCP Internal Medicine; Visit Provider Student in an Organized Health Care Education/Training Program | DX: M06.9 Rheumatoid arthritis, unspecified (principal); M85.89 Other specified disorders of bone density and structure, multiple sites; Z79.620 Long term (current) use of immunosuppressive biologic; Z79.631 Long term (current) use of antimetabolite agent | CPT/HCPCS: 99212 ==

== ENCOUNTER 2024-08-09 15:05 | Outpatient (AMB) | payer OTHER, SELFPAY ==
--- NOTE | 2024-08-09 15:12 | A.OFFVIS_ITS ---
Vital Signs 08/09/24 15:21 Height 5 ft 5 in Weight 181 lb 10.574 oz BMI 30.2 BP 112/58 L Blood Pressure Location Rt brachial Position Sitting Pulse 99 Pulse Source Pulse Oximeter Pulse Oximetry (%) 98 Oxygen Delivery Method Room Air Intake Visit Reasons: discuss treatment Intake Note: Patient presents to discuss treatment. Allergies amoxicillin [AMOXICILLIN] Allergy (Severe, Verified 08/09/24 15:21) Anaphylaxis ciprofloxacin [CIPROFLOXACIN] Allergy (Severe, Verified 08/09/24 15:21) ANAPHYLAXIS Penicillins Allergy (Severe, Verified 08/09/24 15:21) Anaphylaxis sulfadiazine Allergy (Severe, Verified 08/09/24 15:21) Rash Humira Allergy (Severe, Uncoded 08/09/24 15:21) Rash HPI Comments Details: Patient is a 39-year-old female with depression/anxiety, asthma, positive RADHA and seronegative rheumatoid arthritis here today for follow up Interval History: Patient last seen 07/05/24 with me. At that time she was having breakthrough synovitis on Rinvoq. Decision made to switch to Humira After 2 doses patient noticed a rash involving her posterior arms, upper chest and face. She contacted the office and I told her to stop. She is here today for follow up to make a decision about next steps in terms of medication. Continues to have swelling and pain and aches to her bilateral hands. Rheumatologic History: -ve RF-ve CCP +RADHA (Rheumatoid nodule on biopsy) dx 04/2023 MTX 04/2023 ineffective advanced to SQ 06/2023 Enbrel added 12/2023 incomplete response Rinvoq started 03/2024 effective Humira 06/2024 - rash Current Rheumatology Medication(s): Humira 40mg SC every other week (stopped due to rash) Methotrexate 25 mg subQ weekly Folic acid 3 mg daily Levocorin 5mg weekly [facility] Medical History (Updated 07/05/24 @ 16:23 by Mally Harris MD) Osteopenia Adalimumab (Humira) long-term use Nexplanon insertion Incarcerated umbilical hernia (09/29/23) Hx of drug abuse Pseudoangiomatous stromal hyperplasia of breast Uterus, adenomyosis History of back pain History of TMJ disorder Hx of renal calculi History of asthma Surgical History (Reviewed 08/09/24 @ 15:21 by Liza Fletcher [facility]) Hx of cholecystectomy Hx of breast lump removal Hx of hand surgery Hx of umbilical hernia repair Family History Father Graves disease DVT (deep venous thrombosis) HTN (hypertension) Mother Graves disease Cervical cancer Ovarian cancer [place] disease Brother Graves disease Daughter ADHD Son ADHD Maternal Aunt Breast CA Other Mental health disorder Substance use disorder Social History Household Members: Significant Other and Children Housing: Apartment Are you a primary respiratory care program director to a significant other at home: No Do you presently have visiting nurse or other home services: No Alcohol intake: never Comment: counts correct Patient Tobacco Use Status: Current everyday Tobacco user Tobacco use type: Cigarette Cigarettes Per Day: 5 e-Cigarette/Vaping Use: Never Used service: No Current occupational status: employed 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 - [employer] Sexual orientation: Straight/Heterosexual Gender identity: Female Cognitive needs: No Hearing needs: No Vision needs: Yes Female Reproductive History Menstrual Age of Menarche: 12 Review of Systems Const Details: Review of Systems Constitutional: Denies fever, chills, weight loss ENT: Denies vision changes, eye pain or eye redness, dental caries, dry mouth GI: Denies nausea, vomiting, diarrhea, abdominal pain, change in BM Pulm: Denies SOB, GARCIA, hemoptysis, wheezing Cards: Denies chest pain, palpitations Skin: Denies Raynaud's, rash, nail changes, photosensitivity, COURSEWARE DEVELOPER: Denies headaches, weakness, paresthesias, recurrent falls MSK: as per HPI All other systems reviewed and are unremarkable except noted above Physical Exam Vital Signs: Last Vital Signs Pulse 99 08/09/24 15:21 BP 112/58 L 08/09/24 15:21 Pulse Ox 98 08/09/24 15:21 Oxygen Delivery Method Room Air 08/09/24 15:21 BMI result Body Mass Index 30.2 Vital signs reviewed Physical Examination CONSTITUITIONAL Patient alert and cooperative. Well appearing and in no apparent painful distress HEENT Conjunctiva and sclera clear. ?Pupils equal round and reactive to light. ?No lymphadenopathy. ? CHEST/RESPIRATORY SYSTEM Normal respiratory effort and able to speak in complete sentences. ?Clear to auscultation bilaterally. ?No crackles, rales, rhonchi, wheezes heard. CARDIAC SYSTEM Regular rate and rhythm. ?S1 and S2 heard no murmurs. ?Radial pulses intact bilaterally MSK Hands: ?Good pharmacy clinical coordinator strength bilaterally. Swelling and tenderness to palpation of the MCPs and PIPs of the hands bilaterally. Wrists: ?Full range of motion at the wrists without pain. ?No tenderness to palpation or synovitis noted to the wrists. Elbows: Full range of motion without pain. No tenderness, weakness, swelling, increased warmth or erythema. Shoulders: Full range of motion without pain. No tenderness, weakness, swelling, increased warmth or erythema. Hips: Full range of motion without pain. Hip bursa: No tenderness to palpation Knees: ?Full range of motion. ?No tenderness, swelling, increased warmth or erythema.?No effusion or crepitations Ankles: Full range of motion. ?No tenderness, swelling, increased warmth or erythema.? Feet: ?Negative squeeze test. ?No tenderness to palpation or swelling of the MTPs. Tender points:?No tenderness to palpation of the bilateral trapezius, supraspinatus, greater trochanters, anterior costochondral junctions, bilateral gluteal areas, bilateral suboccipital muscle insertions SKIN Skin intact without rashes. Results Reviewed Results Reviewed: Laboratory Tests 03/15/24 06/19/24 12:15 16:15 WBC 10.9 H RBC 3.98 L Hgb 13.1 Hct 39.9 Plt Count 416 H ESR 14 Sodium 138 Potassium 4.4 Chloride 107 Anion Gap 7 L BUN 8 L Creatinine 0.70 AST 24 ALT 28 Alkaline Phosphatase 101 C-Reactive Protein 2.38 H 0.99 H Immunology labs 03/31/23 16:30 Rheumatoid Factor < 13.0 Cycl Citrul Peptide IgG <16 03/31/23 03/15/24 16:30 12:15 RADHA Screen POSITIVE A RADHA Titer 1:80 H Double Strand DNA Ab 8 H [id number] IgG Antibody 19 H Complement C3 145 Complement C4 20 Assessment & Plan Assessment & Plan (1) Rheumatoid arthritis: Comment: -ve RF-ve CCP +RADHA (Rheumatoid nodule on biopsy) dx 04/2023 MTX 04/2023 ineffective advanced to SQ 06/2023 Enbrel added 12/2023 incomplete response Rinvoq started 03/2024 effective Code(s): M06.9 - Rheumatoid arthritis, unspecified Category: Medical Qualifiers: Rheumatoid arthritis location: multiple sites Rheumatoid factor presence: unspecified presence Qualified Code(s): M06.9 - Rheumatoid arthritis, unspecified Plan: #Seronegative RA Patient is a 39-year-old female with seronegative rheumatoid arthritis. Her disease is not currently in remission as evidenced by synovitis involving her PIPs and MCPs today. We trialed Humira however she had a rash to this and so this had to be discontinued. Discussed trying either Orencia versus Xeljanz and patient opted to try Xeljanz because it is I am pill form. Her CDAI today is 14 indicating moderate disease activity Plan - Continue methotrexate 25mg SC weekly - Folic acid 3mg daily - Leucovorin 5mg weekly the day after MTx - Stop Humira - start Xeljanz 5 mg b.i.d. - RTC 3 months - Labs prior to visit: CBC, CMP, ESR, CRP, hepatitis panel, T spot (2) Osteopenia: Comment: DEXA 06/2024: L spine -1.7, Left hip total -0.7, Left femoral neck -1.3 Code(s): M85.80 - Other specified disorders of bone density and structure, unspecified site Category: Medical Qualifiers: Osteopenia location: multiple sites Qualified Code(s): M85.89 - Other specified disorders of bone density and structure, multiple sites Plan: #Osteopenia Patient with osteopenia of the L-spine and the left femoral neck. Risk factors for this are chronic prednisolone use and rheumatoid arthritis. Given that she is 39 she can not officially use the FRAX index but calculating based on an age of 40 her FRAX for major osteoporotic fracture is 4.4 and hip fracture is 0.4%. This does not meet criteria to commence bisphosphonates or any other treatment. I discussed this with the patient and in addition to vitamin-D supplementation and ensuring calcium intake she is going to increase her weight-bearing exercises. Plan - No treatment at this time - Vit D supplementation - Daily calcium intake - rpt DEXA 2026 (3) prison methotrexate user: Code(s): Z79.631 - prison (current) use of antimetabolite agent Category: Medical Plan: #Long-term Current Use of Methotrexate Discussed with patient the benefits and risks of methotrexate for managing their rheumatic condition Benefits include reduced pain, reduced mortality, maintenance of remission and r eduction of flares Risks include oral ulcers, photosensitivity, hepatotoxicity, hematologic toxicity, pneumonitis, flu-like symptoms (especially day after administration), nodulosis, lymphomas ? Limit alcohol and avoid Bactrim ? Monitoring: ?CBC, BMP, LFTs every 3-4 months and hepatitis serologies as needed (4) Long-term current use of Janus kinase inhibitor: Code(s): Z79.622 - prison (current) use of Janus kinase inhibitor Plan: #Long-term Use of LELE inhibitor: Mayur Discussed with patient the benefits and risks of LELE inhibitors for the management of the rheumatic condition Benefits include reduce pain, maintenance of remission and reduction of flares Risks include thromboembolic events, skin cancer and nonmelanoma skin cancers, other forms of cancer, cardiovascular alcohol and mortality Advise patient that they are to hold the medication and for up to 1 week after a febrile illness or an open skin wound Plan I spent 45 minutes reviewing the record and labs, taking a history, examining the patient, discussing the treatment plan and documenting in the medical record Coding Level of Care Code Est Pt Level 5 (71667) Complex EM visit Add On G2211 Diagnoses Rheumatoid arthritis involving multiple sites, unspecified whether rheumatoid factor present M06.9 Rheumatoid arthritis location: multiple sites Rheumatoid factor presence: unspecified presence Osteopenia of multiple sites M85.89 Osteopenia location: multiple sites prison methotrexate user Z79.631 Long-term current use of Janus kinase inhibitor Z79.622
[2024-08-09 15:21] VITALS: BP 112/58; PULSE 99; O2SAT 98; BMI 30.2
--- OUTSIDE RECORDS SUMMARY | 2024-08-09 16:44 | XMS_ITS | Clinical Summary ---
Author Organization [facility] Address [address] [place] [address] Care Team Providers Care Program Proposals Coordinator Name Role Phone Mahogany Rios DMD Primary Care Provider [phone] Source Comments PLEASE NOTE, if this patient [...] Cessation Counseling (#1) 1985 Tobacco Screening 1985 HIV Screening 2000 Relationship Safety Screening/Counseling 2000 Annual Preventive Care Visit 2003 Imm-DTaP/Tdap/Td (1 - Tdap) 2004 Imm-Hepatitis B (1 of 3 - 19+ 3-dose series) 4 Imm-Pneumococcal (1 of 2 - PCV) 2004 Cervical Cancer Screening 2006 Pap Smear 2006 Hypertension Screening (#1) 03/04/2023 [id number] ( - season) 2024 Imm-Influenza (#1) 2024 Alcohol and Drug Screen 06/05/2024 Depression Annual Screen 06/05/2024 Cervical Ablation/Cold-Knife Conization Discontinued Cervical Cryotherapy Discontinued Colposcopy Discontinued Endometrial Biopsy Discontinued Excision/Leep Discontinued HPV Genotyping Discontinued Vaginal Pap Discontinued Vulvoscopy Discontinued Insurance [facility] DENTAL Care Teams Program Proposals Coordinator Relationship Specialty Start Date End Date Mahogany Rios DMD [address] [place] [address] PCP - General 02/14/19
== END 2024-08-09 15:38 | disposition home or self-care (01) ==
PROVIDERS: PCP Internal Medicine; Visit Provider Student in an Organized Health Care Education/Training Program
DX: M06.09 Rheumatoid arthritis without rheumatoid factor, multiple sites (principal); M85.89 Other specified disorders of bone density and structure, multiple sites; Z79.631 Long term (current) use of antimetabolite agent; Z79.622 Long term (current) use of Janus kinase inhibitor
CPT/HCPCS: 99215; G2211

== ENCOUNTER → 2024-08-09 15:05 | Outpatient (BNVA) | payer OTHER, SELFPAY | PROVIDERS: PCP Internal Medicine; Visit Provider Student in an Organized Health Care Education/Training Program | DX: M06.9 Rheumatoid arthritis, unspecified (principal); M85.89 Other specified disorders of bone density and structure, multiple sites; Z79.631 Long term (current) use of antimetabolite agent; Z79.622 Long term (current) use of Janus kinase inhibitor | CPT/HCPCS: 99212 ==

== ENCOUNTER 2024-08-23 15:04 | Outpatient (AMB) | payer OTHER, SELFPAY ==
[2024-08-23 15:11] VITALS: BP 122/80; PULSE 78; O2SAT 96
--- NOTE | 2024-08-23 15:11 | MHC.OFFWIV ---
Intake Vital Signs 08/23/24 15:11 Height 5 ft 5 in Weight 180 lb BMI 30.0 BP 122/80 Blood Pressure Location Rt brachial Position Sitting Pulse 78 Pulse Source Pulse Oximeter Pulse Oximetry (%) 96 Oxygen Delivery Method Room Air Intake Visit Reasons: EP 2 lumps on the back of head (RT) Intake Note: Patient here for 2 lumps on the back of head that have been there for about 2 weeks. Patient Tobacco Use Status: Current everyday Tobacco user Allergies amoxicillin [AMOXICILLIN] Allergy (Severe, Verified 08/23/24 15:19) Anaphylaxis ciprofloxacin [CIPROFLOXACIN] Allergy (Severe, Verified 08/23/24 15:19) ANAPHYLAXIS Penicillins Allergy (Severe, Verified 08/23/24 15:19) Anaphylaxis sulfadiazine Allergy (Severe, Verified 08/23/24 15:19) Rash Humira Allergy (Severe, Uncoded 08/23/24 15:19) Rash Do you need a note to return to daycare/school/sports/work: No HPI HPI Comments History of Present Illness Details This is a 39-year-old female who presented to the walk-in clinic complaining of bumps to the right side of her posterior scalp. She states she first noticed these bumps about 2 weeks ago. She states that 1 of these bumps is getting slightly bigger while the other has remained the same size. She states they are slightly tender to touch. She denies any fevers or chills. She denies any recent viral illnesses. [facility] Medical History (Updated 07/05/24 @ 16:23 by Mally Harris MD) Osteopenia Adalimumab (Humira) long-term use Nexplanon insertion Incarcerated umbilical hernia (09/29/23) Hx of drug abuse Pseudoangiomatous stromal hyperplasia of breast Uterus, adenomyosis History of back pain History of TMJ disorder Hx of renal calculi History of asthma Surgical History Hx of cholecystectomy Hx of breast lump removal Hx of hand surgery Hx of umbilical hernia repair Family History Father Graves disease DVT (deep venous thrombosis) HTN (hypertension) Mother Graves disease Cervical cancer Ovarian cancer [place] disease Brother Graves disease Daughter ADHD Son ADHD Maternal Aunt Breast CA Other Mental health disorder Substance use disorder Social History Household Members: Significant Other and Children Housing: Apartment Are you a primary care director rn to a significant other at home: No Do you presently have visiting nurse or other home services: No Alcohol intake: never Comment: counts correct Patient Tobacco Use Status: Current everyday Tobacco user Tobacco use type: Cigarette Cigarettes Per Day: 5 e-Cigarette/Vaping Use: Never Used service: No Current occupational status: employed 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 - [employer] Sexual orientation: Straight/Heterosexual Gender identity: Female Cognitive needs: No Hearing needs: No Vision needs: Yes Female Reproductive History Menstrual Age of Menarche: 12 Review of Systems Const All systems reviewed & are unremarkable except as noted in HPI and below Reports no additional complaints Eyes Reports no additional complaints ENT Reports no additional complaints Card Reports no additional complaints Resp Reports no additional complaints GI Reports no additional complaints Reports no additional complaints Musc Reports no additional complaints Skin/Breast Reports system reviewed and no additional complaints, except as documented Neuro Reports no additional complaints Psych Reports no additional complaints Endo Reports no additional complaints Adrian/Lymph Reports no additional complaints Aller/Immun Reports no additional complaints Physical Exam Vital Signs: Last Vital Signs Pulse 78 08/23/24 15:11 BP 122/80 08/23/24 15:11 Pulse Ox 96 08/23/24 15:11 Oxygen Delivery Method Room Air 08/23/24 15:11 BMI result Body Mass Index 30.0 Const Other: Vital signs reviewed. Constitutional: Non-toxic appearing. No acute distress. Well-developed and well-nourished. HEENT: Normocephalic and atraumatic. Skin: Warm and dry. There are 2 small pustular nodules with overlying crusting to the right posterior scalp at the hairline with mild surrounding erythema. There is no fluctuance or induration. There is no purulent drainage. Neck: Full and painless range of motion. No cervical lymphadenopathy. Cardio: Regular rate. No lower extremity edema. Pulmonary: No respiratory distress. No accessory muscle usage. Musculoskeletal: Normal range of motion in joints throughout the body. No deformity or other signs of injury. Neuro: Alert and oriented x4. Cranial nerves 2-12 grossly intact. No focal deficits appreciated. Psych: Normal mood and affect. Assessment & Plan Assessment & Plan (1) Nodule of skin of head: Code(s): R22.0 - Localized swelling, mass and lump, head Plan This is a 39-year-old female who presented to the walk-in clinic complaining of bumps to the right side of her posterior scalp. On physical examination, there are 2 small pustular nodules with overlying crusting and mild surrounding erythema to the right posterior scalp on the hairline. History and physical most consistent with acne versus folliculitis versus impetigo. Patient was given a prescription for mupirocin 2% ointment. She was also instructed to apply warm compresses to the area times 20 minutes 3 times daily to assist in drainage. Patient advised to follow-up here for persistent/worsening symptoms. Patient verbalized understanding and is agreeable with the plan. Medications: New mupirocin 2% 1 appl topical BID 15 grams 0RF Coding Level of Care Code Est Pt Level 3 (43894) Diagnoses Nodule of skin of head R22.0
--- OUTSIDE RECORDS SUMMARY | 2024-08-23 17:11 | XMS_ITS | Clinical Summary ---
Author Organization [facility] Address [address] [place] [address] Care Team Providers Care News Video Editor Name Role Phone Mahogany Rios DMD Primary Care Provider [phone] Source Comments PLEASE NOTE, if this patient [...] Pap Smear 2006 Hypertension Screening (#1) 03/04/2023 [id number] ( - season) 2024 Imm-Influenza (#1) 2024 Alcohol and Drug Screen 06/05/2024 Depression Annual Screen 06/05/2024 Cervical Ablation/Cold-Knife Conization Discontinued Cervical Cryotherapy Discontinued Colposcopy Discontinued Endometrial Biopsy Discontinued Excision/Leep Discontinued HPV Genotyping Discontinued Vaginal Pap Discontinued Vulvoscopy Discontinued [facility] DENTAL Care Teams News Video Editor Relationship Specialty Start Date End Date Mahogany Rios DMD [address] [place] [address] PCP - General 02/14/19
== END 2024-08-23 16:46 | disposition home or self-care (01) ==
PROVIDERS: PCP Internal Medicine; Visit Provider Physician Assistant Medical
DX: R22.0 Localized swelling, mass and lump, head (principal)

== ENCOUNTER → 2024-08-23 15:04 | Outpatient (BNVA) | payer OTHER, SELFPAY | PROVIDERS: PCP Internal Medicine; Visit Provider Physician Assistant Medical | DX: R22.0 Localized swelling, mass and lump, head (principal) | CPT/HCPCS: 99212 ==

== ENCOUNTER 2024-08-30 14:46 | Outpatient (AMB) | payer OTHER, SELFPAY ==
--- NOTE | 2024-08-30 14:54 | A.OFFVIS_ITS ---
Vital Signs 08/30/24 14:55 Height 5 ft 5 in Weight 181 lb BMI 30.1 BP 107/62 Blood Pressure Location Rt brachial Position Sitting Pulse 91 Pulse Source Doppler Pulse Oximetry (%) 96 Oxygen Delivery Method Room Air Intake Visit Reasons: asthma Allergies amoxicillin [AMOXICILLIN] Allergy (Severe, Verified 08/30/24 15:00) Anaphylaxis ciprofloxacin [CIPROFLOXACIN] Allergy (Severe, Verified 08/30/24 15:00) ANAPHYLAXIS Penicillins Allergy (Severe, Verified 08/30/24 15:00) Anaphylaxis sulfadiazine Allergy (Severe, Verified 08/30/24 15:00) Rash Humira Allergy (Severe, Uncoded 08/23/24 15:19) Rash PFSH Medical History (Updated 08/30/24 @ 15:14 by Salinas Izaguirre MD) Osteopenia Adalimumab (Humira) long-term use Nexplanon insertion Incarcerated umbilical hernia (09/29/23) Hx of drug abuse Pseudoangiomatous stromal hyperplasia of breast Uterus, adenomyosis History of back pain History of TMJ disorder Hx of renal calculi History of asthma Surgical History Hx of cholecystectomy Hx of breast lump removal Hx of hand surgery Hx of umbilical hernia repair Family History Father Graves disease DVT (deep venous thrombosis) HTN (hypertension) Mother Graves disease Cervical cancer Ovarian cancer Mcnairy disease Brother Graves disease Daughter ADHD Son ADHD Maternal Aunt Breast CA Other Mental health disorder Substance use disorder Social History Household Members: Significant Other and Children Housing: Apartment Are you a primary childbirth and infant care teacher to a significant other at home: No Do you presently have visiting nurse or other home services: No Alcohol intake: never Comment: counts correct Patient Tobacco Use Status: Current everyday Tobacco user Tobacco use type: Cigarette Cigarettes Per Day: 5 e-Cigarette/Vaping Use: Never Used service: No Current occupational status: employed Current occupation: rt handed/[employer] Sexual orientation: Straight/Heterosexual Gender identity: Female Cognitive needs: No Hearing needs: No Vision needs: Yes Female Reproductive History Menstrual Age of Menarche: 12 Physical Exam Vital Signs: Last Vital Signs Pulse 91 03/28/25 14:55 BP 107/62 08/30/24 14:55 Pulse Ox 96 08/30/24 14:55 Oxygen Delivery Method Room Air 08/30/24 14:55 BMI result Body Mass Index 30.1 Assessment & Plan Assessment & Plan (1) Severe persistent allergic asthma: Code(s): J45.50 - Severe persistent asthma, uncomplicated Category: Medical Plan: Baseline controlled on Dupixent, Breo, duo nebs, and albuterol MDI. Continue current regimen. (2) Orthopnea: Code(s): R06.01 - Orthopnea Category: Medical Plan: Now with worsening orthopnea, lower extremity edema, and dyspnea on exertion. Will try on Lasix 40 mg daily. (3) Environmental allergies: Code(s): Z91.09 - Other allergy status, other than to drugs and biological substances Category: Medical Plan: Well controlled on Dupixent. Continue current regimen. Medications: New furosemide 40 mg PO DAILY 7 tabs 0RF Coding Level of Care Code Est Pt Level 4 (86912) Complex EM visit Add On G2211 Diagnoses Severe persistent allergic asthma J45.50 Orthopnea R06.01 Environmental allergies Z91.09
[2024-08-30 14:55] VITALS: BP 107/62; PULSE 91; O2SAT 96; BMI 30.1
== END 2024-08-30 15:12 | disposition home or self-care (01) ==
LOC: HO.HPS 14:47
PROVIDERS: PCP Internal Medicine; Visit Provider Internal Medicine Pulmonary Disease
DX: J45.50 Severe persistent asthma, uncomplicated (principal); R06.01 Orthopnea; Z91.09 Other allergy status, other than to drugs and biological substances
CPT/HCPCS: 99214; G2211

== ENCOUNTER → 2024-08-30 14:46 | Outpatient (BNVA) | payer OTHER, SELFPAY | PROVIDERS: PCP Internal Medicine; Visit Provider Internal Medicine Pulmonary Disease | DX: J45.50 Severe persistent asthma, uncomplicated (principal); R06.01 Orthopnea; Z91.09 Other allergy status, other than to drugs and biological substances | CPT/HCPCS: 99212 ==

== ENCOUNTER 2024-10-25 13:58 | Outpatient (REF) | payer OTHER, SELFPAY ==
--- OUTSIDE RECORDS SUMMARY | 2024-10-25 14:01 | XMS_ITS | Clinical Summary ---
Author Organization [facility] Address [address] [place] [address] Care Team Providers Care Surgical Product Sales Consultant Name Role Phone Mahogany Rios DMD Primary Care Provider [phone] Source Comments PLEASE NOTE, if this patient [...] Health Maintenance Due Date Last Done Comments Anxiety Screening 1985 Diabetes Screening 1985 HPV Screening 1985 Hepatitis C Screening 1985 Pap + HPV 1985 Tobacco Cessation Counseling (#1) 1985 Tobacco Screening 1985 HIV Screening 2000 Relationship Safety Screening/Counseling 2000 Imm-DTaP/Tdap/Td (1 - Tdap) 2004 Imm-Hepatitis B (1 of 3 - 19+ 3-dose series) 4 Imm-Pneumococcal (1 of 2 - PCV) 2004 Cervical Cancer Screening 2006 Pap Smear 2006 Hypertension Screening (#1) 03/04/2023 [id number] ( - season) 2024 Imm-Influenza (#1) 2024 Alcohol and Drug Screen 06/05/2024 Depression Annual Screen 06/05/2024 Cervical Ablation/Cold-Knife Conization Discontinued Cervical Cryotherapy Discontinued Colposcopy Discontinued Endometrial Biopsy Discontinued Excision/Leep Discontinued HPV Genotyping Discontinued Vaginal Pap Discontinued Vulvoscopy Discontinued Insurance [facility] Care Teams Surgical Product Sales Consultant Relationship Specialty Start Date End Date Mahogany Rios DMD [address] [place] [address] PCP - General 02/14/19
[2024-10-25 14:10] LABS: MANUAL DIFF FLAG NO
[2024-10-25 16:07] LABS: Basophils Percent Auto 0.4 % (0-2); Eosinophils Absolute Auto 0.2 X10*3/uL (0.0-0.4); Eosinophils Percent Auto 1.9 % (0-4); Hematocrit 40.6 % (37.0-47.0); Hemoglobin 13.3 g/dl (12.0-16.0); Imm Gran Abs Auto 0.05 X10*3/uL (0.00-0.03); Imm Gran Pct Auto 0.5 % (0.0-0.4); Lymphocytes Absolute Auto 3.3 X10*3/uL (1.2-4.9); Lymphocytes Percent Auto 33.3 % (20-40); Mean Corpuscular HGB Conc 32.8 g/dl (31.0-35.0); Mean Corpuscular Hemoglobin 32.5 pg (27.0-33.0); Mean Corpuscular Volume 99.3 fL (80.0-98.0); Mean Platelet Volume 9.5 fL (9.4-12.3); Monocytes Absolute Auto 0.6 X10*3/uL (0.1-1.2); Monocytes Percent Auto 5.5 % (2-11); Neutrophils Absolute Auto 5.8 x10*3/uL (2.0-8.3); Neutrophils Percent Auto 58.4 % (45-73); Platelet Count 308 X10*3/uL (160-400); Red Blood Count 4.09 X10*6/uL (4.20-5.50); Red Cell Distribution Width 14.4 % (11.0-16.0); White Blood Count 9.9 X10*3/uL (4.8-10.8)
[2024-10-25 16:37] LABS: Alanine Aminotransferase 29 U/L (0-31); Alkaline Phosphatase 89 U/L (39-117); Anion Gap 12 (12-20); Aspartate Amino Transferase 24 U/L (5-31); Bilirubin Total 0.5 mg/dL (0.0-1.0); Blood Urea Nitrogen 9 mg/dL (9-16); C Reactive Protein 1.38 mg/dL (< or = 0.50); Calcium 8.9 mg/dL (8.4-10.2); Carbon Dioxide 30 mmol/L (22-29); Chloride 104 mmol/L (96-108); Estimated Glomerular Filt Rate > 60; Glucose Random 85 mg/dL (60-115); Potassium 4.2 mmol/L (3.3-5.1); Sodium 142 mmol/L (135-145); Total Protein 6.9 g/dL (6.5-8.0)
[2024-10-25 16:48] LABS: Erythrocyte Sedimentation Rate 14 MM/HR (0-20)
[2024-10-28 01:39] LABS: TS Negative Control Passed; TS Panel A 0; TS Panel B 0; TS Positive Control Passed; TSpotTB Negative (Negative)
[2024-10-28 08:16] LABS: HBS Num1 > 1000.00 mIU/mL (0-7.99); HBc Num1 0.06 S/CO (0.00-0.79); HBsAGNum1 0.34 S/CO (0.00-0.99); Hepatitis A Antibody IgM 0.16 Index (0-0.79); Hepatitis B Core Antibody Nonreactive (Nonreactive); Hepatitis B Surface Antigen Negative (Negative); ~HepC Num1 0.33 S/CO (0.00-0.79); ~Hepatitis A Antibody IgM Nonreactive (Nonreactive); ~Hepatitis B Surface Antibody REACTIVE (Nonreactive); ~Hepatitis C Antibody Nonreactive (Nonreactive)
== END 2024-10-25 13:59 | disposition home or self-care (01) ==
LOC: HO.LAB 13:58
PROVIDERS: PCP Internal Medicine; Visit Provider Student in an Organized Health Care Education/Training Program
DX: Z00.01 Encounter for general adult medical examination with abnormal findings (principal); J45.998 Other asthma; F33.41 Major depressive disorder, recurrent, in partial remission; E78.9 Disorder of lipoprotein metabolism, unspecified; R73.01 Impaired fasting glucose; M06.9 Rheumatoid arthritis, unspecified; E24.2 Drug-induced Cushing's syndrome; Z87.39 Personal history of other diseases of the musculoskeletal system and connective tissue; Z91.09 Other allergy status, other than to drugs and biological substances; Z71.6 Tobacco abuse counseling; Z72.0 Tobacco use; Z79.899 Other long term (current) drug therapy; Z11.59 Encounter for screening for other viral diseases; Z11.7 Encounter for testing for latent tuberculosis infection
CPT/HCPCS: 36415; 80053; 85025; 85652; 86140; 86481; 86704; 86706; 86709; 86803; 87340; 96127; 99212; 99395; 99407

== ENCOUNTER 2024-10-25 15:31 | Outpatient (AMB) | payer OTHER, SELFPAY ==
[2024-10-25 15:32] VITALS: BP 108/68; PULSE 106; O2SAT 93; BMI 31.4
--- NOTE | 2024-10-25 15:32 | A.OFFPC_ITS ---
Vital Signs 10/25/24 15:32 Height 5 ft 5 in Weight 189 lb BMI 31.4 BP 108/68 Blood Pressure Location Rt brachial Position Sitting Pulse 106 H Pulse Source Pulse Oximeter Pulse Oximetry (%) 93 Oxygen Delivery Method Room Air Intake Visit Reasons: Annual PE Accompanied by: Self / Same As Patient Allergies amoxicillin [AMOXICILLIN] Allergy (Severe, Verified 10/25/24 15:33) Anaphylaxis ciprofloxacin [CIPROFLOXACIN] Allergy (Severe, Verified 10/25/24 15:33) ANAPHYLAXIS Penicillins Allergy (Severe, Verified 10/25/24 15:33) Anaphylaxis sulfadiazine Allergy (Severe, Verified 10/25/24 15:33) Rash Humira Allergy (Severe, Uncoded 08/23/24 15:19) Rash Medication List - Last Reconciled 10/25/24 by Sebastian Ramos MD alcohol swabs (Alcohol Prep Pads) pad topical atorvastatin 20 mg PO DAILY Breo Ellipta 200-25 mcg/dose (fluticasone furoate-vilanterol) 1 ea inhalation DAILY NS buprenorphine-naloxone 8-2 mg (Suboxone) 2.5 film buccal DAILY bupropion HCl 75 mg PO DAILY bupropion HCl XL 300 mg PO DAILY cetirizine 10 mg PO DAILY PRN cholecalciferol (vitamin D3) 125 mcg PO DAILY clonidine HCl 0.4 mg PO BEDTIME dupilumab (Dupixent) 300 mg (2 mL) subcut Q2W 28 days escitalopram oxalate 20 mg PO DAILY etonogestrel (Nexplanon) subdermal folic acid 3 mg (3 x 1 mg) PO DAILY hydroxyzine HCl 10 mg PO BEDTIME insulin syringe-needle U-100 (BD Insulin Syringe) USE ONCE WEEKLY WITH METHOTREXATE ipratropium-albuterol 0.5 mg-3 mg(2.5 mg base)/3 mL 3 mL PO Q4-6H PRN leucovorin calcium 5 mg PO QWEEK methotrexate sodium 25 mg subcut .QFRIDAY mupirocin 2% 1 appl topical BID tofacitinib (Xeljanz) 5 mg PO BID Ventolin HFA 90 mcg/actuation (albuterol sulfate) 2 puffs PO QID PRN 30 days NS Tobacco use date assessed: 10/25/24 Dental Screening Dental Screen Date: 10/25/24 Did you have a dental visit in the last 12 months?: Yes Did you have a dental problem in the last 6 months where you did not have access to dental care?: No Was dental information given to patient?: Patient has dentist HPI Annual PE HPI Details Physical exam appointment - The patient is a 39-year-old female pr esenting with tobacco abuse, COPD/asthma , rheumatoid arthritis, lipid disorder, on Suboxone, depression and anxiety seeing psychiatrist, allergies Came in today for physical exam The only medication from this office is atorvastatin - The patient has been smoking for some time and is currently trying to quit, having reduced her consumption to half a pack a day. 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 - She has been under treatment for rheum atoid arthritis, seeing a nuclear plant operator every three months and taking methotrexate. She reports having discontinued Humira following an allergic reaction. . - Depression is being managed by a psych iatrist with multiple medications, but details were not expanded upon in relation to the cough or smoking. Health Maintenance - Discussion on quitting smoking to redu ce health risks and improve lung function. 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 - check cholesterol during routine labs to monitor effects of atorvastatin. - follow-up with Pulmonary and Rheumatol ogy - follow up with OBGYN in February Review of Systems - General: No fever no chills - Neurological: No headaches no dizzin ess - Ear nose throat: No sore throat no hearing difficulty no ear pain - Cardiovascular: No syncope, no chest pain, no palpitations - Gastrointestinal: No nausea vomiting or diarrhea - Endocrine: No polyuria polydipsia no heat intolerance - Genitourinary: No dysuria - Skin: No new complaints Physical Exam General: Cooperative, healthy appearing, comfortable, no acute distress Orientation: Patient oriented x3 Head: Normal to inspection Ears: Within normal limit visually Nose: Normal external nose present Face and sinus: Normal facial exam Eyes: Appearance normal, extraocular movement intact pupils reactive Neck: Normal visual inspection and supple Respiratory: Wheezing present, normal respiratory effort and able to speak in complete sentences. Cardiovascular: S1 and S2 RRR GI: Normal to inspection. Soft to palpation and nontender Skin: Turgor normal, no acute findings Neuro: Patient oriented x3, motor sensory intact, balance intact, tandem pass Extremities: Normal to inspection PFSH Medical History Osteopenia Adalimumab (Humira) long-term use Nexplanon insertion Incarcerated umbilical hernia (09/29/23) Hx of drug abuse Pseudoangiomatous stromal hyperplasia of breast Uterus, adenomyosis History of back pain History of TMJ disorder Hx of renal calculi History of asthma Surgical History Hx of cholecystectomy Hx of breast lump removal Hx of hand surgery Hx of umbilical hernia repair Family History Father Graves disease DVT (deep venous thrombosis) HTN (hypertension) Mother Graves disease Cervical cancer Ovarian cancer Enmanuel disease Brother Graves disease Daughter ADHD Son ADHD Maternal Aunt Breast CA Other Mental health disorder Substance use disorder Social History Household Members: Significant Other and Children Housing: Apartment Are you a primary rn homecare to a significant other at home: No Do you presently have visiting nurse or other home services: No Alcohol intake: never Comment: counts correct Patient Tobacco Use Status: Current everyday Tobacco user Tobacco use type: Cigarette Cigarettes Per Day: 5 e-Cigarette/Vaping Use: Never Used service: No Current occupational status: employed Current occupation: rt handed/[employer] - [employer] Sexual orientation: Straight/Heterosexual Gender identity: Female Cognitive needs: No Hearing needs: No Vision needs: Yes Female Reproductive History Menstrual Age of Menarche: 12 Questionnaire PHQ-9 Over the last 2 weeks, how often have you been bothered by any of the following problems? 1. Little interest or pleasure in doing things: not at all 2. Feeling down, depressed, or hopeless: several days 3. Trouble falling or staying asleep, or sleeping too much: nearly every day 4. Feeling tired or having little energy: several days 5. Poor appetite or overeating: several days 6. Feeling bad about yourself - or that you are a failure or have let yourself or your family down: several days 7. Trouble concentrating on things, such as reading the newspaper or watching television: several days 8. Moving or speaking so slowly that other people could have noticed. Or the opposite - being so fidgety or restless that you have been moving around a lot more than usual: not at all 9. Thoughts that you would be better off or of hurting yourself in some way: not at all Total score: 8 Depression Screening Interpretation: Positive Depression Screening Done: Yes 46712 - PHQ-9 Billing: Yes Source: Developed by Drs. Christopher Morgan, Sofie Berg, Vishnu Richter and colleagues, with an educational mario from [employer]. Thrive Questionnaire Date Thrive assessed: 10/25/24 I am a: Patient What is your living situation today?: I have a steady place to live Within the past 12 months, did the food you bought not last and you didn't have the money to get more?: I choose not to answer this question Within the past 12 months, did you worry whether your food would run out before you got money to buy more?: I choose not to answer this question Do you have trouble paying for medicines?: I choose not to answer this question Do you have trouble getting transportation to medical appointments?: I choose not to answer this question Do you have trouble paying your heating and electricity bill?: I choose not to answer this question Do you have trouble taking care of your child, family member or friend?: I choose not to answer this question Do you have trouble with day-to-day activities such as bathing, preparing meals, shopping, managing finances, etc.?: I choose not to answer this question Are you currently unemployed and looking for a job?: No Are you interested in more education?: No Please select the resources that you would like help with: None Currently or been in a relationship where the following occur: No concerns reported THRIVE Score: 0 AUDIT C Alcohol Use Questionnaire (AUDIT-C) 1. How often do you have a drink containing alcohol?: Never 3. How often do you have six or more drinks on one occasion?: Never Total Score: 0 Score Reviewed/Action Taken: Yes MARIVEL-7 AMB Questionnaire MARIVEL-7 Date MARIVEL - 7 assessed: 10/25/24 Feeling nervous, anxious, or on edge: 0 = Not at all Not being able to stop or control worryin = Not at all Worrying too much about different things: 0 = Not at all Trouble relaxin = Not at all Being so restless that it is hard to sit still: 0 = Not at all Becoming easily annoyed or irritable: 0 = Not at all Feeling afraid as if something awful might happen: 0 = Not at all Total MARIVEL-7 score (0-4 normal; 5-9 mild; 10-14 moderate; 15-21 severe): 0 Source: Developed by Drs. Christopher Morgan, Sofie Berg, Vishnu Richter and colleagues, with an educational mario from [employer]. MARIVEL-7 Assessment Billing MARIVEL-7 Assessment Tool: MARIVEL-7 Assessment 81744 Physical exam (Primary Care) Vital Signs: Last Vital Signs Pulse 106 H 10/25/24 15:32 BP 108/68 10/25/24 15:32 Pulse Ox 93 10/25/24 15:32 Oxygen Delivery Method Room Air 10/25/24 15:32 BMI result Body Mass Index 31.4 Tobacco/Smoking Status: Tobacco use Status Tobacco use date assessed 10/25/24 10/25/24 15:33 Patient Tobacco Use Status Current everyday Tobacco 10/25/24 15:33 Tobacco use type Cigarette 10/25/24 15:33 e-Cigarette/Vaping Use Never Used 10/25/24 15:33 Are you ready to quit: Yes Tobacco cessation counseling provided: Yes Relapse Prevention: discussed the importance of a supportive environment Number of minutes spent counselin CPT code: 71809 - Greater than 10 minutes PHQ-9: PHQ-9 Score PHQ-9: Total score 8 10/25/24 15:33 Depression Screening Interpretation: Positive Thrive Assessment: Date of Thrive Assessment Date Thrive assessed 10/25/24 10/25/24 15:33 Currently or been in a relationship where the following occur: No concerns reported Coding Level of Care Code Est Pt Level 3 (80283) Est Pt Prev Care 18-39y(67346) Diagnoses Encounter for general adult medical examination with abnormal findings Z00.01 Tobacco abuse Z72.0 Uncontrolled persistent asthma J45.998 Environmental allergies Z91.09 Recurrent major depressive disorder, in partial remission F33.41 Active/Remission status: in partial remission Lipid disorder E78.9 Impaired fasting blood sugar R73.01 Tobacco abuse counseling Z71.6 Rheumatoid arthritis involving multiple sites, unspecified whether rheumatoid factor present M06.9 Rheumatoid arthritis location: multiple sites Rheumatoid factor presence: unspecified presence 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 History of osteopenia Z87.39 Additional Codes MARIVEL-7 Assessment Billing - MARIVEL-7 Assessment Tool: MARIVEL-7 Assessment 22209 ([id number]) PHQ-9 - 55293 - PHQ-9 Billing: Yes ([id number]) Vital Signs *Quality* - CPT code: 16505 - Greater than 10 minutes ([id number]) Assessment & Plan Assessment & Plan (1) Encounter for general adult medical examination with abnormal findings: Code(s): Z00.01 - Encounter for general adult medical examination with abnormal findings Category: Medical (2) Tobacco abuse: Code(s): Z72.0 - Tobacco use Category: Medical (3) Uncontrolled persistent asthma: Code(s): J45.998 - Other asthma Category: Medical (4) Environmental allergies: Code(s): Z91.09 - Other allergy status, other than to drugs and biological substances Category: Medical (5) Major depression, recurrent: Code(s): F33.9 - Major depressive disorder, recurrent, unspecified Category: Medical Qualifiers: Active/Remission status: in partial remission Qualified Code(s): F33.41 - Major depressive disorder, recurrent, in partial remission (6) Lipid disorder: Code(s): E78.9 - Disorder of lipoprotein metabolism, unspecified Category: Medical (7) Impaired fasting blood sugar: Code(s): R73.01 - Impaired fasting glucose Category: Medical (8) Tobacco abuse counseling: Comment: Extensive discussion provided regarding toxicity of smoking, and support system available Code(s): Z71.6 - Tobacco abuse counseling Category: Medical (9) Rheumatoid arthritis: Comment: -ve RF-ve CCP +RADHA (Rheumatoid nodule on biopsy) dx 04/2023 MTX 04/2023 ineffective advanced to SQ 06/2023 Enbrel added 12/2023 incomplete response Rinvoq started 03/2024 effective Code(s): M06.9 - Rheumatoid arthritis, unspecified Category: Medical Qualifiers: Rheumatoid arthritis location: multiple sites Rheumatoid factor presence: unspecified presence Qualified Code(s): M06.9 - Rheumatoid arthritis, unspecified (10) 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 Category: Medical (11) History of osteopenia: Code(s): Z87.39 - Personal history of other diseases of the musculoskeletal system and connective tissue Category: Medical Plan Physical exam appointment - The patient is a 39-year-old female presenting with tobacco abuse, COPD/asthma, rheumatoid arthritis, lipid disorder, on Suboxone, depression and anxiety seeing psychiatrist, allergies, history of cushingoid feature secondary to chronic steroid use but patient is off now Came in today for physical exam The only medication from this office is atorvastatin - The patient has been smoking for some time and is currently trying to quit, having reduced her consumption to half a pack a day. 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 - She has been under treatment for rheumatoid arthritis, seeing a nuclear plant operator every three months and taking methotrexate. She reports having discontinued Humira following an allergic reaction. . - Depression is being managed by a psychiatrist with multiple medications, but details were not expanded upon in relation to the cough or smoking. Health Maintenance - Discussion on quitting smoking to reduce health risks and improve lung function. Medications - Atorvastatin 20 mg for hyperlipidemia - Breo (fluticasone and vilanterol) for respiratory issues - Suboxone (buprenorphine and naloxone) indication not specified - Wellbutrin (bupropion) for depression - Cetirizine for allergies - Clonidine for hypertension or anxiety - Dupixent (dupilumab) for indication not specified - Hydroxyzine as needed for anxiety or allergies - Escitalopram for depression Employment - B[employer] ([employer]) - Work-related stress noted, particularly contributing to smoking habits Diagnostic results - Labs drawn recently; information unavailable currently - Previous labs in June showed normal liver enzymes Patient Instructions - Stop smoking to improve health and increase the effectiveness of medications. - check cholesterol during routine labs to monitor effects of atorvastatin. - follow-up with Pulmonary and Rheumatology - follow up with OBGYN in February Orders: Orders Hemoglobin A1c Today E78.9 - Disorder of lipoprotein metabolism, unspecified, R73.01 - Impaired fasting glucose Lipid Panel Today E78.9 - Disorder of lipoprotein metabolism, unspecified, R73.01 - Impaired fasting glucose Medications: Discontinued furosemide Discontinued Reason: Doctor's Order 40 mg PO DAILY 7 tabs 0RF
== END 2024-10-25 15:53 | disposition home or self-care (01) ==
LOC: HO.HMCC 15:31
PROVIDERS: PCP Internal Medicine; Visit Provider Internal Medicine
DX: Z00.01 Encounter for general adult medical examination with abnormal findings (principal); M06.9 Rheumatoid arthritis, unspecified; Z72.0 Tobacco use; Z91.09 Other allergy status, other than to drugs and biological substances; J45.998 Other asthma; F33.41 Major depressive disorder, recurrent, in partial remission; E78.9 Disorder of lipoprotein metabolism, unspecified; R73.01 Impaired fasting glucose; Z71.6 Tobacco abuse counseling; E24.2 Drug-induced Cushing's syndrome; Z87.39 Personal history of other diseases of the musculoskeletal system and connective tissue; F17.210 Nicotine dependence, cigarettes, uncomplicated

== ENCOUNTER 2024-11-01 13:18 | Outpatient (AMB) | payer OTHER, SELFPAY ==
[2024-11-01 13:19] VITALS: BP 108/70; PULSE 96; O2SAT 96; BMI 30.6
--- NOTE | 2024-11-01 13:19 | A.OFFVIS_ITS ---
Vital Signs 11/01/24 13:19 Height 5 ft 5 in Weight 183 lb 13.848 oz BMI 30.6 BP 108/70 Blood Pressure Location Lt brachial Position Sitting Pulse 96 Pulse Source Pulse Oximeter Pulse Oximetry (%) 96 Oxygen Delivery Method Room Air Intake Visit Reasons: Follow up Intake Note: Patient presents for follow up on RA. Allergies amoxicillin [AMOXICILLIN] Allergy (Severe, Verified 11/01/24 13:24) Anaphylaxis ciprofloxacin [CIPROFLOXACIN] Allergy (Severe, Verified 11/01/24 13:24) ANAPHYLAXIS Penicillins Allergy (Severe, Verified 11/01/24 13:24) Anaphylaxis sulfadiazine Allergy (Severe, Verified 11/01/24 13:24) Rash Humira Allergy (Severe, Uncoded 11/01/24 13:24) Rash Medication List - Last Reconciled 11/01/24 by Mally Harris MD alcohol swabs (Alcohol Prep Pads) pad topical atorvastatin 20 mg PO DAILY Breo Ellipta 200-25 mcg/dose (fluticasone furoate-vilanterol) 1 ea inhalation DAILY NS buprenorphine-naloxone 8-2 mg (Suboxone) 2.5 film buccal DAILY bupropion HCl 75 mg PO DAILY bupropion HCl XL 300 mg PO DAILY cetirizine 10 mg PO DAILY PRN cholecalciferol (vitamin D3) 125 mcg PO DAILY clonidine HCl 0.4 mg PO BEDTIME dupilumab (Dupixent) 300 mg (2 mL) subcut Q2W 28 days escitalopram oxalate 20 mg PO DAILY etonogestrel (Nexplanon) subdermal folic acid 3 mg (3 x 1 mg) PO DAILY hydroxyzine HCl 10 mg PO BEDTIME insulin syringe-needle U-100 (BD Insulin Syringe) USE ONCE WEEKLY WITH METHOTREXATE ipratropium-albuterol 0.5 mg-3 mg(2.5 mg base)/3 mL 3 mL PO Q4-6H PRN leucovorin calcium 5 mg PO QWEEK methotrexate sodium 25 mg subcut .QFRIDAY mupirocin 2% 1 appl topical BID tofacitinib (Xeljanz) 5 mg PO BID Ventolin HFA 90 mcg/actuation (albuterol sulfate) 2 puffs PO QID PRN 30 days NS HPI Comments Details: Patient is a 39-year-old female with depression/anxiety, asthma, positive RADHA and seronegative rheumatoid arthritis here today for follow up Interval History: Patient last seen 08/09/2024 with me. At that time she was following up for an urgent visit after getting a rash to recently started Humira. Humira was discontinued at that visit and she was started on Xeljanz she is here today for follow up Currently on Xeljanz and patient states she is doing better She was forgetting to take the second dose but started putting a reminder on her phone Rheumatologic History: -ve RF-ve CCP +RADHA (Rheumatoid nodule on biopsy) dx 04/2023 MTX 04/2023 ineffective advanced to SQ 06/2023 Enbrel added 12/2023 incomplete response Rinvoq started 03/2024 effective Humira 06/2024 - rash Xeljanz 08/2024 Current Rheumatology Medication(s): Xeljanz 5mg bid Methotrexate 25 mg subQ weekly Folic acid 3 mg daily Levocorin 5mg weekly PFSH Medical History Osteopenia Adalimumab (Humira) long-term use Nexplanon insertion Incarcerated umbilical hernia (09/29/23) Hx of drug abuse Pseudoangiomatous stromal hyperplasia of breast Uterus, adenomyosis History of back pain History of TMJ disorder Hx of renal calculi History of asthma Surgical History Hx of cholecystectomy Hx of breast lump removal Hx of hand surgery Hx of umbilical hernia repair Family History Father Graves disease DVT (deep venous thrombosis) HTN (hypertension) Mother Graves disease Cervical cancer Ovarian cancer Enmanuel disease Brother Graves disease Daughter ADHD Son ADHD Maternal Aunt Breast CA Other Mental health disorder Substance use disorder Social History Household Members: Significant Other and Children Housing: Apartment Are you a primary care advocate to a significant other at home: No Do you presently have visiting nurse or other home services: No Alcohol intake: never Comment: counts correct Patient Tobacco Use Status: Current everyday Tobacco user Tobacco use type: Cigarette Cigarettes Per Day: 5 e-Cigarette/Vaping Use: Never Used service: No Current occupational status: employed Current occupation: rt handed/[employer]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 [employer]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 [employer] - [employer] Sexual orientation: Straight/Heterosexual Gender identity: Female Cognitive needs: No Hearing needs: No Vision needs: Yes Female Reproductive History Menstrual Age of Menarche: 12 Review of Systems Const Details: Review of Systems Constitutional: Denies fever, chills, weight loss ENT: Denies vision changes, eye pain or eye redness, dental caries, dry mouth GI: Denies nausea, vomiting, diarrhea, abdominal pain, change in BM Pulm: Denies SOB, GARCIA, hemoptysis, wheezing Cards: Denies chest pain, palpitations Skin: Denies Raynaud's, rash, nail changes, photosensitivity, RESEARCH ASSISTANT: Denies headaches, weakness, paresthesias, recurrent falls MSK: as per HPI All other systems reviewed and are unremarkable except noted above Physical Exam Vital Signs: BMI result Body Mass Index 30.6 Vital signs reviewed Physical Examination CONSTITUITIONAL Patient alert and cooperative. Well appearing and in no apparent painful distress HEENT Conjunctiva and sclera clear. ?Pupils equal round and reactive to light. ?No lymphadenopathy. ? CHEST/RESPIRATORY SYSTEM Normal respiratory effort and able to speak in complete sentences. ?Clear to auscultation bilaterally. ?No crackles, rales, rhonchi, wheezes heard. CARDIAC SYSTEM Regular rate and rhythm. ?S1 and S2 heard no murmurs. ?Radial pulses intact bilaterally MSK Hands: ?Good under baster strength bilaterally. No further swelling but still with TTP of the MCPs Wrists: ?Full range of motion at the wrists without pain. ?No tenderness to palpation or synovitis noted to the wrists. Elbows: Full range of motion without pain. No tenderness, weakness, swelling, increased warmth or erythema. Shoulders: Full range of motion without pain. No weakness, swelling, increased warmth or erythema. TTP of bilateral AC joints Knees: ?Full range of motion. ?No tenderness, swelling, increased warmth or erythema.?No effusion or crepitations Ankles: Full range of motion. ?No tenderness, swelling, increased warmth or erythema.? Feet: ?Positive squeeze test bilaterally. Tender points:?No tenderness to palpation of the bilateral trapezius, supraspinatus, greater trochanters, anterior costochondral junctions, bilateral gluteal areas, bilateral suboccipital muscle insertions SKIN Skin intact without rashes. Const Other: Vital signs reviewed. Constitutional: Non-toxic appearing. No acute distress. Well-developed and well-nourished. HEENT: Normocephalic and atraumatic. Skin: Warm and dry. There are 2 small pustular nodules with overlying crusting to the right posterior scalp at the hairline with mild surrounding erythema. There is no fluctuance or induration. There is no purulent drainage. Neck: Full and painless range of motion. No cervical lymphadenopathy. Cardio: Regular rate. No lower extremity edema. Pulmonary: No respiratory distress. No accessory muscle usage. Musculoskeletal: Normal range of motion in joints throughout the body. No deformity or other signs of injury. Neuro: Alert and oriented x4. Cranial nerves 2-12 grossly intact. No focal deficits appreciated. Psych: Normal mood and affect. Results Reviewed Results Reviewed: Laboratory Tests 06/19/24 10/25/24 16:15 14:07 WBC 9.9 RBC 4.09 L Hgb 13.3 Hct 40.6 Plt Count 308 D ESR 14 Sodium 142 Potassium 4.2 Chloride 104 Carbon Dioxide 30 H BUN 9 Creatinine 0.68 AST 24 ALT 29 C-Reactive Protein 0.99 H 1.38 H Rheumatology Labs 03/31/23 06/30/23 12/19/23 16:30 14:48 09:39 Rheumatoid Factor < 13.0 Cycl Citrul Peptide IgG <16 RADHA Screen POSITIVE A RADHA Titer 1:80 H Double Strand DNA Ab 6 H [id number] IgG Antibody Complement C3 70 L Complement C4 11 L 03/15/24 12:15 Rheumatoid Factor Cycl Citrul Peptide IgG RADHA Screen RADHA Titer Double Strand DNA Ab 8 H [id number] IgG Antibody 19 H Complement C3 Complement C4 Infectious Labs 10/25/24 14:07 Hepatitis A IgM Ab Nonreactive Hep Bs Antigen Negative Hep Bs Antibody REACTIVE Hep B Core Total Ab Nonreactive Hepatitis C Ab (EIA) Nonreactive TB Test (T-Spot) Com Negative Assessment & Plan Assessment & Plan (1) Rheumatoid arthritis: Comment: -ve RF-ve CCP +RADHA (Rheumatoid nodule on biopsy) dx 04/2023 MTX 04/2023 ineffective advanced to SQ 06/2023 Enbrel added 12/2023 incomplete response Rinvoq started 03/2024 effective Code(s): M06.9 - Rheumatoid arthritis, unspecified Category: Medical Qualifiers: Rheumatoid arthritis location: multiple sites Rheumatoid factor presence: unspecified presence Qualified Code(s): M06.9 - Rheumatoid arthritis, unspecified Plan: #Seronegative RA Patient is a 39-year-old female with seronegative rheumatoid arthritis. She still continues to have tender joints, but improved swelling. Her CRP is still elevated as well. Discussed with patient about changing the medication and she would like to continue with the Xeljanz for another 3 months since she was not taking the medication as prescribed. Plan - Methotrexate 25mg SC weekly - Folic acid 3mg daily - Leucovorin 5mg weekly the day after MTx - Xeljanz 5 mg b.i.d. - RTC 3 months - Labs prior to visit: CBC, CMP, ESR, CRP (2) Osteopenia: Comment: DEXA 06/2024: L spine -1.7, Left hip total -0.7, Left femoral neck -1.3 Code(s): M85.80 - Other specified disorders of bone density and structure, unspecified site Category: Medical Qualifiers: Osteopenia location: multiple sites Qualified Code(s): M85.89 - Other specified disorders of bone density and structure, multiple sites Plan: #Osteopenia Patient with osteopenia of the L-spine and the left femoral neck. Risk factors for this are chronic prednisolone use and rheumatoid arthritis. Given that she is 39 she can not officially use the FRAX index but calculating based on an age of 40 her FRAX for major osteoporotic fracture is 4.4 and hip fracture is 0.4%. This does not meet criteria to commence bisphosphonates or any other treatment. I discussed this with the patient and in addition to vitamin-D supplementation and ensuring calcium intake she is going to increase her weight-bearing exercises. 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 Limit alcohol and avoid Bactrim ? 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 Plan: #Long-term Use of LELE inhibitor: Mayur Discussed with patient the benefits and risks of LELE inhibitors for the management of the rheumatic condition Benefits include reduce pain, maintenance of remission and reduction of flares Risks include thromboembolic events, skin cancer and nonmelanoma skin cancers, other forms of cancer, cardiovascular alcohol and mortality Advise patient that they are to hold the medication and for up to 1 week after a febrile illness or an open skin wound Plan I spent 30 minutes reviewing the record and labs, taking a history, examining the patient, discussing the treatment plan and documenting in the medical record Orders: Orders C Reactive Protein 3 Months M06.9 - Rheumatoid arthritis, unspecified Erythrocyte Sedimentation Rate 3 Months M06.9 - Rheumatoid arthritis, unspecified Complete Blood Count Auto Diff 3 Months M06.9 - Rheumatoid arthritis, unspecified Comprehensive Met. 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
--- OUTSIDE RECORDS SUMMARY | 2024-11-01 13:26 | XMS_ITS | Clinical Summary ---
Author Organization [facility] Address [address] [place] [address] Care Team Providers Care Respite Worker Name Role Phone Mahogany Rios DMD Primary Care Provider [phone] Source Comments PLEASE NOTE, if this patient [...] Pap Smear 2006 Hypertension Screening (#1) 03/04/2023 [id number] ( - season) 2024 Imm-Influenza (#1) 2024 Alcohol and Drug Screen 06/05/2024 Depression Annual Screen 06/05/2024 Cervical Ablation/Cold-Knife Conization Discontinued Cervical Cryotherapy Discontinued Colposcopy Discontinued Endometrial Biopsy Discontinued Excision/Leep Discontinued HPV Genotyping Discontinued Vaginal Pap Discontinued Vulvoscopy Discontinued Insurance [facility] NET DENTAL Care Teams Respite Worker Relationship Specialty Start Date End Date Mahogany Rios DMD [address] [place] [id number] PCP - General 02/14/19
== END 2024-11-01 13:51 | disposition home or self-care (01) ==
LOC: HO.RHE 13:18
PROVIDERS: PCP Internal Medicine; Visit Provider Student in an Organized Health Care Education/Training Program
DX: M06.9 Rheumatoid arthritis, unspecified (principal); M85.89 Other specified disorders of bone density and structure, multiple sites; Z79.631 Long term (current) use of antimetabolite agent; Z79.622 Long term (current) use of Janus kinase inhibitor
CPT/HCPCS: 99214; G2211

== ENCOUNTER → 2024-11-01 13:18 | Outpatient (BNVA) | payer OTHER, SELFPAY | PROVIDERS: PCP Internal Medicine; Visit Provider Student in an Organized Health Care Education/Training Program | DX: M06.9 Rheumatoid arthritis, unspecified (principal); M85.89 Other specified disorders of bone density and structure, multiple sites; Z79.631 Long term (current) use of antimetabolite agent; Z79.622 Long term (current) use of Janus kinase inhibitor | CPT/HCPCS: 99212 ==

== ENCOUNTER 2024-11-22 14:26 | Outpatient (REF) | payer OTHER, SELFPAY ==
--- OUTSIDE RECORDS SUMMARY | 2024-11-22 14:28 | XMS_ITS | Clinical Summary ---
Author Organization [facility] Address [address] [place] [address] Care Team Providers Care Lock Plater Name Role Phone Mahogany Rios DMD Primary Care Provider Source Comments PLEASE NOTE, if this patient [...] Pap Smear 2006 Hypertension Screening (#1) 03/04/2023 [id number] ( season) 2024 Alcohol and Drug Screen 06/05/2024 Depression Annual Screen 06/05/2024 Imm-Influenza (Season Ended) 2025 Cervical Ablation/Cold-Knife Conization Discontinued Cervical Cryotherapy Discontinued Colposcopy Discontinued Endometrial Biopsy Discontinued Excision/Leep Discontinued HPV Genotyping Discontinued Vaginal Pap Discontinued Vulvoscopy Discontinued Insurance [facility] S[facility] NET DENTAL Care Teams Lock Plater Relationship Specialty Start Date End Date Mahogany Rios DMD [address] [place] [address] PCP - General 02/14/19
[2024-11-22 15:33] LABS: Estimated Average Glucose 108 mg/dL; Hemoglobin A1c % 5.4 % (<6.0)
[2024-11-22 15:47] LABS: Cholesterol 153 mg/dL (<200); HDL Cholesterol 35 mg/dL (>40); LDL Cholesterol Calculated 103 mg/dL (<100); Triglycerides 77 mg/dL (<150)
== END 2024-11-22 14:27 | disposition home or self-care (01) ==
LOC: HO.LAB 14:26
PROVIDERS: PCP Internal Medicine; Visit Provider Student in an Organized Health Care Education/Training Program
DX: R73.01 Impaired fasting glucose (principal); E78.9 Disorder of lipoprotein metabolism, unspecified
CPT/HCPCS: 36415; 80061; 83036

== ENCOUNTER 2024-11-29 15:59 | Outpatient (AMB) | payer OTHER, SELFPAY ==
--- OUTSIDE RECORDS SUMMARY | 2024-11-29 16:01 | XMS_ITS | Clinical Summary ---
Author Organization [facility] Address [address] [place] [address] Care Team Providers Care Asset Administrator Name Role Phone Mahogany Rios DMD Primary Care Provider [phone] Source Comments PLEASE NOTE, if this patient [...] Pap Smear 2006 Hypertension Screening (#1) 03/04/2023 [id number] ( season) 2024 Alcohol and Drug Screen 06/05/2024 Depression Annual Screen 06/05/2024 Imm-Influenza (Season Ended) 2025 Cervical Ablation/Cold-Knife Conization Discontinued Cervical Cryotherapy Discontinued Colposcopy Discontinued Endometrial Biopsy Discontinued Excision/Leep Discontinued HPV Genotyping Discontinued Vaginal Pap Discontinued Vulvoscopy Discontinued Insurance [facility] DENTAL [facility] SAFETY NET DENTAL Care Teams Asset Administrator Relationship Specialty Start Date End Date Mahogany Rios DMD [address] [place] [address] PCP - General 02/14/19
[2024-11-29 16:02] VITALS: BP 112/68; PULSE 79; O2SAT 96; BMI 30.4
--- NOTE | 2024-11-29 16:02 | MHC.OFFVIS ---
Vital Signs 11/29/24 16:02 Height 5 ft 5 in Weight 182 lb 8.684 oz BMI 30.4 BP 112/68 Blood Pressure Location Rt brachial Position Sitting Pulse 79 Pulse Source Pulse Oximeter Pulse Oximetry (%) 96 Oxygen Delivery Method Room Air Intake Visit Reasons: follow up Intake Note: Patient presents for RA follow up today. Allergies amoxicillin (AMOXICILLIN) Allergy (Severe, Verified 11/29/24 16:06) Anaphylaxis ciprofloxacin (CIPROFLOXACIN) Allergy (Severe, Verified 11/29/24 16:06) ANAPHYLAXIS Penicillins Allergy (Severe, Verified 11/29/24 16:06) Anaphylaxis sulfadiazine Allergy (Severe, Verified 11/29/24 16:06) Rash Humira Allergy (Severe, Uncoded 11/29/24 16:06) Rash HPI Comments Details: Patient is a 39-year-old female with depression/anxiety, asthma, positive RADHA and seronegative rheumatoid arthritis here today for follow up Interval History: Patient last seen 11/01/24 with me - Doing better on Xeljanz, but forgetting the 2nd dose - Still had some synovitis but patient wanted to give the Xeljanz a proper trial Today, - Doing well on Xeljanz - Minimal joint complaints Rheumatologic History: -ve RF-ve CCP +RADHA (Rheumatoid nodule on biopsy) dx 04/2023 MTX 04/2023 ineffective advanced to SQ 06/2023 Enbrel added 12/2023 incomplete response Rinvoq started 03/2024 effective Humira 06/2024 - rash Xeljanz 08/2024 Current Rheumatology Medication(s): Xeljanz 5mg bid Methotrexate 25 mg subQ weekly Folic acid 3 mg daily Levocorin 5mg weekly PFSH Medical History Osteopenia Adalimumab (Humira) long-term use Nexplanon insertion Incarcerated umbilical hernia (09/29/23) Hx of drug abuse Pseudoangiomatous stromal hyperplasia of breast Uterus, adenomyosis History of back pain History of TMJ disorder Hx of renal calculi History of asthma Surgical History Hx of cholecystectomy Hx of breast lump removal Hx of hand surgery Hx of umbilical hernia repair Family History Father Graves disease DVT (deep venous thrombosis) HTN (hypertension) Mother Graves disease Cervical cancer Ovarian cancer Enmanuel disease Brother Graves disease Daughter ADHD Son ADHD Maternal Aunt Breast CA Other Mental health disorder Substance use disorder Social History Household Members: Significant Other and Children Housing: Apartment Are you a primary care management assistant to a significant other at home: No Do you presently have visiting nurse or other home services: No Alcohol intake: never Comment: counts correct Patient Tobacco Use Status: Current everyday Tobacco user Tobacco use type: Cigarette Cigarettes Per Day: 5 e-Cigarette/Vaping Use: Never Used service: No Current occupational status: employed 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 - [employer] Sexual orientation: Straight/Heterosexual Gender identity: Female Cognitive needs: No Hearing needs: No Vision needs: Yes Female Reproductive History Menstrual Age of Menarche: 12 Review of Systems Const Details: Review of Systems Constitutional: Denies fever, chills, weight loss ENT: Denies vision changes, eye pain or eye redness, dental caries, dry mouth GI: Denies nausea, vomiting, diarrhea, abdominal pain, change in BM Pulm: Denies SOB, GARCIA, hemoptysis, wheezing Cards: Denies chest pain, palpitations Skin: Denies Raynaud's, rash, nail changes, photosensitivity, FLATWORK FINISHER HAND: Denies headaches, weakness, paresthesias, recurrent falls MSK: as per HPI All other systems reviewed and are unremarkable except noted above Physical Exam Vital Signs: Last Vital Signs Pulse 79 11/29/24 16:02 BP 112/68 11/29/24 16:02 Pulse Ox 96 11/29/24 16:02 Oxygen Delivery Method Room Air 11/29/24 16:02 BMI result Body Mass Index 30.4 Vital signs reviewed Physical Examination CONSTITUITIONAL Patient alert and cooperative. Well appearing and in no apparent painful distress HEENT Conjunctiva and sclera clear. ?Pupils equal round and reactive to light. ?No lymphadenopathy. ? CHEST/RESPIRATORY SYSTEM Normal respiratory effort and able to speak in complete sentences. ?Clear to auscultation bilaterally. ?No crackles, rales, rhonchi, wheezes heard. CARDIAC SYSTEM Regular rate and rhythm. ?S1 and S2 heard no murmurs. ?Radial pulses intact bilaterally MSK Hands: ?Good rivet tester strength bilaterally. No swelling or TTP to MCPs or PIPs Wrists: ?Full range of motion at the wrists without pain. ?No tenderness to palpation or synovitis noted to the wrists. Elbows: Full range of motion without pain. No tenderness, weakness, swelling, increased warmth or erythema. Shoulders: Full range of motion without pain. No weakness, swelling, increased warmth or erythema. TTP of bilateral AC joints Knees: ?Full range of motion. ?No tenderness, swelling, increased warmth or erythema.?No effusion or crepitations Ankles: Full range of motion. ?No tenderness, swelling, increased warmth or erythema.? Feet: ?Negative squeeze test bilaterally. Tender points:?No tenderness to palpation of the bilateral trapezius, supraspinatus, greater trochanters, anterior costochondral junctions, bilateral gluteal areas, bilateral suboccipital muscle insertions SKIN Skin intact without rashes. Const Other: Vital signs reviewed. Constitutional: Non-toxic appearing. No acute distress. Well-developed and well-nourished. HEENT: Normocephalic and atraumatic. Skin: Warm and dry. There are 2 small pustular nodules with overlying crusting to the right posterior scalp at the hairline with mild surrounding erythema. There is no fluctuance or induration. There is no purulent drainage. Neck: Full and painless range of motion. No cervical lymphadenopathy. Cardio: Regular rate. No lower extremity edema. Pulmonary: No respiratory distress. No accessory muscle usage. Musculoskeletal: Normal range of motion in joints throughout the body. No deformity or other signs of injury. Neuro: Alert and oriented x4. Cranial nerves 2-12 grossly intact. No focal deficits appreciated. Psych: Normal mood and affect. Results Reviewed Results Reviewed: Laboratory Tests 06/19/24 10/25/24 16:15 14:07 WBC 9.9 RBC 4.09 L Hgb 13.3 Hct 40.6 Plt Count 308 D ESR 14 Sodium 142 Potassium 4.2 Chloride 104 Carbon Dioxide 30 H BUN 9 Creatinine 0.68 Calcium 8.9 Total Bilirubin 0.5 AST 24 ALT 29 Alkaline Phosphatase 89 C-Reactive Protein 0.99 H 1.38 H Laboratory Tests 10/25/24 14:07 Hepatitis A IgM Ab Nonreactive Hep Bs Antigen Negative Hep Bs Antibody REACTIVE Hep B Core Total Ab Nonreactive Hepatitis C Ab (EIA) Nonreactive TB Test (T-Spot) Com Negative DEXA 06/2024 FINDINGS: The bone mineral density of the lumbar spine is 0.970 with a T-score of -1.7, and a Z-score of -2.2. The bone mineral density of the left total hip is 0.920 with a T-score of -0.7, and a Z-score of -0.8. The bone mineral density of the left femoral neck is 0.851 with a T-score of -1.3, and a Z-score of -1.3. Unable to calculate FRAX Assessment & Plan Assessment & Plan (1) Rheumatoid arthritis: Comment: -ve RF-ve CCP +RADHA (Rheumatoid nodule on biopsy) dx 04/2023 MTX 04/2023 ineffective advanced to SQ 06/2023 Enbrel added 12/2023 incomplete response Rinvoq started 03/2024 effective Code(s): M06.9 - Rheumatoid arthritis, unspecified Category: Medical Qualifiers: Rheumatoid arthritis location: multiple sites Rheumatoid factor presence: unspecified presence Qualified Code(s): M06.9 - Rheumatoid arthritis, unspecified Plan: #Seronegative RA Patient is a 39-year-old female with seronegative rheumatoid arthritis. Doing much better now that she is consistent with her medications. Low disease activity today. Plan - Methotrexate 25mg SC weekly - Folic acid 3mg daily - Leucovorin 5mg weekly the day after MTx - Xeljanz 5 mg b.i.d. - RTC 4 months - Labs prior to visit: CBC, CMP, ESR, CRP (2) Osteopenia: Comment: DEXA 06/2024: L spine -1.7, Left hip total -0.7, Left femoral neck -1.3 Code(s): M85.80 - Other specified disorders of bone density and structure, unspecified site Category: Medical Qualifiers: Osteopenia location: multiple sites Qualified Code(s): M85.89 - Other specified disorders of bone density and structure, multiple sites Plan: #Osteopenia Patient with osteopenia of the L-spine and the left femoral neck. Risk factors for this are chronic prednisolone use and rheumatoid arthritis. Given that she is 39 she can not officially use the FRAX index but calculating based on an age of 40 her FRAX for major osteoporotic fracture is 4.4 and hip fracture is 0.4%. This does not meet criteria to commence bisphosphonates or any other treatment. I discussed this with the patient and in addition to vitamin-D supplementation and ensuring calcium intake she is going to increase her weight-bearing exercises. 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 Limit alcohol and avoid Bactrim ? Monitoring: ?CBC, BMP, LFTs every 3-4 months and hepatitis serologies as needed (4) Long-term current use of Janus kinase inhibitor: Code(s): Z79.622 - skilled nursing (current) use of Janus kinase inhibitor Plan: #Long-term Use of LELE inhibitor: Xeljanz Discussed with patient the benefits and risks of LELE inhibitors for the management of the rheumatic condition Benefits include reduce pain, maintenance of remission and reduction of flares Risks include thromboembolic events, skin cancer and nonmelanoma skin cancers, other forms of cancer, cardiovascular alcohol and mortality Advise patient that they are to hold the medication and for up to 1 week after a febrile illness or an open skin wound Plan I spent 30 minutes reviewing the record and labs, taking a history, examining the patient, discussing the treatment plan and documenting in the medical record Coding Level of Care Code Est Pt Level 4 (30775) Complex EM visit Add On G2211 Diagnoses Rheumatoid arthritis involving multiple sites, unspecified whether rheumatoid factor present M06.9 Rheumatoid arthritis location: multiple sites Rheumatoid factor presence: unspecified presence Osteopenia of multiple sites M85.89 Osteopenia location: multiple sites skilled nursing methotrexate user Z79.631 Long-term current use of Janus kinase inhibitor Z79.622
== END 2024-11-29 16:25 | disposition home or self-care (01) ==
LOC: HO.RHE 16:00
PROVIDERS: PCP Internal Medicine; Visit Provider Student in an Organized Health Care Education/Training Program
DX: M06.9 Rheumatoid arthritis, unspecified (principal); M85.89 Other specified disorders of bone density and structure, multiple sites; Z79.631 Long term (current) use of antimetabolite agent; Z79.622 Long term (current) use of Janus kinase inhibitor
CPT/HCPCS: 99214

== ENCOUNTER → 2024-11-29 15:59 | Outpatient (BNVA) | payer OTHER, SELFPAY | PROVIDERS: PCP Internal Medicine; Visit Provider Student in an Organized Health Care Education/Training Program | DX: M06.9 Rheumatoid arthritis, unspecified (principal); R76.8 Other specified abnormal immunological findings in serum; M85.89 Other specified disorders of bone density and structure, multiple sites; Z79.631 Long term (current) use of antimetabolite agent; Z79.622 Long term (current) use of Janus kinase inhibitor | CPT/HCPCS: 99212 ==

== ENCOUNTER 2025-01-27 12:46 | Outpatient (AMB) | payer OTHER, SELFPAY ==
[2025-01-27 13:32] VITALS: BP 130/64; PULSE 88; TEMP 36.7; O2SAT 95; BMI 29.8
--- NOTE | 2025-01-27 13:32 | AM.OFFWIN_ITS ---
Intake Vital Signs 3 01/27/25 13:32 Height 5 ft 5 in Weight 179 lb BMI 29.8 BP 130/64 Blood Pressure Location Rt brachial Position Sitting Pulse 88 Pulse Source Pulse Oximeter Temp 98.1 F Temp Source Oral Pulse Oximetry (%) 95 Oxygen Delivery Method Room Air Intake Visit Reasons: EP hit toe on corner of trailer Intake Note: pt presents with right big toe pain, swelling, Patient Tobacco Use Status: Current everyday Tobacco user Allergies amoxicillin (AMOXICILLIN) Allergy (Severe, Verified 01/27/25 13:34) Anaphylaxis ciprofloxacin (CIPROFLOXACIN) Allergy (Severe, Verified 01/27/25 13:34) ANAPHYLAXIS Penicillins Allergy (Severe, Verified 01/27/25 13:34) Anaphylaxis sulfadiazine Allergy (Severe, Verified 01/27/25 13:34) Rash Humira Allergy (Severe, Uncoded 11/29/24 16:06) Rash Do you need a note to return to daycare/school/sports/work: No HPI HPI Comments 2 History of Present Illness0 Details 39 y/o Female patient who presents to [facility] with c/o Trauma to her right Great Toe. Reports accidentally hitting the back of a Trailer with her great Toe yesterday Evening. Reports severe pain with Nail injury. She is Uptodate with her Tdap. Pt also c/o Wheezing and SOB. She is Asthmatic and uses Breo. Denies fevers, chills, nausea or vomiting. Denies Cough or CP. [facility] Medical History (Updated 01/27/25 @ 13:52 by Demetria Tabares NP) Asthma with acute exacerbation Contusion of right great toe with damage to nail Osteopenia Adalimumab (Humira) long-term use Nexplanon insertion Incarcerated umbilical hernia (09/29/23) Hx of drug abuse Pseudoangiomatous stromal hyperplasia of breast Uterus, adenomyosis History of back pain History of TMJ disorder Hx of renal calculi History of asthma Surgical History Hx of cholecystectomy Hx of breast lump removal Hx of hand surgery Hx of umbilical hernia repair Family History Father Graves disease DVT (deep venous thrombosis) HTN (hypertension) Mother Graves disease Cervical cancer Ovarian cancer Hart disease Brother Graves disease Daughter ADHD Son ADHD Maternal Aunt Breast CA Other Mental health disorder Substance use disorder Social History Household Members: Significant Other and Children Housing: Apartment Are you a primary rn coronary care unit to a significant other at home: No Do you presently have visiting nurse or other home services: No Alcohol intake: never Comment: counts correct Patient Tobacco Use Status: Current everyday Tobacco user Tobacco use type: Cigarette Cigarettes Per Day: 5 e-Cigarette/Vaping Use: Never Used service: No Current occupational status: employed 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 - [employer] Sexual orientation: Straight/Heterosexual Gender identity: Female Cognitive needs: No Hearing needs: No Vision needs: Yes Female Reproductive History Menstrual Age of Menarche: 12 Review of Systems Const All systems reviewed & are unremarkable except as noted in HPI and below Physical Exam Vital Signs: Last Vital Signs Temp 98.1 F 01/27/25 13:32 Pulse 88 01/27/25 13:32 BP 130/64 01/27/25 13:32 Pulse Ox 95 01/27/25 13:32 Oxygen Delivery Method Room Air 01/27/25 13:32 BMI result Body Mass Index 29.8 Const General: no acute distress Orientation/consciousness: patient oriented x3 Resp Effort & Inspection: normal respiratory effort, able to speak in complete sentences and audible wheezes Auscultation: no crackles, no rales, no rhonchi and wheezes Cardio Heart sounds: S1 normal heart sound present and S2 normal heart sound present Neuro General: patient oriented x3, gait normal and moves all extremities Extrem Ankle/foot/toe images: 2 1. RT Great Toe injury, bruise with dry Blood, TTP. Nail Damaged. Psych Speech and movement: Normal speech and movement present Office Procedures Nebulizer Treatment Nebulizer Treatment 31660-Umxrdcscs/MDI RX initial, or Nebulizer Subsequent Treatment Office Meds ipratropium 0.5 mg-albuterol 3 mg (2.5 mg base)/3 mL nebulization soln Performing Provider: Demetria Tabares NP Performing Location: [facility] Administered by: Demetria Tabares NP on 01/27/25 13:56 2 Dose Route Admin Location Dispensed Lot Number Expiration Date [facility] Customer Service Representative 3 mL inhalation 3 mL Assessment & Plan Assessment & Plan (1) Contusion of right great toe with damage to nail: Code(s): S90.211A - Contusion of right great toe with damage to nail, initial encounter Plan: Ordered Foot/Toe Xray to r/o Fx Cleaned toe and applied dressing on. Up to date with Tdap. NSAIDs for pain relief. (2) Asthma with acute exacerbation: Code(s): J45.901 - Unspecified asthma with (acute) exacerbation Plan: Ordered Neb Treatment. Ordered Prednisone Advised to continue with Neb Tx at home. Orders: Orders 2 AMB Nebulizer Treatment Today J45.901 - Unspecified asthma with (acute) exacerbation XR toe RT min 2V Today S90.211A - Contusion of right great toe with damage to nail, initial encounter Medications: New 2 ibuprofen 800 mg PO Q8H 20 tabs 0RF S90.211A - Contusion of right great toe with damage to nail, initial encounter prednisone 50 mg PO DAILY 5 tabs 0RF 5 days J45.901 - Unspecified asthma with (acute) exacerbation Refilled 2 ipratropium-albuterol 0.5 mg-3 mg(2.5 mg base)/3 mL 3 mL PO Q4-6H PRN 180 mL 1RF for wheezing J45.901 - Unspecified asthma with (acute) exacerbation Coding Level of Care Code Est Pt Level 4 (48543) Diagnoses Contusion of right great toe with damage to nail S90.211A Asthma with acute exacerbation J45.901 CPT Codes Nebulizer Treatment - Nebulizer Treatment, initial or subsequent: 37856- Nebulizer/MDI RX initial, or Nebulizer Subsequent Treatment ([id number]) Time Spent (min) 20
== END 2025-01-27 14:08 | disposition home or self-care (01) ==
PROVIDERS: PCP Internal Medicine; Visit Provider Nurse Practitioner Family
DX: S90.211A Contusion of right great toe with damage to nail, initial encounter (principal); J45.901 Unspecified asthma with (acute) exacerbation

== ENCOUNTER 2025-01-27 12:46 | Outpatient (REF) | payer OTHER, SELFPAY ==
--- NOTE | ~2025-01-27 | XR_ITS ---
EXAMINATION: XR TOES 2 OR MORE VIEWS RIGHT HISTORY: S90.211A - Contusion of right great toe with damage to nail, initial encounter... COMPARISON: Correlation is made with plain films of the right foot dated 03/31/2023. FINDINGS: Three views of the right great toe are submitted. Osseous mineralization is normal. There is no fracture or dislocation. There is mild degenerative change involving the MTP joint with joint space narrowing. The soft tissues are unremarkable. XR/XR toe RT min 2V IMPRESSION: No evidence of fracture of the right great toe. Electronically signed by: Christopher Sarkar MD 01/27/2025 02:23 PM EDT
== END 2025-01-27 12:47 | disposition home or self-care (01) ==
LOC: HO.HMGCX 12:46
PROVIDERS: PCP Internal Medicine; Visit Provider Nurse Practitioner Family
DX: S90.211A Contusion of right great toe with damage to nail, initial encounter (principal); J45.901 Unspecified asthma with (acute) exacerbation; F17.200 Nicotine dependence, unspecified, uncomplicated; W22.8XXA Striking against or struck by other objects, initial encounter
CPT/HCPCS: 73660; 94640; 99212

== ENCOUNTER → 2025-01-27 14:03 | Outpatient (BNV) | payer OTHER, SELFPAY | PROVIDERS: PCP Internal Medicine; Visit Provider Radiology Diagnostic Radiology | DX: M79.674 Pain in right toe(s) (principal) | CPT/HCPCS: 73660 ==

== ENCOUNTER 2025-02-09 12:59 | Emergency (ER) | payer OTHER, SELFPAY ==
--- NOTE | ~2025-02-09 | XR_ITS ---
CLINICAL HISTORY: hypoxic, Pneumonia? 1 view chest x-ray Comparison: None provided Findings: Airspace opacities within the bilateral mid and lower lungs. No john consolidation. No gross evidence of pleural fluid. Normal size heart. No acute fracture. IMPRESSION: Bilateral pulmonary infiltrates and/or edema. This document has been electronically signed by: Marlena French MD on 02/09/2025 14:45:10
--- NOTE | ~2025-02-09 | XR_ITS ---
CLINICAL HISTORY: fall. Fracture? 4 view left wrist Comparison: CR/SR - XR HAND AND WRIST COMPLETE LEFT - 03/31/23 16:58 EDT Findings: Bones intact. No dislocations. No significant arthritic change or erosions. No radiopaque foreign body. IMPRESSION: 1. No acute findings This document has been electronically signed by: Marlena French MD on 02/09/2025 14:48:35
--- NOTE | ~2025-02-09 | XR_ITS ---
CLINICAL HISTORY: fall. fracture 3 view left hand Comparison: CR/SR - XR HAND AND WRIST COMPLETE LEFT - 03/31/23 16:58 EDT Findings: Bones intact. No dislocations. No significant arthritic change. No erosions. No suspicious radiopaque foreign body. IMPRESSION: 1. No acute bony abnormality, This document has been electronically signed by: Marlena French MD on 02/09/2025 14:50:09
[2025-02-09 13:04] VITALS: BP 112/72; PULSE 87; RESP 18; TEMP 36.2; O2SAT 91
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
[2025-02-09 14:00] LABS: COVID-19 Test Negative (Negative); IDNOW Serial# 58CA691E
[2025-02-09 14:18] LABS: IDNOW Serial# 55D5AD1C; Influenza B2 Negative (Negative)
--- OUTSIDE RECORDS SUMMARY | 2025-02-09 15:21 | XMS_ITS | Clinical Summary ---
Author Organization [facility] Address [address] [place] [address] Care Team Providers Care Filenet Admin Name Role Phone Mahogany Rios DMD Primary Care Provider [phone] Source Comments PLEASE NOTE, if this patient [...] Pap Smear 2006 Hypertension Screening (#1) 03/04/2023 Alcohol and Drug Screen 06/05/2024 Depression Annual Screen 06/05/2024 [id number] ( season) 2025 Imm-Influenza (#1) 2025 Cervical Ablation/Cold-Knife Conization Discontinued Cervical Cryotherapy Discontinued Colposcopy Discontinued Endometrial Biopsy Discontinued Excision/Leep Discontinued HPV Genotyping Discontinued Vaginal Pap Discontinued Vulvoscopy Discontinued Insurance [facility] [employer] [employer]AL Care Teams Filenet Admin Relationship Specialty Start Date End Date Mahogany Rios DMD [address] [place] [address] PCP - General 02/14/19
--- OUTSIDE RECORDS SUMMARY | 2025-02-09 15:21 | XMS_ITS | Clinical Summary ---
Author Organization [facility] Address [address] [place] [phone] Phone Care Team Providers Care Machine Wedger Name Role Phone Pcp, Not Required Primary Care Provider Unavaila ble Social History Tobacco Use Types Packs/Day Years Used Date Smoking Tobacco: Never Assessed Education Answer Date Recorded Are you interested in more education? Not on kierra e 09/30/2022 Are you concerned about learning? Not on file 09/30/2022 No 09/30/2022 No 09/30/2022 Digital Access Answer Date Recorded No 10/29/2022 No 10/29/2022 No 10/29/2022 Reliable internet access at home? Not on file 10/29/2022 Device with a working camera? Not on file Comments Unknown Sex and Gender Information Value Date Recorded Sex Assigned at Not on file Legal Sex Female 4:20 PM EDT Gender Identity Not on file Sexual Orientation Not on file Plan of Treatment Health Maintenance Due Date Last Done Comments DEPRESSION SCREENING 1997 SMOKING Hx and SMOKELESS TOBACCO SCREENING 1998 HEPATITIS C SCREENING 2003 HIV ONE-TIME SCREENING (18-65 YEARS) 2003 PAP SMEAR 2006 INFLUENZA VACCINE (#1) 2025 9, 04/09/2015, 02/11/2010, Additional history exists COVID-19 VACCINE ( season) 2025 06/29/2020, 06/01/2020 Adult Td,Tdap Booster 04/09/2025 04/09/2015, 008 HEPATITIS A VACCINES Aged Out No long er eligible based on patient's age to complete this topic HIB VACCINES Aged Out No longer eligi ble based on patient's age to complete this topic MENINGOCOCCAL VACCINES (ACWY) Aged Out No longer eligible based on patient's age to complete this topic MENINGOCOCCAL VACCINES (B) Aged Out N o longer eligible based on patient's age to complete this topic PNEUMOCOCCAL VACCINES (0-49 years) Aged Out No longer eligible based on patient's age to complete this topic Medical Devices Not on file Insurance ACO ACO ACO ACO ACO ACO ACO ACO ACO Care Teams Machine Wedger Relationship Specialty Start Date End Date Pcp, Not Required [address] [place] [id number] PCP - General 09/29/19 Additional Source Comments The information contained in this document represents components of the legal health record. It is not the complete legal health record.[facility]
[2025-02-09 15:24] VITALS: BP 112/72; PULSE 87; RESP 18; TEMP 36.2; O2SAT 93
== END 2025-02-09 15:26 | disposition home or self-care (01) ==
PROVIDERS: Physician Assistant; Emergency Provider Emergency Medicine; PCP Internal Medicine
DX: S63.502A Unspecified sprain of left wrist, initial encounter (principal); R06.02 Shortness of breath; M25.532 Pain in left wrist; J18.9 Pneumonia, unspecified organism; R05.9 Cough, unspecified; F17.210 Nicotine dependence, cigarettes, uncomplicated; X58.XXXA Exposure to other specified factors, initial encounter; Y93.9 Activity, unspecified; Y92.9 Unspecified place or not applicable; Y99.9 Unspecified external cause status; Z03.818 Encounter for observation for suspected exposure to other biological agents ruled out; Z11.52 Encounter for screening for COVID-19; Z79.899 Other long term (current) drug therapy
CPT/HCPCS: 71045; 73110; 73120; 87502; 87635; 99282; 99283

== ENCOUNTER → 2025-02-09 13:08 | Outpatient (BNV) | payer OTHER, SELFPAY | PROVIDERS: PCP Internal Medicine; Visit Provider Radiology Diagnostic Radiology | DX: R09.02 Hypoxemia (principal); M25.532 Pain in left wrist; M79.642 Pain in left hand | CPT/HCPCS: 71045; 73110; 73120 ==

== ENCOUNTER 2025-02-18 13:17 | Outpatient (REF) | payer OTHER, SELFPAY ==
[2025-02-18 13:29] LABS: MANUAL DIFF FLAG NO
[2025-02-18 14:10] LABS: Hematocrit 36.7 % (37.0-47.0); Hemoglobin 11.9 g/dl (12.0-16.0); Imm Gran Abs Auto 0.06 X10*3/uL (0.00-0.03); Imm Gran Pct Auto 0.6 % (0.0-0.4); Lymphocytes Absolute Auto 1.5 X10*3/uL (1.2-4.9); Mean Corpuscular HGB Conc 32.4 g/dl (31.0-35.0); Mean Corpuscular Hemoglobin 32.0 pg (27.0-33.0); Mean Corpuscular Volume 98.7 fL (80.0-98.0); NRBC Abs Auto 0.000 X10*3/uL (0.0-0.012); NRBC Pct Auto 0.0 /100WBC (0.0-0.2); Platelet Count 369 X10*3/uL (160-400); Red Blood Count 3.72 X10*6/uL (4.20-5.50); White Blood Count 10.2 X10*3/uL (4.8-10.8)
[2025-02-18 14:22] LABS: Alanine Aminotransferase 24 U/L (0-31); Albumin Level 4.1 g/dL (3.5-5.0); Alkaline Phosphatase 142 U/L (39-117); Anion Gap 11 (12-20); Aspartate Amino Transferase 23 U/L (5-31); Blood Urea Nitrogen 13 mg/dL (9-16); Calcium 8.8 mg/dL (8.4-10.2); Carbon Dioxide 29 mmol/L (22-29); Chloride 107 mmol/L (96-108); Estimated Glomerular Filt Rate > 60; Potassium 3.9 mmol/L (3.3-5.1); Sodium 143 mmol/L (135-145); Total Protein 7.0 g/dL (6.5-8.0)
--- OUTSIDE RECORDS SUMMARY | 2025-02-18 17:13 | XMS_ITS | Clinical Summary ---
Author Organization [facility] Address [address] [place] [phone] Phone Care Team Providers Care Complaint Supervisor Name Role Phone Pcp, Not Required Primary [...] ACO ACO ACO ACO ACO Care Teams Complaint Supervisor Relationship Specialty Start Date End Date Pcp, Not Required [address] [place] [id number] PCP - General 09/29/19 Additional Source Comments The information contained in this document represents components of the legal health record. It is not the complete legal health record.[facility]
--- OUTSIDE RECORDS SUMMARY | 2025-02-18 17:13 | XMS_ITS | Clinical Summary ---
Author Organization [facility] Address [address] [place] [address] Care Team Providers Care Regulatory Scientist Name Role Phone Mahogany Rios DMD Primary Care Provider [phone] Source Comments PLEASE NOTE, if this patient [...] Cervical Cancer Screening 2006 Pap Smear 2006 Imm-HPV (1 - 3-dose SCDM series) 2012 Hypertension Screening (#1) 03/04/2023 Alcohol and Drug Screen 06/05/2024 Depression Annual Screen 06/05/2024 [id number] ( season) 2025 Imm-Influenza (#1) 2025 Cervical Ablation/Cold-Knife Conization Discontinued Cervical Cryotherapy Discontinued Colposcopy Discontinued Endometrial Biopsy Discontinued Excision/Leep Discontinued HPV Genotyping Discontinued Vaginal Pap Discontinued Vulvoscopy Discontinued Insurance [facility] DENTAL Care Teams Regulatory Scientist Relationship Specialty Start Date End Date Mahogany Rios DMD [address] [place] [address] PCP - General 02/14/19
== END 2025-02-18 13:18 | disposition home or self-care (01) ==
LOC: HO.LAB 13:17
PROVIDERS: PCP Internal Medicine; Visit Provider Student in an Organized Health Care Education/Training Program
DX: M06.9 Rheumatoid arthritis, unspecified (principal)
CPT/HCPCS: 36415; 80053; 85025; 85652; 86140

== ENCOUNTER 2025-02-21 12:26 | Outpatient (AMB) | payer OTHER, SELFPAY ==
--- OUTSIDE RECORDS SUMMARY | 2025-02-21 12:29 | XMS_ITS | Clinical Summary ---
Author Organization [facility] Address [address] [place] [address] Care Team Providers Care Tubing Mill Setter Name Role Phone Mahogany Rios DMD Primary Care Provider [phone] Source Comments PLEASE NOTE, if this patient [...] Drug Screen 06/05/2024 Depression Annual Screen 06/05/2024 [id number] ( season) 2025 Imm-Influenza (#1) 2025 Cervical Ablation/Cold-Knife Conization Discontinued Cervical Cryotherapy Discontinued Colposcopy Discontinued Endometrial Biopsy Discontinued Excision/Leep Discontinued HPV Genotyping Discontinued Vaginal Pap Discontinued Vulvoscopy Discontinued Insurance [facility] NET DENTAL Care Teams Tubing Mill Setter Relationship Specialty Start Date End Date Mahogany Rios DMD [address] [place] [address] PCP - General 02/14/19
--- OUTSIDE RECORDS SUMMARY | 2025-02-21 12:29 | XMS_ITS | Clinical Summary ---
Author Organization [facility] Address [address] [place] [phone] Phone Care Team Providers Care Public Space Attendant Name Role Phone Pcp, Not Required Primary [...] ACO ACO ACO ACO ACO Care Teams Public Space Attendant Relationship Specialty Start Date End Date Pcp, Not Required [address] [place] [id number] PCP - General 09/29/19 Additional Source Comments The information contained in this document represents components of the legal health record. It is not the complete legal health record.[facility]
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
[2025-02-21 12:35] VITALS: BP 110/74; PULSE 80; TEMP 36.8; O2SAT 94; BMI 29.8
== END 2025-02-21 12:55 | disposition home or self-care (01) ==
LOC: HO.HMCC 12:27
PROVIDERS: PCP Internal Medicine; Visit Provider Internal Medicine
DX: S63.592A Other specified sprain of left wrist, initial encounter (principal); M65.4 Radial styloid tenosynovitis [de Quervain]

== ENCOUNTER → 2025-02-21 12:26 | Outpatient (BNVA) | payer OTHER, SELFPAY | PROVIDERS: PCP Internal Medicine; Visit Provider Internal Medicine | DX: S63.592D Other specified sprain of left wrist, subsequent encounter (principal); S90.211D Contusion of right great toe with damage to nail, subsequent encounter; M65.4 Radial styloid tenosynovitis [de Quervain]; J45.909 Unspecified asthma, uncomplicated; X58.XXXD Exposure to other specified factors, subsequent encounter; Z87.891 Personal history of nicotine dependence | CPT/HCPCS: 99212 ==

== ENCOUNTER 2025-04-11 13:22 | Outpatient (AMB) | payer OTHER, SELFPAY ==
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
[2025-04-11 13:48] VITALS: BP 118/70; PULSE 84; O2SAT 95; BMI 29.6
--- OUTSIDE RECORDS SUMMARY | 2025-04-11 15:29 | XMS_ITS | Clinical Summary ---
Author Organization [facility] Address [address] [place] [id number] Phone Care Team Providers Care Compliance Officer Name Role Phone Pcp, Not Required Primary [...] ACO ACO ACO ACO ACO Care Teams Compliance Officer Relationship Specialty Start Date End Date Pcp, Not Required [address] [place] [id number] PCP - General 09/29/19 Additional Source Comments The information contained in this document represents components of the legal health record. It is not the complete legal health record.[facility]
== END 2025-04-11 14:26 | disposition home or self-care (01) ==
LOC: HO.RHES 13:23
PROVIDERS: PCP Internal Medicine; Visit Provider Student in an Organized Health Care Education/Training Program
DX: M06.9 Rheumatoid arthritis, unspecified (principal); M85.89 Other specified disorders of bone density and structure, multiple sites; Z79.631 Long term (current) use of antimetabolite agent; Z79.622 Long term (current) use of Janus kinase inhibitor
CPT/HCPCS: 99214

== ENCOUNTER 2025-04-11 13:22 | Outpatient (REF) | payer OTHER, SELFPAY ==
--- OUTSIDE RECORDS SUMMARY | 2025-04-11 16:06 | XMS_ITS | Clinical Summary ---
Author Organization [facility] Address [address] [place] [address] Care Team Providers Care Skill Labor Name Role Phone Mahogany Rios DMD Primary [...] Mass Index - - Plan of Treatment Not on file Insurance [facility] Member Subscriber Plan / Payer (Ef fective 2013-Present) Name:Sofya West Relation to Subscriber:Self Name:Sofya West Payer ID:[id number] Group ID:Not on file Type:Medicaid Address: [place] [id number] REPLACED BY [facility] [id number] Care Teams Skill Labor Relationship Specialty Start Date End Date Mahogany Rios DMD [address] [place] [address] PCP - General 02/14/19
[2025-04-11 17:53] LABS: MANUAL DIFF FLAG NO
[2025-04-11 18:29] LABS: Alanine Aminotransferase 22 U/L (0-31); Albumin Level 4.5 g/dL (3.5-5.0); Alkaline Phosphatase 107 U/L (39-117); Anion Gap 11 (12-20); Aspartate Amino Transferase 27 U/L (5-31); Blood Urea Nitrogen 12 mg/dL (9-16); Calcium 9.5 mg/dL (8.4-10.2); Carbon Dioxide 29 mmol/L (22-29); Chloride 104 mmol/L (96-108); Estimated Glomerular Filt Rate > 60; Iron 94 mcg/dL (30-160); Percent Iron Saturation 36 % (15-50); Potassium 4.4 mmol/L (3.3-5.1); Sodium 140 mmol/L (135-145); Total Iron Binding Capacity 259 mcg/dL (228-428); Total Protein 7.7 g/dL (6.5-8.0); Unsaturated Iron Binding 165 ug/dL
[2025-04-11 18:30] LABS: Hematocrit 41.2 % (37.0-47.0); Hemoglobin 13.3 g/dl (12.0-16.0); Imm Gran Abs Auto 0.03 X10*3/uL (0.00-0.03); Imm Gran Pct Auto 0.3 % (0.0-0.4); Lymphocytes Absolute Auto 3.0 X10*3/uL (1.2-4.9); Mean Corpuscular HGB Conc 32.3 g/dl (31.0-35.0); Mean Corpuscular Hemoglobin 32.1 pg (27.0-33.0); Mean Corpuscular Volume 99.5 fL (80.0-98.0); NRBC Abs Auto 0.000 X10*3/uL (0.0-0.012); NRBC Pct Auto 0.0 /100WBC (0.0-0.2); Platelet Count 313 X10*3/uL (160-400); Red Blood Count 4.14 X10*6/uL (4.20-5.50); Reticulocytes Absolute 0.083 X10*6/uL (0.026-0.095); White Blood Count 9.6 X10*3/uL (4.8-10.8)
[2025-04-11 18:52] LABS: Ferritin 246 ng/mL (10-122)
[2025-04-14 15:23] LABS: Transferrin 235 mg/dL (188-341)
== END 2025-04-11 13:23 | disposition home or self-care (01) ==
LOC: HO.HKASLDS 13:22
PROVIDERS: PCP Internal Medicine; Visit Provider Student in an Organized Health Care Education/Training Program
DX: M06.9 Rheumatoid arthritis, unspecified (principal); M85.89 Other specified disorders of bone density and structure, multiple sites; D50.9 Iron deficiency anemia, unspecified; Z79.631 Long term (current) use of antimetabolite agent; Z79.622 Long term (current) use of Janus kinase inhibitor; Z79.899 Other long term (current) drug therapy
CPT/HCPCS: 36415; 80053; 82728; 83540; 84466; 85025; 85045; 85652; 86140; 99212